=== PATIENT | female | born 1950 | race Caucasian/White ===

== ENCOUNTER → 2018-03-16 11:17 | Outpatient (CLI) | payer MEDICARE, OTHER, SELFPAY ==
[2018-03-16 13:11] LABS: PTHIN 31.8 pg/mL (18.4-80.1); Vitamin D,25 Hydroxy 33.4 ng/mL (29.95-100.01)
[2018-03-16 13:31] LABS: AST(SGOT) 21 U/L (15-37); Alanine Aminotransfer ALT/SGPT 24 U/L (13-56); Albumin, Serum 3.8 g/dL (3.2-5.0); Alkaline Phosphatase 71 U/L (45-117); Anion Gap 6 (5-15); BUN 22 mg/dL (7-18); BUN/Creat Ratio 37.1 RATIO (10-20); Calcium,Total 8.9 mg/dL (8.5-10.1); Chloride 106 mmol/L (98-107); Creatinine, Serum 0.59 mg/dL (0.55-1.02); EST Glomerular Filtration Rate 108 mL/min (>60); Est Glom Filt Rate - Afr Amer 130 mL/min (>60); Globulin 3.7 g/dL (2.2-4.2); Glucose 80 mg/dL (74-106); Magnesium 2.2 mg/dL (1.6-2.6); Potassium 3.8 mmol/L (3.5-5.1); Protein, Total 7.5 g/dL (6.4-8.2); Sodium Level 140 mmol/L (136-145)
[2018-03-19 16:10] LABS: Alkaline Phosphatase, Serum 68 IU/L (39-117); Bone Fraction 36 % (14-68); Liver Fraction 63 % (18-85)
[2018-03-20 12:25] LABS: Intestinal Fraction 1 % (0-18)
== END ==
PROVIDERS: Family Provider Family Medicine; PCP Family Medicine; Visit Provider Family Medicine
DX: E16.2 Hypoglycemia, unspecified (principal); R25.2 Cramp and spasm; E55.9 Vitamin D deficiency, unspecified; E04.2 Nontoxic multinodular goiter; M89.50 Osteolysis, unspecified site; R93.0 Abnormal findings on diagnostic imaging of skull and head, not elsewhere classified
CPT/HCPCS: 36415; 80053; 82306; 83735; 83970; 84075; 84080

== ENCOUNTER → 2018-12-17 14:05 | Outpatient (CLI) | payer MEDICARE, OTHER, SELFPAY ==
[2018-11-19 08:14] VITALS: BMI 27.9
[2018-12-17 15:32] LABS: Absolute Lymphocyte Count 1.57 X10^3/ul (0.83-4.51); Absolute Neutrophil Count 2.8 X10^3/uL (2.0-7.7); Basophil# 0.01 X10^3/uL; Basophil% 0.2 % (0-1); Eosinophil# 0.08 X10^3/uL; Eosinophils% 1.6 % (0-5); Hemoglobin 12.6 g/dl (12.0-15.0); Lymphocyte # 1.57 X10^3/ul (4.0); Lymphocyte % 31.8 % (19-41); Mean Corp Hgb Conc 32.3 g/gl (32-36); Mean Corpuscular Hgb 30.2 pg (27.0-32.0); Mean Corpuscular Volume 93.5 fL (81-99); Mean Platelet Vol. 11.9 fl (6.2-12.0); Monocyte# 0.45 X10^3/uL; Monocyte% 9.1 % (0-10); Neutrophil # 2.83 X10^3/uL (2.7-7.7); Neutrophil % 57.3 % (47-70); Platelet Count 192 K/mm3 (150-450); RBC Distribution Width CV 13.2 % (11.6-14.6); RBC Distribution Width SD 43.7 fl (35.1-43.9); Red Blood Count 4.17 M/mm3 (4.2-5.4); White Blood Count 4.9 K/mm3 (4.4-11.0)
[2018-12-17 15:33] LABS: POSITIVE COUNT NO; POSITIVE DIFFERENTIAL NO; POSITIVE MORPHOLOGY NO
[2018-12-17 16:06] LABS: Hemoglobin A1c 5.3 % (4.2-6.3)
[2018-12-17 16:09] LABS: PTHIN 30.8 pg/mL (18.4-80.1); Vitamin D,25 Hydroxy 19.5 ng/mL (29.95-100.01)
[2018-12-17 16:12] LABS: Cholesterol 236 mg/dL (200); High Density Lipoprotein 69 mg/dL; Thyroid Stim Hormone (TSH) 2.28 uIU/mL (0.358-3.74); Triglycerides 162 mg/dL; Very Low Density Lipoprotein 32 mg/dL (5-40)
[2018-12-18 10:43] LABS: ALB/GLOB Ratio 1.1 RATIO (0.9-2.4); AST(SGOT) 24 U/L (15-37); Alanine Aminotransfer ALT/SGPT 36 U/L (13-56); Alkaline Phosphatase 71 U/L (45-117); Anion Gap 11 (5-15); BUN 23 mg/dL (7-18); BUN/Creat Ratio 40.3 RATIO (10-20); Calcium,Total 9.2 mg/dL (8.5-10.1); Chloride 105 mmol/L (98-107); Creatinine, Serum 0.57 mg/dL (0.55-1.02); EST Glomerular Filtration Rate 112 mL/min (>60); Est Glom Filt Rate - Afr Amer 136 mL/min (>60); Globulin 3.8 g/dL (2.2-4.2); Glucose 83 mg/dL (74-106); Protein, Total 7.8 g/dL (6.4-8.2); Sodium Level 141 mmol/L (136-145)
[2018-12-20 16:07] LABS: Alkaline Phosphatase, Serum 69 IU/L (39-117); Bone Fraction 43 % (14-68); Liver Fraction 57 % (18-85)
[2018-12-21 12:22] LABS: Intestinal Fraction 0 % (0-18)
== END ==
PROVIDERS: Family Provider Family Medicine; PCP Family Medicine; Visit Provider Family Medicine
DX: M89.50 Osteolysis, unspecified site (principal); E04.2 Nontoxic multinodular goiter; E16.2 Hypoglycemia, unspecified; E55.9 Vitamin D deficiency, unspecified; E88.9 Metabolic disorder, unspecified; M90.80 Osteopathy in diseases classified elsewhere, unspecified site
CPT/HCPCS: 36415; 80053; 80061; 82306; 83036; 83970; 84075; 84080; 84439; 84443; 85025

== ENCOUNTER → 2019-01-17 07:54 | Outpatient (CLI) | payer MEDICARE, OTHER, SELFPAY ==
[2018-11-19 08:14] VITALS: BMI 27.9
[2019-01-17 09:57] LABS: Absolute Lymphocyte Count 1.23 X10^3/ul (0.83-4.51); Absolute Neutrophil Count 2.1 X10^3/uL (2.0-7.7); Basophil# 0.01 X10^3/uL; Basophil% 0.3 % (0-1); Eosinophil# 0.07 X10^3/uL; Eosinophils% 1.9 % (0-5); Hematocrit 39.9 % (37-47); Hemoglobin 12.5 g/dl (12.0-15.0); Lymphocyte # 1.23 X10^3/ul (4.0); Lymphocyte % 32.7 % (19-41); Mean Corp Hgb Conc 31.3 g/gl (32-36); Mean Corpuscular Hgb 29.6 pg (27.0-32.0); Mean Corpuscular Volume 94.5 fL (81-99); Mean Platelet Vol. 11.3 fl (6.2-12.0); Monocyte# 0.38 X10^3/uL; Monocyte% 10.1 % (0-10); Neutrophil # 2.07 X10^3/uL (2.7-7.7); Platelet Count 190 K/mm3 (150-450); RBC Distribution Width CV 13.4 % (11.6-14.6); RBC Distribution Width SD 44.4 fl (35.1-43.9); Red Blood Count 4.22 M/mm3 (4.2-5.4); White Blood Count 3.8 K/mm3 (4.4-11.0)
[2019-01-17 09:59] LABS: POSITIVE COUNT NO; POSITIVE DIFFERENTIAL NO; POSITIVE MORPHOLOGY NO
[2019-01-17 10:15] LABS: Progesterone Level 0.12 ng/mL (See Comment); Vitamin B12 796 pg/mL (211-911); Vitamin D,25 Hydroxy 27.9 ng/mL (29.95-100.01)
[2019-01-17 10:47] LABS: ALB/GLOB Ratio 1.1 RATIO (0.9-2.4); AST(SGOT) 24 U/L (15-37); Alanine Aminotransfer ALT/SGPT 35 U/L (13-56); Albumin, Serum 3.7 g/dL (3.2-5.0); Alkaline Phosphatase 65 U/L (45-117); Anion Gap 4 (5-15); BUN 15 mg/dL (7-18); CRP < 2.90 mg/L (0.0-3.0); Calcium,Total 8.5 mg/dL (8.5-10.1); Chloride 109 mmol/L (98-107); EST Glomerular Filtration Rate 106 mL/min (>60); Est Glom Filt Rate - Afr Amer 128 mL/min (>60); Estradiol 14.6 pg/mL; Free T3 2.8 pg/mL (2.18-3.98); Globulin 3.5 g/dL (2.2-4.2); Glucose 79 mg/dL (74-106); Potassium 3.7 mmol/L (3.5-5.1); Protein, Total 7.2 g/dL (6.4-8.2); Sodium Level 140 mmol/L (136-145); T4 Free Direct 0.92 ng/dL (0.76-1.46); Thyroid Stim Hormone (TSH) 1.83 uIU/mL (0.358-3.74)
[2019-01-18 11:23] LABS: Thyroid Peroxidase AB 14 IU/mL (0-34)
[2019-01-19 16:54] LABS: ANTINUCLEAR ANTIBODIES DIRECT Negative (Negative)
== END ==
PROVIDERS: Family Provider Family Medicine; PCP Family Medicine; Referring Provider Preventive Medicine Public Health & General Preventive Medicine; Visit Provider Preventive Medicine Public Health & General Preventive Medicine
DX: M79.7 Fibromyalgia (principal); D64.9 Anemia, unspecified; E03.9 Hypothyroidism, unspecified; E34.9 Endocrine disorder, unspecified; N95.1 Menopausal and female climacteric states; E55.9 Vitamin D deficiency, unspecified; E53.8 Deficiency of other specified B group vitamins
CPT/HCPCS: 36415; 80053; 82306; 82607; 82670; 82746; 84144; 84403; 84439; 84443; 84481; 85025; 86038; 86140; 86376

== ENCOUNTER 2019-04-18 21:21 | Observation (INO) | payer MEDICARE, OTHER, SELFPAY ==
[2018-11-19 08:14] VITALS: BMI 27.9
[2019-04-18 21:22] VITALS: BP 116/48; PULSE 78; RESP 16; TEMP 36.5; O2SAT 100; BMI 27.0
--- NOTE | 2019-04-18 21:34 | CT_ITS ---
STUDY: CT ABDOMEN AND PELVIS WITHOUT CONTRAST REASON FOR EXAM: Female, 68 years old. Upper lower abdominal pain with nausea. History of hysterectomy. RADIATION DOSAGE (If Supplied By Facility): CTDIvol = ( 15.75 ) mGy, DLP = ( 790.79 ) mGycm TECHNIQUE: Transaxial images were obtained from the dome of the diaphragm to the symphysis pubis without oral contrast, and without intravenous contrast. Sagittal and coronal images were reconstructed. Individualized dose optimization techniques were used for this CT. COMPARISON: None. FINDINGS: The visualized lung bases are unremarkable. The visualized portions of the heart are within normal limits. Normal liver. Normal gallbladder and extrahepatic biliary system. Normal spleen. Normal pancreas. Normal bilateral adrenal glands. There is a exophytic lesion of the right kidney concerning for cortical lesion versus hyperdense cyst measuring approximately 1.6 cm as seen on series 2 image 35. Additional hypodense cyst of the inferior left medial kidney is noted measuring 1 cm. There is dilatation of the stomach, duodenum and jejunum extending to the mid abdomen. Within the mid jejunal section is a long region of small bowel dilatation dilatation with small bowel feces sign which terminates within the right quadrant which is most suggestive of underlying progressively developing obstruction and slowed intestinal transit. Normal colon. There is non-visualization of the appendix. Normal abdominal aorta. Normal inferior vena cava. Normal retroperitoneum. Normal urinary bladder. There is absence of the uterus consistent with a prior hysterectomy. Normal abdominal wall. Normal osseous structures. CT/Abdomen/Pelvis without Cont IMPRESSION: 1. Dilated stomach, duodenum and proximal small bowel with associated small bowel feces sign terminating within the right mid quadrant and likely transition point which is suggestive of low-grade small bowel obstruction and progressively slow transit. Recommend general surgery consultation for further assessment and management. 2. Exophytic lesion of the right medial kidney suggestive of hyperdense cyst however incompletely characterized. Further evaluation may be obtained with dedicated pelvic ultrasound as clinically warranted. Electronically Signed: Bharath Elise DO at 22:35 EDT , Service support ,
[2019-04-18] MEDS: 0.9% Normal Saline 1,000 ML 1000 ML IV (21:44)
[2019-04-18] MEDS: Ondansetron 4 MG/2 ML Vial IV (21:44)
[2019-04-18] MEDS: Morphine 2 MG/ML Syringe IV (21:44)
[2019-04-18 21:47] LABS: Absolute Lymphocyte Count 1.31 X10^3/ul (0.83-4.51); Absolute Neutrophil Count 3.4 X10^3/uL (2.0-7.7); Basophil# 0.01 X10^3/uL; Basophil% 0.2 % (0-1); Eosinophil# 0.05 X10^3/uL; Hematocrit 40.7 % (37-47); Hemoglobin 13.7 g/dl (12.0-15.0); Lymphocyte # 1.31 X10^3/ul (4.0); Lymphocyte % 25.2 % (19-41); Mean Corp Hgb Conc 33.7 g/gl (32-36); Mean Corpuscular Hgb 30.2 pg (27.0-32.0); Mean Corpuscular Volume 89.6 fL (81-99); Mean Platelet Vol. 10.4 fl (6.2-12.0); Monocyte# 0.42 X10^3/uL; Monocyte% 8.1 % (0-10); Neutrophil % 65.5 % (47-70); POSITIVE COUNT NO; POSITIVE DIFFERENTIAL NO; POSITIVE MORPHOLOGY NO; Platelet Count 204 K/mm3 (150-450); RBC Distribution Width SD 42.5 fl (35.1-43.9); Red Blood Count 4.54 M/mm3 (4.2-5.4); White Blood Count 5.2 K/mm3 (4.4-11.0)
[2019-04-18 22:00] LABS: AST(SGOT) 23 U/L (15-37); Alanine Aminotransfer ALT/SGPT 24 U/L (13-56); Albumin, Serum 4.3 g/dL (3.2-5.0); Alkaline Phosphatase 151 U/L (45-117); Anion Gap 7 (5-15); BUN 16 mg/dL (7-18); BUN/Creat Ratio 20.3 RATIO (10-20); Calcium,Total 9.6 mg/dL (8.5-10.1); Chloride 102 mmol/L (98-107); Creatinine, Serum 0.79 mg/dL (0.55-1.02); EST Glomerular Filtration Rate 77 mL/min (>60); Est Glom Filt Rate - Afr Amer 94 mL/min (>60); Estimated Creatinine Clearance 53.09 ml/min; Globulin 4.1 g/dL (2.2-4.2); Glucose 107 mg/dL (74-106); Lipase 161 U/L (73-393); Potassium 3.3 mmol/L (3.5-5.1); Protein, Total 8.4 g/dL (6.4-8.2); Sodium Level 137 mmol/L (136-145)
--- NOTE | 2019-04-18 22:05 | ED.RN ---
PT C/O INCREASED PAIN. WILL NOTIFIED DR DIANE
[2019-04-18] MEDS: Morphine 4 MG/ML Syringe IV (22:10)
[2019-04-18 22:11] VITALS: BP 108/66; PULSE 79; RESP 22; O2SAT 98
--- NOTE | 2019-04-18 22:48 | ED.DCSUM_ITS ---
- ER Visit Summary Date of Service: 04/18/19 Chief Complaint: Abdominal pain History of Present Illness: The patient is a [address] Alonso. She reports she has abdominal pain that began yesterday. Is gradually gotten worse. Says sharp, cramping pain that is 9 out of 10 at worst and 7-10 currently. Is worsened by eating. Is relieved by vomiting. Reports she has been nausea and vomited 4 times. No blood or emesis. She reports her last bowel movement was today, but was very small. She has normal bowel movement yesterday. However, she is not passing flatus. She denies any dysuria frequency. No fever or chills. She has never had anything like this before. Patient does have a history of a hysterectomy, rectocele repair, and uterine suspension. Physical Examination: Vitals: Stable. Afebrile. General: Well-nourished and well-developed. Head: Normocephalic atraumatic. Neck: Supple, no lymphadenopathy. No JVD. Nontender. Cardiovascular: Regular rate and rhythm. No murmurs. Respiratory: No respiratory distress. Clear to auscultation bilaterally. Abdominal: Soft, mild diffuse tenderness palpation, nondistended, hypoactive bowel sounds. No guarding, rebound, or peritoneal signs. Back: Nontender. Extremities: Nontender, no edema. Skin: Normal color, no rash. Neurologic: Alert and oriented ?3. Cranial nerves II through XII are intact. Normal strength and sensation. Psych: Normal affect. Test Results: CBC is normal. Chem-7 shows a potassium 3.3 and glucose 107. LFTs showed a total protein of 8.4 and alk phos 151. Lipase is negative. Clinical Impression(s) from Imaging Studies Abdomen/Pelvis CT 04/18/19 21:34 IMPRESSION: 1. Dilated stomach, duodenum and proximal small bowel with associated small bowel feces sign terminating within the right mid quadrant and likely transition point which is suggestive of low-grade small bowel obstruction and progressively slow transit. Recommend general surgery consultation for further assessment and management. 2. Exophytic lesion of the right medial kidney suggestive of hyperdense cyst however incompletely characterized. Further evaluation may be obtained with dedicated pelvic ultrasound as clinically warranted. Electronically Signed: Bharath Elise DO at 22:35 EDT , Service support , Emergency Department Course and Treatment: Patient was treated with morphine and Zofran IV. She was given a 4% lidocaine aerosol and had an NG placed without difficulty. Treatment Plan: Patient was discussed with Dr. Patino. She will be admitted to the hospital for further relation and treatment. Disposition: Admitted in improved condition. Impression: 1. Small bowel obstruction. This note was generated with [employer] dictation software. It may contain incorrect words, spelling, and punctuation that were not noted in review of the chart judd or to signing ED Disposition - Plan for ED Patient: Referrals: Tom Alonso DO [Primary Care Provider] -
--- NOTE | 2019-04-18 22:57 | RAD_ITS ---
STUDY: X-RAY - ABDOMEN/PELVIS REASON FOR EXAM: Female, 69 years old. Documentation of nasogastric tube placement. TECHNIQUE: Single AP view of the abdomen / pelvis. COMPARISON: CT of the abdomen and pelvis dated April 18, 2019. FINDINGS: Normal visualized lung bases. There is an unremarkable bowel gas pattern. Enteric tube is present with the tip in the left upper quadrant. There is no obvious organomegaly, mass or dilated bowel. Normal soft tissue structures. The bones appear osteopenic. RAD/Abdomen Single View (Portable) IMPRESSION: Appropriate positioning of the nasogastric tube. Electronically Signed: Amber Bethea MD at 1:10 EDT , Service support ,
[2019-04-18] MEDS: Lidocaine 4% 50 ML Bottle TOPICAL (23:18)
[2019-04-18 23:24] LABS: Bacteria 0 SEEN /hpf (None Seen); Mucous, Urine 0 SEEN /hpf (<or=2+); Red Blood Cells-Urine 0 SEEN /hpf (0-5); White Blood Cells 0 SEEN /hpf (0-5)
--- NOTE | 2019-04-18 23:25 | CPS ---
Aerosolized Lidocaine for NG placement
[2019-04-18 23:26] LABS: Color, Urine Yellow (Yellow); Glucose, Dipstick Normal (Normal); Ketone-Dipstick 50 mg/dl (Negative); Leukocyte Esterase-Dipstick Negative /ul (Negative); Nitrite-Dipstick Negative (Negative); Occult Blood-Urine Negative /ul (Negative); Protein-Dipstick Negative (Negative); Urine Bilirubin Dipstick Negative (Negative); Urine Clarity Sl. Cloudy (Clear); Urine Urobilinogen Normal (Normal)
[2019-04-18 23:27] VITALS: BP 122/59; PULSE 59; RESP 18; TEMP 36.9; O2SAT 98
[2019-04-18 23:32] LABS: Squamous Epithelial Cells - UA 5-10 SEEN /hpf (5-10)
[2019-04-19 00:52] VITALS: BMI 26.7
[2019-04-19 00:54] VITALS: BP 121/65; PULSE 88; RESP 17; TEMP 37; O2SAT 95
[2019-04-19 00:59] VITALS: BMI 26.8
[2019-04-19] MEDS: Lactated Ringers 1,000 ML 150 ML IV ×2 (01:06→07:25)
[2019-04-19] MEDS: Potassium Chloride 10mEq/100mL 10 MEQ/100 ML IV.SOLN. 100 MEQ IV BOLUS ×2 (01:20→02:24)
[2019-04-19 04:15] VITALS: BP 114/55; PULSE 89; RESP 17; TEMP 37.9; O2SAT 95
--- NOTE | 2019-04-19 05:55 | RAD_ITS ---
STUDY: X-RAY - ABDOMEN/PELVIS REASON FOR EXAM: Female, 69 years old. Pain. Small bowel obstruction. TECHNIQUE: AP supine and upright views of the abdomen and pelvis. COMPARISON: April 18, 2019 FINDINGS: Normal visualized lung bases. Feeding tube extends to the stomach in the left upper quadrant. There is an unremarkable bowel gas pattern. No dilated loops of bowel. Moderate stool. There is no demonstrated free abdominal air. The visualized liver, spleen and kidneys are grossly normal in size and morphology. Postoperative changes in the lower abdomen. Normal visualized osseous structures. RAD/Abd Inc Decub and/or Erect IMPRESSION: No dilated bowel. Electronically Signed: David Fisher MD at 12:51 EDT , Service support ,
[2019-04-19 05:58] VITALS: TEMP 38.2
--- NOTE | 2019-04-19 06:21 | PCM.HP.STD ---
History of Present Illness Date of Admission: 04/19/19 The patient is a 69 year old F presents to the ER due to abdominal pain. Patient states she initially had the pain on Monday afternoon got worse by the evening had some nausea and vomiting which made it better patient yesterday was able to have late lunch and breakfast however by the evening the pain got to a 9?10/10 and she came to the ER. Patient states yesterday she had a small bowel movement she denies having any flatus recently. Patient denies ever having a history of a bowel obstruction. Currently patient states her pain 0 out of 10. Patient did have NG placed in the ER which got about 800cc out and she had additional 150cc on the floor. Patient did have a fever of 100.2 and 100.8 this morning however patient's room was also 80 and she had a blanket on. Past Medical History Medical History: Medical History (Last Reviewed 11/19/18 @ 08:13 by Yoly Quintanilla) Abnormal Pap smear of cervix R87.619 Abnormal thermography R93.89 Thyroid nodule E04.1 Benign Allergies azithromycin [From Zithromax Z-Rasheed] Allergy (Mild, Verified 04/18/19 21:24) heart racing levofloxacin [From Levaquin] Allergy (Mild, Verified 04/18/19 21:24) muscle pain, heart racing amantadine Allergy (Verified 04/18/19 21:24) Other cortisone Allergy (Verified 04/18/19 21:24) Other fluoxetine HCl [From Prozac] Allergy (Verified 04/18/19 21:24) Other Home Medications: Ambulatory Orders Medication Instructions Recorded Calcium Carbonate/Vitamin D3 1 ea PO DAILY 04/27/15 [Calcium 600 + Vit D3 Caplet] Multivitamins,Ther W-Minerals 1 tab PO DAILY 04/27/15 [Multivitamin With Minerals] Magnesium Oxide [Magnesium] 800 mg PO DAILY 04/19/19 Surgical History: Surgical History (Last Updated 11/19/18 @ 08:13 by Yoly Quintanilla) Rectocele Onset Date: ~2017 N81.6 FH: BETHEL-BSO (total abdominal hysterectomy and bilateral salpingo-oophorectomy) Onset Date: ~1989 Z84.2 Vaginal prolapse N81.10 repaired 2016 Surgical History: hysterectomy, - - rectocele repair, and uterine suspension Psychiatric History: No pertinent psych hx Smoking Status: Never smoker - *Family History Maternal Family History: Family History (Last Reviewed 11/19/18 @ 08:13 by Yoly Quintanilla) Father Cancer Grandmother Heart disease Grandfather Colon cancer History Items: No pertinent history Review of Systems Constitutional: Reports: Anorexia, Fever - Just this morning question if it is due to room temperature and blanket or something else Eyes: Denies: Blurred vision HEENT: Denies: Difficulty Swallowing Cardiovascular: Denies: Chest Pain Respiratory: Denies: Cough Gastrointestinal: Denies: Abdominal Pain - Denies currently, Nausea, Vomiting Neurological: Denies: Balance problems Psychiatric: Denies: Depression Hematologic/ Lymphatic: Denies: Easy Bleeding VTE Information - Inpt Only VTE Present on Admission: Yes VTE Mechan Device Prophylaxis: SCD's - Physical Exam General: Alert, Oriented x3, Cooperative, No apparent distress HEENT: - - NG in place Lungs: Normal air movement Cardiovascular: Regular rate Abdomen: Soft, Non-Distended, Tender - Mild in the right lower quadrant, no peritoneal signs Extremities: No clubbing, No cyanosis, No edema Psych/Mental Status: Normal Affect Vital Signs Temp Pulse Resp BP Pulse Ox 100.8 F H 89 17 114/55 L 95 04/19/19 05:58 04/19/19 04:15 04/19/19 04:15 04/19/19 04:15 04/19/19 04:15 Oxygen Delivery Method Room Air Weight: 170 lb 13.732 oz Body Mass Index (BMI) 26.7 Intake and Output for Last 24 Hours 04/17/19 04/18/19 04/19/19 23:59 23:59 23:59 Intake Total 697 / 697 Output Total 1100 / 1100 Balance -403 / -403 Laboratory Tests Past 24 Hrs 04/18/19 04/18/19 04/18/19 21:40 21:40 23:17 WBC 5.2 RBC 4.54 Hgb 13.7 Hct 40.7 MCV 89.6 MCH 30.2 MCHC 33.7 RDW 13.0 RDW Differential 42.5 Plt Count 204 MPV 10.4 Immature Gran % (Auto) 0.000 Neut % (Auto) 65.5 Lymph % (Auto) 25.2 [place] % (Auto) 8.1 Eos % (Auto) 1.0 Baso % (Auto) 0.2 Absolute Neuts (auto) 3.4 Absolute Lymphs (auto) 1.31 Total Counted Not Reportable Sodium 137 Potassium 3.3 L Chloride 102 Carbon Dioxide 28.0 Anion Gap 7 BUN 16 Creatinine 0.79 Estim Creat Clear Calc 53.09 Est GFR (MDRD) Af Amer 94 Est GFR (MDRD) Non-Af 77 BUN/Creatinine Ratio 20.3 H Glucose 107 H Calcium 9.6 Total Bilirubin 0.60 AST 23 ALT 24 Alkaline Phosphatase 151 H Total Protein 8.4 H Albumin 4.3 Globulin 4.1 Albumin/Globulin Ratio 1.0 Lipase 161 Urine Color Yellow Urine Clarity Sl. Cloudy Urine pH 8.0 Ur Specific [place] 1.010 Urine Protein Negative Urine Glucose (UA) Normal Urine Ketones 50 H Urine Occult Blood Negative Urine Nitrite Negative Urine Bilirubin Negative Urine Urobilinogen Normal Ur Leukocyte Esterase Negative Urine RBC 0 SEEN Urine WBC 0 SEEN Ur Squamous Epith Cells 5-10 SEEN Urine Bacteria 0 SEEN Urine Mucus 0 SEEN Assessment/Plan 69-year-old female with small bowel obstruction 1. Keep patient n.p.o./IV fluids and NG. We will check KUB this morning. Patient states her pain is a 0 out of 10 currently. Likely also check a small bowel follow-through today. Did discuss with patient that if this does not resolve she may need surgery which could include diagnostic laparoscopy, possible laparotomy, possible bowel resection including risk but not limited to bleeding, infection, injury to another organ i.e. colon/small bowel, future adhesions, and hernia at incision site. Patient no further questions this time. 2. Unsure patient's temperature is due to the warm room of 80 degrees with the blanket will try to cool the room down to see if patient's temperature improves. Shante Patino M.D. Pager: [phone] [facility] [address] [place] [address], Outpatient [place], [address] [place] [address] Office: [phone] Code Visit Inpatient E&M: 72980 Init Hosp L2
--- NOTE | 2019-04-19 06:24 | NURSING ---
PT TAKEN TO XRAY VIA BED BY TYRA DELCID
[2019-04-19 06:39] LABS: Absolute Lymphocyte Count 0.63 X10^3/ul (0.83-4.51); Absolute Neutrophil Count 3.7 X10^3/uL (2.0-7.7); Eosinophil# 0.05 X10^3/uL; Hematocrit 38.3 % (37-47); Hemoglobin 12.5 g/dl (12.0-15.0); Lymphocyte # 0.63 X10^3/ul (4.0); Lymphocyte % 13.2 % (19-41); Mean Corp Hgb Conc 32.6 g/gl (32-36); Mean Corpuscular Hgb 29.3 pg (27.0-32.0); Mean Corpuscular Volume 89.9 fL (81-99); Mean Platelet Vol. 10.6 fl (6.2-12.0); Monocyte# 0.45 X10^3/uL; Monocyte% 9.4 % (0-10); Neutrophil # 3.65 X10^3/uL (2.7-7.7); Neutrophil % 76.2 % (47-70); Platelet Count 172 K/mm3 (150-450); RBC Distribution Width CV 13.1 % (11.6-14.6); RBC Distribution Width SD 42.5 fl (35.1-43.9); Red Blood Count 4.26 M/mm3 (4.2-5.4); White Blood Count 4.8 K/mm3 (4.4-11.0)
[2019-04-19 06:46] LABS: POSITIVE COUNT NO; POSITIVE DIFFERENTIAL NO; POSITIVE MORPHOLOGY NO
[2019-04-19 07:09] LABS: Anion Gap 7 (5-15); BUN 16 mg/dL (7-18); BUN/Creat Ratio 24.9 RATIO (10-20); Calcium,Total 8.3 mg/dL (8.5-10.1); Chloride 108 mmol/L (98-107); Creatinine, Serum 0.64 mg/dL (0.55-1.02); EST Glomerular Filtration Rate 98 mL/min (>60); Est Glom Filt Rate - Afr Amer 118 mL/min (>60); Estimated Creatinine Clearance 52.36 ml/min; Glucose 106 mg/dL (74-106); Magnesium 2.1 mg/dL (1.6-2.6); Sodium Level 141 mmol/L (136-145)
[2019-04-19 07:33] VITALS: BP 103/55; PULSE 83; RESP 18; TEMP 37.1; O2SAT 95
--- NOTE | 2019-04-19 08:58 | CASEMGMT ---
As per admitting lidar scientist, pt has LW/POA forms and will bring in, not on file at present. BRIGHT Watts
--- NOTE | 2019-04-19 09:00 | RAD_ITS ---
CLINICAL HISTORY: Female, 69 years old. PROCEDURE: CONSENT: done SEDATION: None FLUOROSCOPY TIME (if supplied): (0:25) minutes/seconds [employer] film reveals no evidence of gaseous distention of. There is elongation of the right lobe of the liver that is reaching the iliac crest. Gastrografin was introduced in through the NG tube multiple abdominal films immediately were obtained then at 15 minutes, 30 minutes, 70 and 85 minutes. There is no evidence of bowel obstruction. Spot films in the right lower quadrant revealed no abnormality detected the contrast noted within the cecum and colon. IMPRESSION: Negative study Electronically Signed: Coy Landry, at 14:30 EDT Tel , Service support , RAD/Small Bowel Series Only
[2019-04-19] MEDS: Bisacodyl 10 MG Suppository RECTAL (10:47)
--- NOTE | 2019-04-19 10:53 | NURSING ---
PT HAS RETURNED FROM X-RAY AND IV RECONNECTED SUPPOSITORY PLACED IN RECTUM INSTRUCTED-PT WILL GET UP TO BR W/ SBA WHEN HAS URGE TO HAVE A B.M. AT BEDSIDE PT REQUESTING N/G TO BE REMOVED AND EXPLAINED TO PT THAT WE DON NOT WNAT TO REMOVE PREMATURELY, WE WILL WANT TO MAKE SURE THAT SHE DOES NOT GET N/V AND THAT THINGS MOVE THRU BETTER THAN THEY HAVE IN PAST 24 HOURS OR SO SHE VOICES UNDERSTANDING
[2019-04-19] MEDS: Magnesium Citrate 300 ML 150 ML PO (11:36)
[2019-04-19] MEDS: BENZOCAINE/MENTHOL 1 LOZENGE MUCOUS MEM (11:36)
--- NOTE | 2019-04-19 12:26 | PCM.PN.BLA ---
Progress Note Patient small bowel follow-through contrast made to the colon. Patient is having no abdominal pain and flatus and bowel movements. Patient able to tolerate regular diet okay to DC.
--- NOTE | 2019-04-19 12:27 | DCINST_ITS ---
Discharge Diet: Light diet - advance as tolerated Lifting Restrictions: none Additional Instructions: Okay to take additional half of magnesium citrate tomorrow if you do not feel like you had a lot of bowel function/bowel movements, since your colon had quite a bit of stool in it. Allergies/Adverse Reactions: Allergies azithromycin [From Zithromax Z-Rasheed] Allergy (Mild, Verified 04/18/19 21:24) heart racing levofloxacin [From Levaquin] Allergy (Mild, Verified 04/18/19 21:24) muscle pain, heart racing amantadine Allergy (Verified 04/18/19 21:24) Other cortisone Allergy (Verified 04/18/19 21:24) Other fluoxetine HCl [From Prozac] Allergy (Verified 04/18/19 21:24) Other Medications to take at Discharge Calcium Carbonate/Vitamin D3 [Calcium 600 + Vit D3 Caplet] 1 ea PO DAILY 04/27/15 Multivitamins,Ther W-Minerals [Multivitamin With Minerals] 1 tab PO DAILY 04/27/15 Magnesium Oxide [Magnesium] 800 mg PO DAILY 04/19/19 Primary Care Physician: Tom Alonso DO [Primary Care Provider] - Test Results: Test results from this visit will be discussed in further detail at your follow- up appointment, if applicable. Please Follow Up With: Shante Patino MD When: only if still having abd pain/issues, otherwise ok to f/u w PCP Proposed Discharge Date: 04/19/19
[2019-04-19 16:01] VITALS: BP 90/55; PULSE 68; RESP 16; TEMP 37; O2SAT 94
== END 2019-04-19 16:31 | disposition home or self-care (01) ==
LOC: ED 22:19 → MS3 04-19 00:14
PROVIDERS: Admitting Provider Surgery; Emergency Provider Emergency Medicine; Family Provider Family Medicine; PCP Family Medicine; Visit Provider Surgery
DX: K56.609 Unspecified intestinal obstruction, unspecified as to partial versus complete obstruction (principal); N28.9 Disorder of kidney and ureter, unspecified
CPT/HCPCS: 36415; 74018; 74019; 74176; 74250; 80048; 80053; 81001; 83690; 83735; 85025; 94640; 96361; 96374; 96375; 96376; 99218; 99285; J7030; J7120; A4216; G0378; J2405; J3490

== ENCOUNTER 2019-04-25 15:14 | Emergency (ER) | payer MEDICARE, OTHER, SELFPAY ==
[2019-04-25 14:15] VITALS: BMI 26.7
[2019-04-25 15:14] VITALS: BP 113/70; PULSE 80; RESP 16; TEMP 36.3; O2SAT 98; BMI 26.4
--- NOTE | 2019-04-25 15:21 | CT_ITS ---
STUDY: CT ABDOMEN AND PELVIS WITH CONTRAST REASON FOR EXAM: Female, 69 years old. Upper abdominal pain. RADIATION DOSAGE (If Supplied By Facility): CTDIvol = ( 17.41 ) mGy, DLP = ( 906.41 ) mGycm TECHNIQUE: Transaxial images were obtained from the dome of the diaphragm to the symphysis pubis without oral contrast. 100mL IV/Oral Isovue 300 was administered. Sagittal and coronal images were reconstructed. Individualized dose optimization techniques were used for this CT. COMPARISON: April 18, 2019 and ultrasound dated April 25, 2019. FINDINGS: There is a stable bleb within the right lower lobe. The visualized portions of the heart are within normal limits. There are scattered too small to characterize low-attenuation foci within the liver which may reflect underlying cysts and/or hemangiomas. There is mild hepatomegaly. Normal gallbladder and extrahepatic biliary system. Normal spleen. Normal pancreas. Normal bilateral adrenal glands. There is a 1.3 cm right renal cyst is visualized on the patient recent ultrasound. Normal left kidney. Normal visualized stomach. Normal small intestine. There are scattered diverticula throughout the sigmoid colon. The appendix is visualized and appears normal. Normal abdominal aorta. Normal inferior vena cava. Normal retroperitoneum. Normal urinary bladder. There is absence of the uterus consistent with a prior hysterectomy. Normal abdominal wall. There is a lucency within the left sacrum (image 70 series 2 associated with adjacent sclerosis. There are degenerative changes of the lumbar spine. CT/Abdomen/Pelvis WITH Contrast IMPRESSION: Left-sided sacral insufficiency fracture. Mild hepatomegaly. Colonic diverticulosis. Electronically Signed: Dixie Tapia MD at 18:22 EDT Tel , Service support ,
[2019-04-25] MEDS: Ondansetron ODT 4 MG Tablet 8 MG PO (15:51)
[2019-04-25 16:09] LABS: Absolute Lymphocyte Count 1.63 X10^3/ul (0.83-4.51); Absolute Neutrophil Count 2.3 X10^3/uL (2.0-7.7); Basophil# 0.01 X10^3/uL; Basophil% 0.2 % (0-1); Eosinophil# 0.07 X10^3/uL; Eosinophils% 1.6 % (0-5); Hematocrit 38.2 % (37-47); Hemoglobin 12.4 g/dl (12.0-15.0); Lymphocyte # 1.63 X10^3/ul (4.0); Lymphocyte % 36.8 % (19-41); Mean Corp Hgb Conc 32.5 g/gl (32-36); Mean Corpuscular Hgb 29.3 pg (27.0-32.0); Mean Corpuscular Volume 90.3 fL (81-99); Mean Platelet Vol. 10.7 fl (6.2-12.0); Monocyte# 0.42 X10^3/uL; Monocyte% 9.5 % (0-10); Neutrophil % 51.9 % (47-70); Platelet Count 198 K/mm3 (150-450); RBC Distribution Width CV 13.2 % (11.6-14.6); RBC Distribution Width SD 43.1 fl (35.1-43.9); Red Blood Count 4.23 M/mm3 (4.2-5.4); White Blood Count 4.4 K/mm3 (4.4-11.0)
[2019-04-25 16:10] LABS: POSITIVE COUNT NO; POSITIVE DIFFERENTIAL NO; POSITIVE MORPHOLOGY NO
[2019-04-25 16:19] LABS: Anion Gap 4 (5-15); BUN 12 mg/dL (7-18); BUN/Creat Ratio 18.2 RATIO (10-20); Calcium,Total 9.1 mg/dL (8.5-10.1); Chloride 109 mmol/L (98-107); Creatinine, Serum 0.66 mg/dL (0.55-1.02); EST Glomerular Filtration Rate 95 mL/min (>60); Est Glom Filt Rate - Afr Amer 115 mL/min (>60); Estimated Creatinine Clearance 52.36 ml/min; Glucose 83 mg/dL (74-106); Sodium Level 140 mmol/L (136-145)
--- NOTE | 2019-04-25 16:51 | US_ITS ---
STUDY: ABDOMINAL ULTRASOUND - RIGHT UPPER QUADRANT REASON FOR VISIT: Female, 69 years old. Bloating. Nausea. TECHNIQUE: Ultrasound evaluation of the right upper quadrant was performed with real-time and static garcia-scale imaging. TECHNICAL QUALITY: Adequate. COMPARISON: None. FINDINGS: Liver: The liver measures 18.2 cm. There is normal echogenicity of the liver. The bile ducts are within normal limits. There is hepatic color flow. The direction of portal flow is hepatopetal. There is no demonstrated mass lesion. Gallbladder: Normal distended gallbladder. The gallbladder wall measures 2.0 mm. There is a negative sonographic Tinsley's sign. There is no pericholecystic fluid. There are no gallstones. Common Bile Duct (C.B.D.): The common bile duct measures 4.9 mm. Pancreas: Normal size of the head, body and tail of the pancreas. There is normal echogenicity of the pancreas. There is no demonstrated pancreatic mass or cyst. Right Kidney: Normal size of the right kidney. The right kidney measures 10.8 cm in length. Normal renal cortex. There is a simple 1.8 x 1.6 cm renal cyst. There is no right hydronephrosis. US/Gallbladder IMPRESSION: 1.8 x 1.6 cm right renal cyst otherwise within normal limits examination. Electronically Signed: Dixie Tapia MD at 18:12 EDT Tel , Service support ,
--- NOTE | 2019-04-25 16:52 | ED.VIS.GI ---
History of Present Illness Chief Complaint: Abd Pain Informant: Patient - Abdominal Pain/Flank Pain Onset: Days - 3 Context: Gradual Onset Timing: Waxes and wanes Quality: Aching Location: RUQ, - - Also lower abdomen where she feels bloated Current Severity: Moderate Maximum Severity: Moderate Worsened by: Food Relieved by: Nothing - Nausea/Vomiting/Emesis GI Symptom: Nausea, Vomiting - Couple dry heaves but no other vomiting - Diarrhea/Melena/Hematochezia GI Symptom: Diarrhea - Small amount after normal bowel movement this morning. Negative for: Melena, Hematochezia Associated Symptoms: Negative for: Dysuria, Frequency, Hematuria, Urgency Narrative: Patient recently in for a bowel obstruction and was treated with an NG tube, she was discharged 6 days ago and was feeling better but gradually has been feeling worse in the past 3 days and was recommended to come to the ED for a CAT scan to rule out recurrent bowel obstruction. She has had several prior bowel surgeries, none recent. She is otherwise healthy. She states several days ago she had aching right upper quadrant pain with nausea about an hour after eating a pastry, since then she has been just eating broth and drinking fluids and has had no severe symptoms since then. Recent Illness/Hospitalization: Yes - for SBO, treated nonsurgically Past Medical History - Allergies and Home Meds Allergies/Adverse Reactions: Allergies azithromycin [From Zithromax Z-Rasheed] Allergy (Mild, Verified 04/25/19 15:17) heart racing levofloxacin [From Levaquin] Allergy (Mild, Verified 04/25/19 15:17) muscle pain, heart racing amantadine Allergy (Verified 04/25/19 15:17) Other cortisone Allergy (Verified 04/25/19 15:17) Other fluoxetine HCl [From Prozac] Allergy (Verified 04/25/19 15:17) Other Penicillins Allergy (Verified 04/25/19 15:17) Unknown Primary Care Physician: Tom Alonso DO [Primary Care Provider] - Surgical History: hysterectomy, - - rectocele repair, and bladder suspension Smoking Status: Smoker, status unknown Drugs: None - Family History Maternal Family History: Family History (Last Reviewed 04/25/19 @ 14:14 by Vanessa Teran) Father Cancer Grandmother Heart disease Grandfather Colon cancer Family History: Reports: No pertinent history Review of Systems General: Reports: Malaise. Denies: Chills, Fever, Sweats Eyes: Denies: Visual changes - bilaterally, Diplopia ENT: Denies: Rhinorrhea, Sore throat Cardiovascular: Denies: Chest pain, Palpitations Respiratory: Denies: Dyspnea, Cough, Dyspnea on exertion Gastrointestinal: Reports: Abdominal pain, Nausea, Vomiting, Diarrhea. Denies: Melena, Hematochezia Genitourinary: Denies: Dysuria, Hematuria, Frequency Musculoskeletal: Denies: Back pain, Swelling, Extremity Pain Skin: Denies: Rash, Wounds Neurological: Denies: Headache, Weakness, Numbness Physical Exam Vital Signs/Narrative: Vital Signs Temp Pulse Resp BP Pulse Ox 04/25/19 15:14 97.4 F L 80 16 113/70 98 Inital Vital Signs reviewed: Yes General: Well nourished, Well developed, No Acute Distress Head: Normocephalic, Atraumatic Eyes: Perrl, EOMI ENT: Moist mucous membranes, No rhinorrhea Neck: Supple, Nontender Cardiovascular: Regular rate, Regular rhythm, No murmurs Respiratory: No distress, CTA bilaterally, Chest nontender Abdomen: Soft, Nondistended, Normal bowel sounds, Tender - RUQ w/ neg Tinsley's. mildly tender across lower abd, nonfocal.. Negative for: Guarding Back: Nontender, Normal Inspection. Negative for: CVA tenderness Extremities: Nontender, No edema. Negative for: Calf Tenderness Skin: Normal color, No rash, No Trauma Neurological: Alert, Oriented x3, Cranial nerves II-XII grossly intact, Normal Strength, Normal Sensation Psychological: Normal affect, Normal Mood Diagnostic/Tx/Re-eval CT: Abdomen and Pelvis - nothing acute, see below US: RUQ - nothing acute, see below Impressions Abdomen/Pelvis CT 04/25/19 15:21 IMPRESSION: Left-sided sacral insufficiency fracture. Mild hepatomegaly. Colonic diverticulosis. Electronically Signed: Dixie Tapia MD at 18:22 EDT Tel , Service support , Gallbladder Ultrasound 04/25/19 16:51 IMPRESSION: 1.8 x 1.6 cm right renal cyst otherwise within normal limits examination. Electronically Signed: Dixie Tapia MD at 18:12 EDT Tel , Service support , 04/25/19 15:21 Abdomen/Pelvis WITH Contrast [CT] Stat 04/25/19 16:51 Gallbladder [US] Stat Laboratory Results 04/25/19 04/25/19 04/25/19 15:55 15:55 15:55 WBC 4.4 RBC 4.23 Hgb 12.4 Hct 38.2 MCV 90.3 MCH 29.3 MCHC 32.5 RDW 13.2 RDW Differential 43.1 Plt Count 198 MPV 10.7 Immature Gran % (Auto) 0.000 Neut % (Auto) 51.9 Lymph % (Auto) 36.8 Mason % (Auto) 9.5 Eos % (Auto) 1.6 Baso % (Auto) 0.2 Absolute Neuts (auto) 2.3 Absolute Lymphs (auto) 1.63 Total Counted Not Reportable Sodium 140 Potassium 4.0 Chloride 109 H Carbon Dioxide 27.0 Anion Gap 4 L BUN 12 Creatinine 0.66 Estim Creat Clear Calc 52.36 Est GFR (MDRD) Af Amer 115 Est GFR (MDRD) Non-Af 95 BUN/Creatinine Ratio 18.2 Glucose 83 Calcium 9.1 Total Bilirubin 0.20 Direct Bilirubin 0.09 AST 25 ALT 25 Alkaline Phosphatase 105 Total Protein 7.4 Albumin 3.7 Globulin 3.7 Urine Color Urine Clarity Urine pH Ur Specific [place] Urine Protein Urine Glucose (UA) Urine Ketones Urine Occult Blood Urine Nitrite Urine Bilirubin Urine Urobilinogen Ur Leukocyte Esterase Urine RBC Urine WBC Ur Squamous Epith Cells Urine Bacteria Urine Mucus 04/25/19 16:50 WBC RBC Hgb Hct MCV MCH MCHC RDW RDW Differential Plt Count MPV Immature Gran % (Auto) Neut % (Auto) Lymph % (Auto) Mason % (Auto) Eos % (Auto) Baso % (Auto) Absolute Neuts (auto) Absolute Lymphs (auto) Total Counted Sodium Potassium Chloride Carbon Dioxide Anion Gap BUN Creatinine Estim Creat Clear Calc Est GFR (MDRD) Af Amer Est GFR (MDRD) Non-Af BUN/Creatinine Ratio Glucose Calcium Total Bilirubin Direct Bilirubin AST ALT Alkaline Phosphatase Total Protein Albumin Globulin Urine Color Yellow Urine Clarity Sl. Cloudy Urine pH 6.5 Ur Specific [place] 1.005 Urine Protein Negative Urine Glucose (UA) Normal Urine Ketones Negative Urine Occult Blood Negative Urine Nitrite Negative Urine Bilirubin Negative Urine Urobilinogen Normal Ur Leukocyte Esterase Negative Urine RBC 0 SEEN Urine WBC 0 SEEN Ur Squamous Epith Cells 0-5 SEEN Urine Bacteria 0 SEEN Urine Mucus 0 SEEN - Medical Decision Making Testing is all normal, along with oral contrast given for the CT which shows no evidence of a partial or complete small bowel obstruction or other intestinal issue. Incidentally, a left sacral insufficiency fracture was noted. When I discussed this with the patient she said that she had been having a lot of significant pain in her left low back for the past 3 weeks or so, and it has gradually improved but is still bothersome at times. She was given appropriate information for follow-up there. Doubtful she is a surgical candidate for anything there since she has been improving. She feels much better after Zofran and is tolerating oral fluids now as well. She does not have an ileus since her bowel sounds are normal. She is feeling much better and comfortable with discharge home with a prescription for Zofran, also advised to use Mylanta or Maalox as needed for recurrent symptoms. ED Disposition - Plan for ED Patient: Disposition: Home or Assisted Living Diagnosis: Sacral insufficiency fracture, Nausea, Generalized abdominal pain Instructions: ABDOMINAL PAIN, Unknown Cause, (Female) Prescriptions: Ondansetron [Zofran] 8 mg PO Q8H PRN #12 tab PRN Reason: Nausea/Vomiting Transmission Status: Pending to [id number] Referrals: Tom Alonso DO [Primary Care Provider] - 3-5 Days if not improving
[2019-04-25] MEDS: 0.9% Normal Saline 1,000 ML 999 ML IV (17:03)
[2019-04-25 17:06] LABS: Bacteria 0 SEEN /hpf (None Seen); Mucous, Urine 0 SEEN /hpf (<or=2+); Red Blood Cells-Urine 0 SEEN /hpf (0-5); White Blood Cells 0 SEEN /hpf (0-5)
[2019-04-25 17:09] LABS: Color, Urine Yellow (Yellow); Glucose, Dipstick Normal (Normal); Ketone-Dipstick Negative (Negative); Leukocyte Esterase-Dipstick Negative /ul (Negative); Nitrite-Dipstick Negative (Negative); Occult Blood-Urine Negative /ul (Negative); Protein-Dipstick Negative (Negative); Specific Gravity, Urine 1.005 (1.002-1.030); Urine Bilirubin Dipstick Negative (Negative); Urine Clarity Sl. Cloudy (Clear); Urine Urobilinogen Normal (Normal); Urine pH 6.5 (5.0 - 8.0)
[2019-04-25 17:13] LABS: AST(SGOT) 25 U/L (15-37); Alanine Aminotransfer ALT/SGPT 25 U/L (13-56); Albumin, Serum 3.7 g/dL (3.2-5.0); Alkaline Phosphatase 105 U/L (45-117); Bilirubin, Direct 0.09 mg/dL (0.00-0.30); Globulin 3.7 g/dL (2.2-4.2); Protein, Total 7.4 g/dL (6.4-8.2)
[2019-04-25 17:44] LABS: Squamous Epithelial Cells - UA 0-5 SEEN /hpf (5-10)
[2019-04-25 18:49] VITALS: BP 107/68; PULSE 57; RESP 16; TEMP 36.8; O2SAT 100
[2019-04-25 20:20] VITALS: BP 112/59; PULSE 56; RESP 16; O2SAT 97
== END 2019-04-25 20:22 | disposition home or self-care (01) ==
PROVIDERS: Emergency Provider Emergency Medicine; Family Provider Family Medicine; PCP Family Medicine
DX: R10.84 Generalized abdominal pain (principal); R11.0 Nausea; M84.48XA Pathological fracture, other site, initial encounter for fracture
CPT/HCPCS: 74177; 76705; 80048; 80076; 81001; 85025; 96360; 96361; 99284; J7030; Q9967; A4216

== ENCOUNTER → 2020-04-22 | Outpatient (CLI) | payer MEDICARE, OTHER, SELFPAY ==
[2020-04-22 18:07] LABS: Creatinine, Serum 0.79 mg/dL (0.55-1.02); EST Glomerular Filtration Rate 77 mL/min (>60); Est Glom Filt Rate - Afr Amer 93 mL/min (>60); Uric Acid 5.2 mg/dL (2.6-6.0)
== END | disposition home or self-care (01) ==
LOC: MTLAB 14:46
PROVIDERS: PCP Family Medicine; Referring Provider Podiatrist; Visit Provider Podiatrist
DX: M10.9 Gout, unspecified (principal)
CPT/HCPCS: 36415; 82565; 84550

== ENCOUNTER → 2020-05-08 13:48 | Outpatient (CLI) | payer MEDICARE, OTHER, SELFPAY ==
[2020-05-08 13:52] LABS: Bacteria 0 SEEN /hpf (None Seen); Mucous, Urine 0 SEEN /hpf (<or=2+); Red Blood Cells-Urine 0 SEEN /hpf (0-5); White Blood Cells 0 SEEN /hpf (0-5)
[2020-05-08 15:20] LABS: Absolute Lymphocyte Count 1.68 X10^3/uL (0.83-4.51); Absolute Neutrophil Count 2.4 X10^3/uL (2.0-7.7); Basophil# 0.02 X10^3/uL; Basophil% 0.4 % (0-1); Eosinophil# 0.07 X10^3/uL; Eosinophils% 1.5 % (0-5); Hemoglobin 12.3 g/dL (12.0-15.0); Lymphocyte # 1.68 X10^3/ul (4.0); Lymphocyte % 35.6 % (19-41); Mean Corp Hgb Conc 32.4 g/dL (32-36); Mean Corpuscular Volume 92.7 fL (81-99); Mean Platelet Vol. 10.3 fl (6.2-12.0); Monocyte% 10.6 % (0-10); NRBC Flagged by Analyzer 0 % (0-5); Neutrophil # 2.44 X10^3/uL (2.7-7.7); Neutrophil % 51.7 % (47-70); Platelet Count 207 K/mm3 (150-450); RBC Distribution Width CV 12.6 % (11.6-14.6); RBC Distribution Width SD 42.7 fl (35.1-43.9); White Blood Count 4.7 K/mm3 (4.4-11.0)
[2020-05-08 15:52] LABS: AST(SGOT) 18 U/L (15-37); Alanine Aminotransfer ALT/SGPT 40 U/L (13-56); Albumin, Serum 3.9 g/dL (3.2-5.0); Alkaline Phosphatase 77 U/L (45-117); Bilirubin, Direct 0.13 mg/dL (0.00-0.30); Protein, Total 7.9 g/dL (6.4-8.2)
--- NOTE | 2020-05-08 15:54 | US_ITS ---
STUDY: ABDOMINAL ULTRASOUND - RIGHT UPPER QUADRANT REASON FOR VISIT: Female, 70 years old right upper quadrant pain. TECHNIQUE: Ultrasound evaluation of the right upper quadrant was performed with real-time and static garcia-scale imaging. TECHNICAL QUALITY: Adequate. COMPARISON: CT abdomen and pelvis, April 25, 2019. FINDINGS: Liver: The liver measures 16.1 cm. There is normal echogenicity of the liver. The bile ducts are within normal limits. There is hepatic color flow. The direction of portal flow is hepatopetal. There is a 6 x 5 mm cyst in the quadrate lobe of liver which correlates with the ultrasound findings. No other masses are seen Gallbladder: Gallbladder is well distended. The gallbladder wall measures 2 mm. There is a negative sonographic Tinsley''s sign. There is no pericholecystic fluid. There are no gallstones. Common Bile Duct (C.B.D.): The common bile duct measures 6 mm. Pancreas: Normal size of the head, body and tail of the pancreas. There is normal echogenicity of the pancreas. There is no demonstrated pancreatic mass or cyst. Right Kidney: Normal size of the right kidney. The right kidney measures 1.5 cm. Normal renal cortex. The right cortex measures 1.5 cm. There is an exophytic cyst mid kidney measuring 1.9 cm in diameter. There is no right hydronephrosis. US/Abdomen Limited IMPRESSION: 1. Stable hepatic and right renal cysts. 2. Normal gallbladder and biliary ductal system. 3. No major change from the prior CT. Electronically Signed: Triston Rodriguez DO at 16:33 EDT Tel [phone], Service support ,
[2020-05-08 17:17] LABS: Color, Urine Yellow (Yellow); Glucose, Dipstick Normal (Normal); Ketone-Dipstick 50 mg/dl (Negative); Leukocyte Esterase-Dipstick Negative /ul (Negative); Nitrite-Dipstick Negative (Negative); Occult Blood-Urine Negative /ul (Negative); Protein-Dipstick Negative (Negative); Urine Bilirubin Dipstick Negative (Negative); Urine Clarity Sl. Cloudy (Clear); Urine Urobilinogen Normal (Normal)
[2020-05-08 18:15] LABS: Squamous Epithelial Cells - UA 5-10 SEEN /hpf (5-10)
== END ==
PROVIDERS: PCP Family Medicine; Referring Provider Family Medicine; Visit Provider Family Medicine
DX: R10.11 Right upper quadrant pain (principal); E55.9 Vitamin D deficiency, unspecified; R30.0 Dysuria
CPT/HCPCS: 36415; 76705; 80076; 81001; 82306; 85025; 87086; 87088

== ENCOUNTER → 2020-05-14 10:33 | Outpatient (CLI) | payer MEDICARE, OTHER, SELFPAY ==
--- NOTE | 2020-05-14 10:39 | NM_ITS ---
CLINICAL: 70-year-old female with reported history of abdominal bloating and chronic nausea. RADIONUCLIDE HEPATOBILIARY SCINTIGRAPHY COMPARISON: Abdominal ultrasound report 05/08/2020 FINDINGS: Following the intravenous administration of 5.6 mCi of 99m Tc Mebrofenin, hepatobiliary images reveal: 1. Relatively prompt and homogeneous radiopharmaceutical concentration is noted by a normal sized liver. No parenchymal defects are identified. 2. Gallbladder activity is identified at 30 minutes post radiopharmaceutical administration. 3. Small intestinal tract is not visualized during 60 minutes of pre-CCK sequential imaging. Small bowel activity is identified following the administration of cholecystokinin. 4. Washout of the radiopharmaceutical by the hepatic parenchyma appears qualitatively normal. Cholecystokinin (0.02 ug/kg) was administered intravenously over a 30-minute period. The post CCK gallbladder ejection fraction calculated at 21 minutes following Cholecystokinin administration was noted to be 80.0 % (normal greater than 35%). During 30 minutes of post CCK imaging, there is no scintigraphic evidence of reflux of the radiotracer into the common hepatic duct or refilling of the gallbladder. MI/Hepatobilliary Img w/Pharm Int IMPRESSION: 1. NORMAL 99m Tc Mebrofenin hepatobiliary imaging examination with Cholecystokinin. A. A gallbladder ejection fraction calculated to be greater than 35% following the administration of Cholecystokinin makes the probability of functional hepatobiliary disease (gallbladder and/or sphincter of Oddi dyskinesia) and/or organic hepatobiliary disease (chronic acalculous cholecystitis and/or cystic duct syndrome) to be low. (Hung Hathaway et al, Journal of Nuclear Medicine 32:1695, 1990). Electronically Signed: Carlos Schaefer DO at 22:50 EDT Tel , Service support ,
== END ==
PROVIDERS: PCP Family Medicine; Referring Provider Family Medicine; Visit Provider Family Medicine
DX: R10.11 Right upper quadrant pain (principal)
CPT/HCPCS: 78227; A9537; J2805

== ENCOUNTER → 2020-12-30 11:20 | Outpatient (CLI) | payer MEDICARE, OTHER, SELFPAY ==
[2020-12-30 15:25] LABS: Erythrocyte Sedimentation Rate 12 mm/hr (0-30)
[2020-12-30 15:43] LABS: PTHIN 39.3 pg/mL (18.4-80.1)
[2020-12-30 15:49] LABS: Vitamin D,25 Hydroxy 39.2 ng/mL
[2020-12-30 16:07] LABS: AST(SGOT) 21 U/L (15-37); Alanine Aminotransfer ALT/SGPT 29 U/L (13-56); Alkaline Phosphatase 74 U/L (45-117); Anion Gap 6 (5-15); BUN 18 mg/dL (7-18); BUN/Creat Ratio 28.8 RATIO (10-20); CRP < 2.90 mg/L (0.0-3.0); Calcium,Total 9.3 mg/dL (8.5-10.1); Chloride 108 mmol/L (98-107); Creatinine, Serum 0.63 mg/dL (0.55-1.02); EST Glomerular Filtration Rate 100 mL/min (>60); Est Glom Filt Rate - Afr Amer 121 mL/min (>60); Globulin 4.1 g/dL (2.2-4.2); Glucose 71 mg/dL (74-106); Potassium 3.5 mmol/L (3.5-5.1); Protein, Total 8.1 g/dL (6.4-8.2); Rheumatoid Factor < 10.0 IU/mL (<15); Sodium Level 142 mmol/L (136-145)
[2021-01-01 16:36] LABS: ANTINUCLEAR ANTIBODIES DIRECT Negative (Negative)
[2021-01-02 13:03] LABS: CCP IgG Antibodies 8 units (0-19)
== END ==
PROVIDERS: PCP Family Medicine; Visit Provider Family Medicine
DX: M13.0 Polyarthritis, unspecified (principal); E55.9 Vitamin D deficiency, unspecified; R76.8 Other specified abnormal immunological findings in serum
CPT/HCPCS: 36415; 80053; 82306; 83970; 85652; 86038; 86140; 86200; 86225; 86235; 86431

== ENCOUNTER → 2021-01-12 15:20 | Outpatient (CLI) | payer MEDICARE, OTHER, SELFPAY | PROVIDERS: PCP Family Medicine; Visit Provider Family Medicine | DX: Z20.828 Contact with and (suspected) exposure to other viral communicable diseases (principal) | CPT/HCPCS: 87635; U0002 ==

== ENCOUNTER → 2021-02-11 09:49 | Outpatient (CLI) | payer MEDICARE, OTHER, SELFPAY ==
--- NOTE | 2021-02-11 10:05 | BD_ITS ---
STUDY: DUAL ENERGY X-RAY ABSORPTIOMETRY / DXA REASON FOR EXAM: Female, 70 years old. M810 -- OSTEO TECHNIQUE: Bone Mineral Density (BMD) measurements of lumbar spine and bilateral hips were obtained. COMPARISON: None. FINDINGS: Lumbar Spine (L1-L4): g/cm2 (0.708) / T-score (-3.9) / Z-score (-2.2) Findings are suggestive of osteoporosis with a high fracture risk. Left Femur Total: g/cm2 (0.589) / T-score (-3.3) / Z-score (-1.9) Left Femoral Neck: g/cm2 (0.592) / T-score (-3.2) / Z-score (-1.5) Right Femur Total: g/cm2 (0.648) / T-score (-2.9) / Z-score (-1.4) Right Femoral Neck: g/cm2 (0.661) / T-score (-2.7) / Z-score (-1.0) BD/Dexa Bone Density Study IMPRESSION: The patient is considered osteoporotic as outlined below according to World Sanjeev Organization (WHO) criteria with a high fracture risk. Reference Information: The T-score is the number of standard deviations above or below the standard which is normal for young adults at their peak bone mineral density. The World Health Organization (WHO) interprets the T-scores as follows: Above -1 Normal bone density Between -1 and -2.5 Osteopenia Equal to / or below -2.5 Osteoporosis As a practical clinical guideline, osteopenia may be graded as follows: Mild -1 through -1.5 Moderate -1.6 through -2.0 Severe -2.1 through -2.4 The Z-score is the number of standard deviations above or below age-matched controls. A Z-score of less than -1.5 would be considered abnormal. References: 1. NIH Osteoporosis and Related Bone Diseases www osteo.org 2. International Society for Clinical Densitometry www iscd.org 3. National Osteoporosis Foundation www nof.org Electronically Signed: Bharathi Spears MD at 15:47 EDT , Service support ,
== END ==
PROVIDERS: PCP Family Medicine; Referring Provider Family Medicine; Visit Provider Family Medicine
DX: M81.0 Age-related osteoporosis without current pathological fracture (principal)
CPT/HCPCS: 77080

== ENCOUNTER → 2021-03-31 14:36 | Outpatient (CLI) | payer MEDICARE, OTHER, SELFPAY ==
[2021-02-25 14:35] VITALS: BMI 27.7
[2021-03-31 14:56] LABS: Absolute Lymphocyte Count 1.78 X10^3/uL (0.83-4.51); Absolute Neutrophil Count 3.1 X10^3/uL (2.0-7.7); Basophil# 0.02 X10^3/uL; Basophil% 0.4 % (0-1); Eosinophil# 0.06 X10^3/uL; Eosinophils% 1.1 % (0-5); Hematocrit 39.1 % (37-47); Hemoglobin 12.5 g/dL (12.0-15.0); Lymphocyte # 1.78 X10^3/ul (0.83-4.51); Lymphocyte % 32.6 % (19-41); Mean Corpuscular Hgb 29.8 pg (27.0-32.0); Mean Corpuscular Volume 93.3 fL (81-99); Mean Platelet Vol. 11.5 fl (6.2-12.0); Monocyte# 0.54 X10^3/uL; Monocyte% 9.9 % (0-10); NRBC Flagged by Analyzer 0 % (0-5); Neutrophil # 3.05 X10^3/uL (2.7-7.7); Neutrophil % 55.8 % (47-70); Platelet Count 190 K/mm3 (150-450); RBC Distribution Width CV 13.3 % (11.6-14.6); RBC Distribution Width SD 45.5 fl (35.1-43.9); Red Blood Count 4.19 M/mm3 (4.2-5.4); White Blood Count 5.5 K/mm3 (4.4-11.0)
[2021-03-31 15:35] LABS: Magnesium 2.3 mg/dL (1.6-2.6); Phosphorus 3.7 mg/dL (2.5-4.9)
[2021-03-31 17:29] LABS: Progesterone Level < 0.21 ng/mL (See Comment)
== END ==
PROVIDERS: PCP Family Medicine; Referring Provider Preventive Medicine Public Health & General Preventive Medicine; Visit Provider Preventive Medicine Public Health & General Preventive Medicine
DX: E55.9 Vitamin D deficiency, unspecified (principal); E63.9 Nutritional deficiency, unspecified; N95.1 Menopausal and female climacteric states; D84.9 Immunodeficiency, unspecified
CPT/HCPCS: 36415; 82670; 83735; 84100; 84144; 84403; 85025

== ENCOUNTER → 2021-04-06 15:20 | Outpatient (CLI) | payer MEDICARE, OTHER, SELFPAY ==
[2021-02-25 14:35] VITALS: BMI 27.7
--- NOTE | 2021-04-06 15:24 | VDLE_ITS ---
Reason For Study: swelling RIGHT GSV is normal. CFV is compressible, spontaneous, phasic, competent and demonstrates normal augmentation. FV is compressible, spontaneous, phasic, competent and demonstrates normal augmentation. POP V is compressible, spontaneous, phasic, competent and demonstrates normal augmentation. T/P Trunk is compressible. PTV is compressible. RT PerV is compressible. Procedure This is a venous duplex using B-mode, color flow and spectral Doppler. Exam performed in department. The exam was abbreviated due to the COVID 19 protocol. The exam was diagnostic. A preliminary report was called and/or faxed to Dr. Brush. VL/Venous Duplex US, Unilateral Interpretation Summary Deep veins of the right lower extremity are patent and compressible segmentally . There is no evidence of right lower extremity deep vein thrombosis. Valvular competence janna ears intact within the proximal deep venous system on the right . The right great saphenous vein a ppears patent and compressible segmentally. Ordering Physician: Yan Brush Performed By: Duc Lopez RVT
== END ==
PROVIDERS: PCP Family Medicine; Referring Provider Family Medicine; Visit Provider Family Medicine
DX: M79.89 Other specified soft tissue disorders (principal)
CPT/HCPCS: 93971

== ENCOUNTER → 2021-04-09 11:57 | Outpatient (CLI) | payer MEDICARE, OTHER, SELFPAY ==
[2021-02-25 14:35] VITALS: BMI 27.7
[2021-04-09 15:46] LABS: Uric Acid 4.5 mg/dL (2.6-6.0)
== END ==
PROVIDERS: PCP Family Medicine; Referring Provider Podiatrist Foot & Ankle Surgery; Visit Provider Podiatrist Foot & Ankle Surgery
DX: M25.571 Pain in right ankle and joints of right foot (principal)
CPT/HCPCS: 36415; 84550

== ENCOUNTER → 2021-05-27 10:51 | Outpatient (CLI) | payer MEDICARE, OTHER, SELFPAY ==
[2021-02-25 14:35] VITALS: BMI 27.7
== END ==
PROVIDERS: PCP Family Medicine; Referring Provider Family Medicine; Visit Provider Family Medicine
DX: M81.0 Age-related osteoporosis without current pathological fracture (principal); Z86.16 Personal history of COVID-19
CPT/HCPCS: 36415; 86769

== ENCOUNTER 2021-12-13 11:23 | Outpatient (CLI) | payer MEDICARE, OTHER, SELFPAY ==
--- NOTE | 2021-12-13 11:30 | RAD_ITS ---
STUDY: X-RAY - RIGHT SHOULDER REASON FOR EXAM: Female, 71 years old. Pain. TECHNIQUE: 3 view(s) of the shoulder. COMPARISON: None. FINDINGS: Osteopenia. Mild arthrosis of the glenohumeral joint. Mild arthrosis of the AC joint. Normal acromion. Cystic change of the greater tuberosity of the humeral head. The soft tissue structures are unremarkable. Normal visualized pulmonary apex. RAD/Shoulder min 2 Views IMPRESSION: Osteopenia. Cystic change of the greater tuberosity of the humeral head. Mild arthrosis of the glenohumeral and acromioclavicular joints. Electronically Signed: Modesto Cedeño MD at 13:59 EST ,
== END 2021-12-13 23:59 | disposition home or self-care (01) ==
LOC: RAD 11:25
PROVIDERS: PCP Family Medicine; Referring Provider Family Medicine; Visit Provider Family Medicine
DX: K21.9 Gastro-esophageal reflux disease without esophagitis (principal)
CPT/HCPCS: 73030

== ENCOUNTER 2022-01-13 12:30 | Outpatient (RCR) | payer MEDICARE, OTHER, SELFPAY ==
--- NOTE | 2021-12-16 13:24 | HP.PTEVAL_ITS ---
Patient's Visit Information KAREN YANEZ is a 71 year old F referred to Physical Therapy by Dr. Tom Alonso DO with a diagnosis of Right Shoulder Pain. Date of Evaluation: 12/16/21 Physical Therapist: Althea Price DPT - Visit Plan Frequency: 2x /Week Duration: 4 Weeks Plan: Focus on ROM, scapular s/s and functional mobility- likes heat. HEP Given IE: supine cane flexion, wall wash flexion, pendulums, table walk away - Subjective Patient reports right shoulder pain that has been bothering her for a couple of months but just keeps getting worse. 10 years ago she fell on the deck and landed on her right shoulder. She has a lot of pain when she fell on it- no x- rays or MRI- she pushed through and it got better. Pain starts on the top of the shoulder and radiates into the bicipital groove. No pain that radiates down the arm or into the neck. No WANG, blurred vision, dizziness. Right hand dominate. 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 Worst: 10 Agg: sleeping on it, getting it into a certain position Eases: resting it by her body. Best: 11/08 Reports dull and achy at rest- sharp/throbbing. 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 Sleep: disturbed- wakes her up when she rolls onto that side. She had an x-ray which showed osteopenia and mild OA. No MRI at this time. No injections or medications for her shoulder. Feels the most limitation reaching overhead and putting her hand over her head to do her hair, backwards. Hard to get dressed and put on coats. Still fully I just takes more time and is painful. PMHx/Meds: see scanned in chart- plans to see a publication editor - Objective Posture: FH, RS- increased guarding of the right UE- no sling. Gait: decreased arm swing and trunk rotation. Palpation: tender along bicipital groove. ROM: Cervical: WFL, Shoulder: AROM: Flexion: 80 degrees Abd: 70 degrees, IR: to belt line, ER: 30 degrees pain with all motions. PROM: Flexion: 90 degrees Abd: 90 degrees, IR: to belly, ER: 30 degrees pain with all motions and guarding. Strength: Scap: fair minus, Shoulder: tested at neutral: 3+/5 with pain, Elbow: 4-/5, Wrist: 4+/5, Automobile Brakes Bonder: 20 lbs of force bilateral. Sensation: WFL - Balance/Special Test Scores Quick DASH Score: 56.8175 - Goals Goal 1:: Patient will be I with HEP and progression Goal Time Frame: 4-6 Weeks Goal 2:: Patient will demo full AROM of the right shoulder in all deficit areas Goal Time Frame: 4-6 Weeks Goal 3:: Patient will maintain proper posture t/o tx session to demo increased scap s/s Goal Time Frame: 4-6 Weeks Goal 4:: Patient will report sleeping through the night Goal Time Frame: 4-6 Weeks Goal 5:: Patient will subjectively report 75% better Goal Time Frame: 4-6 Weeks - Rehabilitation Potential Physical Therapy Diagnosis: Patient presents with hypomobility- she has decreased pain free shoulder ROM, UE and scapular s/s and muscular endurance leading to poor posture and increased pain with ADLs. Rehabilitation Potential: Fair - Anticipated Interventions Patient/Client Instruction: Educate patient on: Benefits of Fitness Program Therapeutic Exercise to Include: Strength training, Endurance training, Coordination, Body mechanics, Postural training, Flexibilty training, Neuromotor development, Passive ROM, Active ROM, Dynamic Lumbar Stabilization, Scapular Strength/Stabilization For the Purpose of:: To improve muscle performance and motor function TENS: Yes Cryotherapy (ice pack, ice massage): Yes Thermo therapy (hot pack): Yes Ultrasound (thermal/non thermal): Yes For the Purpose of:: To decrease pain Thank you for the opportunity to evaluate your patient. For Medicare and Medicare HMO plans, please review the plan of care and approve it. It will need to be FAXED BACK to us at [phone] for Medicare purposes. For Medicare only, by signing this I certify the plan of care. Please let me know if there are questions or concerns regarding this plan of care. Physician Signature: Date:
--- NOTE | 2022-01-13 13:35 | HP.PTDCSUM_ITS ---
It has been my pleasure to treat KAREN YANEZ referred by Dr. Tom Alonso DO, with the diagnosis of Right Shoulder Pain for a total of 8 visit(s). Discharge Date: Please see the following information for a summary of their discharge status. Subjective: Patient reports that after her last PT appt she was very painful- had her back off of her exercises- the pain let up. She resumed her exercises except for the bands. Overall she feels that she has more range of motion- but not where she would like to be. Issues washing her back and certain motions catch her. R SH Pain Intensity (Out of 10): 4 % Improvement: 65 Objective/Function: Posture: FH, RS- increased guarding of the right UE- no sling. Gait: decreased arm swing and trunk rotation. Palpation: tender along bicipital groove. ROM: Cervical: WFL, Shoulder: AROM: Flexion: 120 degrees Abd: 100 degrees, IR: , ER: 30 degrees pain with all motions. Strength: Scap: fair minus, Shoulder: tested at neutral: 3+/5 with pain, Elbow: 4-/5, Wrist: 4+/5, Merchandiser Retail Representative: 20 lbs of force bilateral. Sensation: WFL Goal 1:: Patient will be I with HEP and progression Goal Progress: Goal Met Goal 2:: Patient will demo full AROM of the right shoulder in all deficit areas Goal Progress: Progressing Goal 3:: Patient will maintain proper posture t/o tx session to demo increased scap s/s Goal Progress: Progressing Goal 4:: Patient will report sleeping through the night Goal Progress: Progressing Goal 5:: Patient will subjectively report 75% better Goal Progress: Progressing Plan: 01/13/22: Return to MD for further evaluation. monitor tolerance to sessi on and change as needed. Focus on ROM, scapular s/s and functional mobility- likes heat. HEP Given IE: supine cane flexion, wall wash flexion, pendulums, table walk away If there are questions or concerns regarding this patient's physical therapy, please feel free to call me at [phone]. Thank you for the referral of this patient. Sincerely, Althea Price, DPT Balance/Gait/Functional tests - Balance/Special Test Scores Quick DASH Score: 38.6350
== END 2022-01-13 19:00 | disposition home or self-care (01) ==
LOC: PT 12:30
PROVIDERS: PCP Family Medicine; Referring Provider Family Medicine; Visit Provider Family Medicine
DX: M25.511 Pain in right shoulder (principal)
CPT/HCPCS: 97110; 97140; 97162; 97164

== ENCOUNTER → 2022-02-15 | Outpatient (CLI) | payer MEDICARE, OTHER, SELFPAY ==
--- NOTE | 2022-02-15 09:43 | BD_ITS ---
STUDY: DUAL ENERGY X-RAY ABSORPTIOMETRY / DXA REASON FOR EXAM: Female, 71 years old. M810. Patient is postmenopausal. TECHNIQUE: Bone Mineral Density (BMD) measurements of lumbar spine and bilateral hips were obtained. COMPARISON: Comparison is made with prior study 02/11/2021. FINDINGS: Lumbar Spine (L1-L4): g/cm2 (0.636) / T-score (-3.7) / Z-score (-1.6) Findings are suggestive of osteoporosis with a high fracture risk. Left Femur Total: g/cm2 (0.594) / T-score (-2.8) / Z-score (-1.3) Left Femoral Neck: g/cm2 (0.499) / T-score (-3.2) / Z-score (-1.3) Right Femur Total: g/cm2 (0.606) / T-score (-2.8) / Z-score (-1.2) Right Femoral Neck: g/cm2 (0.535) / T-score (-2.8) / Z-score (-1.0) The T-Scores on the most recent prior examination were: Lumbar Spine (L1-L4): There has been improvement of bone density since the previous examination. Left Femur Total: which represents an improvement of 11.2%. Right Femur Total: which represents an improvement of 2.4%. BD/Dexa Bone Density Study IMPRESSION: The patient is considered osteoporotic as outlined below according to World Sanjeev Organization (WHO) criteria with a high fracture risk. There has been improvement of bone density since the previous examination. Reference Information: The T-score is the number of standard deviations above or below the standard which is normal for young adults at their peak bone mineral density. The World Health Organization (WHO) interprets the T-scores as follows: Above -1 Normal bone density Between -1 and -2.5 Osteopenia Equal to / or below -2.5 Osteoporosis As a practical clinical guideline, osteopenia may be graded as follows: Mild -1 through -1.5 Moderate -1.6 through -2.0 Severe -2.1 through -2.4 The Z-score is the number of standard deviations above or below age-matched controls. A Z-score of less than -1.5 would be considered abnormal. References: 1. NIH Osteoporosis and Related Bone Diseases www osteo.org 2. International Society for Clinical Densitometry www iscd.org 3. National Osteoporosis Foundation www nof.org Electronically Signed: Bharathi Spears MD at 15:39 EDT ,
== END | disposition home or self-care (01) ==
PROVIDERS: PCP Family Medicine; Referring Provider Family Medicine; Visit Provider Family Medicine
DX: M81.0 Age-related osteoporosis without current pathological fracture (principal)
CPT/HCPCS: 77080

== ENCOUNTER → 2022-05-03 | Outpatient (CLI) | payer MEDICARE, OTHER, SELFPAY ==
[2022-05-03 10:43] LABS: Absolute Lymphocyte Count 1.74 X10^3/uL (0.83-4.51); Absolute Neutrophil Count 2.5 X10^3/uL (2.0-7.7); Basophil# 0.02 X10^3/uL; Basophil% 0.4 % (0-1); Eosinophil# 0.06 X10^3/uL; Eosinophils% 1.2 % (0-5); Hematocrit 37.7 % (37-47); Hemoglobin 12.2 g/dL (12.0-15.0); Lymphocyte # 1.74 X10^3/ul (0.83-4.51); Lymphocyte % 36.1 % (19-41); Mean Corp Hgb Conc 32.4 g/dL (32-36); Mean Corpuscular Volume 92.9 fL (81-99); Mean Platelet Vol. 10.3 fl (6.2-12.0); Monocyte# 0.48 X10^3/uL; NRBC Flagged by Analyzer 0 % (0-5); Neutrophil # 2.51 X10^3/uL (2.7-7.7); Neutrophil % 52.1 % (47-70); Platelet Count 189 K/mm3 (150-450); RBC Distribution Width CV 12.8 % (11.6-14.6); RBC Distribution Width SD 43.6 fl (35.1-43.9); Red Blood Count 4.06 M/mm3 (4.2-5.4); White Blood Count 4.8 K/mm3 (4.4-11.0)
[2022-05-03 11:20] LABS: Progesterone Level 11.53 ng/mL (See Comment)
[2022-05-03 11:27] LABS: AST(SGOT) 14 U/L (15-37); Alanine Aminotransfer ALT/SGPT 22 U/L (13-56); Albumin, Serum 3.7 g/dL (3.2-5.0); Alkaline Phosphatase 55 U/L (45-117); Anion Gap 4 (5-15); BUN 19 mg/dL (7-18); BUN/Creat Ratio 27.2 RATIO (10-20); Calcium,Total 9.1 mg/dL (8.5-10.1); Chloride 108 mmol/L (98-107); EST Glomerular Filtration Rate 88 mL/min (>60); Est Glom Filt Rate - Afr Amer 106 mL/min (>60); Estradiol 14.7 pg/mL; Free T3 2.5 pg/mL (2.18-3.98); Globulin 3.7 g/dL (2.2-4.2); Glucose 87 mg/dL (74-106); Protein, Total 7.4 g/dL (6.4-8.2); Sodium Level 139 mmol/L (136-145); T4 Free Direct 0.91 ng/dL (0.76-1.46); Thyroid Stim Hormone (TSH) 0.88 uIU/mL (0.358-3.74)
[2022-05-04 12:28] LABS: Thyroid Peroxidase AB 9 IU/mL (0-34)
== END | disposition home or self-care (01) ==
LOC: LAB 10:19
PROVIDERS: PCP Family Medicine; Visit Provider Preventive Medicine Public Health & General Preventive Medicine
DX: E03.9 Hypothyroidism, unspecified (principal); N95.1 Menopausal and female climacteric states; E55.9 Vitamin D deficiency, unspecified
CPT/HCPCS: 36415; 80053; 82306; 82670; 84144; 84403; 84439; 84443; 84481; 85025; 86376

== ENCOUNTER → 2022-07-22 | Outpatient (CLI) | payer MEDICARE, OTHER, SELFPAY ==
--- NOTE | 2022-07-22 15:25 | RAD_ITS ---
STUDY: X-RAY - LEFT KNEE REASON FOR EXAM: Female, 72 years old. PAIN/ SWELLING TECHNIQUE: 4 view(s) of the knee. COMPARISON: None. FINDINGS: Normal visualized distal femur. Normal visualized proximal tibia and fibula. Normal proximal tibiofibular articulation. There is mild degenerative arthrosis of the medial femorotibial compartment. There is mild degenerative arthrosis of the lateral femorotibial compartment. There is severe degenerative arthrosis of the patellofemoral articulation. The soft tissue structures are unremarkable. RAD/Knee 4 or More Views IMPRESSION: Degenerative arthrosis. Electronically Signed: Carlos Mckeon MD at 16:01 EDT ,
[2022-07-22 18:09] LABS: CRP < 2.90 mg/L (0.0-3.0); Uric Acid 5.4 mg/dL (2.6-6.0)
[2022-07-22 18:41] LABS: Erythrocyte Sedimentation Rate 10 mm/hr (0-30)
== END | disposition home or self-care (01) ==
LOC: MTLAB 15:24
PROVIDERS: PCP Family Medicine; Referring Provider Family Medicine; Visit Provider Family Medicine
DX: M25.562 Pain in left knee (principal)
CPT/HCPCS: 36415; 73564; 84550; 85652; 86140

== ENCOUNTER → 2023-03-15 | Outpatient (CLI) | payer MEDICARE, SELFPAY ==
--- NOTE | 2023-03-15 10:36 | BD_ITS ---
STUDY: DUAL ENERGY X-RAY ABSORPTIOMETRY / DXA REASON FOR EXAM: Female, 72 years old. M810 TECHNIQUE: Bone Mineral Density (BMD) measurements of lumbar spine and bilateral hips were obtained. COMPARISON: Comparison is made with prior study dated February 15, 2022. FINDINGS: Lumbar Spine (L1-L4): g/cm2 (0.553) / T-score (-5.0) / Z-score (-2.6) Findings are suggestive of osteoporosis with a high fracture risk. Left Femur Total: g/cm2 (0.636) / T-score (-2.5) / Z-score (-0.9) Left Femoral Neck: g/cm2 (0.584) / T-score (-2.4) / Z-score (-0.5) Right Femur Total: g/cm2 (0.607) / T-score (-2.7) / Z-score (-1.1) Right Femoral Neck: g/cm2 (0.563) / T-score (-2.6) / Z-score (-0.7) The T-Scores on the most recent prior examination were: Lumbar Spine (L1-L4): There has been worsening of bone density since the previous examination. Left Femur Total: which represents an improvement of 7%. Right Femur Total: which represents an improvement of 0.1%. BD/Dexa Bone Density Study IMPRESSION: The patient is considered osteoporotic as outlined below according to World Sanjeev Organization (WHO) criteria with a high fracture risk. There has been improvement of bone density since the previous examination. Reference Information: The T-score is the number of standard deviations above or below the standard which is normal for young adults at their peak bone mineral density. The World Health Organization (WHO) interprets the T-scores as follows: Above -1 Normal bone density Between -1 and -2.5 Osteopenia Equal to / or below -2.5 Osteoporosis As a practical clinical guideline, osteopenia may be graded as follows: Mild -1 through -1.5 Moderate -1.6 through -2.0 Severe -2.1 through -2.4 The Z-score is the number of standard deviations above or below age-matched controls. A Z-score of less than -1.5 would be considered abnormal. References: 1. NIH Osteoporosis and Related Bone Diseases www osteo.org 2. International Society for Clinical Densitometry www iscd.org 3. National Osteoporosis Foundation www nof.org Electronically Signed: Bharathi Spears MD at 12:07 EDT ,
== END | disposition home or self-care (01) ==
PROVIDERS: PCP Family Medicine; Referring Provider Family Medicine; Visit Provider Family Medicine
DX: M81.0 Age-related osteoporosis without current pathological fracture (principal)
CPT/HCPCS: 77080

== ENCOUNTER → 2023-06-02 | Outpatient (CLI) | payer MEDICARE, SELFPAY ==
[2023-06-02 07:50] LABS: Absolute Lymphocyte Count 1.39 X10^3/uL (0.83-4.51); Basophil# 0.04 X10^3/uL; Eosinophil# 0.13 X10^3/uL; Eosinophils% 3.3 % (0-5); Hematocrit 38.5 % (37-47); Hemoglobin 12.8 g/dL (12.0-15.0); Lymphocyte # 1.39 X10^3/ul (0.83-4.51); Lymphocyte % 35.5 % (19-41); Mean Corp Hgb Conc 33.2 g/dL (32-36); Mean Corpuscular Hgb 30.5 pg (27.0-32.0); Mean Corpuscular Volume 91.9 fL (81-99); Mean Platelet Vol. 10.2 fl (6.2-12.0); Monocyte# 0.37 X10^3/uL; Monocyte% 9.4 % (0-10); NRBC Flagged by Analyzer 0 % (0-5); Neutrophil # 1.99 X10^3/uL (2.7-7.7); Neutrophil % 50.8 % (47-70); Platelet Count 209 K/mm3 (150-450); RBC Distribution Width CV 13.3 % (11.6-14.6); Red Blood Count 4.19 M/mm3 (4.2-5.4); White Blood Count 3.9 K/mm3 (4.4-11.0)
[2023-06-02 08:26] LABS: ALB/GLOB Ratio 0.9 RATIO (0.9-2.4); AST(SGOT) 13 U/L (15-37); Alanine Aminotransfer ALT/SGPT 22 U/L (13-56); Albumin, Serum 3.6 g/dL (3.2-5.0); Alkaline Phosphatase 56 U/L (45-117); Anion Gap 3 (5-15); BUN 17 mg/dL (7-18); BUN/Creat Ratio 28.2 RATIO (10-20); Chloride 107 mmol/L (98-107); EST Glomerular Filtration Rate 104 mL/min (>60); Est Glom Filt Rate - Afr Amer 126 mL/min (>60); Estradiol 20.3 pg/mL; Globulin 3.9 g/dL (2.2-4.2); Glucose 95 mg/dL (74-106); Potassium 3.9 mmol/L (3.5-5.1); Protein, Total 7.5 g/dL (6.4-8.2); Sodium Level 140 mmol/L (136-145)
[2023-06-02 08:37] LABS: Progesterone Level 15.73 ng/mL (See Comment)
== END | disposition home or self-care (01) ==
LOC: LAB 07:25
PROVIDERS: PCP Family Medicine; Referring Provider Preventive Medicine Public Health & General Preventive Medicine; Visit Provider Preventive Medicine Public Health & General Preventive Medicine
DX: N95.1 Menopausal and female climacteric states (principal); E34.9 Endocrine disorder, unspecified
CPT/HCPCS: 36415; 80053; 82670; 84144; 84403; 85025

== ENCOUNTER → 2024-01-11 | Outpatient (CLI) | payer MEDICARE, SELFPAY ==
[2024-01-11 15:35] LABS: Absolute Lymphocyte Count 2.33 X10^3/uL (0.83-4.51); Absolute Neutrophil Count 2.6 X10^3/uL (2.0-7.7); Basophil# 0.03 X10^3/uL; Basophil% 0.5 % (0-1); Eosinophil# 0.12 X10^3/uL; Eosinophils% 2.1 % (0-5); Hematocrit 35.7 % (37-47); Hemoglobin 11.5 g/dL (12.0-15.0); Lymphocyte # 2.33 X10^3/ul (0.83-4.51); Lymphocyte % 41.7 % (19-41); Mean Corp Hgb Conc 32.2 g/dL (32-36); Mean Corpuscular Hgb 29.9 pg (27.0-32.0); Mean Platelet Vol. 10.9 fl (6.2-12.0); Monocyte# 0.48 X10^3/uL; Monocyte% 8.6 % (0-10); NRBC Flagged by Analyzer 0 % (0-5); Neutrophil # 2.62 X10^3/uL (2.7-7.7); Neutrophil % 46.9 % (47-70); Platelet Count 190 K/mm3 (150-450); RBC Distribution Width CV 13.8 % (11.6-14.6); RBC Distribution Width SD 46.9 fl (35.1-43.9); Red Blood Count 3.84 M/mm3 (4.2-5.4); White Blood Count 5.6 K/mm3 (4.4-11.0)
[2024-01-11 15:46] LABS: Color, Urine Yellow (Yellow); Glucose, Dipstick Normal (Normal); Ketone-Dipstick Negative (Negative); Leukocyte Esterase-Dipstick 500 /ul (Negative); Nitrite-Dipstick Negative (Negative); Occult Blood-Urine 10 /ul (Negative); Protein-Dipstick Negative (Negative); Specific Gravity, Urine 1.005 (1.002-1.030); Urine Bilirubin Dipstick Negative (Negative); Urine Clarity Clear (Clear); Urine Urobilinogen Normal (Normal)
[2024-01-11 15:56] LABS: Vitamin B12 570 pg/mL (211-911); Vitamin D,25 Hydroxy 85.7 ng/mL
[2024-01-11 16:00] LABS: Hemoglobin A1c 5.4 % (3.8-5.6)
[2024-01-11 16:13] LABS: ALB/GLOB Ratio 1.1 RATIO (0.9-2.4); AST(SGOT) 18 U/L (15-37); Alanine Aminotransfer ALT/SGPT 23 U/L (13-56); Albumin, Serum 3.7 g/dL (3.2-5.0); Alkaline Phosphatase 40 U/L (45-117); Anion Gap 7 (5-15); BUN 28 mg/dL (7-18); BUN/Creat Ratio 44.8 RATIO (10-20); Chloride 108 mmol/L (98-107); Creatinine, Serum 0.62 mg/dL (0.55-1.02); EST Glomerular Filtration Rate 99 mL/min (>60); Est Glom Filt Rate - Afr Amer 120 mL/min (>60); Ferritin 58 ng/mL (8-252); Globulin 3.4 g/dL (2.2-4.2); Glucose 84 mg/dL (74-106); Iron 99 ug/dL (50-170); Potassium 3.9 mmol/L (3.5-5.1); Protein, Total 7.1 g/dL (6.4-8.2); Sodium Level 140 mmol/L (136-145); T4 Free Direct 0.86 ng/dL (0.76-1.46); Thyroid Stim Hormone (TSH) 2.34 uIU/mL (0.358-3.74)
== END | disposition home or self-care (01) ==
LOC: BFHLAB 11:43
PROVIDERS: PCP Family Medicine; Visit Provider Family Medicine
DX: D64.9 Anemia, unspecified (principal); E04.2 Nontoxic multinodular goiter; E55.9 Vitamin D deficiency, unspecified; R35.0 Frequency of micturition; R73.01 Impaired fasting glucose
CPT/HCPCS: 36415; 80053; 81002; 82306; 82607; 82728; 83036; 83540; 84439; 84443; 85025

== ENCOUNTER → 2024-01-17 | Outpatient (CLI) | payer MEDICARE, SELFPAY | END | disposition home or self-care (01) | PROVIDERS: PCP Family Medicine; Visit Provider Family Medicine | DX: R35.0 Frequency of micturition (principal) | CPT/HCPCS: 87086 ==

== ENCOUNTER → 2024-01-24 | Outpatient (CLI) | payer MEDICARE, SELFPAY ==
--- NOTE | 2024-01-24 11:16 | US_ITS ---
INDICATION: Nontoxic multinodular goiter EXAMINATION: Ultrasound US Thyroid (eg thyroid, parathyroid, parotid) TECHNIQUE: Ayala scale and color doppler imaging was performed of the thyroid gland. COMPARISON: No relevant prior comparison studies available. FINDINGS: RIGHT THYROID LOBE: 4.3 x 1.7 x 1.1 cm. Heterogeneous echotexture throughout. Normal vascularity. [ 4 x 5 x 3 solid, hypoechoic, wider than tall nodule with smooth margins and no internal calcifications; category 4 nodule for which follow-up is recommended if greater than 1 cm; no follow-up indicated for this small nodule. 6 x 7 x 3 mm not suspicious nodule; no follow-up indicated. 11 x 7 x 5 mm, solid, hypoechoic, wider than tall, smoothly margin nodule with no internal calcifications; category 4, moderately suspicious nodule for which follow-up is indicated given size greater than 1 cm. 3 x 3 x 2 mm thyroid cyst. LEFT THYROID LOBE: 4.6 x 1.6 x 1.7 cm. Heterogeneous echotexture throughout. Normal vascularity. [ 8 x 10 x 9 mm nodule 14 x 14 x 14 mm nodule 16 x 13 x 11 mm nodule All these nodules represent mixed cystic and solid isoechoic, wider than tall, ill-defined nodules without calcifications; mildly suspicious nodules for which follow-up is only indicated if 1.5 cm or greater in size. ISTHMUS: No thickening. 9 by 9 x 5 mm solid, isoechoic, wider than tall, smoothly margin nodule without echogenic foci; category 3 mildly suspicious nodule; no follow-up indicated. US/Thyroid IMPRESSION: Numerous bilateral thyroid nodules. 2 of these barely reach the size threshold for follow-up imaging. One year follow-up ultrasound is recommended. Electronically Signed: Renny Das DO at 22:33 EDT ,
== END | disposition home or self-care (01) ==
LOC: US 11:14
PROVIDERS: PCP Family Medicine; Referring Provider Family Medicine; Visit Provider Family Medicine
DX: E04.2 Nontoxic multinodular goiter (principal)
CPT/HCPCS: 76536

== ENCOUNTER → 2024-05-06 | Outpatient (CLI) | payer MEDICARE, SELFPAY ==
[2024-05-06 17:50] LABS: Absolute Lymphocyte Count 1.58 X10^3/uL (0.83-4.51); Absolute Neutrophil Count 2.5 X10^3/uL (2.0-7.7); Basophil# 0.02 X10^3/uL; Basophil% 0.4 % (0-1); Eosinophil# 0.07 X10^3/uL; Eosinophils% 1.5 % (0-5); Hematocrit 38.6 % (37-47); Hemoglobin 12.1 g/dL (12.0-15.0); Lymphocyte # 1.58 X10^3/ul (0.83-4.51); Lymphocyte % 33.5 % (19-41); Mean Corp Hgb Conc 31.3 g/dL (32-36); Mean Corpuscular Volume 95.8 fL (81-99); Mean Platelet Vol. 10.3 fl (6.2-12.0); Monocyte% 10.6 % (0-10); NRBC Flagged by Analyzer 0 % (0-5); Neutrophil # 2.53 X10^3/uL (2.7-7.7); Neutrophil % 53.6 % (47-70); Platelet Count 198 K/mm3 (150-450); RBC Distribution Width CV 13.7 % (11.6-14.6); RBC Distribution Width SD 48.9 fl (35.1-43.9); Red Blood Count 4.03 M/mm3 (4.2-5.4); White Blood Count 4.7 K/mm3 (4.4-11.0)
[2024-05-06 18:11] LABS: ALB/GLOB Ratio 0.9 RATIO (0.9-2.4); AST(SGOT) 31 U/L (15-37); Alanine Aminotransfer ALT/SGPT 45 U/L (13-56); Albumin, Serum 3.4 g/dL (3.2-5.0); Alkaline Phosphatase 47 U/L (45-117); Anion Gap 6 (5-15); BUN 25 mg/dL (7-18); BUN/Creat Ratio 37.9 RATIO (10-20); Calcium,Total 9.3 mg/dL (8.5-10.1); Chloride 108 mmol/L (98-107); Creatinine, Serum 0.66 mg/dL (0.55-1.02); EST Glomerular Filtration Rate 94 mL/min (>60); Est Glom Filt Rate - Afr Amer 113 mL/min (>60); Globulin 3.9 g/dL (2.2-4.2); Glucose 86 mg/dL (74-106); Potassium 4.3 mmol/L (3.5-5.1); Protein, Total 7.3 g/dL (6.4-8.2); Sodium Level 140 mmol/L (136-145)
== END | disposition home or self-care (01) ==
LOC: BFHLAB 14:11
PROVIDERS: PCP Family Medicine; Referring Provider Family Medicine; Visit Provider Family Medicine
DX: R10.9 Unspecified abdominal pain (principal)
CPT/HCPCS: 36415; 80053; 85025; 86140

== ENCOUNTER → 2024-05-17 | Outpatient (CLI) | payer MEDICARE, SELFPAY ==
--- NOTE | 2024-05-17 06:57 | CT_ITS ---
STUDY: CT ABDOMEN AND PELVIS WITH CONTRAST REASON FOR EXAM: Female, 74 years old. ABD right lower quadrant. RADIATION DOSAGE (If Supplied By Facility): CTDIvol = ( 16.58 ) mGy, DLP = ( 1009.22 ) mGycm TECHNIQUE: Transaxial images were obtained from the dome of the diaphragm to the symphysis pubis with oral contrast. Oral and amp; IV Readi-CAT and amp; 100mL Isovue-370 was administered. Sagittal and coronal images were reconstructed. Individualized dose optimization techniques were used for this CT. COMPARISON: Comparison is made with prior study April 25, 2019. FINDINGS: Stable bleb in the right lower lobe. Minimal scarring. The visualized portions of the heart are within normal limits. Scattered tiny cysts are seen in the right lobe of the liver. There is a 1.2 cm cyst in the left lobe of the liver adjacent to the falciform ligament. Mildly distended gallbladder. No evidence of cholelithiasis. Normal spleen. Normal pancreas. Normal bilateral adrenal glands. There is a 2.1 cm cyst in the upper lateral aspect of the right kidney. Normal left kidney. Normal visualized stomach. Normal small intestine. Normal colon. The appendix is visualized and appears normal. Normal abdominal aorta. Normal inferior vena cava. Normal retroperitoneum. Normal urinary bladder. There is absence of the uterus consistent with a prior hysterectomy. Normal abdominal wall. There are mild degenerative changes of the visualized lumbar spine. CT/Abdomen/Pelvis WITH Contrast IMPRESSION: Stable small hepatic cysts. Right renal cyst. Status post hysterectomy. No acute abnormality is seen. Electronically Signed: Bharathi Spears MD at 9:52 EDT ,
== END | disposition home or self-care (01) ==
LOC: CT 06:53
PROVIDERS: PCP Family Medicine; Referring Provider Family Medicine; Visit Provider Family Medicine
DX: R10.9 Unspecified abdominal pain (principal)
CPT/HCPCS: 74177; Q9967

== ENCOUNTER → 2024-08-13 | Outpatient (CLI) | payer MEDICARE, SELFPAY | END | disposition home or self-care (01) | LOC: BFHLAB 09:12 → LABSPEC 09:14 | PROVIDERS: PCP Nurse Practitioner Family; Referring Provider Nurse Practitioner Family; Visit Provider Nurse Practitioner Family | DX: N39.0 Urinary tract infection, site not specified (principal) | CPT/HCPCS: 87077; 87086; 87088; 87186 ==

== ENCOUNTER 2024-08-27 12:21 | Emergency (ER) | payer MEDICARE, SELFPAY ==
[2024-08-27 12:22] VITALS: BP 98/60; PULSE 89; RESP 18; TEMP 36.9; O2SAT 99; BMI 28.4
--- NOTE | 2024-08-27 13:14 | RAD_ITS ---
STUDY: X-RAY - LUMBAR SPINE REASON FOR EXAM: Female, 74 years old. Atraumatic pain TECHNIQUE: 2 view(s) of the lumbar spine were obtained. COMPARISON: None FINDINGS: There is straightening of the normal lumbar lordosis. There is a minimal dextroscoliosis of the lumbar spine. There is a normal alignment of the vertebrae. There is diffuse demineralization of the lumbar vertebrae mild degree of disc space narrowing at the L4-L5 level and moderate degree of disc space and at the L5-S1 level. The soft tissue structures are unremarkable. RAD/Lumbar Spine 2 or 3 Views IMPRESSION: Degenerative changes of the spine, as detailed above. Electronically Signed: Bharathi Spears MD at 14:38 EDT ,
--- NOTE | 2024-08-27 13:16 | ED.VIS.LOWEX ---
HPI History of Present Illness HPI Narrative: 74-year-old female history of osteoporosis has had atraumatic left hip pain since yesterday. Worse with movement or bearing weight. No fall injury or trauma. No prior hip fracture or surgery. Denies any fever, redness or swelling. Went to her primary care physician's office today. Due to her pain they sent her to the emergency department by ambulance who gave her fentanyl prior to arrival. Chief Complaint: Lower Extremity Injury Informant: patient Occured/Mechanism Mechanism/Context: No injury and No blunt trauma Onset/Context/Timing Onset: Today and Yesterday Context: Gradual Onset Timing: Continuous Quality of Pain: Sharp Current Severity: Moderate Maximum Severity: Moderate Associated Symptoms Associated Symptoms: Negative for Parasthesia, Weakness or Loss of Funtion Narrative Narrative: 74-year-old female atraumatic left hip pain with a history of osteoporosis. Prior similar symptoms: No Recent Illness/Hospitalization: No PFSH PFSH Medical History Osteoporosis Deficient knowledge of hysterectomy Skin cancer GERD (gastroesophageal reflux disease) Pneumonia Osteoporosis Osteopenia Osteoarthritis Hypoglycemia Hearing problem Gastrointestinal problem H/O emotional problems Cataract Back problem Arthritis Rectocele Wrist fracture Bowel obstruction Fatigue sudden weight loss Abnormal thermography Thyroid nodule Abnormal Pap smear of cervix Home Medications ?Medication ?Instructions ?Recorded ?Last Taken ?Type calcium 600 mg (as 1 ea PO DAILY 04/27/15 Unknown History carbonate)-vitamin D3 20 mcg (800 unit) tablet multivitamin,[id number]-[id number] 27 1 tab PO DAILY 04/27/15 Unknown History mg-0.4 mg tablet digestive enzymes 1 tab PO DAILY 04/25/19 Unknown History ondansetron HCl 8 mg tablet 8 mg PO Q8H PRN Nausea/Vomiting 04/25/19 Unknown Rx #12 tabs acetaminophen 325 mg tablet 325 mg PO ONCE PRN 02/25/21 Unknown History (Tylenol) boron 6 mg tablet 3 mg PO DAILY 02/25/21 Unknown History boswellia PO 02/25/21 Unknown History glucosamine 500 mg-msm 500 tab PO 02/25/21 Unknown History mg-Boswellia 33.3 mg-herb 182 70 mg tablet (Cosamin [place] (with Boswellia)) glucosamine sulfate 500 mg tablet 500 mg PO TID 02/25/21 Unknown History (Glucosamine) ibuprofen 200 mg tablet (Advil) 200 mg PO Q6H PRN 02/25/21 Unknown History magnesium oxide 500 mg PO DAILY 02/25/21 Unknown History tumeric PO 02/25/21 Unknown History oxycodone 5 mg capsule 5 mg PO Q6H PRN pain 4 days #16 08/27/24 Unknown Rx caps Allergy/AdvReac Type Severity Reaction Status Date / Time dexamethasone Allergy Severe hallcenating, Verified 12/03/21 11:48 anxiety methylprednisolone Allergy Severe hallucenant Verified 12/03/21 11:48 ing,anxiety prednisone Allergy Severe hallucenating Verified 12/03/21 11:48 ,anxiety azithromycin (From Zithromax Allergy Mild heart Verified 12/03/21 11:48 Z-Rasheed) racing levofloxacin (From Levaquin) Allergy Mild muscle Verified 12/03/21 11:48 pain, heart racing amantadine Allergy Other Verified 12/03/21 11:48 cortisone Allergy Other Verified 12/03/21 11:48 fluoxetine HCl (From Prozac) Allergy Other Verified 12/03/21 11:48 Penicillins Allergy Unknown Verified 12/03/21 11:48 erythromycin base AdvReac Severe digestive Verified 12/03/21 11:48 upset prednisolone AdvReac Severe hallucenati Verified 12/03/21 11:48 ons,anxiety escitalopram AdvReac Intermediate nausea Verified 12/03/21 11:48 sertraline AdvReac Intermediate heart Verified 12/03/21 11:48 racing Sulfa (Sulfonamide AdvReac Intermediate nausea,diar Verified 12/03/21 11:48 Antibiotics) emma Family History Father Cancer Leukemia Grandmother Heart disease Grandfather Colon cancer Other Angina at rest Arthritis Asthma Blood clot in vein High cholesterol Myocardial infarction Osteoporosis Respiratory disease Severe allergic reaction Thyroid disorder Surgical History [place] teeth extracted Rectocele (~2017) Vaginal prolapse FH: BETHEL-BSO (total abdominal hysterectomy and bilateral salpingo-oophorectomy) (~1989) Social History Smoking Status: Smoker, status unknown alcohol intake: never substance use type: does not use caffeine: No what type of physical activity do you participate in: none frequency: 5-6 times per week seatbelt use: always additional social history: Spouse- Doyle ROS ROS ED ROS Narrative Denies recent illness. Previously treated for UTI. Constitutional Constitutional ED: Denies chills or fever(s) Eyes Eyes: Denies blurry vision Cardiovascular Cardiovascular: Denies chest pain Respiratory/Chest Respiratory/Chest: Denies cough Gastrointestinal Gastrointestinal: Denies abdominal pain Genitourinary Genitourinary ED: Denies dysuria Musculoskeletal Musculoskeletal: Reports back pain; Denies arthralgias Integumentary Denies abscess or Abrasions Neurologic Neurologic: Denies headache(s) Psychiatric Psychiatric: Denies anxiety Endocrine Endocrinology: Denies polydipsia Hematologic/Lymphatic Hematologic/Lymphatic: Denies easy bleeding Allergic/Immunologic Allergic/Immunologic ED: Denies mouth swelling EXAM Physical Exam Narrative Exam Narrative: 74-year-old female sitting upright in bed. Vital signs are stable. Blood pressure is 98/60. She does not look septic toxic or any distress. H EENT exam unremarkable. Moist membranes. Pupils round react light. Normal speech. No droop. Neck nontender no JVD. No lymphadenopathy. Lungs clear to auscultation bilaterally. Heart regular rhythm rate about 90 no murmur. Chest wall and ribs nontender. Abdomen soft nontender. No signs of trauma. Nontender. Patient has pain in her left hip with passive or active range of motion. Limited range of motion due to pain. There is no redness, swelling or lymphadenopathy. There is no shortening or rotation. There is no gross deformity. Both upper extremities right lower extremity unremarkable. Normal range of motion. Normal strength. Neurologically she is awake and alert with no focal motor deficits. Const Vital Signs: 08/27/24 12:22 08/27/24 14:22 Temperature 98.4 F Temperature Source Oral Pulse Rate 89 78 Respiratory Rate 18 16 Blood Pressure 98/60 108/78 Blood Pressure Mean 72 88 Pulse Ox 99 98 Oxygen Delivery Method Room Air Room Air Positive well nourished and well developed; Negative for cachectic, contractures or unkempt General Appearance ED: well developed and NAD; Negative for unkempt, cachectic or contractures Nutritional Appearance: Negative for cachectic HEENT Reports moist mucous membranes normocephalic and atraumatic Eyes PERRL Neck full ROM and supple Lymph Lymphatic: Negative for other Chest Wall inspection of chest normal and palpation of chest normal Resp normal respiratory effort, no retractions and clear to auscultation bilaterally Cardio regular rate, regular rhythm, S1 normal heart sound, S2 normal heart sound and no murmurs GI non-tender, non-distended and no masses Palpation: soft; Negative for tender, guarding or rebound tenderness present Back/Spine no CVA tenderness General Back: Negative for CVA tenderness Cervical Spine: Negative for cervical spine tenderness Thoracic Spine / Upper Back: Negative for thoracic spinal tenderness Lumbar Spine / Lower Back: Negative for lumbar spinal tenderness Extremity normal to inspection and full ROM Extremity Narrative: Except atraumatic pain over the left hip. Decreased range of motion passively and actively. With passive range of motion she has pain. There is no redness, swelling or warmth. No inguinal lymphadenopathy. No shortening or rotation. Left foot and ankle are neurovascularly intact with normal dorsi plantarflexion. General Extremety ED: Negative for cyanosis or edema General Extremity: Negative for cyanosis or edema Neuro oriented x3, CN's II-XII intact bilaterally and moves all extremities Sensorium / Orientation: alert, oriented to person, oriented to place and oriented to time; Negative for orientation impaired or confused Motor Exam: strength 5/5 throughout Psych mental status grossly normal Appearance: Negative for unkempt Speech: No other Mood & Affect: Negative for anxious Skin no wounds Lesions: no lesions Rashes: no rashes Trauma: Negative for abrasion or laceration MDM MDM MDM Narrative Medical decision making narrative: 74-year-old female with atraumatic left hip pain. X-ray of her hip and back are being obtained she has a history of osteoporosis she is also complaining of atraumatic low back pain. She been given morphine and Zofran for pain through the IV. Repeat exam patient's pain is better. With the IV pain medication. A plain x-ray showed chronic arthritic changes and osteoporosis but no fracture or dislocation. CT was obtained again showed chronic changes but no acute fracture. Patient was ambulated with a walker and actually did well per the nursing. Patient is comfortable being discharged home. I did speak to MRI I could not get her on the schedule today they were booked solid. She was to follow-up with her primary care physician or she has seen Dr. Corey Parr before for orthopedics for further evaluation of this hip pain. She knows to return if worse. On repeat exam there is no signs of redness or warmth or infection. History & Record Review Discussion w/independent historian: Patient Additional record(s) reviewed:: Prior outpatient record Radiography Diagnostic Testing: Clinical Impression(s) from Imaging Studies Lumbar Spine X-Ray 08/27/24 13:14 IMPRESSION: Degenerative changes of the spine, as detailed above. Electronically Signed: Bharathi Spears MD at 14:38 EDT , Hip/Pelvis X-Ray 08/27/24 14:00 IMPRESSION: Mild degree of joint space narrowing. Electronically Signed: Bharathi Spears MD at 14:39 EDT , Pelvis CT 08/27/24 14:12 IMPRESSION: No pelvic fracture is seen. Urinary bladder distention. Distended gallbladder lumen. Electronically Signed: Bharathi Spears MD at 15:00 EDT , X-ray left hip 3 views interpreted by myself and radiologist shows chronic changes. Osteoarthritis. No acute fracture or dislocation. X-ray lumbar spine 2 views interpreted by myself and radiologist again shows degenerative changes but no acute process. Discharge Plan Triage Chief Complaint: Lower Extremity Injury ED Provider: Santi Yadav Dx/Rx/DC Orders Clinical Impression: Acute pain of left hip, Hx of osteoarthritis, History of osteoporosis Instructions: ED Arthralgia Prescriptions: New oxycodone 5 mg capsule 5 mg PO Q6H PRN (Reason: pain) 4 Days Qty: 16 0RF No Action digestive enzymes tablet 1 tab PO DAILY boron 6 mg tablet 3 mg PO DAILY glucosamine sulfate [Glucosamine] 500 mg tablet 500 mg PO TID Rx Instructions: administer with meals Cosamin [place] (with Boswellia) 500-500-33.3-70 mg tablet PO acetaminophen [Tylenol] 325 mg tablet 325 mg PO ONCE PRN ibuprofen [Advil] 200 mg tablet 200 mg PO Q6H PRN tumeric tablet PO boswellia PO multivitamin,bt-[id number]-wleeoofi 1 TABLET tablet 1 tab PO DAILY calcium carbonate-vitamin D3 1 EACH tablet 1 ea PO DAILY magnesium oxide 400 mg magnesium capsule 500 mg PO DAILY ondansetron HCl 8 MG tablet 8 mg PO Q8H PRN (Reason: Nausea/Vomiting) Qty: 12 0RF Primary Care Provider: Tom Alonso Referrals: Tom Alonso, [Primary Care Provider] - As soon as possible Corey Parr MD [Med Staff - Active Staff] - As soon as possible Erika Laguerre NP-C [Non-Staff] - Activity Restrictions/Additional Instructions: Oxycodone as needed for your hip pain. You may also ibuprofen and Tylenol. Your x-ray and CAT scan only showed arthritis no fractures. Follow-up with either Dr. Corey Parr of orthopedics or your primary care physician for further evaluation. You may need an MRI if this is not getting better. Return if fever or redness at your hip site. Print Language: Kazakh Disposition Disposition: Home, Self Care
--- NOTE | 2024-08-27 14:00 | RAD_ITS ---
STUDY: X-RAY - PELVIS AND LEFT HIP REASON FOR EXAM: Female, 74 years old. Atraumatic left hip pain TECHNIQUE: 3 views of the pelvis and hip. COMPARISON: None. FINDINGS: There is a non-specific bowel gas pattern. Normal visualized soft tissue structures. There is narrowing with cortical sclerosis and osteophyte formation of the sacroiliac joint consistent with degenerative osteoarthritic changes. Normal bilateral superior and inferior pubic rami. There is narrowing with sclerosis of the pubic symphysis. Normal bilateral ischial tuberosities. Normal visualized femoral head. Normal acetabulum. There is mild articular joint space narrowing of the hip. RAD/HIP, UNI W/ Pelvis 2-3 Views IMPRESSION: Mild degree of joint space narrowing. Electronically Signed: Bharathi Spears MD at 14:39 EDT ,
--- NOTE | 2024-08-27 14:12 | CT_ITS ---
STUDY: CT PELVIS WITHOUT CONTRAST REASON FOR EXAM: Female, 74 years old. Atraumatic left hip pain RADIATION DOSAGE (If Supplied By Facility): CTDIvol = ( 32.28 ) mGy, DLP = ( 1080.24 ) mGycm TECHNIQUE: Transaxial imaging of the pelvis was performed with oral contrast, and without intravenous administration of contrast material. Individualized dose optimization techniques were used for this CT. COMPARISON: None. FINDINGS: There is a distended gallbladder. Possible sludge in the gallbladder lumen. Distended urinary bladder. Status post hysterectomy. Normal visualized small intestine. Normal visualized colon. There is no pelvic fluid. There is no pelvic mass lesion or lymphadenopathy. Normal visualized pelvic arteries. Small umbilical hernia containing fat. This space narrowing and degeneration at the L5-S1 level. Degenerative changes of the symphysis pubis. CT/Pelvis without IV Contrast IMPRESSION: No pelvic fracture is seen. Urinary bladder distention. Distended gallbladder lumen. Electronically Signed: Bharathi Spears MD at 15:00 EDT ,
[2024-08-27] MEDS: Ondansetron 4 MG/2 ML Vial IV (14:16)
[2024-08-27] MEDS: Morphine 4 MG/ML Syringe IV (14:16)
[2024-08-27 14:22] VITALS: BP 108/78; PULSE 78; RESP 16; O2SAT 98
[2024-08-27 16:00] VITALS: BP 145/67; PULSE 64; RESP 16; O2SAT 98
== END 2024-08-27 16:04 | disposition home or self-care (01) ==
PROVIDERS: Emergency Provider Emergency Medicine; PCP Family Medicine; Visit Provider Emergency Medicine
DX: M25.552 Pain in left hip (principal); M54.50 Low back pain, unspecified; M16.12 Unilateral primary osteoarthritis, left hip; M81.0 Age-related osteoporosis without current pathological fracture; Z88.1 Allergy status to other antibiotic agents; Z88.2 Allergy status to sulfonamides; Z88.0 Allergy status to penicillin; Z87.19 Personal history of other diseases of the digestive system; Z85.828 Personal history of other malignant neoplasm of skin
CPT/HCPCS: 72100; 72192; 73502; 96374; 96375; 99284; J2405

== ENCOUNTER → 2024-09-05 | Outpatient (CLI) | payer MEDICARE, SELFPAY ==
[2024-09-05 10:18] LABS: Absolute Lymphocyte Count 1.63 X10^3/uL (0.83-4.51); Basophil# 0.03 X10^3/uL; Basophil% 0.6 % (0-1); Eosinophil# 0.22 X10^3/uL; Eosinophils% 4.1 % (0-5); Hematocrit 38.4 % (37-47); Hemoglobin 13.1 g/dL (12.0-15.0); Lymphocyte # 1.63 X10^3/ul (0.83-4.51); Lymphocyte % 30.1 % (19-41); Mean Corp Hgb Conc 34.1 g/dL (32-36); Mean Corpuscular Hgb 31.6 pg (27.0-32.0); Mean Corpuscular Volume 92.5 fL (81-99); Mean Platelet Vol. 10.7 fl (6.2-12.0); Monocyte# 0.55 X10^3/uL; Monocyte% 10.2 % (0-10); NRBC Flagged by Analyzer 0 % (0-5); Neutrophil # 2.95 X10^3/uL (2.7-7.7); Neutrophil % 54.4 % (47-70); Platelet Count 222 K/mm3 (150-450); RBC Distribution Width CV 12.8 % (11.6-14.6); RBC Distribution Width SD 43.5 fl (35.1-43.9); Red Blood Count 4.15 M/mm3 (4.2-5.4); White Blood Count 5.4 K/mm3 (4.4-11.0)
[2024-09-05 10:51] LABS: Albumin, Serum 3.5 g/dL (3.2-5.0); Anion Gap 5 (5-15); BUN 27 mg/dL (7-18); BUN/Creat Ratio 45.2 RATIO (10-20); Calcium,Total 9.5 mg/dL (8.5-10.1); Chloride 108 mmol/L (98-107); EST Glomerular Filtration Rate 105 mL/min (>60); Est Glom Filt Rate - Afr Amer 127 mL/min (>60); Glucose 104 mg/dL (74-106); Potassium 3.5 mmol/L (3.5-5.1); Sodium Level 139 mmol/L (136-145)
[2024-09-05 10:56] LABS: Magnesium 2.4 mg/dL (1.6-2.6)
== END | disposition home or self-care (01) ==
PROVIDERS: Anesthesiology; PCP Family Medicine; Referring Provider Specialist; Visit Provider Specialist
DX: Z01.818 Encounter for other preprocedural examination (principal); Z01.810 Encounter for preprocedural cardiovascular examination
CPT/HCPCS: 36415; 80048; 82040; 83735; 85025; 87081; 93005

== ENCOUNTER 2024-09-09 11:41 | Observation (INO) | payer MEDICARE, SELFPAY ==
--- NOTE | 2024-09-05 14:39 | PCM.HP.BLA ---
History and Physical History and Physical Patient Name: Bianca Dale : 1950From:? KEMAR MERCADO PA-C DATE OF PRE-OPERATIVE EXAM: 09/04/2024 DATE OF SURGERY:? 09/09/2024 SCHEDULED PROCEDURE:? Direct anterior left total hip arthroplasty HISTORY OF PRESENT ILLNESS: Preoperative history and physical exam was performed on September 04, 2024.? This is a 74-year-old female who began having increased pain on August 27, 2024.? She woke up with severe left hip pain and low back pain.? There was no trauma or injury.? She states the day prior she was washing windows but does not recall any injury.? She woke up the next morning with increased pain.? She contacted her primary care provider but due to the severity of the pain she was recommended to go to the emergency room.? She went to [facility] emergency room on August 27, 2024.? She had CT scan of the pelvis, lumbar spine x-ray, and left hip x-ray.? Imaging studies showed degenerative changes.? There was no identifiable fracture and patient was discharged.? They discussed the possibility of MRI but were not able to schedule that.? She was instructed to follow-up with the primary care provider or orthopedics.? Patient continued to have increased pain primarily with weightbearing.? Patient has been using a walker and has been trying to offset any weight on the left lower extremity.? Her pain can reach 10/10 when weightbearing or moving but at rest her pain is 5/10.? She states she has difficulty getting up from a seated position due to the pain.? Pain is increased with any ambulation, sitting, driving or going up and down stairs.? She was discharged from the emergency room and instructed to take Tylenol, ibuprofen and oxycodone.? An MRI was eventually ordered which was obtained on September 03, 2024.? Patient's MRI revealed a minimally displaced varus impacted femoral neck fracture with bony edema.? There is moderate left hip arthrosis with spurring off of the acetabulum with joint effusion.? Patient has significant joint space loss.? Patient states she lives home alone and is struggling to manage her normal activities.? The pain has been significantly limiting her abilities to do daily chores and hygiene at home.? She states prior to August 27, 2024 she had no previous hip problems.? She was never using any ambulatory assistance.? She has only treated by her primary care provider Dr. Alonso for osteoporosis and gastroesophageal reflux disease.? She denies past history of surgery on the left hip.? She denies past history of DVT or pulmonary embolism.? No recent chest pain or shortness of breath.? After discussion with Dr. Corey Parr, the patient does wish to proceed with a direct anterior left total hip arthroplasty.? We are obtaining surgical clearance by the primary care physician with preoperative labs and EKG. REVIEW OF SYSTEMS: ?Review Of Systems: Constitutional: Denies anorexia, anxiety, change in appetite, fever and weight change,hard of hearing, and vision problems. Cardiovasular: Denies chest pain, heart murmur, irregular heartbeat and peripheral vascular disease. Respiratory: Denies asthma, cough, pneumonia, sleep apnea, shortness of breath, tuberculosis and wheezing. Gastrointestinal: Reports heartburn, but denies constipation, diarrhea, nausea, bloody stools and vomiting, and difficulty swallowing. Genitourinary: Denies incontinence. Musculoskeletal: Reports lt hand & arm weakness. Admits to right ankle pain during ambulation Skin: Denies Raynaud's, history of shingles and tattoo. Neurological: Denies ambulatory dysfunction, dizziness and tremor Psychiatric: Denies anxiety, insomnia and stress. Hematologic/Lymphatic: Denies anemia, bleeding/bruising tendency and past transfusion. Reviewed and updated. PAST MEDICAL HISTORY: ?Advance Care Plan: Other Directive, POA Effective Date: 04/09/2021 Other Directive, LIVING WILL Effective Date: 04/09/2021 Past Medical History: Medical Problems: Fibromyalgia Osteoporosis - severe Osteodystropy Of The Skull, Arthritis, Acid Reflux, Hormone Therapy Accidents: LT Wrist FX - (04/27/2015) FALL Fracture - (08/26/2024) left hip no injury Surgical Hx: Hysterectomy - (1996) [facility] ORIF LT Wrist - (05/08/2015) [email or web address] Vaginal Prolapse Correction - 2018 Rectocele Surgery - 2019 Anesthesia Complications: None Assistive Devices: Glasses, Dentures, Hearing Aid, Walker Reviewed and updated. SOCIAL HISTORY: ?Social History: Marital: . Occupation: Retired. Work Status: Retired. Hand Dominance: Right-handed. Personal Habits:? Tobacco Use: Patient has never smoked. Cigarette Use: Never. Smokeless Tobacco: Never Used Smokeless Tobacco. E-Cigarette Use: Never used. Alcohol: Denies use. Drug Use: Denies Use. Enjoy Exercising: Exercises 1-3 X/Week. Reviewed and updated. VITALS: Ht: 67 Wt: 180lb Wt k.648 BMI: 28.2 BP: 126/64 Pulse: 87 Resp: 18 T: 97.0 T: 36.1C Pain Level: 9 O2SatR: 97 ALLERGIES: Prednisone - Mood Changes, Can't Sleep Amantadine - Racing Heart, Chest Pain Ultram Methylprednisolone - hallucenation Dexamethasone - hallucenation Erythromycin Azithromycin - heart racing Fluoxetine - depression, nausea Levofloxacin - heart racing, muscle pain Sulfamethoxazole - breathing Cipro - heart racing Sulfa Zithromax Bactrim Ciprofloxacin Levaquin Penicillin Cortisone Fluoxetine HCL Penicillins Erythromycin Base Prednisolone Escitalopram Sertraline Sulfa (Sulfonamide Antibiotics) MEDICATIONS: Oxycodone HCL 5 mg every 6 hours as needed for pain, Calcium 600+D3 600-20 MG-mcg daily, Vitamin D3 50 mcg (2000 Ut) 2 daily, Fish Oil , Ostinol , Magnesium Citrate 125 mg 1po qday, SM B Super Vitamin Complex? 1 by mouth every day, Ginkgo 60 mg daily, Digestive Enzyme? 1po qday, Arthro Complex? 1po qday, Hyaluronic Acid 100 mg 1po qday PRE-OP EXAM: General appearance:NORMAL? Other: Eyes: Conjunctivae and lids: NORMAL? Pupils: ERR Ears, Nose, Mouth, and Throat: NORMAL? Other: Inspection of lips, teeth and gums: NORMAL?? Other: Neck: Examination of neck: no masses noted. Respiratory: Assessment of respiratory effort: NORMAL?? Other: ? Auscultation of lungs: clear to auscultation no wheezes, rhonchi or rales. Cardiovascular:? Auscultation of heart: regular rate and rhythm, no murmurs, gallops or rubs. PHYSICAL EXAMINATION: On exam today patient presents with walker and partial weightbearing on the left lower extremity.? She states she has been trying to offset the weight onto the right lower extremity.? She walks with a significant limping gait.? Upon exam of the left hip there is no surrounding erythema, wounds or abrasions, or ecchymosis.? Her pain is deep in the left groin.? No significant tenderness on the lateral aspect of the greater trochanteric region.? Minimal tenderness in the buttock region.? Nontender to palpation lumbar spine. Range of motion: Patient had limited motion of the left hip with increased pain with internal rotation with groin pain.? Limited hip flexion secondary to pain. Special tests: Positive log roll exam on the left with pain left groin/hip.? Negative seated bilateral straight leg raise. Strength: Deferred secondary to hip fracture. Sensation intact to light touch to bilateral lower extremities. IMAGING STUDIES: ?X-rays from [facility] the left hip were reviewed from August 27, 2024 revealed mild joint space narrowing with osteophyte formation of the left hip.? Difficulty identifying the fracture on x-rays only.? No lytic or blastic lesions appreciated Lumbar spine x-rays were also reviewed from [facility] on August 27, 2024 revealed no appreciable acute finding for fracture.? Patient has disc height narrowing L5-S1 and L4-L5 with osteophyte formation.? No appreciable compression fracture.? No lytic or blastic lesions.? There does appear to be loss of lumbar lordosis. CT scan from [facility] on August 27, 2024 was also reviewed which revealed no appreciable acute finding for fracture throughout the pelvic region.? Patient has degenerative changes of the pubic symphysis and L5-S1 region.? No masses appreciated. MRI from [facility] on September 03, 2024 of the left hip reveals minimally displaced varus impacted femoral neck fracture with bony edema throughout the femoral neck region.? There is moderate left hip arthrosis with joint space narrowing, osteophyte formation.? There is insertional tendinitis of the gluteus muscles with chronic tendinopathy of the hamstring.? MRI and above imaging studies were discussed and reviewed with Dr. Corey Parr. IMPRESSION: 1.? Left hip minimally displaced femoral neck fracture 2.? Left hip moderate osteoarthrosis 3.? Lumbar degenerative disc disease and low back pain 4.? Osteoporosis 5.? Fibromyalgia 6.? Gastroesophageal reflux disease 7.? Overweight with BMI 28.2 PLAN: Dr. Corey Parr did discuss and review with the patient all treatment options including surgical versus nonsurgical options.? Patient does wish to proceed with the above-stated procedure.? Potential risks, benefits, and complications of the procedure were discussed in detail including but not limited to , infection, nerve and blood vessel damage, persistent pain, numbness, tingling, paresthesias, blood clot, pulmonary embolism, and requirement for possible further surgery.? The patient expressed full understanding and has no further questions for the doctor.? Patient does agree to proceed with the above-stated procedure and has signed the surgery consent form. POST-OP MEDICATION PLAN: Pain Medications: Postoperative pain regimen will be initiated by Dr. Corey Parr in the hospital.? Patient will continue with the extra strength Tylenol and oxycodone leading up to surgery.? She is to avoid any nonsteroidal anti-inflammatories 5 days preoperatively.? She will continue with vitamin D and protein drinks.? She has a walker that she will continue to be nonweightbearing preoperatively.? We are obtaining surgical clearance from her primary care provider. DVT Prophylaxis:? Aspirin 81 mg twice daily for 4 weeks postoperatively.? Denies past history of DVT or pulmonary embolism This dictation was created using voice recognition software. Phonetic and/or grammatical errors may exist. ___? I have re-examined the patient.? There are no clinical changes since date of exam. ___? See progress notes for changes. ___? Dictated on admission Date: ? Time: Signature:
[2024-09-09] VITALS (19 sets, daily range): BP systolic 85–125; BP diastolic 42–89; PULSE 67–86; RESP 16–18; TEMP 35.8–36.9; O2SAT 96–100; BMI 26.7
[2024-09-09] MEDS: Gabapentin 600 MG Tablet PO (08:51)
[2024-09-09] MEDS: Meloxicam 15 MG Tablet PO (08:53)
[2024-09-09] MEDS: Magnesium 1 GM over 15 mins IV (08:55)
[2024-09-09] MEDS: Lactated Ringers 1,000 ML 999 ML IV ×2 (08:55→12:30)
--- NOTE | 2024-09-09 09:10 | PRE.ANES_ITS ---
ASA Classification* ASA Classification ASA Classification: 2 Assessment & Plan Anesthesia* Anesthesia Assessment Anesthesia Assessment: Discussed sedation and/or anesthesia options, risks, benefits, and alternatives with patient/parents/legal guardian/POA. Questions invited. The patient/parents/legal guardian/POA seems to understand and agrees to proceed with anesthesia plan. Reviewed the physical assessment, medical history, allergy history and patient home medications list prior to surgery/procedure/anesthetic and documented any changes. Performed airway and anesthesia risk assessments. Anesthesia Type Anesthesia Type: Spinal Anesthesia Focused Assessment* Temperature: 98.1 F Pulse Rate: 86 Blood Pressure: 116/61 Respiratory Rate: 17 Pulse Ox: 100 Airway Assessment Mouth opens: >3 cm Mallampati Score: II Focused Labs Anesthesia Preop lab: CBC WBC 5.4 K/mm3 (4.4-11.0) 09/05/24 09:04 RBC 4.15 M/mm3 (4.2-5.4) L 09/05/24 09:04 Hgb 13.1 g/dL (12.0-15.0) 09/05/24 09:04 Hct 38.4 % (37-47) 09/05/24 09:04 Plt Count 222 K/mm3 (150-450) 09/05/24 09:04 CHEMISTRY Potassium 3.5 mmol/L (3.5-5.1) 09/05/24 09:04 Sodium 139 mmol/L (136-145) 09/05/24 09:04 Magnesium 2.4 mg/dL (1.6-2.6) 09/05/24 09:04 Phosphorus 3.7 mg/dL (2.5-4.9) 03/31/21 14:42 BUN 27 mg/dL (7-18) H 09/05/24 09:04 Creatinine 0.60 mg/dL (0.55-1.02) 09/05/24 09:04 Glucose 104 mg/dL (74-106) 09/05/24 09:04 TSH 2.34 uIU/mL (0.358-3.74) 01/11/24 11:43 COAG Pre-Assessment Diagnosis/Proposed Procedure Planned Operative Procedure(s): DIRECT ANTERIOR LEFT TOTAL HIP ARTHROPLASTY Anesthesia History Anesthesia History - spray machine tender: Anesthesia History - spray machine tender Hx Hospitalization No 09/06/24 10:32 Any Problems With Anesthesia No 09/06/24 10:32 Cholinesterase deficiency No 09/06/24 10:32 You/Your Family Experience No 09/06/24 10:32 fever (hyperthermia) with Relationship Recent Exposure to Contagious No 09/09/24 08:56 Disease Does patient have nerve No 09/06/24 10:32 stimulator Patient instructed to have device shut off --Does patient have Pacemaker No 09/09/24 08:56 or ICD? When Was Last Pacemaker Check QUESTION #4 FULL TEXT: You/Your Family Experience fever (hyperthermia) with Anesthesia Last Oral Intake Last Oral intake: Last Oral Intake NPO since 00:00 09/09/24 08:56 Meds taken in AM with sips of No 09/09/24 08:56 water? Meds patient instructed to take am of surgery PONV PONV - spray machine tender: PONV - spray machine tender Female Yes 09/06/24 10:32 HX of Motion Sickness No 09/06/24 10:32 HX of N/V After Surgery No 09/06/24 10:32 Non-Smoker Yes 09/06/24 10:32 Duration of Surgery greater Yes 09/06/24 10:32 than 60 minutes Number of Risk Factors 3 09/06/24 10:32 PONV Score Moderate Risk 09/06/24 10:32 Height & Weight Height & Weight: Anesthesia: Height & Weight Height 5 ft 7 in 09/09/24 08:56 Weight: 77.564 kg 09/09/24 08:56 Body Mass Index (BMI) 26.7 09/09/24 08:56 Respiratory Assessment Respiratory Assessment - spray machine tender: Respiratory Tract Infection Hx - spray machine tender Hx Respiratory Tract Infection No 09/06/24 10:32 STOP Sleep Apnea STOP Sleep Apnea - spray machine tender: STOP Sleep Apnea - spray machine tender Hx Hypertension No 09/06/24 10:32 Hx Sleep Apnea No 09/06/24 10:32 CPAP BIPAP Do you snore loudly (louder Yes 09/06/24 10:32 than talking or can be heard Do you often feel tired/ No 09/06/24 10:32 fatigued/ sleepy during daytime? Has anyone observed you stop No 09/06/24 10:32 breathing during sleep? STOP Results Negative 09/06/24 10:32 QUESTION #5 FULL TEXT : Do you snore loudly (louder than talking or can be heard through closed doors)? Tobacco Use History Tobacco Use History - spray machine tender: Tobacco Use History - spray machine tender Tobacco Use Smoking Status Never smoker 09/06/24 10:32 Hx Tobacco Use No 09/06/24 10:32 Years Smoking Packs Smoked per Day Smoking Cessation Date was within the last 15 years Hx Smoking Cessation Date Hx Smoking Cessation Counseling Hematologic Medial History Hematologic Hx - spray machine tender: Hematologic Medical Hx - residential substance abuse counselor Hx of Blood Transfusion No 09/06/24 10:32 Hx of Transfusion in last 3 No 09/06/24 10:32 Months Date of Last Transfusion (if within last 3 months) Ever experience any problems No 09/06/24 10:32 with transfusion(s)? Specify any problems Hx of Preganancy in last 3 No 09/06/24 10:32 Months Nurse Filling Out Transfusion DSCHRIBER 09/06/24 10:32 & Questions: Date: 09/06/24 09/06/24 10:32 Time: 10:35 09/06/24 10:32 Patient unable to answer at this time (ie. confused, unrespo /Reproduction History /Reproductive History - spray machine tender: /Reproductive Hx- spray machine tender Hx Now No 09/06/24 10:32 Gestational Age (in weeks): EDC: Hx Hx Para Hx Section SAB No 09/06/24 10:32 Active Medications Active Medications: Current Medications Generic Name Dose Route Start Last Admin Trade Name Freq PRN Reason Stop Dose Admin Acetaminophen 1,000 mg 09/09/24 10:45 09/09/24 08:55 Acetaminophen 500 Mg Tablet PO 09/09/24 10:46 Not Given X1 ONE Sodium Chloride 77.4 ml/ 0 ml 09/09/24 10:45 Ropivacaine 200 mg/ OPERA.SITE 09/09/24 10:46 Epinephrine HCl 0.6 mg/ X1 ONE Ketorolac Tromethamine 30 mg/ Morphine Sulfate 5 mg Gabapentin 600 mg 09/09/24 10:45 09/09/24 08:51 Gabapentin 600 Mg Tablet PO 09/09/24 10:46 600 mg X1 ONE Administration Lactated Ringer's 1,000 mls @ 999 mls/hr 09/09/24 10:45 09/09/24 08:55 IV 09/09/24 11:45 999 mls/hr .Q1H1M TISH Administration Tranexamic Acid 1,000 mg/ 110 mls @ 660 mls/hr 09/09/24 10:45 Sodium Chloride IV 09/09/24 10:54 X1 ONE Tranexamic Acid 1,000 mg/ 110 mls @ 660 mls/hr 09/09/24 11:45 Sodium Chloride IV 09/09/24 11:54 X1 ONE Lactated Ringer's 1,000 mls @ 999 mls/hr 09/09/24 11:45 IV 09/09/24 12:45 .Q1H1M TISH Lactated Ringer's 1,000 mls @ 125 mls/hr 09/09/24 12:45 IV 09/09/24 20:44 .Q8H TISH Cefazolin Sodium 2 gm/ N/A 20 mls @ 400 mls/hr 09/09/24 10:45 IV 09/09/24 10:47 PREOP ONE Magnesium Sulfate 1 gm/ 102 mls @ 408 mls/hr 09/09/24 10:45 09/09/24 08:55 Dextrose IV 09/09/24 10:59 408 mls/hr X1 ONE Administration Insulin Human Lispro 1 - 6 unit 09/09/24 10:45 Insulin Lispro 100 Unit/Ml Insuln.Pen SC 09/09/24 16:45 Q4H PRN PRN BG>/= 180, SEE PROTOCOL Protocol Meloxicam 15 mg 09/09/24 10:45 09/09/24 08:53 Meloxicam 15 Mg Tablet PO 09/09/24 10:46 15 mg PREOP ONE Administration PFSH Medical History Wears hearing aid Wears glasses Wears dentures Post-menopausal Depression Anxiety Walker as ambulation aid Back pain Constipation Gastric reflux Non-smoker History of pain when walking History of stress test Hx of fracture of wrist Skin cancer Osteoporosis Osteopenia Osteoarthritis Arthritis Fatigue sudden weight loss Abnormal thermography Thyroid nodule Home Medications ?Medication ?Instructions ?Recorded ?Last Taken ?Type digestive enzymes 1 tab PO DAILY 04/25/19 09/08/24 History acetaminophen 325 mg tablet 650 mg PO DAILY PRN PRN pain 02/25/21 Unknown History (Tylenol) boron 6 mg tablet 3 mg PO DAILY 04/29/21 11/10/24 History glucosamine sulfate 500 mg tablet 500 mg PO TID 02/25/21 09/04/24 History (Glucosamine) ibuprofen 200 mg tablet (Advil) 200 mg PO Q6H PRN pain 02/25/21 09/04/24 History magnesium oxide 500 mg PO BID 02/25/21 09/08/24 History tumeric 400 mg PO DAILY 02/25/21 09/04/24 History oxycodone 5 mg capsule 5 mg PO Q6H PRN pain 4 days #16 08/27/24 Unknown Rx caps calcium citrate 1,000 mg tablet 1,000 mg PO DAILY 09/06/24 09/08/24 History cholecalciferol (vitamin D3) 125 125 mcg PO DAILY 09/06/24 09/08/24 History mcg (5,000 unit) tablet (Vitamin D3) ginkgo biloba 60 mg tablet 60 mg PO DAILY 09/06/24 09/04/24 History omega 5-rhc-qeg-fish oil 300 1 cap PO BID 09/06/24 09/04/24 History mg-1,000 mg capsule,delayed release (Fish Oil) Allergy/AdvReac Type Severity Reaction Status Date / Time dexamethasone Allergy Severe hallcenating, Verified 09/09/24 07:54 anxiety methylprednisolone Allergy Severe hallucenant Verified 09/09/24 07:54 ing,anxiety prednisone Allergy Severe hallucenating Verified 09/09/24 07:54 ,anxiety azithromycin (From Zithromax Allergy Mild heart Verified 09/09/24 07:54 Z-Rasheed) racing levofloxacin (From Levaquin) Allergy Mild muscle Verified 09/09/24 07:54 pain, heart racing amantadine Allergy Other Verified 09/09/24 07:54 cortisone Allergy Other Verified 09/09/24 07:54 fluoxetine HCl (From Prozac) Allergy Other Verified 09/09/24 07:54 Penicillins Allergy Unknown Verified 09/09/24 07:54 erythromycin base AdvReac Severe digestive Verified 09/09/24 07:54 upset prednisolone AdvReac Severe hallucenati Verified 09/09/24 07:54 ons,anxiety escitalopram AdvReac Intermediate nausea Verified 09/09/24 07:54 sertraline AdvReac Intermediate heart Verified 09/09/24 07:54 racing Sulfa (Sulfonamide AdvReac Intermediate nausea,diar Verified 09/09/24 07:54 Antibiotics) emma Family History Father Cancer Leukemia Grandmother Heart disease Grandfather Colon cancer Other Angina at rest Arthritis Asthma Blood clot in vein High cholesterol Myocardial infarction Osteoporosis Respiratory disease Severe allergic reaction Thyroid disorder Surgical History Hx of abdominal hysterectomy Hx of wisdom tooth extraction Hx of colonoscopy History of repair of rectocele Hx of vaginal surgery Social History Smoking Status: Never smoker alcohol intake: never substance use type: does not use caffeine: No what type of physical activity do you participate in: none frequency: 5-6 times per week seatbelt use: always additional social history: Spouse- Doyle Review of Systems (Anesthesia) ROS Narrative System reviewed and no additional complaints, except as documented.
[2024-09-09 09:12] LABS: Bedside Glucose 71 mg/dL (74-106)
--- NOTE | 2024-09-09 10:00 | FEM_PTH ---
PATIENT: KAREN YANEZ LOC: MS3 U#:[id number] AGE/SX: 74/F ROOM: [facility] RE09/09/[address]: Dr. William Barclay MD : 1950 BED: 1 DIS: 09/11/2024 SPEC #: [id number] RECD: 09/09/24 14:24 STATUS: ZURI REQ #: [id number] CAMILA: 09/09/24 10:[address]: Corey Parr DEPT: SURGICAL PATHOLOGY RECD BY: Ysabel Morrison ENTERED: 09/10/24 10:07 SP TYPE: FEM HEAD OTHR DR: Dr. Jesse Pollard, DO MD Dr. Tom Fay, DO Dr. Corey Parr MD Tissues: Femoral region, NOS Procedures: Decalcification bone/plaque Surgery Specimen Level V Comments: @ Ordering doctor for DEC edited from to @ by RICH at 09/10/24 1057 @ Ordering doctor for SUV edited from to @ by RICH at 09/10/24 1057 @ Submitting doctor edited from to @ by RICH at 09/10/24 1057 HEADER OPERATION: Total hip anterior approach PRE-OP DIAGNOSIS: Left hip minimally displaced femoral neck fracture, left hip moderate osteoarthritis, lumbar degenerative disc disease and low back pain, osteoporosis TISSUE SUBMITTED: Left hip femoral head MICROSCOPIC DIAGNOSIS Bone and tissue of left hip, total hip resection: Consistent with organizing fracture callus. AM: 09/13/2024 MICROSCOPIC DESCRIPTION Slides are reviewed. GROSS DESCRIPTION Received is one container labeled with the patient's name and designated femoral head and tissue. The specimen consists of a gilliland femoral head measuring 4.0 x 4.5 x 3.5 cm. The articular surface is smooth. Resection margin is irregular. Also present in the specimen container are multiple detached of bone reaming and fragments of bone measuring in aggregate 7.5 x 7.0 x 3.0 cm. No soft tissue is identified. Medical Voucher Clerk sections are submitted in four cassettes as follows: 1& 2 - detached pieces of bone after decalcification, 3&4 - femoral head after decalcification. / WESLY. 09/10/2024 TC:5 CPT: 21845, 18957
[2024-09-09] MEDS: Cefazolin 2 GM in Syringe IV (10:06)
[2024-09-09] MEDS: TXA 1000mg in NS100 100ml (IVPB at Incision) 660 MG IV (10:08)
--- NOTE | 2024-09-09 10:10 | PCM.OPRPT ---
Operative Report (Standard) Operative Information Surgery/Procedure Performed: Left direct anterior total replacement Surgeon: Corey Parr Date of Procedure: 09/09/24 Procedure Start Time: 10:32 Procedure Stop Time: 12:01 Pre-Operative Diagnosis: Left hip subcapital femoral neck fracture Left hip primary osteoarthritis Post-Operative Diagnosis: Left hip subcapital femoral neck fracture Left hip primary osteoarthritis Select all DRAINS/GRAFTS/IMPLANTS that apply: Prosthetic device Prosthetic device details: Components used: 1. Insignia [place] femoral stem size 6 high offset 2. Joana trident 2 acetabular shell size 48 mm 3. Joana X3 polyethylene alpha code D, lateralized 4. [place] Biolox delta 32mm, -4mm femoral head and Graft Graft details: Femoral head bone graft was used behind the acetabulum Type of Anesthesia: Spinal Special Medications: 2 g Ancef, 1 g TXA at incision, 1 g TXA closure, joint cocktail (5 mg Duramorph, 30 mL of 0.5% Ropivicaine, 1000 units of epinephrine, 30 mg of Toradol) Estimated Blood Loss: 200 mL Fluids Replaced: 1000 mL crystalloid Specimen collected: Yes Description of specimen(s) removed: Bony cuts Description of surgery: Brief history operative indications: 74 yo F who failed conservative measures for their hip osteoarthritis. X-rays were consistent with osteoarthritis including joint space narrowing, osteophyte formation and subchondral cysts. Total hip replacement was discussed with the patient with risks and benefits including but not limited to blood loss, DVTs, PEs, neurovascular damage, dislocation, general risks of anesthesia including loss of life. Patient demonstrated an understanding medical clearance is obtained the patient was consented for surgery. Procedure: On the date of procedure the patient's L hip was marked in the preoperative area. Patient was then taken back to the operating room where anesthesia assumed control of the C-spine and airway and administered anesthetic. Patient was transferred to the operating table and placed in the supine position. The hips were placed at the break of the bed and a sacral bump was placed. The L lower extremity was then prepped out in a sterile fashion using chlorhexidine while the surgeon scrubbed. The PA was vital in the positioning of the patient. Upon reentering the room the L lower extremity was draped in the standard orthopedic fashion and the incision was marked. A timeout was called and everyone agreed upon the side, the site, the procedure be performed, antibody given, and patient's identity. At this time incision was made through skin, subcutaneous tissue, and fat down to fascia. The fascia was then incised and the TFL was retracted laterally. A retractor was placed on the lateral border of the femoral neck. Attention was directed to the inferior portion of the approach and all crossing vessels were identified and appropriately coagulated. A retractor was then placed on the medial portion of the femoral neck. The anterior capsule was then cleared of all soft tissue and then H shaped capsulotomy was made. The retractors were then placed inside the capsule. The femoral neck was identified and a cleanup cut was made. At this time a power corkscrew was used to remove the femoral head. Attention was then turned toward the acetabulum where the soft tissues were appropriately retracted and the acetabulum was sequentially reamed to 48 mm. We did note that the reaming depth based on the patient's bone quality was central. Based on this we did use a small reamer and obtained graft from the femoral head. This was packed in the acetabulum. A 48 mm cup was then selected and impacted into place. 2 screws were placed in the safe zone acetabular liner was impacted into place and locking mechanism was verified. The position of the acetabular cup was then verified under live fluoroscopy. Extra osteophytes were removed from anterior and superior. Attention was then turned to the femur. Soft tissue releases on the medial and lateral femoral neck were appropriately done, the leg was externally rotated and lateralized. A Caraballo retractor was placed medially and proximally to the greater trochanter this allowed appropriate visualization and exposure of the femoral canal. Rongeour was then used to remove excess lateral bone. A canal finder and entry broach were used to open the proximal canal. Once we verified we were down the femoral canal we subsequently broached up to a size 6 femur. The appropriate neck was placed in the previously selected head was trialed with a -4 mm neck. Traction was pulled and the hip was reduced with internal rotation. Once it was appropriately reduced and stability was checked. There was minimal shuck, equal leg lengths and appropriate stability with hyperextension and external rotation as well as with 90? flexion and internal rotation. Fluoroscopy was then also used to verify the position of the components and leg lengths using the contralateral side for comparison. The trial components were then dislocated the proximal femur was again exposed and the components were removed from the wound. The final components were verified and opened. The wound was copiously irrigated out with normal saline. The acetabulum was checked for any residual debris. The final components were placed and impacted. Traction and internal rotation were again used to reduce the hip. After adequate reduction the hip remained stable with appropriate leg lengths. The final components were once again checked with live fluoroscopy and were found to be satisfactory. The wound was then copiously irrigated with normal saline once more, and hemostasis was obtained. Closure was then done using #1 Vicryl runner to close the fascia. A 2-0 vicryl interuppted sutures were used to close the subcutaneous skin. A 3-0 Monocryl and Steri-Strips were used for final skin closure. A Silverlon dressing was placed. Patient was awakened by anesthesia and transferred to the [facility]. Patient was then transferred to the PACU for recovery. Postoperative plan: Patient will get 24 hours postop antibiotics. Patient will get in-house physical therapy and will be weight-bear as tolerated. Patient will follow up in office in 2 weeks for a wound check and x-rays. Aspirin 81 mg twice daily. During the course of the procedure the physician emergency medicine (PE) played a vital role. Their intimate knowledge of my steps in the procedure aided in safe and expedient completion of the procedure. The PE played a vital rolls in positioning particularly in obtaining the appropriate positioning of the sacral bump. The PE was also vital in the retraction of soft tissues during the exposure and especially the femoral work as this is a vital part of the procedure to prevent complications and fractures. The PE was also vital and protecting soft tissues during times of bony cuts and reaming. He also played a vital role in closure with my direct supervision. The PE was also important during reduction and dislocation of the joint and trials intraoperatively. Surgical Findings: Stable hip. Subcapital impacted fracture. Stage IV osteoarthritis. Significant osteoporosis noted on reaming. Due to depth of reaming lateralized liner was used and bone graft was packed behind the acetabulum. 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
--- NOTE | 2024-09-09 11:00 | RAD_ITS ---
INDICATION: PAIN EXAMINATION/TECHNIQUE: X-RAY - XR Hip Unilateral with Pelvis when performed; 1 View COMPARISON: CT dated August 27, 2024 FINDINGS: Three intraoperative images of the left hip were submitted. There is placement of a left total hip arthroplasty. The alignment is anatomic. No acute fracture nor dislocation. No suspicious bony lesions are seen. Please refer to the intraoperative report for further discussion. RAD/Hip 1 view with Pelvis IMPRESSION: Left total hip arthroplasty, grossly anatomic in alignment. Electronically Signed: Dixie Tapia MD at 8:43 EST ,
[2024-09-09] MEDS: JPS (Morphine 10mg/ml) OPERA.SITE (11:33)
[2024-09-09] MEDS: TXA 1000mg in NS100 100ml (IVPB at Closure) 660 MG IV (11:35)
--- NOTE | 2024-09-09 11:42 | RAD_ITS ---
STUDY: X-RAY - PELVIS AND LEFT HIP REASON FOR EXAM: Female, 74 years old. Post Op -- AP both hips on single jerson/lateral of op hip PACU TECHNIQUE: 2 views of the pelvis and hip. COMPARISON: Comparison is made with prior study dated August 27, 2024. FINDINGS: The patient status post left total hip replacement. There is good alignment. Postoperative soft tissue changes. RAD/Hip Min 2 Views (Portable) IMPRESSION: Status post left total hip replacement. There is good alignment. Postoperative soft tissue changes. Electronically Signed: Bharathi Spears MD at 12:31 EST ,
[2024-09-09] MEDS: Lactated Ringers 1,000 ML 125 ML IV (12:45)
[2024-09-09] MEDS: Acetaminophen 500 MG Tablet 1000 MG PO ×2 (14:13→20:02)
[2024-09-09] MEDS: oxyCODONE 5 MG Tablet PO (14:13)
--- NOTE | 2024-09-09 14:18 | PCM.CONS.GEN ---
Assessment & Plan Assessment/Plan (1) Status post left hip replacement: (2) Hypotension after procedure: PLAN: Plan Patient is a 74-year-old female who presented to [facility] on 09/09/2024 for planned left hip replacement procedure. Medicine consulted postoperatively for medical management. 1. Left hip subcapital femoral neck fracture and left hip primary osteoarthritis ? Orthopedic surgery primary. S/p left total hip replacement with Dr. Parr on 09/09. Tolerated procedure well, no intraoperative complications. Pain management and DVT prophylaxis per orthopedics. Follow-up a.m. CBC and BMP. PT/OT/case management consulted. 2. Mild postoperative hypotension, improved ? Patient had multiple borderline low BP readings in the afternoon on 09/09. Lowest reading was 89/45. Patient was asymptomatic. Blood pressure did improve back to 124/58 after IV fluid resuscitation. Not on home blood pressure medications. Did not appear volume overloaded after IV fluids. Continue to monitor. 3. Osteoporosis ? No inpatient needs, continue outpatient management. Total clinical time spent by myself addressing the patient's medical issues, reviewing all the data, and collaborating with patient's care team: 35 minutes. HPI Consult Data Date of Consult: 09/09/24 HPI Narrative Reason for Consultation: Postoperative medical management HPI Narrative: KAREN YANEZ, is a 74 F who presented to [facility] on 09/09/2024 for planned left hip replacement procedure. Medicine consulted postoperatively for medical management. Patient had left total hip replacement done with Dr. Parr this morning. Tolerated procedure well, no intraoperative complications. Saw patient at bedside this afternoon. Patient was mild to moderately fatigued appearing but otherwise laying comfortably in bed, conversing normally, in no acute distress. Patient currently denies any hip pain or discomfort. Patient's blood pressure has been borderline low since arriving back to the floor from PACU. She did get up to use the restroom with assistance and got back into bed without any significant lightheadedness or dizziness. However, her blood pressure was noted to be in the 80s over 40s with 1 read after that show she was kept in bed. She was on LR 125 cc/h at that time which was scheduled to finish around 8 PM and that fluid is that was given as a bolus. Her blood pressure remained borderline after the bolus so another 500 cc bolus of LR was given. After that her blood pressure was improved to 120s over 60s. No other concerns at this time. [facility] Medical History Wears hearing aid Wears glasses Wears dentures Post-menopausal Depression Anxiety Walker as ambulation aid Back pain Constipation Gastric reflux Non-smoker History of pain when walking History of stress test Hx of fracture of wrist Skin cancer Osteoporosis Osteopenia Osteoarthritis Arthritis Fatigue sudden weight loss Abnormal thermography Thyroid nodule Home Medications ?Medication ?Instructions ?Recorded ?Last Taken ?Type digestive enzymes 1 tab PO DAILY 04/25/19 09/08/24 History acetaminophen 325 mg tablet 650 mg PO DAILY PRN PRN pain 02/25/21 Unknown History (Tylenol) boron 6 mg tablet 3 mg PO DAILY 02/25/21 09/08/24 History glucosamine sulfate 500 mg tablet 500 mg PO TID 02/25/21 09/04/24 History (Glucosamine) ibuprofen 200 mg tablet (Advil) 200 mg PO Q6H PRN pain 02/25/21 09/04/24 History magnesium oxide 500 mg PO BID 02/25/21 09/08/24 History tumeric 400 mg PO DAILY 02/25/21 09/04/24 History oxycodone 5 mg capsule 5 mg PO Q6H PRN pain 4 days #16 08/27/24 Unknown Rx caps calcium citrate 1,000 mg tablet 1,000 mg PO DAILY 09/06/24 09/08/24 History cholecalciferol (vitamin D3) 125 125 mcg PO DAILY 09/06/24 09/08/24 History mcg (5,000 unit) tablet (Vitamin D3) ginkgo biloba 60 mg tablet 60 mg PO DAILY 09/06/24 09/04/24 History omega 5-qhg-dvk-fish oil 300 1 cap PO BID 09/06/24 09/04/24 History mg-1,000 mg capsule,delayed release (Fish Oil) Allergy/AdvReac Type Severity Reaction Status Date / Time dexamethasone Allergy Severe hallcenating, Verified 09/09/24 07:54 anxiety methylprednisolone Allergy Severe hallucenant Verified 09/09/24 07:54 ing,anxiety prednisone Allergy Severe hallucenating Verified 09/09/24 07:54 ,anxiety azithromycin (From Zithromax Allergy Mild heart Verified 09/09/24 07:54 Z-Rasheed) racing levofloxacin (From Levaquin) Allergy Mild muscle Verified 09/09/24 07:54 pain, heart racing amantadine Allergy Other Verified 09/09/24 07:54 cortisone Allergy Other Verified 09/09/24 07:54 fluoxetine HCl (From Prozac) Allergy Other Verified 09/09/24 07:54 Penicillins Allergy Unknown Verified 09/09/24 07:54 erythromycin base AdvReac Severe digestive Verified 09/09/24 07:54 upset prednisolone AdvReac Severe hallucenati Verified 09/09/24 07:54 ons,anxiety escitalopram AdvReac Intermediate nausea Verified 09/09/24 07:54 sertraline AdvReac Intermediate heart Verified 09/09/24 07:54 racing Sulfa (Sulfonamide AdvReac Intermediate nausea,diar Verified 09/09/24 07:54 Antibiotics) emma Family History Father Cancer Leukemia Grandmother Heart disease Grandfather Colon cancer Other Angina at rest Arthritis Asthma Blood clot in vein High cholesterol Myocardial infarction Osteoporosis Respiratory disease Severe allergic reaction Thyroid disorder Surgical History Hx of abdominal hysterectomy Hx of wisdom tooth extraction Hx of colonoscopy History of repair of rectocele Hx of vaginal surgery Social History Smoking Status: Never smoker alcohol intake: never substance use type: does not use caffeine: No what type of physical activity do you participate in: none frequency: 5-6 times per week seatbelt use: always additional social history: Spouse- Doyle EDWARDS Constitutional Constitutional: Reports fatigue; Denies chills, fever(s) or weakness Cardiovascular Cardiovascular: Denies chest pain Respiratory/Chest Respiratory/Chest: Denies shortness of breath at rest Gastrointestinal Gastrointestinal: Denies abdominal pain Musculoskeletal Musculoskeletal: Reports joint pain; Denies arthralgias or myalgias Physical Exam Const alert, oriented x3, no apparent distress and average body habitus Constitutional Narrative: Pleasant elderly female, mild to moderately fatigued appearing, otherwise laying back comfortably in bed, conversing normally, in no acute distress. General Appearance: cooperative and comfortable HEENT normocephalic, head/scalp atraumatic, hearing grossly normal bilaterally, nasal mucous membranes and turbinates normal and moist oral mucous membranes Eyes PERRL, EOMs intact bilaterally and conjunctivae normal Neck full ROM Chest inspection of chest normal Resp normal respiratory effort, normal air movement, no use of accessory muscles and clear to auscultation bilaterally Cardio regular rate, regular rhythm, no murmurs and peripheral pulses 2+ throughout GI normal to inspection, nondistended, normoactive bowel sounds, soft to palpation, non-tender and non-distended Back/Spine normal ROM Extremity no pedal edema Extremity Narrative: Left hip with ice pack in place, no gross abnormalities on visual exam. Skin no rashes or lesions noted Psych mental status grossly normal Lab / Micro Data Labs: Laboratory Results - last 24 hr 09/09/24 08:35: POC Glucose 71 L Imaging Radiology Impression Hip X-Ray 09/09/24 11:42 IMPRESSION: Status post left total hip replacement. There is good alignment. Postoperative soft tissue changes. Electronically Signed: Bharathi Spears MD at 12:31 EST , Charges/Coding Visit Charges Inpatient E&M: 57848 Subs Hosp L2
--- NOTE | 2024-09-09 14:40 | PCM.POST.ANE ---
Anesthesia: Postop Eval I Current Vital Signs Temperature: 98.9 F Pulse Rate: 80 Blood Pressure: 106/57 Respiratory Rate: 18 Pulse Ox: 98 Assessment Airway patent: Yes Spontaneous unlabored respirations: Yes nausea: No Vomiting: No Anesthesia Complication: No Fluid Hydration Crystalloid volume administer (ml): 800 Total IV fluid infused: 800 Progress Note Anesthesia document: Postop Eval 1 completed: Yes
--- NOTE | 2024-09-09 14:57 | PCM.POSTANE2 ---
Anesthesia Postop Eval I Sum Anesthesia Postop Eval I Summary Anesthesia Postop Eval I Summary: Anesthesia Postop Eval I: Assessment Summary Airway patent Spontaneous unlabored respirations Mental status nausea Vomiting Anesthesia Postop Eval I: Fluid Summary Crystalloid volume administer (ml) Colloids volume administered ( ml) Blood Product volume administered (ml) Total IV fluid infused Anesthesia Postop Eval I: Summary Notes Anesthesia Complication Anesthesia Complication Comment: Post-operative progress note Anesthesia: Postop Eval II Evaluation Mental status: Awake and Calm Pain Level: 1 nausea: No Vomiting: No Complications Anesthesia Complication: No
--- NOTE | 2024-09-09 16:05 | NURSING ---
supine in bed.
--- NOTE | 2024-09-09 16:07 | NURSING ---
SFL Left arm bp when in bed
--- NOTE | 2024-09-09 17:02 | NURSING ---
SFL while in bed. asymptomatic
[2024-09-09] MEDS: 0.9% Normal Saline (500mL Bag) 500 ML 15 ML IV (18:03)
[2024-09-09] MEDS: Cefazolin 1 GM/50 ML BAG IV (18:04)
--- NOTE | 2024-09-09 18:25 | NURSING ---
phoned and spoke with Taylor in pharmacy regarding needing IVF LR
[2024-09-09] MEDS: LACTATED RINGERS 500 ML 999 ML IV (18:40)
[2024-09-09] MEDS: Lactated Ringers 500 ML 999 ML IV (19:15)
[2024-09-09] MEDS: Aspirin 81 MG TAB.CHEW PO (20:02)
[2024-09-09] MEDS: Magnesium Chloride 64 MG Delay Rel.Tablet 128 MG PO (20:02)
[2024-09-09] MEDS: Senna/Docusate Sodium 1 Tablet 2 TABLET PO (20:02)
[2024-09-10] VITALS (7 sets, daily range): BP systolic 98–108; BP diastolic 45–66; PULSE 80–101; RESP 16–18; TEMP 37.2–37.6; O2SAT 94–100
[2024-09-10] MEDS: Cefazolin 1 GM/50 ML BAG IV (02:41)
[2024-09-10] MEDS: Ketorolac 15 MG/ML Vial IV ×2 (02:51→20:29)
[2024-09-10] MEDS: Acetaminophen 500 MG Tablet 1000 MG PO ×2 (06:18→21:59)
--- NOTE | 2024-09-10 07:18 | PN.ORTHO_ITS ---
Subjective Subjective The patient was sitting in bed upon examination. Patient denies any chest pain, shortness of breath, dizziness, lightheadedness, nausea or vomiting, or calf pain. Patient states she did have nausea yesterday but this has resolved. Patient is reporting increased amount of pain with her left hip. Patient has history of left hip pain in which she was in the emergency room on August 27, 2024. No fracture was identified at that time. She was walking around with continued pain. An MRI was obtained on September 02, 2024. This did identify a minimally displaced femoral neck fracture. She was placed nonweightbearing. Patient proceeded forward with a total hip arthroplasty secondary to a subcapital femoral neck fracture. Patient lives home alone. She is concerned about discharge. She is having significant amount of pain this morning and does want to avoid taking narcotics. She struggles getting in and out of bed. Patient had physical therapy yesterday after surgery in which she was drowsy and had very slow pace. She has yet to have any therapy this morning. Objective Data Objective Data Vital Signs: Vital Signs Temp Pulse Resp BP Pulse Ox O2 Del Method O2 Flow Rate 98.9 F 80 18 106/57 L 98 Room Air 4.5 09/10/24 06:38 09/10/24 06:39 09/10/24 06:39 09/10/24 06:39 09/10/24 06:39 09/10/24 02:44 09/09/24 16:23 Oxygen Flow Rate (L/min) 4.5 Oxygen Delivery Method Room Air Weight: 77.564 kg Body Mass Index (BMI) 26.7 Intake & Output: Intake and Output for Last 24 Hours 09/08/24 09/09/24 09/10/24 23:59 23:59 23:59 Intake Total 5396.75 / 5396.75 50 / 50 Balance 5396.75 / 5396.75 50 / 50 Lab / Micro Data 09/10/24 06:46 09/10/24 06:46 Labs: Laboratory Results - last 24 hr 09/09/24 08:35: POC Glucose 71 L Radiography Diagnostic Testing: Radiology Impression Hip X-Ray 09/09/24 11:42 IMPRESSION: Status post left total hip replacement. There is good alignment. Postoperative soft tissue changes. Electronically Signed: Bharathi Spears MD at 12:31 EST , Physical Exam Narrative Vital signs stable and afebrile. Left hip is soft and supple. Patient does have tenderness to palpation throughout the left thigh SCDs and OPAL hose are in place bilaterally Patient is able to plantarflex and dorsiflex actively. Sensation is intact to light touch to saphenous, sural, superficial and deep peroneal, and tibial distribution. Dressing is clean dry and intact. Negative Homans bilaterally, negative signs and symptoms of DVT. Const alert, oriented x3 and no apparent distress Assessment & Plan Assessment/Plan (1) Fracture of left hip: (2) Status post left hip replacement: PLAN: 1. S/P direct anterior left total hip arthroplasty secondary to left hip subcapital femoral neck fracture POD #1 2. Continue Pain Medications: Tylenol, meloxicam, oxycodone. Do not take any other nonsteroidal anti-inflammatories while using meloxicam/Mobic. Patient is having a significant amount of pain this morning however she states that she wants to try to avoid narcotics. I did advise her if her pain is not adequately controlled she will have a very difficult time with activities of daily living, physical therapy. I recommend she try to stay ahead of the game on pain. She did voiced understanding. 3. DVT Prophylaxis: Take 81 mg aspirin twice daily for 4 weeks postoperatively for DVT prophylaxis. Patient denies past history of DVT or pulmonary embolism. 4. PT/OT: Weightbearing as tolerated with walker. Continue anterior hip precautions. Appreciate recommendations from therapy as there is concern for patient going home as she lives home alone. 5. H & H: 11.7/35.8, asymptomatic. Labs have been reviewed and no further need for treatment. Repeat lab for tomorrow CBC. 6. Encouraged Incentive Spirometry 7. Patient is aware of postoperative constipation that can occur from 1-3 days postoperatively. Will continue with senna 2 tablets twice daily until first bowel movement. Patient was advised if not having a bowel movement after day 3 she is to contact orthopedics so appropriate change can be made. Patient voiced understanding. 8. Continue postoperative medical treatment per medicine 9. Disposition: At this time I do not feel patient is appropriate for discharge as her pain is not adequately controlled. I would also like recommendations from physical therapy for appropriate and safe discharge planning. Case management is currently on board for discharge planning. Patient does live home alone. She sustained a left hip fracture which required total hip arthroplasty. I discussed the importance of getting up and moving to prevent blood clots and lung complications. She will continue to work on the incentive spirometer. I want her up to the bedside chair. She needs to continue with pain medications as long as she tolerates them. I explained to her the significance of proper pain control so that she can rehab appropriately. She did voiced understanding. Hopeful for better control for pain tomorrow and plan for discharge planning. I have reviewed the [place] Automated Rx Reporting System (OARRS) report for this patient for refill pattern and other prescriber involvement as part of the appropriate surveillance for the provision of acute and chronic controlled medications. The report was requested and reviewed on the date of this entry and was considered in the prescribing process. This dictation was created using voice recognition software. Phonetic and/or grammatical errors may exist.
--- NOTE | 2024-09-10 07:26 | PCM.PN.HOSP ---
Reason for Visit Reason for Visit: Diagnoses Postprocedural hypotension (09/09/24) Encounter for other preprocedural examination (09/09/24) Presence of left artificial hip joint (09/09/24) Subjective Subjective Patient is a 74-year-old gentleman who underwent Left direct anterior total replacement on account of left hip subcapital femoral neck fracture and Left hip primary osteoarthritis Objective Data Objective Data Vital Signs: Vital Signs Temp Pulse Resp BP Pulse Ox O2 Del Method O2 Flow Rate 98.9 F 80 18 106/57 L 98 Room Air 4.5 09/10/24 06:38 09/10/24 06:39 09/10/24 06:39 09/10/24 06:39 09/10/24 06:39 09/10/24 02:44 09/09/24 16:23 Oxygen Flow Rate (L/min) 4.5 Oxygen Delivery Method Room Air Weight: 77.564 kg Body Mass Index (BMI) 26.7 Intake & Output: Intake and Output for Last 24 Hours 09/08/24 09/09/24 09/10/24 23:59 23:59 23:59 Intake Total 5396.75 / 5396.75 50 / 50 Balance 5396.75 / 5396.75 50 / 50 Lab / Micro Data 09/10/24 06:46 09/10/24 06:46 Labs: Laboratory Results - last 24 hr 09/09/24 08:35: POC Glucose 71 L Radiography Diagnostic Testing: Radiology Impression Hip X-Ray 09/09/24 11:42 IMPRESSION: Status post left total hip replacement. There is good alignment. Postoperative soft tissue changes. Electronically Signed: Bharathi Spears MD at 12:31 EST , Physical Exam Narrative GENERAL: cooperative HEENT: Atraumatic; normocephalic EYES; Anicteric, Normal Conjunctiva NECK; supple, normal thyroid, RESPIRATORY: Diminished to auscultation CARDIOVASCULAR: Regular S1 S2, GI: soft, normoactive bowel sounds, : No Renal angle tenderness; EXTREMITIES: No edema, no clubbing, MUSCULOSKELETAL: no muscle wasting NEURO: Awake; no lateralizing signs. SKIN: No Rash PSYCH; Flat affect Assessment & Plan Assessment/Plan (1) Status post left hip replacement: (2) Hypotension after procedure: PLAN: Plan Patient is a 74-year-old gentleman who underwent Left direct anterior total replacement on account of left hip subcapital femoral neck fracture and Left hip primary osteoarthritis 1. Status post Left direct anterior total replacement -By Dr. Parr on 09/09/2024 on account of left hip subcapital femoral neck fracture and Left hip primary osteoarthritis. Patient postoperative orders regarding PT OT, pain management as well as DVT prophylaxis deferred to primary 2. Mild postoperative hypotension, improved ? Resolved following IV fluid resuscitation after surgery 3. Osteoporosis ? No inpatient needs, continue outpatient management. 4. DVT prophylaxis -Defer to primary service Time spent in the patient's overall evaluation,decision-making process, review of diagnostic data, adjustment of management, discussion with other providers, nursing nursing and ancillary staff involved in patient's care documentation, 35 Minutes Charges/Coding Visit Charges Inpatient E&M: 56748 Subs Hosp L2
[2024-09-10 07:39] LABS: Hematocrit 35.8 % (37-47); Hemoglobin 11.7 g/dL (12.0-15.0); Mean Corp Hgb Conc 32.7 g/dL (32-36); Mean Corpuscular Hgb 30.6 pg (27.0-32.0); Mean Corpuscular Volume 93.7 fL (81-99); Mean Platelet Vol. 11.1 fl (6.2-12.0); Platelet Count 187 K/mm3 (150-450); RBC Distribution Width CV 12.9 % (11.6-14.6); RBC Distribution Width SD 44.1 fl (35.1-43.9); Red Blood Count 3.82 M/mm3 (4.2-5.4); White Blood Count 7.6 K/mm3 (4.4-11.0)
[2024-09-10 07:55] LABS: Anion Gap 6 (5-15); BUN 15 mg/dL (7-18); BUN/Creat Ratio 26.6 RATIO (10-20); Calcium,Total 8.7 mg/dL (8.5-10.1); Chloride 111 mmol/L (98-107); Creatinine, Serum 0.56 mg/dL (0.55-1.02); EST Glomerular Filtration Rate 112 mL/min (>60); Est Glom Filt Rate - Afr Amer 136 mL/min (>60); Estimated Creatinine Clearance 67.22 ml/min; Glucose 100 mg/dL (74-106); Potassium 3.7 mmol/L (3.5-5.1); Sodium Level 141 mmol/L (136-145)
[2024-09-10] MEDS: oxyCODONE 5 MG Tablet PO ×3 (08:27→21:59)
--- NOTE | 2024-09-10 09:50 | CASEMGMT ---
Discharge Planning A list of?SNF providers including quality and resource use data and consistent with the patient's preferred geographic region, medical needs, and insurance network was created in [employer] Guide.? This list was provided to the SW. Krystal Casey Discharge Planning Asst.
[2024-09-10] MEDS: Calcium Carbonate 500 MG Tablet PO (10:53)
[2024-09-10] MEDS: Aspirin 81 MG TAB.CHEW PO ×2 (10:53→22:00)
[2024-09-10] MEDS: Magnesium Chloride 64 MG Delay Rel.Tablet 128 MG PO (10:53)
[2024-09-10] MEDS: Famotidine 20 MG Tablet PO (10:53)
[2024-09-10] MEDS: Senna/Docusate Sodium 1 Tablet 2 TABLET PO ×2 (10:53→22:00)
[2024-09-10] MEDS: Cholecalciferol (Vit D3) 125 MCG CAPSULE (5,000 UNITS) PO (10:54)
--- NOTE | 2024-09-10 10:55 | CASEMGMT ---
ANGELICA KIRK Assessment: Face to Face with pt for initial transition planning/care coordination assessment. ANGELICA KIRK introduced self and role at [facility], pt voices understanding and consents to assessment. Pt is A&O x4 and answers all questions appropriately at this time. Pt lying in bed in no distress. Care providers, pharmacy, and demographics verified/updated. Strata: 1 Admitting Dx: L Total Hip Replacement. PCP: Gavin Specialists: Beka Parr. Preferred Pharmacy: [facility] Insurance: [facility] Prescription Benefit: yes LNOK: Son, Ed. Living Arrangements: Pt lives alone in a 1 story home with 2 steps to enter. ADLs: Pt reports I with ADLs and IADLs. Transportation: Pt drives self and denies concerns with transportation. DME: Walker, Shower bench. HHC/SNF: Denies Hx of. Pt states she is concerned with going home at time of dc. Pt reports she is not able to take care of herself at this time and would like to go do a SNF for therapy. Pt denies wanting a list of local SNF, states she wants to go to TCU or Rehab at the hospital. ANGELICA KIRK Notified SW. Pt states no further concerns/needs. CM to follow. Advised pt to ask CM if any further question/concerns/needs arise, voices understanding. Pt Goal: SNF Plan: SNF Marsha DOMINGUEZ CM
--- NOTE | 2024-09-10 11:56 | CASEMGMT ---
Addendum entered by Idalia Friend 09/10/24 12:50: TCU accepted referral and started precert. Pt updated. SW remains available to follow. TRESA Vasquez Original Note: Social Work- SW advised that pt is interested in SNF. Pt declines list. TCU is [facility]. SW completed referral. SW remains available to follow. TRESA Vasquez
--- NOTE | 2024-09-10 12:44 | CASEMGMT ---
Met with patient to complete MASON form. MASON form explained to patient who voiced understanding and signed form. Original form placed in pt?s chart and copy provided to patient. Krystal Casey, Discharge Planning Asst
[2024-09-10] MEDS: Ondansetron 4 MG/2 ML Vial IV (20:29)
[2024-09-10] MEDS: proMETHazine 25 MG/ML Syringe 12.5 MG IM (21:58)
[2024-09-11 03:45] VITALS: BP 92/51; PULSE 75; RESP 18; TEMP 36.6; O2SAT 99
[2024-09-11] MEDS: Acetaminophen 500 MG Tablet 1000 MG PO ×2 (05:20→13:31)
[2024-09-11 06:05] LABS: Hematocrit 34.5 % (37-47); Hemoglobin 11.5 g/dL (12.0-15.0); Mean Corp Hgb Conc 33.3 g/dL (32-36); Mean Corpuscular Hgb 31.1 pg (27.0-32.0); Mean Corpuscular Volume 93.2 fL (81-99); Mean Platelet Vol. 11.1 fl (6.2-12.0); Platelet Count 170 K/mm3 (150-450); RBC Distribution Width CV 13.2 % (11.6-14.6); RBC Distribution Width SD 45.1 fl (35.1-43.9); White Blood Count 6.8 K/mm3 (4.4-11.0)
[2024-09-11 07:52] VITALS: O2SAT 95
--- NOTE | 2024-09-11 08:12 | PCM.PN.HOSP ---
Reason for Visit Reason for Visit: Diagnoses Postprocedural hypotension (09/09/24) Fracture of unspecified part of neck of left femur, initial encounter for closed fracture (09/09/24) Encounter for other preprocedural examination (09/09/24) Presence of left artificial hip joint (09/09/24) Subjective Subjective Patient seen still complains of pain in the hip. Awaiting transfer to the transitional care unit Objective Data Objective Data Vital Signs: Vital Signs Temp Pulse Resp BP Pulse Ox O2 Del Method O2 Flow Rate 98 F 75 18 92/51 L 95 Room Air 4.5 09/11/24 03:45 09/11/24 03:45 09/11/24 03:45 09/11/24 03:45 09/11/24 07:52 09/11/24 07:52 09/09/24 16:23 Oxygen Flow Rate (L/min) 4.5 Oxygen Delivery Method Room Air Weight: 77.564 kg Body Mass Index (BMI) 26.7 Intake & Output: Intake and Output for Last 24 Hours 09/09/24 09/10/24 09/11/24 23:59 23:59 23:59 Intake Total 5396.75 / 5396.75 50 / 50 Balance 5396.75 / 5396.75 50 / 50 Lab / Micro Data 09/11/24 05:14 09/10/24 06:46 Labs: Laboratory Results - last 24 hr 09/11/24 05:14: WBC 6.8, RBC 3.70 L, Hgb 11.5 L, Hct 34.5 L, MCV 93.2, MCH 31.1, MCHC 33.3, RDW Std Deviation 45.1 H, RDW Coeff of Prosper 13.2, Plt Count 170, MPV 11.1 Radiography Diagnostic Testing: Radiology Impression Hip/Pelvis X-Ray 09/09/24 11:00 IMPRESSION: Left total hip arthroplasty, grossly anatomic in alignment. Electronically Signed: Dixie Tapia MD at 8:43 EST , Physical Exam Narrative GENERAL: cooperative HEENT: Atraumatic; normocephalic EYES; Anicteric, Normal Conjunctiva NECK; supple, normal thyroid, RESPIRATORY: Diminished to auscultation CARDIOVASCULAR: Regular S1 S2, GI: soft, normoactive bowel sounds, : No Renal angle tenderness; EXTREMITIES: No edema, no clubbing, MUSCULOSKELETAL: no muscle wasting NEURO: Awake; no lateralizing signs. SKIN: No Rash PSYCH; Flat affect Assessment & Plan Assessment/Plan (1) Status post left hip replacement: (2) Hypotension after procedure: PLAN: Plan Patient is a 74-year-old gentleman who underwent Left direct anterior total replacement on account of left hip subcapital femoral neck fracture and Left hip primary osteoarthritis 1. Status post Left direct anterior total replacement -By Dr. Parr on 09/09/2024 on account of left hip subcapital femoral neck fracture and Left hip primary osteoarthritis. Patient postoperative orders regarding PT OT, pain management as well as DVT prophylaxis deferred to primary ? 09/11/2024; patient complains of significant pain in the left hip. 2. Mild postoperative hypotension, improved ? Resolved following IV fluid resuscitation after surgery 3. Osteoporosis ? No inpatient needs, continue outpatient management. 4. DVT prophylaxis -Defer to primary service 5. Physical deconditioning?following patient surgery ? Requested for PT OT eval and social sciences professor to assist with discharge planning. Plan is for patient to be transferred to the transitional care unit pending insurance pre-CERT Time spent in the patient's overall evaluation,decision-making process, review of diagnostic data, adjustment of management, discussion with other providers, nursing nursing and ancillary staff involved in patient's care documentation, 35 Minutes Charges/Coding Visit Charges Inpatient E&M: 73252 Subs Hosp L2
[2024-09-11 08:43] VITALS: BP 99/47; PULSE 88; RESP 16; TEMP 36.6; O2SAT 100
[2024-09-11] MEDS: Aspirin 81 MG TAB.CHEW PO (08:53)
[2024-09-11] MEDS: Magnesium Chloride 64 MG Delay Rel.Tablet 128 MG PO (08:53)
[2024-09-11] MEDS: Famotidine 20 MG Tablet PO (08:54)
[2024-09-11] MEDS: Senna/Docusate Sodium 1 Tablet 2 TABLET PO (08:54)
[2024-09-11] MEDS: Calcium Carbonate 500 MG Tablet PO (08:54)
[2024-09-11] MEDS: Meloxicam 7.5 MG Tablet PO (08:54)
[2024-09-11] MEDS: Cholecalciferol (Vit D3) 125 MCG CAPSULE (5,000 UNITS) PO (08:55)
[2024-09-11] MEDS: oxyCODONE 5 MG Tablet PO ×2 (08:56→13:31)
--- NOTE | 2024-09-11 10:52 | CASEMGMT ---
Social Work- SW updated pt on precert approval and potential d/c. SW remains available to follow. TRESA Vasquez
--- NOTE | 2024-09-11 11:40 | PCM.PN.ORT ---
Subjective Subjective The patient was sitting in bed upon examination. Patient denies any chest pain, shortness of breath, dizziness, lightheadedness, nausea or vomiting, or calf pain. Patient states she does feel a little better today. She still has pain with getting in and out of bed and with ambulation. She has approval and pre-CERT to go to the transitional care unit today. Objective Data Objective Data Vital Signs: Vital Signs Temp Pulse Resp BP Pulse Ox O2 Del Method O2 Flow Rate 97.8 F 88 16 99/47 L 100 Room Air 4.5 09/11/24 08:43 09/11/24 08:43 09/11/24 08:43 09/11/24 08:43 09/11/24 08:43 09/11/24 08:43 09/09/24 16:23 Oxygen Flow Rate (L/min) 4.5 Oxygen Delivery Method Room Air Weight: 77.564 kg Body Mass Index (BMI) 26.7 Intake & Output: Intake and Output for Last 24 Hours 09/09/24 09/10/24 09/11/24 23:59 23:59 23:59 Intake Total 5396.75 / 5396.75 50 / 50 Balance 5396.75 / 5396.75 50 / 50 Lab / Micro Data 09/11/24 05:14 09/10/24 06:46 Labs: Laboratory Results - last 24 hr 09/11/24 05:14: WBC 6.8, RBC 3.70 L, Hgb 11.5 L, Hct 34.5 L, MCV 93.2, MCH 31.1, MCHC 33.3, RDW Std Deviation 45.1 H, RDW Coeff of Prosper 13.2, Plt Count 170, MPV 11.1 Physical Exam Narrative Afebrile, patient does have some soft blood pressure readings but asymptomatic. Left thigh is soft and supple SCDs and OPAL hose are in place bilaterally Patient is able to plantarflex and dorsiflex actively. Sensation is intact to light touch to saphenous, sural, superficial and deep peroneal, and tibial distribution. Dressing is clean dry and intact. Negative Homans bilaterally, negative signs and symptoms of DVT. Const alert, oriented x3 and no apparent distress Assessment & Plan Assessment/Plan (1) Fracture of left hip: (2) Status post left hip replacement: PLAN: 1. S/P direct anterior left total hip arthroplasty secondary to left hip subcapital femoral neck fracture POD #2 2. Continue Pain Medications: Tylenol, meloxicam, oxycodone. Do not take any other nonsteroidal anti-inflammatories while using meloxicam/Mobic. Patient's pain is slightly improved today. 3. DVT Prophylaxis: Take 81 mg aspirin twice daily for 4 weeks postoperatively for DVT prophylaxis. Patient denies past history of DVT or pulmonary embolism. 4. PT/OT: Weightbearing as tolerated with walker. Continue anterior hip precautions. Appreciate recommendations from therapy as there is concern for patient going home as she lives home alone. 5. H & H: 11.5/34.5, asymptomatic. Labs have been reviewed and no further need for treatment. 6. Encouraged Incentive Spirometry 7. Patient is aware of postoperative constipation that can occur from 1-3 days postoperatively. Will continue with senna 2 tablets twice daily until first bowel movement. Patient was advised if not having a bowel movement after day 3 she is to contact orthopedics so appropriate change can be made. Patient voiced understanding. 8. Continue postoperative medical treatment per medicine 9. Disposition: Patient has obtained approval to go to the transitional care unit at [facility]. I discussed with the patient in detail medications and postoperative treatment plan and expectations. She will continue with above pain medications as well as DVT prophylaxis. I do recommend upon discharge from the transitional care unit she establish formal physical therapy to progress her strengthening exercises appropriately. She has appointment to follow-up 2 weeks postoperatively with [facility]. Patient will continue with the dressing for 5 days postoperatively. She can shower and get this wet. I also recommend that she continue to follow-up with her primary care provider upon discharge with regards to continued management of her osteoporosis. She voiced understanding and agreement. She will contact our office with any worsening symptoms. I have reviewed the [place] Automated Rx Reporting System (OARRS) report for this patient for refill pattern and other prescriber involvement as part of the appropriate surveillance for the provision of acute and chronic controlled medications. The report was requested and reviewed on the date of this entry and was considered in the prescribing process. This dictation was created using voice recognition software. Phonetic and/or grammatical errors may exist.
--- NOTE | 2024-09-11 11:43 | PCM.TXEXTCAR ---
Diet Diet Order/Speech Therapy: 09/09/24 14:20 Diet: Regular - General Type of Dietary Supplement:: Ensure Surgery Routine Orders/Code Status Code Status: Full Code Wound(s) LEFT ANTERIOR HIP: Wound Type: Surgical Incision Dressing Change: AntiMicrobial (Aquacel AG, etc) (Remove Mepilex dressing until September 14, 2024. Okay to shower and get this dressing wet. Once removed still okay to shower but only use gentle soap and water on the incision for 6 weeks postoperatively.) Therapies Weight Bearing: Full weight bearing (With walker) Physical Therapy: Eval and Treat (Follow anterior hip precautions) Occupational Therapy: Eval and Treat Problem/Diagnosis (1) Fracture of left hip: Status: Acute Code(s): S72.002A - Fracture of unspecified part of neck of left femur, initial encounter for closed fracture (2) Status post left hip replacement: Status: Acute Code(s): Z96.642 - Presence of left artificial hip joint Plan: 1. S/P direct anterior left total hip arthroplasty secondary to left hip subcapital femoral neck fracture POD #2 2. Continue Pain Medications: Tylenol, meloxicam, oxycodone. Do not take any other nonsteroidal anti-inflammatories while using meloxicam/Mobic. Patient's pain is slightly improved today. 3. DVT Prophylaxis: Take 81 mg aspirin twice daily for 4 weeks postoperatively for DVT prophylaxis. Patient denies past history of DVT or pulmonary embolism. 4. PT/OT: Weightbearing as tolerated with walker. Continue anterior hip precautions. Appreciate recommendations from therapy as there is concern for patient going home as she lives home alone. 5. H & H: 11.5/34.5, asymptomatic. Labs have been reviewed and no further need for treatment. 6. Encouraged Incentive Spirometry 7. Patient is aware of postoperative constipation that can occur from 1-3 days postoperatively. Will continue with senna 2 tablets twice daily until first bowel movement. Patient was advised if not having a bowel movement after day 3 she is to contact orthopedics so appropriate change can be made. Patient voiced understanding. 8. Continue postoperative medical treatment per medicine 9. Disposition: Patient has obtained approval to go to the transitional care unit at [facility]. I discussed with the patient in detail medications and postoperative treatment plan and expectations. She will continue with above pain medications as well as DVT prophylaxis. I do recommend upon discharge from the transitional care unit she establish formal physical therapy to progress her strengthening exercises appropriately. She has appointment to follow-up 2 weeks postoperatively with [facility]. Patient will continue with the dressing for 5 days postoperatively. She can shower and get this wet. I also recommend that she continue to follow-up with her primary care provider upon discharge with regards to continued management of her osteoporosis. She voiced understanding and agreement. She will contact our office with any worsening symptoms. I have reviewed the [place] Automated Rx Reporting System (OARRS) report for this patient for refill pattern and other prescriber involvement as part of the appropriate surveillance for the provision of acute and chronic controlled medications. The report was requested and reviewed on the date of this entry and was considered in the prescribing process. This dictation was created using voice recognition software. Phonetic and/or grammatical errors may exist. Allergies/Procedures Done in Hospital Allergies dexamethasone Allergy (Severe, Verified 09/09/24 07:54) hallcenating, anxiety methylprednisolone Allergy (Severe, Verified 09/09/24 07:54) hallucenanting,anxiety prednisone Allergy (Severe, Verified 09/09/24 07:54) hallucenating ,anxiety azithromycin (From Zithromax Z-Rasheed) Allergy (Mild, Verified 09/09/24 07:54) heart racing levofloxacin (From Levaquin) Allergy (Mild, Verified 09/09/24 07:54) muscle pain, heart racing amantadine Allergy (Verified 09/09/24 07:54) Other cortisone Allergy (Verified 09/09/24 07:54) Other fluoxetine HCl (From Prozac) Allergy (Verified 09/09/24 07:54) Other Penicillins Allergy (Verified 09/09/24 07:54) Unknown erythromycin base Adverse Reaction (Severe, Verified 09/09/24 07:54) digestive upset prednisolone Adverse Reaction (Severe, Verified 09/09/24 07:54) hallucenations,anxiety escitalopram Adverse Reaction (Intermediate, Verified 09/09/24 07:54) nausea sertraline Adverse Reaction (Intermediate, Verified 09/09/24 07:54) heart racing Sulfa (Sulfonamide Antibiotics) Adverse Reaction (Intermediate, Verified 09/09/24 07:54) nausea,diarrhea Procedures: - (Status post direct anterior left total hip arthroplasty secondary to left hip subcapital femoral neck fracture) Type of Care/Length of Stay Estimated LOS: Convalescent Care Less Than 30 days Type of Care Needed: Skilled Rehab Potential: Good Prognosis: Good Additional Orders/Day of Discharge Day of Discharge: 09/11/24 Discharge Plan Admission Admit Date/Time: 09/09/24 11:41 Attending Provider: William Barclay Primary Care Provider: Tom Alonso Consulting Providers: Jesse Pollard; Corey Parr Instructions Additional Instructions / Restrictions: Orthopedic instructions: 1. Postoperative pain control: Continue with extra strength Tylenol, meloxicam, and oxycodone for breakthrough pain 2. DVT prophylaxis: Take 81 mg aspirin twice daily for 4 weeks postoperatively for DVT prophylaxis. Patient denies past history of DVT or pulmonary embolism. 3. Postoperative dressing: Okay to remove the Mepilex dressing on September 14, 2024. Patient is able to shower and get dressing wet. Once the dressing has been removed she is still okay to shower but only use gentle soap and water over the incision for 6 weeks postoperatively. [address] not place any ointments, topicals on the incision for 6 weeks postoperatively. 4. OPAL hose: Continue for 2 weeks postoperatively. Okay to remove at nighttime and showering. OPAL hose should be placed back on bilateral lower extremities during the day. 5. Physical therapy: Continue while in the transitional care unit. Upon discharge I do recommend outpatient physical therapy to appropriately progress her exercises. She may benefit from transportation from the hospital to [facility] if she is unable to drive at that point. Discharge Orders/Prescriptions Prescriptions: New acetaminophen 500 mg Tablet 1,000 mg PO TID 14 Days Qty: 84 0RF Rx Instructions: Do not take more than 3000 mg Tylenol in a 24-hour period. aspirin 81 mg capsule 81 mg PO BID 30 Days Qty: 0 0RF Rx Instructions: Take 81 mg aspirin twice daily for 4 weeks postoperatively for DVT prophylaxis. meloxicam 7.5 mg Tablet 7.5 mg PO BID Qty: 0 0RF Rx Instructions: Do not take any other nonsteroidal anti-inflammatories while using meloxicam/Mobic. famotidine 20 mg Tablet 20 mg PO DAILY Qty: 0 0RF Rx Instructions: Continue for 4 weeks postoperatively oxycodone 5 mg Tablet 5 - 10 mg PO Q4H PRN PRN (Reason: as needed for pain) 7 Days Qty: 42 0RF sennosides-docusate sodium [Stimulant Laxative Plus] 8.6-50 mg Tablet 2 tab PO BID 3 Days Qty: 12 0RF Rx Instructions: Take until first bowel movement, then as needed Continued digestive enzymes tablet 1 tab PO DAILY boron 6 mg tablet 3 mg PO DAILY magnesium oxide 400 mg magnesium capsule 500 mg PO BID calcium citrate 1,000 mg tablet 1,000 mg PO DAILY cholecalciferol (vitamin D3) [Vitamin D3] 125 mcg (5,000 unit) tablet 125 mcg PO DAILY ginkgo biloba 60 mg tablet 60 mg PO DAILY Rx Instructions: give with meal/snack Held glucosamine sulfate [Glucosamine] 500 mg tablet 500 mg PO TID Hold Instructions: Resume on 09/24/24. Rx Instructions: administer with meals tumeric tablet 400 mg PO DAILY Hold Instructions: Resume on 09/24/24. omega 8-fdt-mic-fish oil [Fish Oil] 300-1,000 mg capsule,delayed release(DR/EC) 1 cap PO BID Hold Instructions: Resume on 09/24/24. Discontinued acetaminophen [Tylenol] 325 mg tablet 650 mg PO DAILY PRN PRN (Reason: pain) ibuprofen [Advil] 200 mg tablet 200 mg PO Q6H PRN (Reason: pain) oxycodone 5 mg capsule 5 mg PO Q6H PRN (Reason: pain) 4 Days Qty: 16 0RF Referrals / Follow Up: Tom Alonso DO [Primary Care Provider] - Modesto De Leon PA-C [Med Staff - Adv Practice Prof] - 09/23/24 9:30 am Disposition Disposition (needs filled in before D/C Order can be placed): Alf Facility
--- NOTE | 2024-09-11 12:06 | PHA.DC.MR.R ---
Pharmacy [facility] Med Reconciliation Pharmacy Service has performed discharge medication reconciliation for this patient. The patient's discharge medication list was reviewed for discrepancies and discrepancies were resolved. Medications at Discharge Home Medications digestive enzymes 1 tab PO DAILY 04/25/19 boron 6 mg tablet 3 mg PO DAILY 02/25/21 glucosamine sulfate 500 mg tablet (Glucosamine) 500 mg PO TID 02/25/21 magnesium oxide 500 mg PO BID 02/25/21 tumeric 400 mg PO DAILY 02/25/21 calcium citrate 1,000 mg tablet 1,000 mg PO DAILY 09/06/24 cholecalciferol (vitamin D3) 125 mcg (5,000 unit) tablet (Vitamin D3) 125 mcg PO DAILY 09/06/24 ginkgo biloba 60 mg tablet 60 mg PO DAILY 09/06/24 omega 9-ztz-kkf-fish oil 300 mg-1,000 mg capsule,delayed release (Fish Oil) 1 cap PO BID 09/06/24 acetaminophen 500 mg tablet 1,000 mg (2 x 500 mg) PO TID 14 days #84 tabs 09/11/24 aspirin 81 mg capsule 81 mg PO BID 30 days #0 caps 09/11/24 famotidine 20 mg tablet 20 mg PO DAILY #0 tabs 09/11/24 meloxicam 7.5 mg tablet 7.5 mg PO BID #0 tabs 09/11/24 oxycodone 5 mg tablet 5 - 10 mg (1 - 2 x 5 mg) PO Q4H PRN PRN as needed for pain 7 days #42 tabs 09/11/24 sennosides 8.6 mg-docusate sodium 50 mg tablet (Stimulant Laxative Plus) 2 tab PO BID 3 days #12 tabs 09/11/24
--- NOTE | 2024-09-11 12:21 | CASEMGMT ---
Social Work- Precert has been obtained.? Physician updated and pt is ready for discharge today.? SW met with pt and they are agreeable to discharge plan as stated above.? Bedside nurse notified of discharge. SW faxed documentation to TCU. Disposition: TCU, skilled level of care under convalescent stay. TRESA Vasquez
[2024-09-11 13:26] VITALS: BP 130/58; PULSE 86; RESP 18; TEMP 36.6; O2SAT 100
== END 2024-09-11 14:15 | disposition skilled nursing facility (03) ==
LOC: SDC 13:08 → MS3 13:08
PROVIDERS: Physician Assistant Surgical; Admitting Provider Specialist; PCP Family Medicine; Referring Provider Specialist; Visit Provider Internal Medicine
PROC: (CPT 27284; principal; 2024-09-09 09:35)
DX: M16.12 Unilateral primary osteoarthritis, left hip (principal); M80.052A Age-related osteoporosis with current pathological fracture, left femur, initial encounter for fracture; M79.7 Fibromyalgia; M81.0 Age-related osteoporosis without current pathological fracture; I95.81 Postprocedural hypotension; K21.9 Gastro-esophageal reflux disease without esophagitis; Y83.1 Surgical operation with implant of artificial internal device as the cause of abnormal reaction of the patient, or of later complication, without mention of misadventure at the time of the procedure; Y92.239 Unspecified place in hospital as the place of occurrence of the external cause
CPT/HCPCS: 27130; 01214; 36415; 73501; 73502; 76000; 80048; 82962; 85027; 88307; 88311; 94668; 96361; 96365; 96366; 96372; 96375; 96376; 97116; 97162; 97166; 97530; 97535; 99221; 99252; C1713; C1776; G0378; G0463; J2405; J3475

== ENCOUNTER 2024-09-11 14:25 | Inpatient (IN) | payer MEDICARE, SELFPAY ==
[2024-09-11 14:35] VITALS: BP 110/62; PULSE 92; RESP 16; TEMP 36.1; O2SAT 97; BMI 28.9
[2024-09-11] MEDS: Meloxicam 7.5 MG Tablet PO (18:01)
[2024-09-11] MEDS: Aspirin 81 MG TAB.CHEW PO (18:02)
--- NOTE | 2024-09-11 18:25 | RAD_ITS ---
INDICATION: Severe left hip pain post-op SEVERE LEFT HIP PAIN 2 DAYS POST OP EXAMINATION/TECHNIQUE: X-RAY - XR Hip Unilateral with Pelvis when performed; 2-3 Views COMPARISON: Prior study dated: 09/09/2024 FINDINGS: Surgical hardware at the acetabular femoral components of the hip prosthesis in anatomic alignment. Mild protrusio acetabuli. Questionable subtle defect at the left acetabular margin adjacent to the hardware. No dislocation. Paraspinal soft tissues about the left hip postsurgical. RAD/HIP, UNI W/ Pelvis 2-3 Views IMPRESSION: Left hip arthroplasty unchanged in alignment. Mild protrusio with questionable subtle cortical defect at the acetabular margin adjacent to the hardware, question nondisplaced fracture. CT may be helpful. Electronically Signed: Louise Greco MD at 6:01 EST ,
--- NOTE | 2024-09-11 20:35 | HP.PCM_ITS ---
HPI - General General Date of Admission: 09/11/24 Date of Service: 09/11/24 Chief Complaint: Here for rehabilitation. HPI Narrative KAREN YANEZ, is a 74 Female who presents with followin09/04/2024 Severe left hip pain, low back pain, using walker to walk. MRI left hip showed left hip fracture, moderate left hip arthritis. 09/09/2024 Dr. Parr performed left direct anterior total hip replacement. 09/09/2024 PT/OT for discharge planning. IV fluids for hypotension, responded. 09/10/2024 Tylenol, Meloxicam, Oxycodone for pain control. Aspirin 81mg bid x 4 weeks for DVT prophylaxis. Hemoglobin 11.1. 09/10/2024 PT/OT for SNF. 09/11/2024 Admit to TCU with debility, here for rehabilitation, strengthening, prior to discharge home alone. [facility] Medical History Wears hearing aid Wears glasses Wears dentures Post-menopausal Depression Anxiety Walker as ambulation aid Back pain Constipation Gastric reflux Non-smoker History of pain when walking History of stress test Hx of fracture of wrist Skin cancer Osteoporosis Osteopenia Osteoarthritis Arthritis Fatigue sudden weight loss Abnormal thermography Thyroid nodule Home Medications ?Medication ?Instructions ?Recorded ?Last Taken ?Type digestive enzymes 1 tab PO DAILY digestion 04/25/19 09/08/24 History boron 6 mg tablet 3 mg PO DAILY supplement 02/25/21 09/08/24 History glucosamine sulfate 500 mg tablet 500 mg PO TID supplement 02/25/21 09/04/24 History (Glucosamine) magnesium oxide 500 mg PO BID supplement 02/25/21 09/08/24 History tumeric 400 mg PO DAILY supplement 02/25/21 09/04/24 History calcium citrate 1,000 mg tablet 1,000 mg PO DAILY supplement 09/06/24 09/08/24 History cholecalciferol (vitamin D3) 125 125 mcg PO DAILY supplement 09/06/24 09/08/24 History mcg (5,000 unit) tablet (Vitamin D3) ginkgo biloba 60 mg tablet 60 mg PO DAILY supplement 09/06/24 09/04/24 History omega 2-las-bcn-fish oil 300 1 cap PO BID supplement 09/06/24 09/04/24 History mg-1,000 mg capsule,delayed release (Fish Oil) acetaminophen 500 mg tablet 1,000 mg (2 x 500 mg) PO TID pain 09/11/24 Unknown Rx 14 days #84 tabs aspirin 81 mg capsule 81 mg PO BID blood thinner 30 days 09/11/24 Unknown Rx #0 caps famotidine 20 mg tablet 20 mg PO DAILY reflux #0 tabs 09/11/24 Unknown Rx meloxicam 7.5 mg tablet 7.5 mg PO BID pain #0 tabs 09/11/24 Unknown Rx oxycodone 5 mg tablet 5 - 10 mg (1 - 2 x 5 mg) PO Q4H 09/11/24 Unknown Rx PRN PRN as needed for pain 7 days #42 tabs sennosides 8.6 mg-docusate sodium 2 tab PO BID bowels 3 days #12 tabs 09/11/24 Unknown Rx 50 mg tablet (Stimulant Laxative Plus) Allergy/AdvReac Type Severity Reaction Status Date / Time dexamethasone Allergy Severe hallcenating, Verified 09/09/24 07:54 anxiety methylprednisolone Allergy Severe hallucenant Verified 09/09/24 07:54 ing,anxiety prednisone Allergy Severe hallucenating Verified 09/09/24 07:54 ,anxiety azithromycin (From Zithromax Allergy Mild heart Verified 09/09/24 07:54 Z-Rasheed) racing levofloxacin (From Levaquin) Allergy Mild muscle Verified 09/09/24 07:54 pain, heart racing amantadine Allergy Other Verified 09/09/24 07:54 cortisone Allergy Other Verified 09/09/24 07:54 fluoxetine HCl (From Prozac) Allergy Other Verified 09/09/24 07:54 Penicillins Allergy Unknown Verified 09/09/24 07:54 erythromycin base AdvReac Severe digestive Verified 09/09/24 07:54 upset prednisolone AdvReac Severe hallucenati Verified 09/09/24 07:54 ons,anxiety escitalopram AdvReac Intermediate nausea Verified 09/09/24 07:54 sertraline AdvReac Intermediate heart Verified 09/09/24 07:54 racing Sulfa (Sulfonamide AdvReac Intermediate nausea,diar Verified 09/09/24 07:54 Antibiotics) emma Family History Father Cancer Leukemia Grandmother Heart disease Grandfather Colon cancer Other Angina at rest Arthritis Asthma Blood clot in vein High cholesterol Myocardial infarction Osteoporosis Respiratory disease Severe allergic reaction Thyroid disorder Surgical History Hx of abdominal hysterectomy Hx of wisdom tooth extraction Hx of colonoscopy History of repair of rectocele Hx of vaginal surgery Social History (Updated 09/11/24 @ 20:[address] eDnton Rock MD) household members: none Smoking Status: Never smoker alcohol intake: never substance use type: does not use caffeine: No what type of physical activity do you participate in: none frequency: 5-6 times per week seatbelt use: always additional social history: Spouse- Doyle ROS Constitutional Constitutional: Denies chills, fever(s) or weight gain ENT HEENT: Denies headache(s), nasal congestion or nasal discharge Cardiovascular Cardiovascular: Denies chest pain or palpitations Respiratory/Chest Respiratory/Chest: Denies cough, excessive phlegm production or shortness of breath with exertion Gastrointestinal Gastrointestinal: Denies abdominal pain, nausea or vomiting Genitourinary Genitourinary: Denies dysuria Musculoskeletal Musculoskeletal: Denies joint pain or joint swelling Integumentary Integumentary: Denies rash or wounds Neurologic Neurologic: Denies focal weakness, numbness or tingling Psychiatric Psychiatric: Denies anxiety, auditory hallucinations, depression, homicidal ideation or suicidal ideation Vital Signs Vital Signs Vital Signs: 09/11/24 14:35 09/11/24 14:35 Temperature 97.0 F L Temperature Source Temporal Pulse Rate 92 Pulse Rhythm Regular Pulse Strength Normal (2+) Respiratory Rate 16 Respiratory Effort Normal Non-Labored Respiratory Depth Normal Respiratory Pattern Normal Blood Pressure 110/62 Blood Pressure Mean 78 Blood Pressure Source Monitor Blood Pressure Position Semi-Fowlers Blood Pressure Location Right Forearm Pulse Ox 97 Oxygen Delivery Method Room Air Room Air Weight Weight: 83.824 kg Body Mass Index (BMI) 28.9 Physical Exam Const alert General Appearance: cooperative HEENT normocephalic Eyes PERRL and EOMs intact bilaterally Neck supple, no JVD and no carotid bruits Resp normal respiratory effort, normal air movement and clear to auscultation bilaterally Cardio regular rate and regular rhythm GI normal to inspection, nondistended, normoactive bowel sounds, non-tender and non-distended Extremity normal capillary refill General Extremity: Negative for edema Skin no rashes or lesions noted General Skin Exam: no breakdown Psych affect normal Appearance: appropriate Assessment & Plan Assessment/Plan (1) Debility: (2) Fracture of left hip: (3) Osteoarthritis of left hip: (4) Status post left hip replacement: (5) Hypotension after procedure: (6) Osteoporosis: QUALIFIERS: Osteoporosis type: age-related Presence of current pathological fracture: without current pathological fracture Qualified Code(s): M81.0 - Age-related osteoporosis without current pathological fracture (7) GERD (gastroesophageal reflux disease): (8) Fibromyalgia: PLAN: Plan 74 year old female with below past medical history significant for left hip fracture, osteoarthritis of left hip, underwent left total hip replacement 09/09/[address] Parr, admitted to TCU with debility, here for rehabilitation, strengthening, prior to discharge home alone. * Debility - PT/OT. * Pain - Tylenol 1000mg po tid, Oxycodone 5-10mg q4 prn. * Bowel - Miralax 17gm daily, senna/colace 2 tablets bid, Magnesium citrate 300mL po daily prn, Dulcolax 10mg pr daily prn. * Adult immunization - Administer pneumonia vaccine, covid vaccine, flu vaccine as appropriate. * DVT prophylaxis - Aspirin 81mg bid thru 10/09/2024. * Calcium deficiency - Calcium D 1 tablet bid. * GERD - Famotidine 20mg daily thru 10/09/2024 while resident on aspirin. * Hypomagnesemia - Magnesium 128mg po bid. * Osteoarthritis - Meloxicam 7.5mg daily. * Hyperlipidemia - [place] 3 1 gm bid. * Dry eyes - Artificial tears 2 gtt ou q1h prn.
[2024-09-11] MEDS: oxyCODONE 5 MG Tablet PO (21:03)
[2024-09-11] MEDS: Senna/Docusate Sodium 1 Tablet 2 TABLET PO (21:04)
[2024-09-11] MEDS: Magnesium Chloride 64 MG Delay Rel.Tablet 128 MG PO (21:04)
[2024-09-11] MEDS: Acetaminophen 500 MG Tablet 1000 MG PO (21:04)
--- NOTE | 2024-09-11 23:35 | NURSING ---
Resident's son and contact listed, Ed Lyman, calls in requesting x-ray results. Informed Ed the results are not back at this time.
[2024-09-12] MEDS: Acetaminophen 500 MG Tablet 1000 MG PO ×3 (05:27→22:29)
[2024-09-12] MEDS: 0.9% Saline Lock 10 ML Syringe IV (05:28)
[2024-09-12 07:56] LABS: Absolute Lymphocyte Count 1.28 X10^3/uL (0.83-4.51); Absolute Neutrophil Count 5.3 X10^3/uL (2.0-7.7); Basophil# 0.02 X10^3/uL; Basophil% 0.3 % (0-1); Eosinophil# 0.39 X10^3/uL; Eosinophils% 5.1 % (0-5); Hematocrit 35.9 % (37-47); Hemoglobin 11.4 g/dL (12.0-15.0); Lymphocyte # 1.28 X10^3/ul (0.83-4.51); Lymphocyte % 16.9 % (19-41); Mean Corp Hgb Conc 31.8 g/dL (32-36); Mean Corpuscular Hgb 30.2 pg (27.0-32.0); Mean Platelet Vol. 10.7 fl (6.2-12.0); Monocyte# 0.56 X10^3/uL; Monocyte% 7.4 % (0-10); NRBC Flagged by Analyzer 0 % (0-5); Neutrophil # 5.29 X10^3/uL (2.7-7.7); Neutrophil % 69.8 % (47-70); Platelet Count 236 K/mm3 (150-450); RBC Distribution Width CV 13.2 % (11.6-14.6); RBC Distribution Width SD 45.9 fl (35.1-43.9); Red Blood Count 3.78 M/mm3 (4.2-5.4); White Blood Count 7.6 K/mm3 (4.4-11.0)
[2024-09-12 08:17] LABS: Anion Gap 4 (5-15); BUN 19 mg/dL (7-18); BUN/Creat Ratio 37.2 RATIO (10-20); Calcium,Total 9.4 mg/dL (8.5-10.1); Chloride 106 mmol/L (98-107); Creatinine, Serum 0.51 mg/dL (0.55-1.02); EST Glomerular Filtration Rate 125 mL/min (>60); Est Glom Filt Rate - Afr Amer 152 mL/min (>60); Estimated Creatinine Clearance 69.69 ml/min; Glucose 102 mg/dL (74-106); Potassium 3.9 mmol/L (3.5-5.1); Sodium Level 138 mmol/L (136-145)
--- NOTE | 2024-09-12 09:06 | NURSING ---
Precert obtained from [facility] for CT of left hip without contrast. Reference number: [id number]. Authorization number: [id number]
[2024-09-12] MEDS: Meloxicam 7.5 MG Tablet PO ×2 (09:37→17:20)
[2024-09-12] MEDS: Aspirin 81 MG TAB.CHEW PO ×2 (09:37→17:20)
[2024-09-12] MEDS: Magnesium Chloride 64 MG Delay Rel.Tablet 128 MG PO ×2 (09:38→22:29)
[2024-09-12] MEDS: Famotidine 20 MG Tablet PO (09:39)
[2024-09-12] MEDS: Senna/Docusate Sodium 1 Tablet 2 TABLET PO ×2 (09:39→22:29)
[2024-09-12] MEDS: Calcium Carb/Vitamin D 1 TABLET Tablet PO ×2 (09:41→17:20)
[2024-09-12 09:45] VITALS: BP 108/56; PULSE 83; O2SAT 95
--- NOTE | 2024-09-12 10:50 | CASEMGMT ---
Social Work SW met with patient to complete initial assessment. Introduced self and role. Verified/updated contact. SW discussed code status and pt wishes to be DNR-CCA, no intubation. Nursing notified. SW requested pt have son/friend provide copies of advanced directives. SW educated to [facility] insurance with NRD 09/18 and continued stay is not guaranteed with each review. Pt's goal is to return home at [facility]. See SW assessment for barriers. SW will continue to follow for DC planning. NEERU Tellez [employer] OPERATOR
[2024-09-12] MEDS: oxyCODONE 5 MG Tablet PO ×2 (11:25→22:28)
[2024-09-12] MEDS: Tuberculin,Purif.prot.deriv. 50 TU/ML Vial 0.1 ML ID (11:26)
--- NOTE | 2024-09-12 11:51 | NURSING ---
updated DR Parr office regarding xray anc CT scan results this AM. housekeeper head will notify Karolyn today to review results, he is in surgery.
--- NOTE | 2024-09-12 14:04 | NURSING ---
dr wayne nurse returned call, he reviewed images, no concerns, normal post op changes. continue plan of care.
--- NOTE | 2024-09-12 15:58 | PHA.CONS_ITS ---
Documented by User: Marsha Montero 09/12/24 16:08 TCU RX Drug Regimen Review Subjective/Objective Subjective/Objective Subjective: TCU Admission. 74 YOF underwent left total hip replacement 09/09/[address] Parr. Admitted to TCU with debility for strengthening and rehabilitation. Objective: Allergies dexamethasone Allergy (Severe, Verified 09/09/24 07:54) hallcenating, anxiety methylprednisolone Allergy (Severe, Verified 09/09/24 07:54) hallucenanting,anxiety prednisone Allergy (Severe, Verified 09/09/24 07:54) hallucenating ,anxiety azithromycin (From Zithromax Z-Rasheed) Allergy (Mild, Verified 09/09/24 07:54) heart racing levofloxacin (From Levaquin) Allergy (Mild, Verified 09/09/24 07:54) muscle pain, heart racing amantadine Allergy (Verified 09/09/24 07:54) Other cortisone Allergy (Verified 09/09/24 07:54) Other fluoxetine HCl (From Prozac) Allergy (Verified 09/09/24 07:54) Other Penicillins Allergy (Verified 09/09/24 07:54) Unknown erythromycin base Adverse Reaction (Severe, Verified 09/09/24 07:54) digestive upset prednisolone Adverse Reaction (Severe, Verified 09/09/24 07:54) hallucenations,anxiety escitalopram Adverse Reaction (Intermediate, Verified 09/09/24 07:54) nausea sertraline Adverse Reaction (Intermediate, Verified 09/09/24 07:54) heart racing Sulfa (Sulfonamide Antibiotics) Adverse Reaction (Intermediate, Verified 09/09/24 07:54) nausea,diarrhea Current Medications Generic Name Dose Route Start Last Admin Trade Name Freq PRN Reason Stop Dose Admin Acetaminophen 1,000 mg 09/11/24 22:00 09/12/24 13:36 Acetaminophen 500 Mg Tablet PO 1,000 mg TID TISH Administration Aspirin 81 mg 09/11/24 17:00 09/12/24 09:37 Aspirin 81 Mg Tab.Chew PO 10/09/24 17:01 81 mg BIDCM TISH Administration Bisacodyl 10 mg 09/11/24 15:00 Bisacodyl 10 Mg Suppository RC DAILY PRN PRN Constipation Calcium/Vitamin D 1 tablet 09/12/24 08:00 09/12/24 09:41 Calcium Carb/Vitamin D 1 Tablet Tablet PO 1 tablet BIDCM TISH Administration Famotidine 20 mg 09/12/24 10:00 09/12/24 09:39 Famotidine 20 Mg Tablet PO 10/09/24 10:01 20 mg DAILY TISH Administration Glycerin/Hypromellose/Polyethylene 2 drp 09/11/24 15:00 Glycerin/Hypromellose/Cng500 15 Ml Bottle EACH EYE Q1H PRN DRY EYES Magnesium Chloride 128 mg 09/11/24 22:00 09/12/24 09:38 Magnesium Chloride 64 Mg Delay Rel.Tablet PO 128 mg BID TISH Administration Magnesium Citrate 300 ml 09/11/24 18:06 Magnesium Citrate 300 Ml PO DAILY PRN PRN Constipation Magnesium Hydroxide 30 ml 09/11/24 15:00 Magnesium Hydroxide 30 Ml Udc PO DAILY PRN PRN Constipation Meloxicam 7.5 mg 09/11/24 17:00 09/12/24 09:37 Meloxicam 7.5 Mg Tablet PO 7.5 mg BIDCM TISH Administration Acprt-3-Pbgc Ethyl Esters 1 gm 09/24/24 06:00 [place]-3 Acid Ethyl Esters 1 Gm Capsule PO BID TISH Oxycodone HCl 5 - 10 mg 09/11/24 14:48 09/12/24 11:25 Oxycodone 5 Mg Tablet PO 5 mg Q4H PRN PRN Administration Pain Score 1-10 Polyethylene Glycol 17 gm 09/12/24 10:00 09/12/24 09:39 Polyethylene Glycol 3350 17 Gm Packet PO Not Given DAILY TISH Senna/Docusate Sodium 2 tablet 09/11/24 22:00 09/12/24 09:39 Senna/Docusate Sodium 1 Tablet PO 2 tablet BID TISH Administration Sodium Chloride 10 - 40 ml 09/11/24 15:58 09/12/24 05:28 0.9% Saline Lock 10 Ml Syringe IV 10 ml UD PRN Administration SALINE FLUSH Tuberculin PPD 0.1 ml 09/19/24 10:00 Tuberculin,Purif.Prot.Deriv. 50 Tu/Ml Vial ID 09/19/24 10:01 X1 ONE Problem List Fibromyalgia (Acute) GERD (gastroesophageal reflux disease) (Acute) Osteoarthritis of left hip (Acute) Debility (Acute) Fracture of left hip (Acute) Hypotension after procedure (Acute) Status post left hip replacement (Acute) Osteoporosis (Acute) Vital Signs Temp Pulse Resp BP Pulse Ox O2 Del Method 97.0 F L 83 16 108/56 L 95 Room Air 09/11/24 14:35 09/12/24 09:45 09/11/24 14:35 09/12/24 09:45 09/12/24 09:45 09/12/24 09:45 Oxygen Delivery Method Room Air Weight: 83.824 kg Body Mass Index (BMI) 28.9 Sodium 138 mmol/L (136-145) 09/12/24 07:40 Potassium 3.9 mmol/L (3.5-5.1) 09/12/24 07:40 Chloride 106 mmol/L (98-107) 09/12/24 07:40 Carbon Dioxide 28.0 mmol/L (21.0-32.0) 09/12/24 07:40 Anion Gap 4 (5-15) L 09/12/24 07:40 BUN 19 mg/dL (7-18) H 09/12/24 07:40 Creatinine 0.51 mg/dL (0.55-1.02) L 09/12/24 07:40 Est GFR (MDRD) Af Amer 152 mL/min (>60) 09/12/24 07:40 Est GFR (MDRD) Non-Af 125 mL/min (>60) 09/12/24 07:40 BUN/Creatinine Ratio 37.2 RATIO (10-20) H 09/12/24 07:40 Glucose 102 mg/dL (74-106) 09/12/24 07:40 Assessment/Plan: 1. Pain/osteoarthritis: acetaminophen 1000mg PO TID, meloxicam 7.5mg PO BID and oxycodone 5-10mg PO Q4H PRN pain 1-10. Resident has had 2 doses of oxycodone for pain scores of 7 and 9 in the hip. Please continue to monitor for increased pain, PRN usage, constipation, respiratory depression, S/S of bleeding and renal function. 2. Bowel: senna/docusate 2T PO BID, Miralax 17gm PO daily, MOM 30mL PO daily PRN constipation, bisacodyl 10mg RC daily PRN constipation and magnesium citrate 300mL PO daily PRN constipation. Please continue to monitor for constipation and PRN usage. No PRN doses given. Last documented bowel movement was 09/08/24. 3. DVT prophylaxis: aspirin 81mg PO BID thru 10/09/24. Please continue to monitor for S/S of bleeding/DVT and hemoglobin (last 11.4g/dL). 4. GERD: famotidine 20mg PO daily thru 10/09/24 (while on aspirin). Please continue to monitor for upset stomach/pain and renal function. 5. Hyperlipidemia: omega 3 1gm PO BID. Please consider ordering a lipid panel as the last panel was from 2019. Thanks. 6. Dry eyes: artificial tears 2gtt OU Q1H PRN dry eyes. Resident has not used any doses. Please continue to monitor for PRN usage and dry eyes. 7. Hypomagnesemia/calcium deficiency: calcium/vitamin D 1T PO BIDCM and magnesium chloride 128mg PO BID. Please continue to monitor calcium (last 9.4mg/dL), vitamin D (last 01/11/24) and magnesium (last 2.4mg/dL). Assessment/Plan for indications treated with psychotropic medications: None Medical chart and medication regimen reviewed. The following medication irregu larities or issues were identified: 1. [place] 3 1gm PO BID. Please consider ordering a lipid panel as the last panel was from 2019. Thanks. Date Date of Note: 09/12/24 Documented by User: Dr. Denton Rock MD 09/12/24 16:20 TCU RX Drug Regimen Review Provider Comments Provider responsibility Provider Comments to Recommendations by Pharmacy Agree
--- NOTE | 2024-09-12 17:17 | NURSING ---
UPDATED PT ON A STAFF MEMBER TESTING POSITIVE FOR COVID. PT STATED SHE WOULD LET HER SON KNOW DUE TO HIM AT WORK.
[2024-09-12 17:20] VITALS: PULSE 88; RESP 18; O2SAT 96
[2024-09-13 00:19] LABS: Cholesterol 219 mg/dL (200); High Density Lipoprotein 50 mg/dL; Triglycerides 156 mg/dL; Very Low Density Lipoprotein 31 mg/dL (5-40)
[2024-09-13] MEDS: Acetaminophen 500 MG Tablet 1000 MG PO (06:21)
[2024-09-13] MEDS: oxyCODONE 5 MG Tablet PO ×3 (08:00→17:23)
[2024-09-13] MEDS: Aspirin 81 MG TAB.CHEW PO ×2 (08:01→17:23)
[2024-09-13] MEDS: Calcium Carb/Vitamin D 1 TABLET Tablet PO ×2 (08:01→17:22)
[2024-09-13] MEDS: Famotidine 20 MG Tablet PO (08:01)
[2024-09-13] MEDS: Meloxicam 7.5 MG Tablet PO ×2 (08:01→17:23)
[2024-09-13] MEDS: Magnesium Chloride 64 MG Delay Rel.Tablet 128 MG PO ×2 (08:01→21:30)
[2024-09-13] MEDS: Senna/Docusate Sodium 1 Tablet 2 TABLET PO (08:01)
[2024-09-13 08:22] VITALS: BP 104/64; PULSE 94; O2SAT 96
[2024-09-13] MEDS: Lactobacillis Acidophilus 1 CAP PO ×2 (09:13→21:29)
[2024-09-13 10:00] VITALS: PULSE 94; RESP 18; O2SAT 96
--- NOTE | 2024-09-13 11:29 | NURSING ---
[employer] Custodian Note; Activity Asset: Jigna Valenzuela is independent in her choice of daily activities. She has her ethical hacker from gnosticism visits, family and friends. She will watch tv, read, use her smartphone and asked for word puzzles. Staff will encourage social activities, remind her of weekly activities and respect her right to say no.
--- NOTE | 2024-09-13 17:07 | NURSING ---
Patient C/O of increased nausea and diarrhea. States Tylenol has never helped me, its only made my stomach upset and is requesting to have Tylenol D/C'd and to switch to Tramadol. Patient also requesting PRN Zofran for nausea. Refused Miralax this morning. Advised to hold routine HS dose of Senna for loose stools. Patient noted to be tearful. RN aware of above and will update Dr. Rock.
[2024-09-14] MEDS: Calcium Carb/Vitamin D 1 TABLET Tablet PO ×2 (09:04→17:38)
[2024-09-14] MEDS: Meloxicam 7.5 MG Tablet PO ×2 (09:05→17:39)
[2024-09-14] MEDS: Famotidine 20 MG Tablet PO (09:05)
[2024-09-14] MEDS: Aspirin 81 MG TAB.CHEW PO ×2 (09:05→17:38)
[2024-09-14] MEDS: Lactobacillis Acidophilus 1 CAP PO ×2 (09:06→21:20)
[2024-09-14] MEDS: Magnesium Chloride 64 MG Delay Rel.Tablet 128 MG PO ×2 (09:06→21:21)
[2024-09-14 10:00] VITALS: PULSE 85; RESP 17; O2SAT 96
[2024-09-14] MEDS: oxyCODONE 5 MG Tablet PO ×3 (10:53→21:18)
[2024-09-14 15:13] VITALS: BP 131/65; PULSE 78; RESP 14; TEMP 36.2; O2SAT 97
--- NOTE | 2024-09-14 16:40 | NURSING ---
Surgical dressing removed. No redness or drainage noted at this time. Steri strips intact. Patient tolerated well.
--- NOTE | 2024-09-14 19:41 | NURSING ---
Patient talked to dietary about bringing in own protein supplement, Garden of Life, Patient states ensure has too much sugar and not enough protein, Dietary note indicates patient is on regular diet and that would be OK, Patient had son bring in supplement, Dr. Rock updated.
[2024-09-14] MEDS: Senna/Docusate Sodium 1 Tablet 2 TABLET PO (21:20)
--- NOTE | 2024-09-15 05:00 | NURSING ---
Patient with red, itchy rash to left lower back, Dr. Rock updated for topical cream.
--- NOTE | 2024-09-15 07:00 | NURSING ---
This nurse called to room to assess a rash. Noted a small, linear vesicular rash to the left side of the abdomen and a large area of a clustered, erythematous, raised rash to the left low back. Positive itch to low back but not abdomen. Denies any pain to either affected area. Will continue to monitor.
--- NOTE | 2024-09-15 07:34 | NURSING ---
Patient placed in contact isolation precautions for itchy, red raised rash to left lower back and left lower abd,
[2024-09-15] MEDS: Magnesium Chloride 64 MG Delay Rel.Tablet 128 MG PO ×2 (09:00→21:36)
[2024-09-15] MEDS: Calcium Carb/Vitamin D 1 TABLET Tablet PO ×2 (09:00→16:16)
[2024-09-15] MEDS: Lactobacillis Acidophilus 1 CAP PO ×2 (09:00→21:36)
[2024-09-15] MEDS: Aspirin 81 MG TAB.CHEW PO ×2 (09:00→16:16)
[2024-09-15] MEDS: Meloxicam 7.5 MG Tablet PO ×2 (09:01→16:16)
[2024-09-15] MEDS: Famotidine 20 MG Tablet PO (09:01)
--- NOTE | 2024-09-15 10:53 | NURSING ---
Dr. Rock updated on rash on left side of abdomen and r lower back. N.O. for Acyclovir 800mg 5x day for 7days. Order read back.
--- NOTE | 2024-09-15 11:28 | NURSING ---
Addendum entered by Hailey Madison 09/15/24 14:27: Resident states she does not believe she has shingles and states that after careful consideration she does not wish to take the acyclovir. When questioned if she would like Dr. Rock to come speak with her and assess her skin rash, she declined at this time. Message left for Dr. Rock with an update on residents request to have acyclovir d/c'd. Resident refused 2pm dose of acyclovir and tylenol. Original Note: Resident has red raised rash on left back, under left breast, and left groin area. Dr. Rock updated and resident placed on contact precautions and acyclovir, for suspected shingles. Resident denies pain but does complain of itching/burning pain. Resident was updated on new orders and requested an information sheet on acyclovir. Medication information sheet given to resident. She states that she does not think she has shingles and expressed concerns for starting acyclovir. She states she will think about whether or not she would like to take the prescribed acyclovir and let staff know prior to first dose.
[2024-09-15 13:35] VITALS: BP 109/59; PULSE 93; RESP 18; TEMP 36.8; O2SAT 97
[2024-09-15 20:00] VITALS: PULSE 90; O2SAT 98
[2024-09-15] MEDS: oxyCODONE 5 MG Tablet PO (21:34)
--- NOTE | 2024-09-16 04:25 | NURSING ---
Resident has verbalized concerns about rashes intermittently throughout the shift. Initially verbalized itch to the lt lower back then denied itch as the shift progressed. She questions if some of the affected areas are from detergent used for the linens. Resident is becoming increasingly anxious and concerned. Emotional support and reassurance provided. Ordered was received earlier today for Acyclovir and refuses to take the medication d/t side effects. Informs this nurse that a nurse on the acute unit informed her of a rash on her back last week on Monday. Reviewed documentation and no rash noted. Left hip is the only location where she is experiencing pain. Skin irritation/rashes without any active drainage noted to the following areas: -Left low back near lumbar region- large area of inflamed erythema and some clustered vesicular lesions, clustered lesions area medial to spine; noted 09/15 in am -Left side of abdomen- a small linear area of small, red raised lesions; noted 09/15 in am -B/L inner thighs- redness, irritation, rough texture to right thigh, possibly dermatitis; noted 09/15 at hs -Right anterior hip- few scattered small, pink raised areas; noted 09/15 at hs -Right lower back- beneath underwear a small area of pink/red raised lesions; noted early this am Note left from previous shift for Dr. Rock to assess skin lesions/irritation this am. Will continue to monitor.
[2024-09-16] MEDS: Magnesium Chloride 64 MG Delay Rel.Tablet 128 MG PO ×2 (09:02→21:12)
[2024-09-16] MEDS: Aspirin 81 MG TAB.CHEW PO ×2 (09:02→17:11)
[2024-09-16] MEDS: Lactobacillis Acidophilus 1 CAP PO ×2 (09:02→21:12)
[2024-09-16] MEDS: Meloxicam 7.5 MG Tablet PO ×2 (09:02→17:10)
[2024-09-16] MEDS: Calcium Carb/Vitamin D 1 TABLET Tablet PO ×2 (09:02→17:10)
[2024-09-16] MEDS: Famotidine 20 MG Tablet PO (09:03)
[2024-09-16] MEDS: Clobetasol Propionate 0.05% Ointment 1 APPLIC TOPICAL ×2 (09:50→21:13)
[2024-09-16] MEDS: Psyllium 1 PACKET PO (09:50)
[2024-09-16 10:00] VITALS: PULSE 70; RESP 18; O2SAT 94
--- NOTE | 2024-09-16 11:48 | NURSING ---
Offered covid vaccine, VIS provided. Resident refuses at this time.
[2024-09-16 15:55] VITALS: RESP 16; TEMP 36.5
[2024-09-16] MEDS: oxyCODONE 5 MG Tablet PO ×2 (17:09→21:12)
[2024-09-17] MEDS: Aspirin 81 MG TAB.CHEW PO ×2 (08:44→16:24)
[2024-09-17] MEDS: Meloxicam 7.5 MG Tablet PO ×2 (08:44→16:24)
[2024-09-17] MEDS: Calcium Carb/Vitamin D 1 TABLET Tablet PO ×2 (08:44→16:24)
[2024-09-17] MEDS: Lactobacillis Acidophilus 1 CAP PO (08:45)
[2024-09-17] MEDS: Magnesium Chloride 64 MG Delay Rel.Tablet 128 MG PO (08:45)
[2024-09-17] MEDS: Famotidine 20 MG Tablet PO (08:45)
[2024-09-17] MEDS: Psyllium 1 PACKET PO (09:38)
--- NOTE | 2024-09-17 09:39 | CASEMGMT ---
Addendum entered by Verenice Linton 09/17/24 10:09: [facility] can accept, but requesting to eval for OT after PT does SOC to ensure. IDT agreeable. Original Note: Social Work SW met with patient to discuss DC plans. Pt is adlib using a walker and comfortable with discharging home, and requesting DC 09/19. IDT agreeable. Offered HHC vs OP. Pt prefers HHC first, then transition to [facility]. Pt stated she does not want to rely on her son to transport her to [facility]. SW educated to [facility]. Pt still prefers HHC as she lives alone. SW offered list of skilled HHC providers including quality and resource data via [employer]. Pt denied and prefers to use [facility] Pt also needs a FWW. Pt stated son will transport her home. SW phoned referral to [facility] for PT/OT. Sent referral to [facility] for FWW via [facility]. Plan: DC home alone 09/19, [facility] PT/OT, FWW Verenice Lintno, CRYPTOLOGIC TECHNICIAN SALON SALES CONSULTANT
--- NOTE | 2024-09-17 09:46 | CASEMGMT ---
Social Work SW completed BIMS () and PHQ-2 () for MDS assessment. Verenice Linton, MANUAL PLATE FILLER EDUCATION FACULTY MEMBER
[2024-09-17 10:23] VITALS: BMI 27.8
[2024-09-17] MEDS: oxyCODONE 5 MG Tablet PO (11:28)
[2024-09-17 15:33] VITALS: BP 105/59; PULSE 90; RESP 16; TEMP 36.3; O2SAT 95
--- NOTE | 2024-09-17 19:07 | PCM.DC.SUM ---
Providers Date of Admission: 09/11/24 Primary Care Physician: Dr. Tom Alonso, DO Reason For Visit: LEFT TOTAL HIP Diagnosis Discharge Diagnosis (1) Debility: Status: Acute Code(s): R53.81 - Other malaise (2) Fracture of left hip: Status: Acute Code(s): S72.002A - Fracture of unspecified part of neck of left femur, initial encounter for closed fracture (3) Osteoarthritis of left hip: Status: Acute Code(s): M16.12 - Unilateral primary osteoarthritis, left hip (4) Status post left hip replacement: Status: Acute Code(s): Z96.642 - Presence of left artificial hip joint (5) Hypotension after procedure: Status: Acute Code(s): I95.81 - Postprocedural hypotension (6) Osteoporosis: Status: Acute Code(s): M81.0 - Age-related osteoporosis without current pathological fracture Qualifiers: Osteoporosis type: age-related Presence of current pathological fracture: without current pathological fracture Qualified Code(s): M81.0 - Age-related osteoporosis without current pathological fracture (7) GERD (gastroesophageal reflux disease): Status: Acute Code(s): K21.9 - Gastro-esophageal reflux disease without esophagitis (8) Fibromyalgia: Status: Acute Code(s): M79.7 - Fibromyalgia Plan 74 year old female with below past medical history significant for left hip fracture, osteoarthritis of left hip, underwent left total hip replacement 09/09/[address] Parr, admitted to TCU with debility, here for rehabilitation, strengthening, prior to discharge home alone. Debility - PT/OT. Pain - Tylenol 1000mg po tid, Oxycodone 5-10mg q4 prn. Bowel - Miralax 17gm daily, senna/colace 2 tablets bid, Magnesium citrate 300mL po daily prn, Dulcolax 10mg pr daily prn. Adult immunization - Administer pneumonia vaccine, covid vaccine, flu vaccine as appropriate. DVT prophylaxis - Aspirin 81mg bid thru 10/09/2024. Calcium deficiency - Calcium D 1 tablet bid. GERD - Famotidine 20mg daily thru 10/09/2024 while resident on aspirin. Hypomagnesemia - Magnesium 128mg po bid. Osteoarthritis - Meloxicam 7.5mg daily. Hyperlipidemia - [place] 3 1 gm bid. Dry eyes - Artificial tears 2 gtt ou q1h prn. Medications at Discharge Home Medications magnesium oxide 500 mg PO BID supplement 02/25/21 tumeric 400 mg PO DAILY supplement 02/25/21 omega 1-kox-aqe-fish oil 300 mg-1,000 mg capsule,delayed release (Fish Oil) 1 cap PO BID supplement 09/06/24 famotidine 20 mg tablet 20 mg PO DAILY reflux #0 tabs 09/11/24 meloxicam 7.5 mg tablet 7.5 mg PO BID pain #0 tabs 09/11/24 aspirin 81 mg chewable tablet 81 mg PO BIDCM 20 days #0 tabs 09/17/24 calcium 500 mg (as carbonate)-vitamin D3 5 mcg (200 unit) tablet (Oyster Shell Calcium-Vitamin D3) 1 tab PO BIDCM #0 tabs 09/17/24 oxycodone 5 mg tablet 5 - 10 mg (1 - 2 x 5 mg) PO Q4H PRN PRN Pain Score 1-10 7 days #84 tabs 09/17/24 psyllium husk (aspartame) 3 gram oral powder packet (Daily Fiber (psyllium-aspartame)) 1 packet PO DAILY #0 ea 09/17/24 Hospital Course Operations - (See below.) Procedures None Summary of Care Provided Minutes Spent on Discharge: 35 Hospital Course: 74 year old female with below past medical history significant for left hip fracture, osteoarthritis of left hip, underwent left total hip replacement 09/09/[address] Parr, admitted to TCU with debility, here for rehabilitation, strengthening, prior to discharge home alone. Discharge home alone 09/19/2024, [facility] PT/OT, FWW. FWW: Patient is unsafe to use a cane and requires a walker for ambulation in the home and the community. Physical Exam Const alert General Appearance: cooperative HEENT normocephalic Eyes PERRL and EOMs intact bilaterally Neck supple, no JVD and no carotid bruits Resp normal respiratory effort, normal air movement and clear to auscultation bilaterally Cardio regular rate and regular rhythm GI normal to inspection, nondistended, normoactive bowel sounds, non-tender and non-distended Extremity normal capillary refill General Extremity: Negative for edema Skin no rashes or lesions noted General Skin Exam: no breakdown Psych affect normal Appearance: appropriate Weight / BMI Weight Weight: 80.649 kg Body Mass Index (BMI) 27.8 ABG / Lab / Microbiology Data 09/12/24 07:40 09/12/24 07:40 Microbiology: Microbiology 09/13/24 06:28 Nasal Secretion SARS-CoV-2 Antigen (Rapid) - Final D/C Instructions Discharge Diet: No restrictions Discharge Activity: Return to Normal Activity, May Shower and Use Walker Weight Bearing Status: Weight bearing as tolerated Call your doctor if you observe: Fever of 101 or Higher, Inability to urinate, Inability to have a bowel movement, Shortness of breath, Dizziness, Fainting spells, Swelling in the ankles, Chest pain and Uncontrolled pain DC O2, CPAP, BIPAP Needs Additional Home O2 Discharge instructions: No DC home with Oxygen: No Additional Instructions: Discharge home alone 09/19/2024, [facility] PT/OT, FWW. FWW: Patient is unsafe to use a cane and requires a walker for ambulation in the home and the community. Please Follow Up With: Modesto De Leon PA-C When: As scheduled. Meaningful Use Info Meaningful Use Meaningful Use Diagnoses (Choose all that apply): None applicable Ischemic Stroke Statin Dosing Therapy Reference: STATIN DOSE THERAPY REFERENCE: * Patients > 75 years receive moderate or high dose statin therapy. * Patients 75 years or YOUNGER should receive HIGH intensity statin dose unless contraindicated. You will be required to document reason for non-treatment if statin daily dose does not meet guidelines. HIGH DOSE STATIN THERAPY DAILY Atorvastatin > than or = to 40 mg Rosuvastatin > than or = to 20 mg Amlodipine + Atorvastatin > than or = to 2.5/40 mg Ezetimibe + Simvastatin 10/80 mg Simvastatin 80mg Discharge Plan Admission Admit Date/Time: 09/11/24 14:25 Primary Reason for Your Visit: Debility. Attending Provider: D[place] Rock Chi Primary Care Provider: Tom Alonso Instructions Additional Instructions / Restrictions: Discharge home alone 09/19/2024, [facility] PT/OT, FWW. FWW: Patient is unsafe to use a cane and requires a walker for ambulation in the home and the community. Discharge Orders/Prescriptions Prescriptions: New aspirin 81 mg Tablet,Chewable 81 mg PO BIDCM 20 Days Qty: 0 0RF oxycodone 5 mg Tablet 5 - 10 mg PO Q4H PRN PRN (Reason: Pain Score 1-10) 7 Days Qty: 84 0RF calcium carbonate-vitamin D3 [Oyster Shell Calcium-Vit D3] 500 mg-5 mcg (200 unit) Tablet 1 tab PO BIDCM Qty: 0 0RF Daily Fiber (psyllium-aspart) 3 gram Powder In Packet 1 packet PO DAILY Qty: 0 0RF Continued magnesium oxide 400 mg magnesium capsule 500 mg PO BID omega 5-kuq-vzz-fish oil [Fish Oil] 300-1,000 mg capsule,delayed release(DR/EC) 1 cap PO BID meloxicam 7.5 mg Tablet 7.5 mg PO BID Qty: 0 0RF Rx Instructions: Do not take any other nonsteroidal anti-inflammatories while using meloxicam/Mobic. famotidine 20 mg Tablet 20 mg PO DAILY Qty: 0 0RF Rx Instructions: Continue for 4 weeks postoperatively Discontinued digestive enzymes tablet 1 tab PO DAILY boron 6 mg tablet 3 mg PO DAILY glucosamine sulfate [Glucosamine] 500 mg tablet 500 mg PO TID Rx Instructions: administer with meals calcium citrate 1,000 mg tablet 1,000 mg PO DAILY cholecalciferol (vitamin D3) [Vitamin D3] 125 mcg (5,000 unit) tablet 125 mcg PO DAILY ginkgo biloba 60 mg tablet 60 mg PO DAILY Rx Instructions: give with meal/snack acetaminophen 500 mg Tablet 1,000 mg PO TID 14 Days Qty: 84 0RF Rx Instructions: Do not take more than 3000 mg Tylenol in a 24-hour period. aspirin 81 mg capsule 81 mg PO BID 30 Days Qty: 0 0RF Rx Instructions: Take 81 mg aspirin twice daily for 4 weeks postoperatively for DVT prophylaxis. oxycodone 5 mg Tablet 5 - 10 mg PO Q4H PRN PRN (Reason: as needed for pain) 7 Days Qty: 42 0RF sennosides-docusate sodium [Stimulant Laxative Plus] 8.6-50 mg Tablet 2 tab PO BID 3 Days Qty: 12 0RF Rx Instructions: Take until first bowel movement, then as needed No Action tumeric tablet 400 mg PO DAILY Referrals / Follow Up: Tom Alonso DO [Primary Care Provider] - (Bianca, said she will make this appointment so she can check on transportation.) Disposition Disposition (needs filled in before D/C Order can be placed): Home Health Service
[2024-09-17 20:25] VITALS: RESP 16
[2024-09-18] MEDS: Calcium Carb/Vitamin D 1 TABLET Tablet PO ×2 (08:36→17:00)
[2024-09-18] MEDS: Famotidine 20 MG Tablet PO (08:36)
[2024-09-18] MEDS: Magnesium Chloride 64 MG Delay Rel.Tablet 128 MG PO (08:36)
[2024-09-18] MEDS: Lactobacillis Acidophilus 1 CAP PO (08:36)
[2024-09-18] MEDS: Meloxicam 7.5 MG Tablet PO ×2 (08:36→17:00)
[2024-09-18] MEDS: Aspirin 81 MG TAB.CHEW PO ×2 (08:37→17:00)
[2024-09-18 08:42] VITALS: BP 100/62; PULSE 89; O2SAT 96
[2024-09-18] MEDS: oxyCODONE 5 MG Tablet PO (10:51)
[2024-09-18 11:00] VITALS: PULSE 94; RESP 18; O2SAT 96
[2024-09-18 15:08] VITALS: RESP 18; TEMP 36.2
[2024-09-19 05:54] VITALS: RESP 18
[2024-09-19 06:01] LABS: Absolute Lymphocyte Count 1.46 X10^3/uL (0.83-4.51); Absolute Neutrophil Count 2.8 X10^3/uL (2.0-7.7); Basophil# 0.04 X10^3/uL; Basophil% 0.8 % (0-1); Eosinophil# 0.45 X10^3/uL; Eosinophils% 8.5 % (0-5); Hematocrit 31.4 % (37-47); Hemoglobin 10.5 g/dL (12.0-15.0); Lymphocyte # 1.46 X10^3/ul (0.83-4.51); Lymphocyte % 27.5 % (19-41); Mean Corp Hgb Conc 33.4 g/dL (32-36); Mean Corpuscular Hgb 30.7 pg (27.0-32.0); Mean Corpuscular Volume 91.8 fL (81-99); Mean Platelet Vol. 9.9 fl (6.2-12.0); Monocyte# 0.56 X10^3/uL; Monocyte% 10.6 % (0-10); NRBC Flagged by Analyzer 0 % (0-5); Neutrophil # 2.75 X10^3/uL (2.7-7.7); Neutrophil % 51.8 % (47-70); Platelet Count 348 K/mm3 (150-450); RBC Distribution Width CV 12.9 % (11.6-14.6); RBC Distribution Width SD 42.6 fl (35.1-43.9); Red Blood Count 3.42 M/mm3 (4.2-5.4); White Blood Count 5.3 K/mm3 (4.4-11.0)
[2024-09-19 07:19] LABS: Anion Gap 4 (5-15); BUN 22 mg/dL (7-18); BUN/Creat Ratio 38.9 RATIO (10-20); Calcium,Total 9.3 mg/dL (8.5-10.1); Chloride 110 mmol/L (98-107); Creatinine, Serum 0.57 mg/dL (0.55-1.02); EST Glomerular Filtration Rate 111 mL/min (>60); Est Glom Filt Rate - Afr Amer 135 mL/min (>60); Estimated Creatinine Clearance 68.44 ml/min; Glucose 95 mg/dL (74-106); Potassium 3.7 mmol/L (3.5-5.1); Sodium Level 141 mmol/L (136-145)
[2024-09-19] MEDS: Aspirin 81 MG TAB.CHEW PO (09:55)
[2024-09-19] MEDS: Lactobacillis Acidophilus 1 CAP PO (09:55)
[2024-09-19 09:59] VITALS: BP 109/63; PULSE 80; RESP 16; TEMP 36.4; O2SAT 99
[2024-09-19] MEDS: oxyCODONE 5 MG Tablet PO (10:07)
--- NOTE | 2024-09-19 11:00 | NURSING ---
THIS NURSE GAVE PT BACK 2 BAGS OF LOCKED UP HOME MEDS AT D/C.
--- NOTE | 2024-09-23 14:12 | MDS.RN ---
Information for the MDS was obtained from review of the clinical record, interview of resident, staff, and direct observation of resident?s care.
== END 2024-09-19 11:30 | disposition home health service (06) | DRG 561 ==
PROVIDERS: Admitting Provider Family Medicine Geriatric Medicine; PCP Family Medicine; Referring Provider Family Medicine Geriatric Medicine; Visit Provider Family Medicine Geriatric Medicine
DX: Z47.1 Aftercare following joint replacement surgery (principal); E78.5 Hyperlipidemia, unspecified; K56.41 Fecal impaction; M16.12 Unilateral primary osteoarthritis, left hip; M79.7 Fibromyalgia; K21.9 Gastro-esophageal reflux disease without esophagitis; I95.81 Postprocedural hypotension; L74.3 Miliaria, unspecified; M16.32 Unilateral osteoarthritis resulting from hip dysplasia, left hip; M81.0 Age-related osteoporosis without current pathological fracture; Z96.642 Presence of left artificial hip joint; Z79.82 Long term (current) use of aspirin; Z79.899 Other long term (current) drug therapy; M80.052D Age-related osteoporosis with current pathological fracture, left femur, subsequent encounter for fracture with routine healing
CPT/HCPCS: 36415; 73502; 80048; 80061; 85025; 87811; 97110; 97162; 97166; 97530; 97535; 97802; A4216

== ENCOUNTER → 2024-09-12 | Outpatient (CLI) | payer MEDICARE, SELFPAY ==
--- NOTE | 2024-09-12 10:51 | CT_ITS ---
CT LEFT LOWER EXTREMITY WITH 3-D IMAGING CLINICAL INDICATION: Left hip surgery 09/09/2024. Rule out fracture. TECHNIQUE: Axial CT images of the left lower extremity was performed without IV contrast material. Coronal and sagittal reformats were provided. The protocol utilizes one or more of the following dose reduction techniques: automated exposure control, adjustment of mA and/or kV according to patient size, and/or use of iterative reconstruction technique. RADIATION DOSAGE (If Supplied By Facility): CTDIvol = ( 18.11 ) mGy, DLP = ( 744.94 ) mGycm COMPARISON: Pelvis CT dated 08/27/2024. FINDINGS: Bones: There is a recent left hip arthroplasty in place, with no periprosthetic fracture. Osseous structures are intact without evidence of fracture or dislocation. However, there is intramedullary gas in the left mid femur just distal to the tip of the left femoral stem. No lytic or blastic osseous masses. Soft Tissues: There is soft tissue gas in the subcutaneous fat lateral to the left hip. There are multiple foci of intramuscular gas in the vastus lateralis, vastus intermedius, vastus medialis, left obturator internus muscles. There is also small foci of intra-articular gas in the left hip joint space. There is chronic sigmoid diverticulosis without acute diverticulitis. CT/Extremity Lower without Contra IMPRESSION: Postoperative changes adjacent to recent left hip arthroplasty. No periprosthetic fracture. Periprosthetic gas in the adjacent soft tissues including left hip joint, left mid femur, and surrounding muscles and subcutaneous soft tissues. Electronically Signed: Jayy Dennis MD at 11:24 EST ,
== END | disposition home or self-care (01) ==
PROVIDERS: PCP Family Medicine; Referring Provider Family Medicine Geriatric Medicine; Visit Provider Family Medicine Geriatric Medicine
DX: M97.02XA Periprosthetic fracture around internal prosthetic left hip joint, initial encounter (principal)
CPT/HCPCS: 73700

== ENCOUNTER → 2024-12-31 | Outpatient (CLI) | payer MEDICARE, SELFPAY ==
[2024-12-31 12:22] LABS: International Normalized Ratio 0.9; Prothrombin Time (Protime)PT. 12.4 SECONDS (11.7-14.9)
[2024-12-31 12:25] LABS: Absolute Lymphocyte Count 1.75 X10^3/uL (0.83-4.51); Absolute Neutrophil Count 3.5 X10^3/uL (2.0-7.7); Basophil# 0.03 X10^3/uL; Basophil% 0.5 % (0-1); Eosinophils% 1.7 % (0-5); Hematocrit 37.7 % (37-47); Hemoglobin 12.2 g/dL (12.0-15.0); Lymphocyte # 1.75 X10^3/ul (0.83-4.51); Lymphocyte % 30.3 % (19-41); Mean Corp Hgb Conc 32.4 g/dL (32-36); Mean Corpuscular Hgb 29.4 pg (27.0-32.0); Mean Corpuscular Volume 90.8 fL (81-99); Mean Platelet Vol. 10.5 fl (6.2-12.0); Monocyte# 0.42 X10^3/uL; Monocyte% 7.3 % (0-10); NRBC Flagged by Analyzer 0 % (0-5); Neutrophil # 3.47 X10^3/uL (2.7-7.7); Platelet Count 239 K/mm3 (150-450); RBC Distribution Width CV 14.2 % (11.6-14.6); RBC Distribution Width SD 47.7 fl (35.1-43.9); Red Blood Count 4.15 M/mm3 (4.2-5.4); White Blood Count 5.8 K/mm3 (4.4-11.0)
[2024-12-31 13:16] LABS: EST Glomerular Filtration Rate 94 (>60)
[2024-12-31 13:31] LABS: ALB/GLOB Ratio 1.8 RATIO (0.9-2.4); AST(SGOT) 18 U/L (<=31); Alanine Aminotransfer ALT/SGPT 13 U/L (<=34); Albumin, Serum 4.3 g/dL (3.4-4.8); Alkaline Phosphatase 61 U/L (35-104); Anion Gap 12 (5-15); BUN 27 mg/dL (4-19); BUN/Creat Ratio 47.4 RATIO (10-20); Calcium,Total 9.7 mg/dL (7.6-11.0); Carbon Dioxide 27.4 mmol/L (21.0-32.0); Chloride 104 mmol/L (98-108); Cholesterol 277 mg/dL (<=200); Creatinine, Serum 0.57 mg/dL (0.70-1.20); Globulin 2.4 g/dL (2.2-4.2); Glucose 78 mg/dL (70-99); High Density Lipoprotein 73 mg/dL; Low Density Lipoprotein Calc. 163 mg/dL; Protein, Total 6.7 g/dL (5.9-8.4); Sodium Level 143 mmol/L (133-145); Total Bilirubin 0.23 mg/dL (0.00-1.30); Triglycerides 206 mg/dL; Very Low Density Lipoprotein 41 mg/dL (5-40); Vitamin B12 870 pg/mL (180-914); Vitamin D,25 Hydroxy 56.3 ng/mL (30-100); cholesterol:hdl ratio screen 3.82
== END | disposition home or self-care (01) ==
LOC: MTLAB 09:55
PROVIDERS: PCP Family Medicine; Referring Provider Nurse Practitioner Family; Visit Provider Nurse Practitioner Family
DX: E55.9 Vitamin D deficiency, unspecified (principal); E53.8 Deficiency of other specified B group vitamins; I10 Essential (primary) hypertension; E78.5 Hyperlipidemia, unspecified; D64.9 Anemia, unspecified; K62.5 Hemorrhage of anus and rectum
CPT/HCPCS: 36415; 80053; 80061; 82306; 82607; 85025; 85610

== ENCOUNTER → 2025-01-13 | Outpatient (CLI) | payer MEDICARE, SELFPAY ==
[2025-01-15 16:09] LABS: Calprotectin, Stool 44 ug/g (0-120)
[2025-01-16 01:07] LABS: Pancreatic Elastase, Fecal > 800 (>200)
== END | disposition home or self-care (01) ==
LOC: LABSPEC 06:17
PROVIDERS: PCP Family Medicine
DX: R19.7 Diarrhea, unspecified (principal); K58.9 Irritable bowel syndrome, unspecified
CPT/HCPCS: 82274; 82653; 83993

== ENCOUNTER 2025-01-20 13:42 | Inpatient (IN) | payer MEDICARE, SELFPAY ==
[2025-01-20] VITALS (8 sets, daily range): BP systolic 113–131; BP diastolic 60–91; PULSE 72–98; RESP 14–18; TEMP 36.5–36.8; O2SAT 95–100; BMI 31.4
--- NOTE | 2025-01-20 14:32 | RAD_ITS ---
EXAM: XR Chest, 1 View CLINICAL INDICATION: FALL TECHNIQUE: Frontal view of the chest. COMPARISON: No relevant prior studies available. FINDINGS: LUNGS AND PLEURAL SPACES: Unremarkable. No consolidation. No pneumothorax. HEART: Unremarkable. No cardiomegaly. MEDIASTINUM: Unremarkable. Normal mediastinal contour. BONES/JOINTS: Unremarkable. No acute fracture. RAD/Chest 1 View (Portable) IMPRESSION: No acute cardiopulmonary process. Reading Location: [facility]
--- NOTE | 2025-01-20 14:32 | EKG12_ITS ---
Test Reason : Blood Pressure : */* mmHG Vent. Rate : 85 BPM Atrial Rate : 85 BPM P-R Int : 154 ms QRS Dur : 82 ms QT Int : 372 ms P-R-T Axes : 71 52 68 degrees QTcB Int : 442 ms Normal sinus rhythm Normal ECG Confirmed by EUGENE GARCIA, SATURNINO ([id number]), graphic editor HARRY GALVEZ ([id number]) on 01/22/2025 8:16:03 AM Referred By: Ubaldo Larose Confirmed By: SATURNINO KNIGHT MD
--- NOTE | 2025-01-20 14:33 | RAD_ITS ---
EXAM: XR Left Knee, 1 or 2 Views CLINICAL INDICATION: PAIN, FALL TECHNIQUE: Frontal and/or lateral views of the left knee. COMPARISON: No relevant prior studies available. FINDINGS: BONES/JOINTS: Comminuted impacted fracture of the distal femur. Soft tissue swelling. No dislocation. SOFT TISSUES: See above. RAD/Knee 1 or 2 Views IMPRESSION: Comminuted impacted fracture of the distal femur. Soft tissue swelling. Reading Location: [facility]
--- NOTE | 2025-01-20 14:33 | RAD_ITS ---
EXAM: XR Right Hip With Pelvis When Performed, 1 View CLINICAL INDICATION: PAIN, FALL TECHNIQUE: Frontal view of the right hip with pelvis when performed. COMPARISON: No relevant prior studies available. FINDINGS: BONES/JOINTS: Total left hip replacement. Intact hardware. Anatomic position. No acute fracture. No dislocation. SOFT TISSUES: Unremarkable. RAD/HIP, UNI W/ Pelvis 2-3 Views IMPRESSION: Postoperative changes as above. Reading Location: [facility]
[2025-01-20] MEDS: 0.9% Normal Saline (1000mL) 1,000 ML 1000 ML IV (14:41)
[2025-01-20] MEDS: Ondansetron 4 MG/2 ML Vial IV ×2 (14:41→17:19)
[2025-01-20] MEDS: Morphine 4 MG/ML Syringe IV (14:41)
[2025-01-20 14:50] LABS: Absolute Lymphocyte Count 1.24 X10^3/uL (0.83-4.51); Absolute Neutrophil Count 6.2 X10^3/uL (2.0-7.7); Basophil# 0.03 X10^3/uL; Basophil% 0.4 % (0-1); Eosinophil# 0.03 X10^3/uL; Eosinophils% 0.4 % (0-5); Hematocrit 38.1 % (37-47); Hemoglobin 12.6 g/dL (12.0-15.0); Lymphocyte # 1.24 X10^3/ul (0.83-4.51); Lymphocyte % 15.5 % (19-41); Mean Corp Hgb Conc 33.1 g/dL (32-36); Mean Corpuscular Hgb 29.6 pg (27.0-32.0); Mean Corpuscular Volume 89.4 fL (81-99); Mean Platelet Vol. 12.3 fl (6.2-12.0); Monocyte# 0.49 X10^3/uL; Monocyte% 6.1 % (0-10); NRBC Flagged by Analyzer 0 % (0-5); Neutrophil # 6.15 X10^3/uL (2.7-7.7); Neutrophil % 77.1 % (47-70); Platelet Count 134 K/mm3 (150-450); RBC Distribution Width CV 14.3 % (11.6-14.6); RBC Distribution Width SD 46.1 fl (35.1-43.9); Red Blood Count 4.26 M/mm3 (4.2-5.4)
[2025-01-20] MEDS: HYDROmorphone 1 MG/ML Syringe IV (15:28)
[2025-01-20 15:52] LABS: Anion Gap 15 (5-15); BUN 29 mg/dL (4-19); BUN/Creat Ratio 44.6 RATIO (10-20); Calcium,Total 9.8 mg/dL (7.6-11.0); Carbon Dioxide 19.4 mmol/L (21.0-32.0); Chloride 106 mmol/L (98-108); Creatinine, Serum 0.64 mg/dL (0.70-1.20); EST Glomerular Filtration Rate 93 (>60); Estimated Creatinine Clearance 72.49 ml/min (50-250); Glucose 94 mg/dL (70-99); Potassium 3.8 mmol/L (3.3-5.1); Sodium Level 141 mmol/L (133-145)
--- NOTE | 2025-01-20 16:31 | ED.VIS.FALL ---
HPI HPI - Fall History of Present Illness Chief Complaint: Fall Narrative Narrative: Chief complaint and HPI: Mechanical fall. 74-year-old female with past medical history fibromyalgia, osteoarthritis, GERD presents for evaluation after mechanical fall. Patient states about an hour prior to arrival she tripped on a rug in her garage. She states that she landed on her left hip. She denies hitting her head. No LOC. Not on blood thinners. Patient states that she was unable to ambulate due to the pain in her left hip/knee. She states she laid on the ground for approximately 1 hour before her neighbor found her. She denies any headache, lightheadedness, neck pain, abdominal pain, nausea, vomiting, chest pain, shortness of breath. Denies any numbness or tingling. Patient states she has a left hip replacement that was done by Dr. Parr. Review of systems: See HPI Medications: As listed on the chart Allergies: As listed on the chart PFSH: Per chart Vital signs: As listed on the chart. Reviewed. Physical exam: Gen: A&O x3, NAD Head: Normocephalic, atraumatic Eyes: No sclera icterus, conjunctiva clear, PERRL, EOMI ENT: TMs clear BL, moist mucous membranes, no swelling/lacerations/blood in the mouth or the nares, No nasal septal hematoma, no facial tenderness Neck: Trachea midline, No JVD, Nontender CV: RRR, no murmurs, no chest wall TTP Resp: Lungs CTA BL, no w/r/c GI: Abd soft, non-distended, non-tender, no r/r/g Musc: Limited range of motion of the left lower extremity secondary to pain in the knee and hip- tender to palpation in this area, + swelling in this area but compartments soft, DP/PT pulses plus 2 out of 4 bilaterally, no spinal TTP, no jayla step-offs Skin: Warm, dry, intact Neuro: Alert, oriented, grossly intact, sensation intact, GCS 15 Psych: Cooperative, appropriate mood and affect [facility] Medical History Rectal bleeding Hemorrhoids Vitamin D deficiency Wears hearing aid Wears glasses Wears dentures Post-menopausal Depression Anxiety Walker as ambulation aid Back pain Constipation Gastric reflux Non-smoker History of pain when walking History of stress test Hx of fracture of wrist Skin cancer Osteoporosis Osteopenia Osteoarthritis Arthritis Fatigue sudden weight loss Abnormal thermography Thyroid nodule Home Medications ?Medication ?Instructions ?Recorded ?Last Taken ?Type magnesium oxide 500 mg PO BID supplement 02/25/21 09/08/24 History tumeric 400 mg PO DAILY supplement 02/25/21 09/04/24 History Held on 09/11/24. Instructions: Resume on 09/24/24. omega 1-kee-zte-fish oil 300 1 cap PO BID supplement 09/06/24 09/04/24 History mg-1,000 mg capsule,delayed release (Fish Oil) aspirin 81 mg chewable tablet 81 mg PO BIDCM 20 days #0 tabs 09/17/24 Unknown Rx calcium 500 mg (as 1 tab PO BIDCM #0 tabs 09/17/24 Unknown Rx carbonate)-vitamin D3 5 mcg (200 unit) tablet (Oyster Shell Calcium-Vitamin D3) psyllium husk (aspartame) 3 gram 1 packet PO DAILY #0 ea 09/17/24 Unknown Rx oral powder packet (Daily Fiber (psyllium-aspartame)) Allergy/AdvReac Type Severity Reaction Status Date / Time dexamethasone Allergy Severe hallcenating, Verified 01/07/25 09:35 anxiety methylprednisolone Allergy Severe hallucenant Verified 01/07/25 09:35 ing,anxiety prednisone Allergy Severe hallucenating Verified 01/07/25 09:35 ,anxiety azithromycin (From Zithromax Allergy Mild heart Verified 01/07/25 09:35 Z-Rasheed) racing levofloxacin (From Levaquin) Allergy Mild muscle Verified 01/07/25 09:35 pain, heart racing amantadine Allergy Other Verified 01/07/25 09:35 cortisone Allergy Other Verified 01/07/25 09:35 fluoxetine HCl (From Prozac) Allergy Other Verified 01/07/25 09:35 Penicillins Allergy Unknown Verified 01/07/25 09:35 erythromycin base AdvReac Severe digestive Verified 01/07/25 09:35 upset prednisolone AdvReac Severe hallucenati Verified 01/07/25 09:35 ons,anxiety escitalopram AdvReac Intermediate nausea Verified 01/07/25 09:35 sertraline AdvReac Intermediate heart Verified 01/07/25 09:35 racing Sulfa (Sulfonamide AdvReac Intermediate nausea,diar Verified 01/07/25 09:35 Antibiotics) emma Family History Father Cancer Leukemia Grandmother Heart disease Grandfather Colon cancer Other Angina at rest Arthritis Asthma Blood clot in vein High cholesterol Myocardial infarction Osteoporosis Respiratory disease Severe allergic reaction Thyroid disorder Surgical History Hx of abdominal hysterectomy Hx of wisdom tooth extraction Hx of colonoscopy History of repair of rectocele Hx of vaginal surgery Social History household members: none Smoking Status: Never smoker alcohol intake: never substance use type: does not use caffeine: No what type of physical activity do you participate in: none frequency: 5-6 times per week seatbelt use: always additional social history: Spouse- Doyle EXAM Physical Exam Const Vital Signs: 01/20/25 13:43 01/20/25 13:52 01/20/25 14:43 Temperature 97.7 F L 97.7 F L Temperature Source Oral Pulse Rate 84 78 Respiratory Rate 18 16 Respiratory Effort Normal Respiratory Depth Normal Respiratory Pattern Normal Blood Pressure 130/91 H 128/90 H Blood Pressure Mean 104 102 Pulse Ox 100 96 Oxygen Delivery Method Room Air Room Air 01/20/25 16:00 Temperature Temperature Source Pulse Rate 72 Respiratory Rate 16 Respiratory Effort Respiratory Depth Respiratory Pattern Blood Pressure Blood Pressure Mean Pulse Ox 98 Oxygen Delivery Method MDM MDM MDM Narrative Medical decision making narrative: 74-year-old female with past medical history fibromyalgia, osteoarthritis, GERD presents for evaluation after mechanical fall. Patient endorses pain in the left hip and knee. See physical exam findings. Suspect femur fracture however sprain and contusion are in the differential. Patient did not hit her head. No LOC. She has no neck pain. No CT head or neck needed. X-rays of the hip and knee obtained. Given my concern for fracture, EKG, chest x-ray, basic labs will be obtained for operative planning. NS bolus, Zofran, pain medicine ordered. CBC without leukocytosis or anemia. Patient has thrombocytopenia with a platelet count of 134. BMP relatively unremarkable. X-rays of the pelvis, hip, knee were personally reviewed and interpreted by me, ED physician. Patient has a left distal femur fracture. Chest x-ray not pneumonia, effusion, cardiomegaly, pneumothorax. EKG was personally reviewed and interpreted by me, ED physician. EKG shows normal sinus rhythm. Heart rate 85. No acute ischemic changes. On chart review, patient had her hip replaced with Dr. Parr 09/09/2024. Dr. Aponte with orthopedics was consulted as he is on-call, he is currently operating and will call back when available. Patient was updated of all the results and confirmed understanding of the plan. I spoke with Dr. Aponte. Plan is likely OR tomorrow. Recommends knee immobilizer and CT of the knee. Admission to hospitalist. Patient admitted. Impression: 1. Comminuted impacted fracture of the left distal femur 2. Mechanical fall 3. Thrombocytopenia Lab Data Labs: Laboratory Results - last 24 hr 01/20/25 14:05 WBC 8.0 RBC 4.26 Hgb 12.6 Hct 38.1 MCV 89.4 MCH 29.6 MCHC 33.1 RDW Std Deviation 46.1 H RDW Coeff of [place] 14.3 Plt Count 134 L MPV 12.3 H Immature Gran % (Auto) 0.500 Neut % (Auto) 77.1 H Lymph % (Auto) 15.5 L [place] % (Auto) 6.1 Eos % (Auto) 0.4 Baso % (Auto) 0.4 Absolute Neuts (auto) 6.2 Absolute Lymphs (auto) 1.24 Nucleated RBC % 0 Sodium 141 Potassium 3.8 Chloride 106 Carbon Dioxide 19.4 L Anion Gap 15 BUN 29 H Creatinine 0.64 L Estim Creat Clear Calc 72.49 Est GFR (MDRD) Non-Af 93 BUN/Creatinine Ratio 44.6 H Glucose 94 Calcium 9.8 Radiography Diagnostic Testing: Clinical Impression(s) from Imaging Studies Chest X-Ray 01/20/25 14:32 IMPRESSION: No acute cardiopulmonary process. Reading Location: [facility] Hip/Pelvis X-Ray 01/20/25 14:33 IMPRESSION: Postoperative changes as above. Reading Location: [facility] Knee X-Ray 01/20/25 14:33 IMPRESSION: Comminuted impacted fracture of the distal femur. Soft tissue swelling. Reading Location: [facility] Discharge Plan Triage Chief Complaint: Fall ED Provider: Ubaldo Larose Dx/Rx/DC Orders Prescriptions: No Action tumeric tablet 400 mg PO DAILY magnesium oxide 400 mg magnesium capsule 500 mg PO BID omega 7-hxe-rgv-fish oil [Fish Oil] 300-1,000 mg capsule,delayed release(DR/EC) 1 cap PO BID aspirin 81 mg Tablet,Chewable 81 mg PO BIDCM 20 Days Qty: 0 0RF calcium carbonate-vitamin D3 [Oyster Shell Calcium-Vit D3] 500 mg-5 mcg (200 unit) Tablet 1 tab PO BIDCM Qty: 0 0RF Daily Fiber (psyllium-aspart) 3 gram Powder In Packet 1 packet PO DAILY Qty: 0 0RF Primary Care Provider: Tom Alonso Referrals: Tom Alonso, [Primary Care Provider] - Print Language: Venezuelan
--- NOTE | 2025-01-20 17:25 | CT_ITS ---
EXAM: CT of the left knee without contrast CLINICAL HISTORY: Fracture, fall TECHNIQUE: CT of the left knee without contrast with coronal and sagittal reformatted images FINDINGS: Comminuted significantly appearing displaced and impacted fracture of the distal femoral metadiaphysis with obliquely area of intercondylar fracture extending to the intercondylar notch. No significant appearing articular surface in congruence. There is significant appearing impaction for example coronal 22 and associated anterior translation and angulation of the distal femur related to the condyles for example sagittal 32. Several linear cortical fragments project towards the suprapatellar joint sagittal 43. No dislocation. Tricompartmental osteoarthrosis appears [id number]. Approximate 1.5 x 1.1 cm osteochondral defect at the medial tibial plateau for example axial 60 and coronal 31. No significant appearing joint effusion identified. Soft tissue swelling noted. CT/Extremity Lower without Contra IMPRESSION: Comminuted significantly appearing displaced and impacted fracture of the dista l femoral metadiaphysis with obliquely area of intercondylar fracture extending to the intercondylar notch. No significant janna earing articular surface in congruence. There is significant appearing impaction for example coronal 22 and associated anterior translation and angulation of the distal femur related to the condyles for example sagittal 32. Several linear cortical fragments project towards the suprapatellar joint sagit yony 43. No dislocation. Tricompartmental osteoarthrosis appears [id number]. Approximate 1.5 x 1.1 cm osteochondral defect at the medial tibial plateau for example axial 60 and coronal 31. Age of which is indeterminate. Reading Location: [id number]
--- NOTE | 2025-01-20 18:28 | HP.PCM.HOS_ITS ---
HPI - General General Date of Admission: 01/20/25 Date of Service: 01/20/25 Chief Complaint: left leg pain HPI Narrative KAREN YANEZ, is a 74-year-old female history of GERD, OA, fibromyalgia who presented [facility] ED 01/20/2025 after mechanical fall. An hour prior to arrival she tripped over a rug in her garage and landed on left hip, she laid on the ground for about an hour before her neighbor found her, denies any history of hitting her head, does have a known left hip replacement by Dr. Parr. In the ED patient vitally stable, slightly thrombocytopenic with platelet count of 134, imaging revealed a distal left femur fracture and Dr. Aponte contacted and recommended admitted and likely OR tomorrow, also recommended knee immobilizer and CT of knee. Hospitalist contacted for admission and patient evaluated at bedside and she reports still having pain from lower back down left leg to left knee, pain medicine is also making her feel nauseous and she reports she is just generally uncomfortable. Prior to fall she denies any complaints and notes this was strictly mechanical fall, denies anywhere else that she injured [facility] Medical History Rectal bleeding Hemorrhoids Vitamin D deficiency Wears hearing aid Wears glasses Wears dentures Post-menopausal Depression Anxiety Walker as ambulation aid Back pain Constipation Gastric reflux Non-smoker History of pain when walking History of stress test Hx of fracture of wrist Skin cancer Osteoporosis Osteopenia Osteoarthritis Arthritis Fatigue sudden weight loss Abnormal thermography Thyroid nodule Home Medications ?Medication ?Instructions ?Recorded ?Last Taken ?Type magnesium oxide 500 mg PO BID supplement 01/20/25 History tumeric 400 mg PO DAILY supplement 0 02/25/21 01/19/25 History Held on 09/11/24. Instructions: Resume on 09/24/24. omega 8-lup-fpl-fish oil 300 1 cap PO BID supplement 1 11/06/23 01/20/25 History mg-1,000 mg capsule,delayed release (Fish Oil) psyllium husk (aspartame) 3 gram 1 packet PO DAILY FIB ER #0 ea 09/17/24 01/19/25 Rx oral powder packet (Daily Fiber (psyllium-aspartame)) calcium 500 mg (as 1 tab PO TID SUPPLEMENT 12/2901/20/25 History carbonate)-vitamin D3 5 mcg (200 unit) tablet (Oyster Shell Calcium-Vitamin D3) Allergy/AdvReac Type Severity Reaction Status Date / Time dexamethasone Allergy Severe hallcenating, Verified 01/07/25 09:35 anxiety methylprednisolone Allergy Severe hallucenant Verified 01/07/25 09:35 ing,anxiety prednisone Allergy Severe hallucenating Verified 01/07/25 09:35 ,anxiety azithromycin (From Zithromax Allergy Mild heart Verified 01/07/25 09:35 Z-Rasheed) racing levofloxacin (From Levaquin) Allergy Mild muscle Verified 01/07/25 09:35 pain, heart racing amantadine Allergy Other Verified 01/07/25 09:35 cortisone Allergy Other Verified 01/07/25 09:35 fluoxetine HCl (From Prozac) Allergy Other Verified 01/07/25 09:35 Penicillins Allergy Unknown Verified 01/07/25 09:35 erythromycin base AdvReac Severe digestive Verified 01/07/25 09:35 upset prednisolone AdvReac Severe hallucenati Verified 01/07/25 09:35 ons,anxiety escitalopram AdvReac Intermediate nausea Verified 01/07/25 09:35 sertraline AdvReac Intermediate heart Verified 01/07/25 09:35 racing Sulfa (Sulfonamide AdvReac Intermediate nausea,diar Verified 01/07/25 09:35 Antibiotics) emma Family History Father Cancer Leukemia Grandmother Heart disease Grandfather Colon cancer Other Angina at rest Arthritis Asthma Blood clot in vein High cholesterol Myocardial infarction Osteoporosis Respiratory disease Severe allergic reaction Thyroid disorder Surgical History Hx of abdominal hysterectomy Hx of wisdom tooth extraction Hx of colonoscopy History of repair of rectocele Hx of vaginal surgery Social History household members: none Smoking Status: Never smoker alcohol intake: never substance use type: does not use caffeine: No what type of physical activity do you participate in: none frequency: 5-6 times per week seatbelt use: always additional social history: Spouse- Doyle EDWARDS Narrative Patient in pain and also has received pain medication so difficulty answering direct ROS, reports she is nauseated, thirsty, and hurting mostly low back into left leg/knee but had difficulty with any other direct ROS, did say she had no problems prior to her mechanical fall though Vital Signs Vital Signs Vital Signs: 01/20/25 13:43 01/20/25 13:52 01/20/25 14:43 Temperature 97.7 F L 97.7 F L Temperature Source Oral Pulse Rate 84 78 Respiratory Rate 18 16 Respiratory Effort Normal Respiratory Depth Normal Respiratory Pattern Normal Blood Pressure 130/91 H 128/90 H Blood Pressure Mean 104 102 Pulse Ox 100 96 Oxygen Delivery Method Room Air Room Air 01/20/25 16:00 01/20/25 18:03 01/20/25 18:05 Temperature 97.9 F Temperature Source Pulse Rate 72 78 98 Respiratory Rate 16 14 14 Respiratory Effort Respiratory Depth Respiratory Pattern Blood Pressure 113/75 113/75 Blood Pressure Mean 87 87 Pulse Ox 98 98 98 Oxygen Delivery Method Room Air Weight Weight: 90.9 kg Body Mass Index (BMI) 31.4 Physical Exam Narrative General: Patient awake and answering questions but is very uncomfortable HEENT: Atraumatic, normocephalic Eyes: extraocular movements grossly intact Neck: Supple Respiratory: normal respiratory effort Cardiovascular: no edema appreciated GI: nondistended Extremities: Left knee in immobilizer Neuro: No overt focal neurological deficits Psych: Attempts to be cooperative Results Lab / Micro Data 01/20/25 14:05 01/20/25 14:05 Labs: Laboratory Results - last 24 hr 01/20/25 14:05: WBC 8.0, RBC 4.26, Hgb 12.6, Hct 38.1, MCV 89.4, MCH 29.6, MCHC 33.1, RDW Std Deviation 46.1 H, RDW Coeff of Prosper 14.3, Plt Count 134 L, MPV 12.3 H, Immature Gran % (Auto) 0.500, Neut % (Auto) 77.1 H, Lymph % (Auto) 15.5 L, [place] % (Auto) 6.1, Eos % (Auto) 0.4, Baso % (Auto) 0.4, Absolute Neuts (auto) 6.2, Absolute Lymphs (auto) 1.24, Nucleated RBC % 0, Sodium 141, Potassium 3.8, Chloride 106, Carbon Dioxide 19.4 L, Anion Gap 15, BUN 29 H, Creatinine 0.64 L, Estim Creat Clear Calc 72.49, Est GFR (MDRD) Non-Af 93, BUN/Creatinine Ratio 44.6 H, Glucose 94, Calcium 9.8 Imaging Radiology Impression Chest X-Ray 01/20/25 14:32 IMPRESSION: No acute cardiopulmonary process. Reading Location: [facility] Hip/Pelvis X-Ray 01/20/25 14:33 IMPRESSION: Postoperative changes as above. Reading Location: [facility] Knee X-Ray 01/20/25 14:33 IMPRESSION: Comminuted impacted fracture of the distal femur. Soft tissue swelling. Reading Location: [facility] Assessment & Plan Assessment/Plan (1) Femoral distal fracture: PLAN: Plan # Distal left femur fracture -Ortho contacted and recommended admission, CT, and they will see in consult with likely OR tomorrow -CT of knee ordered, results pending -Pain control -Ultimately need PT/OT and case management/social work consults for dispo -Supportive care, knee immobilizer -Will obtain x-ray of lumbar spine as well due to some pain though may be musculoskeletal in nature with primary complaints in the left knee/leg #DVT ppx: SCDs Jes Hanson MD Charges/Coding Visit Charges Inpatient E&M: 87255 Init Hosp L1
[2025-01-20] MEDS: proCHLORPERazine 10 MG/2 ML Vial 5 MG IV (19:57)
[2025-01-20] MEDS: Morphine 2 MG/ML Syringe IV (19:57)
--- NOTE | 2025-01-20 20:03 | NURSING ---
+pedal pulses bilaterally-pt can wiggle toes on left and can rotate ankle on right-ice pack to left femur area warm blankets and drink of water given
--- NOTE | 2025-01-20 20:25 | RAD_ITS ---
PROCEDURE: LUMBAR SPINE 2 OR 3 VIEWS 01/20/2025 REASON FOR EXAM: S/P FALL TECHNIQUE: 2 view(s) of the lumbar spine COMPARISON: 08/27/2024 FINDINGS: Diffuse osteopenia. Lumbar lordosis is maintained. Vertebral body heights are within normal limits. Mild multilevel loss of disc spaces throughout the lumbar spine. Pedicles are intact. No acute fracture or traumatic subluxation. No suspicious lytic or blastic lesions. Gotc-pl-[id number] multilevel degenerative changes, most prominent in the lower lumbar spine. SI joints are unremarkable. Partially imaged left hip arthroplasty. RAD/Lumbar Spine 2 or 3 Views IMPRESSION: No acute fracture or dislocation. Degenerative changes most prominent in the lower lumbar spine. Reading Location: [facility]
--- NOTE | 2025-01-20 20:38 | NURSING ---
lab called to notify of stat lactic acid ordered
--- NOTE | 2025-01-20 21:42 | CON.PCM.OR_ITS ---
HPI Consult Data Date of Consult: 01/20/25 HPI Narrative Reason for Consultation: Left distal femur fracture HPI Narrative: KAREN YANEZ, is a 74 F who sustained a ground-level mechanical trip and fall in her garage earlier today. She states she was unable to get to her feet and was able eventually to reyes the attention of her neighbor who was able to call the squad. She believes she was down for a little over an hour. She reports history of treatment in her left knee for osteoarthritis. She states she was doing okay with that and last had a viscosupplementation injection several years ago. She has history of left hip replacement with Dr. Parr. She denies any numbness or tingling. Reports some mild low back pain but states feels her pain is around her left knee. Denies any fevers, chills, nausea or vomiting, chest pain or shortness of breath. Pain controlled with current pain regimen. Denies head injury or loss consciousness. Community ambulator without assistive device. Denies history of DVT or PE. [facility] Medical History Rectal bleeding Hemorrhoids Vitamin D deficiency Wears hearing aid Wears glasses Wears dentures Post-menopausal Depression Anxiety Walker as ambulation aid Back pain Constipation Gastric reflux Non-smoker History of pain when walking History of stress test Hx of fracture of wrist Skin cancer Osteoporosis Osteopenia Osteoarthritis Arthritis Fatigue sudden weight loss Abnormal thermography Thyroid nodule Home Medications ?Medication ?Instructions ?Recorded ?Last Taken ?Type magnesium oxide 500 mg PO BID supplement 01/20/25 History tumeric 400 mg PO DAILY supplement 0 02/25/21 01/19/25 History Held on 09/11/24. Instructions: Resume on 09/24/24. omega 0-qjs-rqw-fish oil 300 1 cap PO BID supplement 1 11/06/23 01/20/25 History mg-1,000 mg capsule,delayed release (Fish Oil) psyllium husk (aspartame) 3 gram 1 packet PO DAILY FIB ER #0 ea 09/17/24 01/19/25 Rx oral powder packet (Daily Fiber (psyllium-aspartame)) calcium 500 mg (as 1 tab PO TID SUPPLEMENT 12/2901/20/25 History carbonate)-vitamin D3 5 mcg (200 unit) tablet (Oyster Shell Calcium-Vitamin D3) Allergy/AdvReac Type Severity Reaction Status Date / Time dexamethasone Allergy Severe hallcenating, Verified 01/07/25 09:35 anxiety methylprednisolone Allergy Severe hallucenant Verified 01/07/25 09:35 ing,anxiety prednisone Allergy Severe hallucenating Verified 01/07/25 09:35 ,anxiety azithromycin (From Zithromax Allergy Mild heart Verified 01/07/25 09:35 Z-Rasheed) racing levofloxacin (From Levaquin) Allergy Mild muscle Verified 01/07/25 09:35 pain, heart racing amantadine Allergy Other Verified 01/07/25 09:35 cortisone Allergy Other Verified 01/07/25 09:35 fluoxetine HCl (From Prozac) Allergy Other Verified 01/07/25 09:35 Penicillins Allergy Unknown Verified 01/07/25 09:35 erythromycin base AdvReac Severe digestive Verified 01/07/25 09:35 upset prednisolone AdvReac Severe hallucenati Verified 01/07/25 09:35 ons,anxiety escitalopram AdvReac Intermediate nausea Verified 01/07/25 09:35 sertraline AdvReac Intermediate heart Verified 01/07/25 09:35 racing Sulfa (Sulfonamide AdvReac Intermediate nausea,diar Verified 01/07/25 09:35 Antibiotics) emma Family History Father Cancer Leukemia Grandmother Heart disease Grandfather Colon cancer Other Angina at rest Arthritis Asthma Blood clot in vein High cholesterol Myocardial infarction Osteoporosis Respiratory disease Severe allergic reaction Thyroid disorder Surgical History Hx of abdominal hysterectomy Hx of wisdom tooth extraction Hx of colonoscopy History of repair of rectocele Hx of vaginal surgery Social History household members: none Smoking Status: Never smoker alcohol intake: never substance use type: does not use caffeine: No what type of physical activity do you participate in: none frequency: 5-6 times per week seatbelt use: always additional social history: Spouse- Doyle EDWARDS ROS Narrative 12 point review of systems obtained, negative unless otherwise noted in HPI. Vital Signs Vital Signs Vital Signs: 01/20/25 13:43 01/20/25 13:52 01/20/25 14:43 Temperature 97.7 F L 97.7 F L Temperature Source Oral Pulse Rate 84 78 Respiratory Rate 18 16 Respiratory Effort Normal Respiratory Depth Normal Respiratory Pattern Normal Blood Pressure 130/91 H 128/90 H Blood Pressure Mean 104 102 Blood Pressure Source Blood Pressure Position Blood Pressure Location Pulse Ox 100 96 Oxygen Delivery Method Room Air Room Air 01/20/25 16:00 01/20/25 18:03 01/20/25 18:05 Temperature 97.9 F Temperature Source Pulse Rate 72 78 98 Respiratory Rate 16 14 14 Respiratory Effort Respiratory Depth Respiratory Pattern Blood Pressure 113/75 113/75 Blood Pressure Mean 87 87 Blood Pressure Source Blood Pressure Position Blood Pressure Location Pulse Ox 98 98 98 Oxygen Delivery Method Room Air 01/20/25 19:00 Temperature 97.9 F Temperature Source Temporal Pulse Rate 80 Respiratory Rate 18 Respiratory Effort Respiratory Depth Respiratory Pattern Blood Pressure 131/60 H Blood Pressure Mean 83 Blood Pressure Source Monitor Blood Pressure Position Semi-Fowlers Blood Pressure Location Left Arm Pulse Ox 97 Oxygen Delivery Method Room Air Weight Weight: 200 lb 6.403 oz Body Mass Index (BMI) 31.4 Physical Exam Narrative General -A&Ox3, NAD, appears stated age. Vital signs stable, afebrile. Respiratory -normal work of breathing, no intercostal retractions. CV -pulses regular, brisk capillary refill ?4 limbs. Abdomen-soft, nontender, nondistended. No guarding, rigidity, rebound tenderness. Musculoskeletal/neurologic -full range of motion nontender throughout bilateral upper extremities, right lower extremity with full sensation and strength in all dermatomes and myotomes. No midline cervical tenderness. Left lower extremity- knee immobilizer in place. Skin intact without lacerations or abrasions. Left knee effusion noted. Brisk capillary refill. Sensation intact light touch L3- S1 dermatomes. DF, PF, EHL intact. DP, PT 2+. Pelvis is stable, nontender. No ecchymosis noted. Lab / Micro Data 01/20/25 14:05 01/20/25 14:05 Labs: Laboratory Results - last 24 hr 01/20/25 14:05: WBC 8.0, RBC 4.26, Hgb 12.6, Hct 38.1, MCV 89.4, MCH 29.6, MCHC 33.1, RDW Std Deviation 46.1 H, RDW Coeff of Prosper 14.3, Plt Count 134 L, MPV 12.3 H, Immature Gran % (Auto) 0.500, Neut % (Auto) 77.1 H, Lymph % (Auto) 15.5 L, [place] % (Auto) 6.1, Eos % (Auto) 0.4, Baso % (Auto) 0.4, Absolute Neuts (auto) 6.2, Absolute Lymphs (auto) 1.24, Nucleated RBC % 0, Sodium 141, Potassium 3.8, Chloride 106, Carbon Dioxide 19.4 L, Anion Gap 15, BUN 29 H, Creatinine 0.64 L, Estim Creat Clear Calc 72.49, Est GFR (MDRD) Non-Af 93, BUN/Creatinine Ratio 44.6 H, Glucose 94, Calcium 9.8 Imaging Radiology Impression Chest X-Ray 01/20/25 14:32 IMPRESSION: No acute cardiopulmonary process. Reading Location: [facility] Hip/Pelvis X-Ray 01/20/25 14:33 IMPRESSION: Postoperative changes as above. Reading Location: [facility] Knee X-Ray 01/20/25 14:33 IMPRESSION: Comminuted impacted fracture of the distal femur. Soft tissue swelling. Reading Location: [facility] Lumbar Spine X-Ray 01/20/25 20:25 IMPRESSION: No acute fracture or dislocation. Degenerative changes most prominent in the lower lumbar spine. Reading Location: [facility] Assessment & Plan Assessment/Plan (1) Femoral distal fracture: QUALIFIERS: Encounter type: initial encounter Fracture type: c losed Fracture morphology: other fracture Laterality: left Qualified Code(s): S72.492A - Other fracture of lower end of left femur, initial encounter for closed fracture PLAN: Patient seen and examined. X-rays and CT scans reviewed. Displaced comminuted extra-articular left metadiaphyseal femur fracture. Knee immobilizer in place. Patient neurovascularly intact. Recommended surgery in the form of left femur retrograde nailing with possible open reduction internal fixation. I reviewed the risks, benefits, alternatives to the procedure. Informed consent was obtained. Risks included but were not limited to bleeding, infection, loss of life or limb, need for additional surgery, persistent pain, nonhealing bone or wounds, neurovascular injury, symptomatic hardware, persistent limp, stiffness, DVT or PE, risk of anesthesia. Patient expressed understanding of these risks and wished to proceed with surgery. Plan for surgery tomorrow when operating room time becomes available. N.p.o. after midnight. Maintenance IV fluids. Judicious narcotic use. Tylenol scheduled. Hold anticoagulant until postop. Ice to the left knee ordered. Thank you for this consultation.
--- NOTE | 2025-01-20 21:48 | CASEMGMT ---
Care Management Face to Face with patient for initial transition planning/care coordination assessment in the ED.? This inspector automatic typewriter introduced self and role at [facility]. Patient alert and oriented. Patient willing to participate in assessment and is able to answer all questions appropriately.? Care providers, pharmacy, and demographics verified. Admitting Diagnosis:? femoral distal fracture Other diagnosis history: skin cancer, osteoporosis, osteopenia, arthritis PCP: Gavin Specialists: Karolyn Preferred Pharmacy: [facility] Insurance: ?[employer] Prescription Benefit: yes Living Will/HPOA: ?HPOA and LW on file LNOK: son Living Arrangements: patient lives alone in a ranch home, 2 stairs to enter.? Has laundry in basement, has stair lift. ?Has been independent with ADL and IADLs Transportation: Patient drives DME: chair lift to basement, walker, walk in shower, cane, walker HHC: used [facility] in the past SNF/Rehab: TCU Community Resources: ?None Behavioral Health History: Denies, states anxiety and depression were situational after passed. Patient goals: Patients discharge plans uncertain, prefers TCU if SNF needed. ? Disposition Plan: admission to acute; RN CM/SW to follow for discharge planning needs that may arise. Emilia Viera, WEB WEAVER, ORACLE ARCHITECT
[2025-01-20 22:01] LABS: Lactic Acid 1.1 mmol/L (0.0-2.0)
[2025-01-20 22:17] LABS: ALB/GLOB Ratio 1.6 RATIO (0.9-2.4); AST(SGOT) 25 U/L (<=31); Alanine Aminotransfer ALT/SGPT 21 U/L (<=34); Alkaline Phosphatase 57 U/L (35-104); Anion Gap 13 (5-15); BUN 24 mg/dL (4-19); BUN/Creat Ratio 46.6 RATIO (10-20); Carbon Dioxide 18.8 mmol/L (21.0-32.0); Chloride 108 mmol/L (98-108); Creatinine, Serum 0.52 mg/dL (0.70-1.20); EST Glomerular Filtration Rate 98 (>60); Estimated Creatinine Clearance 71.13 ml/min (50-250); Globulin 2.5 g/dL (2.2-4.2); Glucose 118 mg/dL (70-99); Potassium 3.9 mmol/L (3.3-5.1); Protein, Total 6.5 g/dL (5.9-8.4); Sodium Level 140 mmol/L (133-145); Total Bilirubin 0.46 mg/dL (0.00-1.30)
[2025-01-21] VITALS (14 sets, daily range): BP systolic 109–142; BP diastolic 50–74; PULSE 81–106; RESP 14–18; TEMP 36.6–37.1; O2SAT 94–100
[2025-01-21 06:21] LABS: Absolute Lymphocyte Count 0.97 X10^3/uL (0.83-4.51); Absolute Neutrophil Count 5.4 X10^3/uL (2.0-7.7); Basophil# 0.02 X10^3/uL; Basophil% 0.3 % (0-1); Hematocrit 30.8 % (37-47); Lymphocyte # 0.97 X10^3/ul (0.83-4.51); Lymphocyte % 13.6 % (19-41); Mean Corp Hgb Conc 32.5 g/dL (32-36); Mean Corpuscular Hgb 29.2 pg (27.0-32.0); Mean Corpuscular Volume 90.1 fL (81-99); Mean Platelet Vol. 10.7 fl (6.2-12.0); Monocyte# 0.68 X10^3/uL; Monocyte% 9.6 % (0-10); NRBC Flagged by Analyzer 0 % (0-5); Neutrophil # 5.42 X10^3/uL (2.7-7.7); Neutrophil % 76.2 % (47-70); Platelet Count 204 K/mm3 (150-450); RBC Distribution Width CV 14.5 % (11.6-14.6); RBC Distribution Width SD 47.2 fl (35.1-43.9); Red Blood Count 3.42 M/mm3 (4.2-5.4); White Blood Count 7.1 K/mm3 (4.4-11.0)
[2025-01-21 06:32] LABS: International Normalized Ratio 1.1; Prothrombin Time (Protime)PT. 14.3 SECONDS (11.7-14.9)
--- NOTE | 2025-01-21 07:12 | PN.HOSP_ITS ---
Reason for Visit Reason for Visit: Left leg pain status post mechanical fall Subjective Subjective Patient is a 74-year-old white female who presents emergency department was found on 01/21/2025 with chief complaint of left leg pain after mechanical fall. She presented to the emergency department about an hour after she tripped over a rug in her garage and landed on her left hip. It was reported that she laid on the ground for about an hour before her neighbor found her and his squad called. She has a history of a left hip replacement which was performed by Dr. Parr. Vital signs on presentation showed a temperature of 97.7, heart rate 84, respiratory is 18, blood pressure was 130/91 and pulse ox 100% on room air. Her CBC showed a hemoglobin of 12.6 and was otherwise unremarkable. Coags are normal. Chemistry panel showed a serum bicarb of 19.4 with a normal anion gap and BUN of 29 with a creatinine 0.64. Lactic acid was normal. Liver functions were unremarkable. TSH was normal. Chest x-ray showed no acute cardiopulmonary process. Hip and pelvic x-ray showed L hip arthroplasty but was otherwise unremarkable. Left knee x-ray showed comminuted impacted fracture of the distal femur with soft tissue swelling. Lumbar spine x-ray showed no acute fracture or dislocation and degenerative changes most prominent in the lower lumbar spine. CT of the left lower extremity showed a comminuted significantly appearing displaced impacted fracture distal left femur metadiaphysis with obliquely area of intracondylar fracture extending to the intracondylar notch as well as several linear cortical fragments projecting towards the suprapatellar joint, no dislocation, tricompartmental osteoarthrosis, and a 1.5 x 1.1 cm osteochondral defect of the medial tibial plateau that was age-indeterminate. She was treated with medication for pain relief and admitted to medical floor and evaluated by orthopedic surgery. Current plan is for surgery today to include left femur retrograde nailing and possible ORIF. Patient is currently resting comfortably in bed. Complains of a slight headache but denies the need for any medication for this. States she is getting cleaned up as well and will get pain medicine at that time. Plan is for OR later this afternoon. States that she does not really have any leg pain at this time while she is in the straight leg brace and not moving. Did require TCU after her hip replacement would prefer to go back there again if rehab is needed after discharge. Objective Data Objective Data Vital Signs: Vital Signs Temp Pulse Resp BP Pulse Ox O2 Del Method 98.0 F 86 16 124/63 H 98 Room Air 01/21/25 03:56 01/21/25 03:56 01/21/25 03:56 01/21/25 03:56 01/21/25 03:56 01/21/25 03:56 Oxygen Delivery Method Room Air Weight: 90.9 kg Body Mass Index (BMI) 31.4 Intake & Output: Intake and Output for Last 24 Hours 01/19/25 01/20/25 01/21/25 23:59 23:59 23:59 Intake Total 1000 / 1000 Output Total 550 / 550 Balance 1000 / 1000 -550 / -550 Lab / Micro Data 01/21/25 05:22 01/21/25 05:22 Labs: Laboratory Results - last 24 hr 01/20/25 14:05: WBC 8.0, RBC 4.26, Hgb 12.6, Hct 38.1, MCV 89.4, MCH 29.6, MCHC 33.1, RDW Std Deviation 46.1 H, RDW Coeff of Prosper 14.3, Plt Count 134 L, MPV 12.3 H, Immature Gran % (Auto) 0.500, Neut % (Auto) 77.1 H, Lymph % (Auto) 15.5 L, [place] % (Auto) 6.1, Eos % (Auto) 0.4, Baso % (Auto) 0.4, Absolute Neuts (auto) 6.2, Absolute Lymphs (auto) 1.24, Nucleated RBC % 0, Sodium 141, Potassium 3.8, Chloride 106, Carbon Dioxide 19.4 L, Anion Gap 15, BUN 29 H, Creatinine 0.64 L, Estim Creat Clear Calc 72.49, Est GFR (MDRD) Non-Af 93, BUN/Creatinine Ratio 44.6 H, Glucose 94, Calcium 9.8 01/20/25 20:27: Sodium 140, Potassium 3.9, Chloride 108, Carbon Dioxide 18.8 L, Anion Gap 13, BUN 24 H, Creatinine 0.52 L, Estim Creat Clear Calc 71.13, Est GFR (MDRD) Non-Af 98, BUN/Creatinine Ratio 46.6 H, Glucose 118 H, Lactic Acid 1.1, Calcium 9.0, Total Bilirubin 0.46, AST 25, ALT 21, Alkaline Phosphatase 57, Total Protein 6.5, Albumin 4.0, Globulin 2.5, Albumin/Globulin Ratio 1.6 01/21/25 05:22: WBC 7.1, RBC 3.42 L, Hgb 10.0 L, Hct 30.8 L, MCV 90.1, MCH 29.2, MCHC 32.5, RDW Std Deviation 47.2 H, RDW Coeff of Prsoper 14.5, Plt Count 204, MPV 10.7, Immature Gran % (Auto) 0.300, Neut % (Auto) 76.2 H, Lymph % (Auto) 13.6 L, [place] % (Auto) 9.6, Eos % (Auto) 0.0, Baso % (Auto) 0.3, Absolute Neuts (auto) 5.4, Absolute Lymphs (auto) 0.97, Nucleated RBC % 0, PT 14.3, INR 1.1, TSH 2.210 Radiography Diagnostic Testing: Radiology Impression Chest X-Ray 01/20/25 14:32 IMPRESSION: No acute cardiopulmonary process. Reading Location: [facility] Hip/Pelvis X-Ray 01/20/25 14:33 IMPRESSION: Postoperative changes as above. Reading Location: [facility] Knee X-Ray 01/20/25 14:33 IMPRESSION: Comminuted impacted fracture of the distal femur. Soft tissue swelling. Reading Location: [facility] Lower Extremity CT 01/20/25 17:25 IMPRESSION: Comminuted significantly appearing displaced and impacted fracture of the distal femoral metadiaphysis with obliquely area of intercondylar fracture extending to the intercondylar notch. No significant appearing articular surface in congruence. There is significant appearing impaction for example coronal 22 and associated anterior translation and angulation of the distal femur related to the condyles for example sagittal 32. Several linear cortical fragments project towards the suprapatellar joint sagittal 43. No dislocation. Tricompartmental osteoarthrosis appears [id number]. Approximate 1.5 x 1.1 cm osteochondral defect at the medial tibial plateau for example axial 61 and coronal 31. Age of which is indeterminate. Reading Location: [facility] Lumbar Spine X-Ray 01/20/25 20:25 IMPRESSION: No acute fracture or dislocation. Degenerative changes most prominent in the lower lumbar spine. Reading Location: [facility] Physical Exam Const alert, oriented x3, no apparent distress and well nourished Constitutional Narrative: Obese, older, white female, lying in bed, currently appears comfortable, nontoxic HEENT head/scalp atraumatic and moist oral mucous membranes HEENT Narrative: Mallampati 2, no thrush Head and Scalp: normocephalic Resp normal respiratory effort, no retractions, no use of accessory muscles and clear to auscultation bilaterally Auscultation: Negative for rales, rhonchi or wheezes Cardio regular rate, regular rhythm, S1 normal heart sound, S2 normal heart sound, no murmurs, no rub, no gallops and no clicks GI normal to inspection, nondistended, normoactive bowel sounds, soft to palpation and non-tender Extremity no clubbing, cyanosis or edema Extremity Narrative: Left lower extremity in knee immobilizer, pedal pulses and radial pulses are 2+ bilaterally Neuro oriented x3 and no focal motor deficits Neuro Narrative: Difficulty moving left lower extremity secondary to pain and immobility at knee Speech: speech normal Psych Psych Narrative: Affect is slightly flat but appropriate for the current situation, eye contact is good patient interacts appropriately Assessment & Plan Assessment/Plan (1) Femoral distal fracture: QUALIFIERS: Encounter type: initial encounter Fracture type: c losed Fracture morphology: other fracture Laterality: left Qualified Code(s): S72.492A - Other fracture of lower end of left femur, initial encounter for closed fracture (2) Fall: PLAN: Plan Distal left femoral fracture as a result of the mechanical fall -Mechanical fall where she tripped over a rug in the carotid -Orthopedic surgery is following and plan is for the OR later today -Continue Tylenol 1000 mg every 8 hours as needed -Toradol as needed -morphine and oxycodone as needed as ordered -Will start DVT prophylaxis this evening with Lovenox with long-term DVT prophylaxis per orthopedic recommendations -Postoperative PT/OT -Weightbearing status per orthopedic surgery -Case management/social work consultation for assistance with discharge planning -Depending on functional status patient may need placement versus home health care at the time of discharge Fibromyalgia -Chronic -Patient takes no medications chronically at home for this -Pain regimen for fracture as above History of constipation -Continue home fiber -Scheduled stool softeners with decreased mobility and narcotic use -Add as needed MiraLAX daily Osteoarthritis -History of previous left hip arthroplasty -Pain management as above Obesity -BMI 31.5 -Recommend weight loss -Complicates treatment, prognosis, outcomes DVT prophylaxis -Will start Lovenox 40 mg subcu daily postoperatively this evening CODE STATUS -DNR CCA with no intubation Charges/Coding Visit Charges Inpatient E&M: 72227 Subs Hosp L2
[2025-01-21 07:28] LABS: Anion Gap 10 (5-15); BUN 22 mg/dL (4-19); BUN/Creat Ratio 44.8 RATIO (10-20); Calcium,Total 8.8 mg/dL (7.6-11.0); Chloride 107 mmol/L (98-108); Creatinine, Serum 0.48 mg/dL (0.70-1.20); EST Glomerular Filtration Rate 100 (>60); Estimated Creatinine Clearance 71.13 ml/min (50-250); Glucose 120 mg/dL (70-99); Potassium 4.1 mmol/L (3.3-5.1); Sodium Level 138 mmol/L (133-145)
[2025-01-21] MEDS: 0.9% Saline Lock 10 ML Syringe IV (11:44)
[2025-01-21] MEDS: Morphine 2 MG/ML Syringe IV ×2 (11:44→22:20)
--- NOTE | 2025-01-21 14:02 | NURSING ---
Pt sent to surgery.
--- NOTE | 2025-01-21 14:47 | PRE.ANES_ITS ---
ASA Classification* ASA Classification ASA Classification: 3 Assessment & Plan Anesthesia* Anesthesia Assessment Anesthesia Assessment: Discussed sedation and/or anesthesia options, risks, benefits, and alternatives with patient/parents/legal guardian/POA. Questions invited. The patient/parents/legal guardian/POA seems to understand and agrees to proceed with anesthesia plan. Reviewed the physical assessment, medical history, allergy history and patient home medications list prior to surgery/procedure/anesthetic and documented any changes. Performed airway and anesthesia risk assessments. Anesthesia Type Anesthesia Type: General (Rapid sequence induction.) History Source History Obtained from:: Patient and Chart Anesthesia Focused Assessment* Temperature: 98.5 F Pulse Rate: 85 Blood Pressure: 120/66 Respiratory Rate: 18 Pulse Ox: 95 Oxygen Delivery Method: Room Air Airway Assessment Mouth opens: >3 cm Mallampati Score: III Teeth Condition: Dentures (Patient has full upper dentures.) and Missing (Patient is missing several teeth on the bottom. Rest of the teeth are tight.) Neck Range of motion (ROM): Limited ROM Focused Labs Anesthesia Preop lab: CBC WBC 7.1 K/mm3 (4.4-11.0) 01/21/25 05:22 01/21/25 RBC 3.42 M/mm3 (4.2-5.4) L 01/21/25 05:22 01/21/25 Hgb 10.0 g/dL (12.0-15.0) L 01/21/25 05:22 5 Hct 30.8 % (37-47) L 01/21/25 05:22 01/21/25 Plt Count 204 K/mm3 (150-450) 01/21/25 05:22 01/21/25 CHEMISTRY Potassium 4.1 mmol/L (3.3-5.1) 01/21/25 05:22 01/21/25 Sodium 138 mmol/L (133-145) 01/21/25 05:22 01/21/25 Magnesium 2.4 mg/dL (1.6-2.6) 09/05/24 09:04 09/05/24 Phosphorus 3.7 mg/dL (2.5-4.9) 03/31/21 14:42 03/31/21 BUN 22 mg/dL (4-19) H 01/21/25 05:22 01/21/25 Creatinine 0.48 mg/dL (0.70-1.20) L 01/21/25 05:22 Glucose 120 mg/dL (70-99) H 01/21/25 05:22 01/21/25 POC Glucose 71 mg/dL (74-106) L 09/09/24 08:35 09/09/24 TSH 2.210 uIU/mL (0.300-4.200) 01/21/25 05:22 12/29 03/23 COAG PT 14.3 SECONDS (11.7-14.9) 01/21/25 05:22 Pre-Assessment Diagnosis/Proposed Procedure Planned Operative Procedure(s): Left femur retrograde nailing, possible open reduction internal fixation. 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 When Was Last Pacemaker Check QUESTION #4 FULL TEXT: You/Your Family Experience fever (hyperthermia) with Anesthesia Last Oral Intake Last Oral intake: Last Oral Intake NPO since Meds taken in AM with sips of water? 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 Has anyone observed you stop breathing during sleep? STOP Results QUESTION #5 FULL TEXT : Do you snore loudly (louder than talking or can be heard through closed doors)? 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 Specify any problems Hx of Preganancy in last 3 Months Nurse Filling Out Transfusion & Questions: Date: Time: Patient unable to answer at this time (ie. confused, unrespo /Reproduction History /Reproductive History - local company truck driver: /Reproductive Hx- local company truck driver Hx Now No 01/21/25 04:35 Gestational Age (in weeks): EDC: Hx Hx Para Hx Section SAB No 09/06/24 10:32 Active Medications Active Medications: Current Medications Generic Name Dose Route Start Last Admin Trade Name Freq PRN Reason Stop Dose Admin Acetaminophen 1,000 mg 01/20/25 22:00 01/21/25 13:55 Acetaminophen 500 Mg Tablet PO Not Given Q8 TISH Albuterol Sulfate 2.5 mg 01/20/25 19:37 Albuterol 2.5 Mg/3 Ml Vial.Neb. INHALATION Q2H PRN PRN SOB &/OR WHEEZING Calcium/Vitamin D 1 tablet 01/21/25 14:00 01/21/25 13:55 Calcium Carb/Vitamin D 1 Tablet Tablet PO Not Given TID [facility] Enoxaparin Sodium 40 mg 01/21/25 20:00 Enoxaparin 40 Mg/0.4 Ml Syringe SC DAILY [facility] Ketorolac Tromethamine 15 mg 01/20/25 19:37 Ketorolac 15 Mg/Ml Vial IV 01/25/25 19:37 Q6H PRN PRN Pain Score 1-10 Magnesium Chloride 128 mg 01/21/25 10:00 01/21/25 08:15 Magnesium Chloride 64 Mg Delay Rel.Tablet PO Not Given BID TISH Melatonin 3 mg 01/20/25 19:37 Melatonin 3 Mg Tablet PO QHS PRN PRN INSOMNIA Morphine Sulfate 2 - 4 mg 01/20/25 19:37 01/21/25 11:44 Morphine 2 Mg/Ml Syringe IV 2 mg Q3H PRN PRN Administration Pain Score 6-10 Ondansetron HCl 4 mg 01/20/25 19:37 Ondansetron 4 Mg/2 Ml Vial IV Q8H PRN PRN NAUSEA/VOMITING Oxycodone HCl 5 - 10 mg 01/20/25 21:39 Oxycodone 5 Mg Tablet PO Q4H PRN PRN MODSEVPAIN Polyethylene Glycol 17 gm 01/21/25 07:20 Polyethylene Glycol 3350 17 Gm Packet PO DAILY PRN CONSTIPATION Prochlorperazine Edisylate 5 mg 01/20/25 19:37 01/20/25 19:57 Prochlorperazine 10 Mg/2 Ml Vial IV 5 mg Q4H PRN PRN Administration Breakthrough nausea/vomiting Psyllium Hydrophilic Mucilloid 1 packet 01/21/25 10:00 01/21/25 08:15 Psyllium 1 Packet PO Not Given DAILY TISH Senna/Docusate Sodium 2 tablet 01/20/25 22:00 01/21/25 08:15 Senna/Docusate Sodium 1 Tablet PO Not Given BID TISH Sodium Chloride 10 - 40 ml 01/20/25 19:56 01/21/25 11:44 0.9% Saline Lock 10 Ml Syringe IV 10 ml UD PRN Administration SALINE FLUSH PFSH Medical History Rectal bleeding Hemorrhoids Vitamin D deficiency Wears hearing aid Wears glasses Wears dentures Post-menopausal Depression Anxiety Walker as ambulation aid Back pain Constipation Gastric reflux Non-smoker History of pain when walking History of stress test Hx of fracture of wrist Skin cancer Osteoporosis Osteopenia Osteoarthritis Arthritis Fatigue sudden weight loss Abnormal thermography Thyroid nodule Home Medications ?Medication ?Instructions ?Recorded ?Last Taken ?Type magnesium oxide 500 mg PO BID supplement 01/20/25 History tumeric 400 mg PO DAILY supplement 0 02/25/21 01/19/25 History Held on 09/11/24. Instructions: Resume on 09/24/24. omega 3-xir-eoz-fish oil 300 1 cap PO BID supplement 1 11/06/23 01/20/25 History mg-1,000 mg capsule,delayed release (Fish Oil) psyllium husk (aspartame) 3 gram 1 packet PO DAILY FIB ER #0 ea 09/17/24 01/19/25 Rx oral powder packet (Daily Fiber (psyllium-aspartame)) calcium 500 mg (as 1 tab PO TID SUPPLEMENT 12/2901/20/25 History carbonate)-vitamin D3 5 mcg (200 unit) tablet (Oyster Shell Calcium-Vitamin D3) Allergy/AdvReac Type Severity Reaction Status Date / Time dexamethasone Allergy Severe hallcenating, Verified 01/07/25 09:35 anxiety methylprednisolone Allergy Severe hallucenant Verified 01/07/25 09:35 ing,anxiety prednisone Allergy Severe hallucenating Verified 01/07/25 09:35 ,anxiety azithromycin (From Zithromax Allergy Mild heart Verified 01/07/25 09:35 Z-Rasheed) racing levofloxacin (From Levaquin) Allergy Mild muscle Verified 01/07/25 09:35 pain, heart racing amantadine Allergy Other Verified 01/07/25 09:35 cortisone Allergy Other Verified 01/07/25 09:35 fluoxetine HCl (From Prozac) Allergy Other Verified 01/07/25 09:35 Penicillins Allergy Unknown Verified 01/07/25 09:35 erythromycin base AdvReac Severe digestive Verified 01/07/25 09:35 upset prednisolone AdvReac Severe hallucenati Verified 01/07/25 09:35 ons,anxiety escitalopram AdvReac Intermediate nausea Verified 01/07/25 09:35 sertraline AdvReac Intermediate heart Verified 01/07/25 09:35 racing Sulfa (Sulfonamide AdvReac Intermediate nausea,diar Verified 01/07/25 09:35 Antibiotics) emma Family History Father Cancer Leukemia Grandmother Heart disease Grandfather Colon cancer Other Angina at rest Arthritis Asthma Blood clot in vein High cholesterol Myocardial infarction Osteoporosis Respiratory disease Severe allergic reaction Thyroid disorder Surgical History Hx of abdominal hysterectomy Hx of wisdom tooth extraction Hx of colonoscopy History of repair of rectocele Hx of vaginal surgery Social History household members: none Smoking Status: Never smoker alcohol intake: never substance use type: does not use caffeine: No what type of physical activity do you participate in: none frequency: 5-6 times per week seatbelt use: always additional social history: Spouse- Doyle Review of Systems (Anesthesia) ROS Narrative System reviewed and no additional complaints, except as documented.
--- NOTE | 2025-01-21 15:45 | PN.ORTHO_ITS ---
Subjective Subjective Patient seen and examined. Denies any new complaints. Denies numbness or tingling. Denies chest pain, shortness of breath, nausea vomiting, fevers or chills. Objective Data Objective Data Vital Signs: Vital Signs Temp Pulse Resp BP Pulse Ox O2 Del Method 98.5 F 85 18 120/66 95 Room Air 01/21/25 14:54 01/21/25 14:54 01/21/25 14:54 01/21/25 14:54 01/21/25 14:54 01/21/25 15:00 Oxygen Delivery Method Room Air Weight: 200 lb 6.403 oz Body Mass Index (BMI) 31.4 Intake & Output: Intake and Output for Last 24 Hours 01/19/25 01/20/25 01/21/25 23:59 23:59 23:59 Intake Total 1000 / 1000 Output Total 850 / 850 Balance 1000 / 1000 -850 / -850 Lab / Micro Data 01/21/25 05:22 01/21/25 05:22 Labs: Laboratory Results - last 24 hr 01/20/25 14:05: Sodium 141, Potassium 3.8, Chloride 106, Carbon Dioxide 19.4 L, Anion Gap 15, BUN 29 H, Creatinine 0.64 L, Estim Creat Clear Calc 72.49, Est GFR (MDRD) Non-Af 93, BUN/Creatinine Ratio 44.6 H, Glucose 94, Calcium 9.8 01/20/25 20:27: Sodium 140, Potassium 3.9, Chloride 108, Carbon Dioxide 18.8 L, Anion Gap 13, BUN 24 H, Creatinine 0.52 L, Estim Creat Clear Calc 71.13, Est GFR (MDRD) Non-Af 98, BUN/Creatinine Ratio 46.6 H, Glucose 118 H, Lactic Acid 1.1, Calcium 9.0, Total Bilirubin 0.46, AST 25, ALT 21, Alkaline Phosphatase 57, Total Protein 6.5, Albumin 4.0, Globulin 2.5, Albumin/Globulin Ratio 1.6 01/21/25 05:22: WBC 7.1, RBC 3.42 L, Hgb 10.0 L, Hct 30.8 L, MCV 90.1, MCH 29.2, MCHC 32.5, RDW Std Deviation 47.2 H, RDW Coeff of Prosper 14.5, Plt Count 204, MPV 10.7, Immature Gran % (Auto) 0.300, Neut % (Auto) 76.2 H, Lymph % (Auto) 13.6 L, [place] % (Auto) 9.6, Eos % (Auto) 0.0, Baso % (Auto) 0.3, Absolute Neuts (auto) 5.4, Absolute Lymphs (auto) 0.97, Nucleated RBC % 0, PT 14.3, INR 1.1, Sodium 138, Potassium 4.1, Chloride 107, Carbon Dioxide 21.0, Anion Gap 10, BUN 22 H, C reatinine 0.48 L, Estim Creat Clear Calc 71.13, Est GFR (MDRD) Non-Af 100, B UN/Creatinine Ratio 44.8 H, Glucose 120 H, Calcium 8.8, TSH 2.210 Radiography Diagnostic Testing: Radiology Impression Chest X-Ray 01/20/25 14:32 IMPRESSION: No acute cardiopulmonary process. Reading Location: [facility] Hip/Pelvis X-Ray 01/20/25 14:33 IMPRESSION: Postoperative changes as above. Reading Location: [facility] Knee X-Ray 01/20/25 14:33 IMPRESSION: Comminuted impacted fracture of the distal femur. Soft tissue swelling. Reading Location: [facility] Lower Extremity CT 01/20/25 17:25 IMPRESSION: Comminuted significantly appearing displaced and impacted fracture of the distal femoral metadiaphysis with obliquely area of intercondylar fracture extending to the intercondylar notch. No significant appearing articular surface in congruence. There is significant appearing impaction for example coronal 22 and associated anterior translation and angulation of the distal femur related to the condyles for example sagittal 32. Several linear cortical fragments project towards the suprapatellar joint sagittal 43. No dislocation. Tricompartmental osteoarthrosis appears [id number]. Approximate 1.5 x 1.1 cm osteochondral defect at the medial tibial plateau for example axial 60 and coronal 31. Age of which is indeterminate. Reading Location: [id number] Lumbar Spine X-Ray 01/20/25 20:25 IMPRESSION: No acute fracture or dislocation. Degenerative changes most prominent in the lower lumbar spine. Reading Location: [facility] Physical Exam Narrative General -A&Ox3, NAD, appears stated age. Vital signs stable, afebrile. Respiratory -normal work of breathing, no intercostal retractions. CV -pulses regular, brisk capillary refill ?4 limbs. Abdomen-soft, nontender, nondistended. No guarding, rigidity, rebound tenderness. Musculoskeletal/neurologic -full range of motion nontender throughout bilateral upper extremities, right lower extremity with full sensation and strength in all dermatomes and myotomes. No midline cervical tenderness. Left lower extremity- knee immobilizer in place. Skin intact without lacerations or abrasions. Left knee effusion noted. Brisk capillary refill. Sensation intact light touch L3- S1 dermatomes. DF, PF, EHL intact. DP, PT 2+. Pelvis is stable, nontender. No ecchymosis noted. Assessment & Plan Assessment/Plan (1) Femoral distal fracture: QUALIFIERS: Encounter type: initial encounter Fracture type: c losed Fracture morphology: other fracture Laterality: left Qualified Code(s): S72.492A - Other fracture of lower end of left femur, initial encounter for closed fracture PLAN: Plan to proceed with left retrograde femoral nailing versus possible ORIF. Informed consent was current again confirmed with the patient. She expressed concern regarding a blood transfusion if necessary. She expressed her concern was regarding disease transmission. I explained that based on current practices, disease transmission with a blood transfusion is exceedingly rare. I explained blood transfusion would be administered only in lifesaving circumstances. Based on this discussion, patient consented for blood products if needed. Informed consent was obtained. Further recommendations pending surgery.
[2025-01-21] MEDS: Cefazolin 2 GM in Syringe IV ×2 (15:51→23:22)
--- NOTE | 2025-01-21 16:05 | RAD_ITS ---
EXAM: Intraoperative imaging from left femoral nailing. CLINICAL HISTORY: Left distal femoral metadiaphyseal fracture. COMPARISON: Left knee x-ray performed on 01/20/2025. TECHNIQUE: Several intraoperative images were provided. FINDINGS: Initial images demonstrate acute fracture involving the left distal femoral metadiaphyseal region. Later imaging demonstrate an intramedullary juan manuel through the proximal to distal femur. There are several nails also noted across the distal femoral metaphysis as well as mid femur. Improved anatomic alignment is noted. RAD/Femur Min 2 Views IMPRESSION: Status post ORIF of the left femur with improved alignment alignment Reading Location: [id number]
[2025-01-21] MEDS: TRANEXAMIC ACID 1,000 MG in 0.9% Normal Saline (100mL Bag) 100 ML 660 MG IV (16:20)
[2025-01-21] MEDS: Bupiv/Epi 0.25% 30 ML Vial (17:27)
--- NOTE | 2025-01-21 17:47 | OP.PCM_ITS ---
Operative Report (Standard) Operative Information Date of Procedure: 01/21/25 Pre-Operative Diagnosis: Left distal femur supracondylar fracture Post-Operative Diagnosis: Left distal femur supracondylar fracture Surgery/Procedure Performed: Left femur retrograde intramedullary nailing life insurance underwriter: Yes Senior Product Development Scientist: Kristi Olguin Tasks completed by licensed sales assistant: Opening & closing, Implanting device, Hemostasis: Electrocautery and Retracting Additional certified nursing assistant?: No Type of Anesthesia: General RN Documented Start/Stop Times: Operation Date: 01/21/25 15:15 Case Time Into Pre-Op 01/21/25 14:20 Out of Pre-Op 01/21/25 15:41 Anesthesia Start 01/21/25 15:51 Into Room 01/21/25 15:51 Procedure Start 01/21/25 16:15 Procedure Start Time: 16:15 Procedure Stop Time: 17:42 Select all DRAINS/GRAFTS/IMPLANTS that apply: Implanted device Implanted device details: Joana T2 retrograde femoral nail size 300 mm x 13 mm, interlocking screws x 5 Estimated Blood Loss: 200 cc Specimen collected: No Description of surgery: Description of procedure: Prior to the procedure, patient was brought to the preoperative holding area where patient was identified by name, medical record number and date of . I confirmed the side, site, operation to be performed. The operative extremity was marked. Informed consent was confirmed, All questions were answered to the daughter's satisfaction.She was also seen by anesthesia staff and anesthesia consent obtained. At time of the operative procedure, pt was brought to the operative suite. General anesthesia was induced on the hospital bed and endotracheal tube placed. After adequate anesthesia and securing the tube, patient was then positioned supine on a flat Jose table. I placed a bump under the patient's left hip to internally rotate the limb. We then carefully prepped and draped the left lower extremity in normal, sterile orthopedic fashion. We performed a timeout confirming the side, site, and operation to be performed. No concerns are voiced and would like to proceed with surgery. 2 g Ancef, 1 g IV TXA was administered prior to the incision by the anesthesia staff. I then brought in the C arm to manipulate the fracture and determine the extent of our closed reduction. Reasonable reduction was achievable. I then approached the knee in standard fashion via midline incision.. I sharply incised the skin and subcutaneous tissue with a 10 blade scalpel down to the level of the retinaculum. Full-thickness flaps were developed. Medial parapatellar arthrotomy was then performed.. Fracture hematoma was noted in the joint and was evacuated. I then used the C arm to achieve ideal entry point at the anterior margin of Blumensaat's line and midline in the AP projection. Cannulated reamer was then used to open the distal portion of the canal. Reduction tool was then passed into the intramedullary canal and able to engage the shaft. Ball-tipped guidewire was placed. The fracture drifted significantly into varus. I then made a 4 cm longitudinal incision in the distal shaft to place a blocking screw. First blocking screw was placed and due to severe osteoporosis achieved very poor fixation. A second 1 was placed 1 cm proximal. This achieved better fixation. We sequentially reamed to a final diameter of 14.5 mm. Length was measured to be 200 mm to appropriately span the fracture. We assembled our 13 mm x 200 mm retrograde nail on the back table. This was impacted. When the tip of the juan manuel met the blocking screw, there was concern for risk of further fracture propagation and the screw was removed. The ro nail d appeared to be maintaining its near-anatomic alignment despite removal of the blocking screw. The I then impacted the nail to appropriate depth. 3 distal interlocking screws were then placed via standard technique with a stab incision and interlocking drill guides. Excellent purchase was achieved. Percutaneous guide was then assembled for the proximal to interlocking screws which were placed in standard fashion via stab incision. Final fluoroscopic images were obtained. There was minimal remaining displacement. The fracture was stressed under live fluoroscopy and appeared stable. Wounds were copiously irrigated with normal saline solution. Capsule was closed with running #1 strata fix suture. Subcutaneous tissue of the midline knee incision and smaller incisions were closed with 2-0 Vicryl suture and skin finally reapproximated tolu. Field blocks were administered with 60 cc total quarter percent bupivacaine with epinephrine. Sterile compression dressings were applied. Patient was then safely extubated in the operative suite and transferred to her hospital bed and subsequently to PACU in stable condition. Post Operative Plan: Weightbearing: Weightbearing as tolerated left lower extremity. Range of motion as tolerated left knee Antibiotics: Ancef 2 g x 3 doses postoperatively, 1 dose given preoperatively DVT Prophylaxis: Plan to start Lovenox 40 mg subcutaneous daily starting this evening [place]: None Dressing: Dry sterile dressing changes daily and as needed for saturation X-Rays: 2 weeks postop in the office Follow-up: 2 weeks in my office Surgical Findings: Suspected severe osteoporosis. Stable construct following final fixation. Complications Complications: No Admit VTE Documentation VTE Present on Admission: No VTE Mechan Device Prophylaxis: SCD's VTE Pharm Prophylaxis ordered?: Yes
--- NOTE | 2025-01-21 17:57 | PCM.POST.ANE ---
Anesthesia: Postop Eval I Current Vital Signs Temperature: 98.2 F Pulse Rate: 89 Blood Pressure: 130/64 Respiratory Rate: 16 Pulse Ox: 97 Oxygen Delivery Method: Room Air Assessment Airway patent: Yes Spontaneous unlabored respirations: Yes Mental status: Asleep nausea: No Vomiting: No Anesthesia Complication: No Fluid Hydration Crystalloid volume administer (ml): 1,600 Total IV fluid infused: 1,600 Progress Note Anesthesia document: Postop Eval 1 completed: Yes
--- NOTE | 2025-01-21 18:10 | PCM.POSTANE2 ---
Anesthesia Postop Eval I Sum Postop Eval Completion status Anesthesia document: Postop Eval 1 completed: Yes Anesthesia Postop Eval I Summary Anesthesia Postop Eval I Summary: Anesthesia Postop Eval I: Assessment Summary Airway patent Yes 01/21/25 18:03 Spontaneous unlabored Yes 01/21/25 18:03 respirations Mental status Asleep 01/21/25 18:03 nausea No 01/21/25 18:03 Vomiting No 01/21/25 18:03 Anesthesia Postop Eval I: Fluid Summary Crystalloid volume administer 1,600 01/21/25 18:03 (ml) Colloids volume administered ( ml) Blood Product volume administered (ml) Total IV fluid infused 1,600 01/21/25 18:03 Anesthesia Postop Eval I: Summary Notes Anesthesia Complication No 01/21/25 18:03 Anesthesia Complication Comment: Post-operative progress note Anesthesia: Postop Eval II Evaluation Mental status: Awake and Calm Pain Level: 5 nausea: Yes Vomiting: No Progress Note Post-operative progress note: Patient given extra Zofran. Complications Anesthesia Complication: No
[2025-01-21] MEDS: Calcium Carb/Vitamin D 1 TABLET Tablet PO (22:07)
[2025-01-21] MEDS: Enoxaparin 40 MG/0.4 ML Syringe SC (22:07)
[2025-01-21] MEDS: Senna/Docusate Sodium 1 Tablet 2 TABLET PO (22:07)
[2025-01-21] MEDS: Magnesium Chloride 64 MG Delay Rel.Tablet 128 MG PO (22:08)
[2025-01-22 02:27] LABS: Mucous, Urine 0 SEEN /hpf (<or=2+)
[2025-01-22 02:32] LABS: Color, Urine Yellow (Yellow); Glucose, Dipstick Normal (Normal); Ketone-Dipstick 5 mg/dl (Negative); Leukocyte Esterase-Dipstick 100 /ul (Negative); Nitrite-Dipstick Negative (Negative); Occult Blood-Urine Negative /ul (Negative); Protein-Dipstick 30 mg/dl (Negative); Specific Gravity, Urine 1.025 (1.002-1.030); Urine Bilirubin Dipstick Negative (Negative); Urine Clarity Sl. Cloudy (Clear); Urine Urobilinogen Normal (Normal)
[2025-01-22 02:41] VITALS: BP 115/52; PULSE 95; RESP 16; TEMP 37.2; O2SAT 94
[2025-01-22 04:12] LABS: Absolute Lymphocyte Count 1.16 X10^3/uL (0.83-4.51); Absolute Neutrophil Count 6.9 X10^3/uL (2.0-7.7); Basophil# 0.02 X10^3/uL; Basophil% 0.2 % (0-1); Eosinophil# 0.03 X10^3/uL; Eosinophils% 0.3 % (0-5); Hematocrit 26.4 % (37-47); Hemoglobin 8.6 g/dL (12.0-15.0); Lymphocyte # 1.16 X10^3/ul (0.83-4.51); Mean Corp Hgb Conc 32.6 g/dL (32-36); Mean Corpuscular Hgb 29.8 pg (27.0-32.0); Mean Corpuscular Volume 91.3 fL (81-99); Mean Platelet Vol. 10.5 fl (6.2-12.0); Monocyte# 0.83 X10^3/uL; Monocyte% 9.3 % (0-10); NRBC Flagged by Analyzer 0 % (0-5); Neutrophil # 6.85 X10^3/uL (2.7-7.7); Neutrophil % 76.9 % (47-70); Platelet Count 176 K/mm3 (150-450); RBC Distribution Width CV 14.5 % (11.6-14.6); RBC Distribution Width SD 48.1 fl (35.1-43.9); Red Blood Count 2.89 M/mm3 (4.2-5.4); White Blood Count 8.9 K/mm3 (4.4-11.0)
[2025-01-22 04:24] LABS: Bacteria 1+ /hpf (None Seen); Red Blood Cells-Urine 0 SEEN /hpf (0-5); Squamous Epithelial Cells - UA 0-5 SEEN /hpf (5-10); White Blood Cells 5-10 SEEN /hpf (0-5)
[2025-01-22 04:45] LABS: ALB/GLOB Ratio 1.5 RATIO (0.9-2.4); AST(SGOT) 23 U/L (<=31); Alanine Aminotransfer ALT/SGPT 17 U/L (<=34); Albumin, Serum 3.4 g/dL (3.4-4.8); Alkaline Phosphatase 48 U/L (35-104); Anion Gap 8 (5-15); BUN 17 mg/dL (4-19); Calcium,Total 8.4 mg/dL (7.6-11.0); Carbon Dioxide 21.2 mmol/L (21.0-32.0); Chloride 107 mmol/L (98-108); Creatinine, Serum 0.53 mg/dL (0.70-1.20); EST Glomerular Filtration Rate 98 (>60); Estimated Creatinine Clearance 71.13 ml/min (50-250); Globulin 2.3 g/dL (2.2-4.2); Glucose 129 mg/dL (70-99); Magnesium 1.9 mg/dL (1.5-2.2); Phosphorus 3.5 mg/dL (2.7-4.5); Potassium 4.1 mmol/L (3.3-5.1); Protein, Total 5.7 g/dL (5.9-8.4); Sodium Level 136 mmol/L (133-145); Total Bilirubin 0.44 mg/dL (0.00-1.30)
[2025-01-22] MEDS: Calcium Carb/Vitamin D 1 TABLET Tablet PO ×3 (05:29→21:05)
[2025-01-22] MEDS: Ketorolac 15 MG/ML Vial IV ×2 (05:38→12:51)
[2025-01-22] MEDS: 0.9% Saline Lock 10 ML Syringe IV ×6 (05:38→23:43)
[2025-01-22 06:30] VITALS: BP 117/59; PULSE 98; RESP 16; TEMP 37.1; O2SAT 94
[2025-01-22 07:45] VITALS: BP 104/56; PULSE 81; RESP 14; TEMP 36.8; O2SAT 95
[2025-01-22 07:50] VITALS: PULSE 81; RESP 14; O2SAT 95
[2025-01-22] MEDS: Cefazolin 2 GM in Syringe IV ×3 (08:06→23:30)
[2025-01-22] MEDS: Psyllium 1 PACKET PO (08:06)
[2025-01-22] MEDS: Enoxaparin 40 MG/0.4 ML Syringe SC (08:07)
[2025-01-22] MEDS: Magnesium Chloride 64 MG Delay Rel.Tablet 128 MG PO ×2 (08:07→21:03)
[2025-01-22] MEDS: Senna/Docusate Sodium 1 Tablet 2 TABLET PO ×2 (08:07→21:04)
[2025-01-22] MEDS: Morphine 2 MG/ML Syringe IV ×2 (08:46→23:31)
--- NOTE | 2025-01-22 09:06 | PN.HOSP_ITS ---
Reason for Visit Reason for Visit: Left leg pain after mechanical fall Subjective Subjective Patient states her pain is well-controlled at rest. She states that the increases when she is up moving around. Is unable to take Tylenol or oxycodone. Will try Ultram. No TCU beds available however I do feel that patient may be able to do well at rehab setting as she is quite functional at baseline. Objective Data Objective Data Vital Signs: Vital Signs Temp Pulse Resp BP Pulse Ox O2 Del Method O2 Flow Rate 98.3 F 81 14 104/56 L 95 Room Air 2 01/22/25 07:45 01/22/25 07:50 01/22/25 07:50 01/22/25 07:45 01/22/25 07:50 01/22/25 08:16 01/21/25 18:41 Oxygen Flow Rate (L/min) 2 Oxygen Delivery Method Room Air Weight: 90.9 kg Body Mass Index (BMI) 31.4 Intake & Output: Intake and Output for Last 24 Hours 01/20/25 01/21/25 01/22/25 23:59 23:59 23:59 Intake Total 1000 / 1000 150 / 150 20 / 20 Output Total 850 / 850 400 / 400 Balance 1000 / 1000 -700 / -700 -380 / -380 Lab / Micro Data 01/22/25 03:38 01/22/25 03:38 Labs: Laboratory Results - last 24 hr 01/21/25 22:30: Urine Color Yellow, Urine Clarity Sl. Cloudy, Urine pH 6.0, Ur Specific [place] 1.025, Urine Protein 30 H, Urine Glucose (UA) Normal, Urine Ketones 5 H, Urine Occult Blood Negative, Urine Nitrite Negative, Urine Bilirubin Negative, Urine Urobilinogen Normal, Ur Leukocyte Esterase 100 H, Urine RBC 0 SEEN, Urine WBC 5-10 SEEN, Ur Squamous Epith Cells 0-5 SEEN, Urine Bacteria 1+, Urine Mucus 0 SEEN 01/22/25 03:38: WBC 8.9, RBC 2.89 L, Hgb 8.6 L, Hct 26.4 L, MCV 91.3, MCH 29.8, MCHC 32.6, RDW Std Deviation 48.1 H, RDW Coeff of Prosper 14.5, Plt Count 176, MPV 10.5, Immature Gran % (Auto) 0.300, Neut % (Auto) 76.9 H, Lymph % (Auto) 13.0 L, [place] % (Auto) 9.3, Eos % (Auto) 0.3, Baso % (Auto) 0.2, Absolute Neuts (auto) 6.9, Absolute Lymphs (auto) 1.16, Nucleated RBC % 0, Sodium 136, Potassium 4.1, Chloride 107, Carbon Dioxide 21.2, Anion Gap 8, BUN 17, Creatinine 0.53 L, Estim Creat Clear Calc 71.13, Est GFR (MDRD) Non-Af 98, BUN/Creatinine Ratio 32.0 H, G lucose 129 H, Calcium 8.4, Phosphorus 3.5, Magnesium 1.9, Total Bilirubin 0.44, AST 23, ALT 17, Alkaline Phosphatase 48, Total Protein 5.7 L, Albumin 3.4, Globulin 2.3, Albumin/Globulin Ratio 1.5 Radiography Diagnostic Testing: Radiology Impression Femur X-Ray 01/21/25 16:05 IMPRESSION: Status post ORIF of the left femur with improved alignment alignment Reading Location: [facility] Physical Exam Const alert, oriented x3, no apparent distress and well nourished Constitutional Narrative: Obese, older, white female, sitting up to chair at the bedside with her legs elevated, social work at bedside discussing dispo HEENT head/scalp atraumatic and moist oral mucous membranes HEENT Narrative: Mallampati 2, no thrush Resp normal respiratory effort, no retractions, no use of accessory muscles and clear to auscultation bilaterally Auscultation: Negative for rales, rhonchi or wheezes Cardio regular rate, regular rhythm, S1 normal heart sound, S2 normal heart sound, no murmurs, no rub, no gallops and no clicks GI normal to inspection, nondistended, normoactive bowel sounds, soft to palpation and non-tender Extremity no clubbing, cyanosis or edema Extremity Narrative: Postoperative dressing in place with no drainage noted on bandage, good cap refill bilateral lower extremities Neuro oriented x3 and no focal motor deficits Neuro Narrative: Decreased movement left lower extremity due to pain Speech: speech normal Psych Psych Narrative: Affect remains flattened patient appears slightly anxious with regards to discharge planning Assessment & Plan Assessment/Plan (1) Femoral distal fracture: QUALIFIERS: Encounter type: initial encounter Fracture type: c losed Fracture morphology: other fracture Laterality: left Qualified Code(s): S72.492A - Other fracture of lower end of left femur, initial encounter for closed fracture (2) Fall: PLAN: Plan Distal left femoral fracture as a result of the mechanical fall -Mechanical fall where she tripped over a rug in the carotid -Orthopedic surgery is following and plan is for the OR later today -Continue Tylenol 1000 mg every 8 hours as needed -Toradol as needed -morphine and oxycodone as needed as ordered -Will start DVT prophylaxis this evening with Lovenox with long-term DVT prophylaxis per orthopedic recommendations -Postoperative PT/OT -Weightbearing status per orthopedic surgery -Case management/social work consultation for assistance with discharge planning -Depending on functional status patient may need placement versus home health care at the time of discharge Acute anemia -Suspect related to dilution from fluids during surgery and blood loss during surgery. Hemoglobin is now 8.6 down from 10 yesterday -No signs of acute bleeding -Repeat lab in a.m. Abnormal UA -Culture pending -Patient currently on postoperative Ancef but will transition to Keflex tomorrow Fibromyalgia -Chronic -Patient takes no medications chronically at home for this -Pain regimen for fracture as above History of constipation -Continue home fiber -Scheduled stool softeners with decreased mobility and narcotic use -Add as needed MiraLAX daily Osteoarthritis -History of previous left hip arthroplasty -Pain management as above Obesity -BMI 31.5 -Recommend weight loss -Complicates treatment, prognosis, outcomes DVT prophylaxis -Lovenox 40 mg nightly CODE STATUS -DNR CCA with no intubation Charges/Coding Visit Charges Inpatient E&M: 75052 [facility] L2
--- NOTE | 2025-01-22 10:41 | CASEMGMT ---
Addendum entered by Louise Muse 01/22/25 14:24: Social Work A list of [facility] providers including quality and resource use data and consistent with the patient?s preferred geographic region, medical needs, and insurance network were provided from the [employer] Guide. pt confirms that she would prefer [facility]. Referral to Inpatient Rehab has been made and pt has been accepted. Precert started at this time. Pt notified and agreeable to plan. Plan: Inpatient Rehab, pending precert TRESA Mason Original Note: Social Work PT reporting pt is requesting placement for short term rehab and therapy feels this is an appropriate level of care. SW met with pt and introduced self and role of SW. A list of SNF providers including quality and resource use data and consistent with the patient?s preferred geographic region, medical needs, and insurance network were provided from the [employer] Guide. Pt's preferred provider is [facility] TCU. SW spoke with Viki in TCU and there are no available beds at this time and no beds opening soon. SW informed pt about this. Pt very frustrated. Pt requesting to go to [facility] inpatient rehab. SW explained that it is uncertain if pt will be approved for this level of care by insurance but that referral can be made to [facility]. ALESHA did review SNF list with pt and pts additional choices are [facility], [facility] and [facility]. Referral made to [facility]. SW awaiting response. ALESHA will continue to follow for dc planning. TERSA Kaur
[2025-01-22 14:00] VITALS: BP 104/56; PULSE 96; RESP 16; TEMP 36.9; O2SAT 95
--- NOTE | 2025-01-22 14:02 | PN.ORTHO_ITS ---
Subjective Subjective Patient is s/p left femur retrograde intramedullary nailing with Dr. Aponte 01/22/2024. Patient resting comfortably in bed. Rates pain 6/ 10 at rest. With movement 6/10. States taking Tylenol and oxycodone and ice help to relieve pain. Patient has been up with therapy. Walking with the assit of a walker. Afebrile, no chest pain, shortness of breath, negative calf pain/ erythema, and no other signs of DVT. Objective Data Objective Data Vital Signs: Vital Signs Temp Pulse Resp BP Pulse Ox O2 Del Method O2 Flow Rate 98.3 F 81 14 104/56 L 95 Room Air 2 01/22/25 07:45 01/22/25 07:50 01/22/25 07:50 01/22/25 07:45 01/22/25 07:50 01/22/25 08:16 01/21/25 18:41 Oxygen Flow Rate (L/min) 2 Oxygen Delivery Method Room Air Weight: 90.9 kg Body Mass Index (BMI) 31.4 Intake & Output: Intake and Output for Last 24 Hours 01/20/25 01/21/25 01/22/25 23:59 23:59 23:59 Intake Total 1000 / 1000 150 / 150 20 / 20 Output Total 850 / 850 400 / 400 Balance 1000 / 1000 -700 / -700 -380 / -380 Lab / Micro Data 01/22/25 03:38 01/22/25 03:38 Labs: Laboratory Results - last 24 hr 01/21/25 22:30: Urine Color Yellow, Urine Clarity Sl. Cloudy, Urine pH 6.0, Ur Specific [place] 1.025, Urine Protein 30 H, Urine Glucose (UA) Normal, Urine Ketones 5 H, Urine Occult Blood Negative, Urine Nitrite Negative, Urine Bilirubin Negative, Urine Urobilinogen Normal, Ur Leukocyte Esterase 100 H, Urine RBC 0 SEEN, Urine WBC 5-10 SEEN, Ur Squamous Epith Cells 0-5 SEEN, Urine Bacteria 1+, Urine Mucus 0 SEEN 01/22/25 03:38: WBC 8.9, RBC 2.89 L, Hgb 8.6 L, Hct 26.4 L, MCV 91.3, MCH 29.8, MCHC 32.6, RDW Std Deviation 48.1 H, RDW Coeff of Prosper 14.5, Plt Count 176, MPV 10.5, Immature Gran % (Auto) 0.300, Neut % (Auto) 76.9 H, Lymph % (Auto) 13.0 L, [place] % (Auto) 9.3, Eos % (Auto) 0.3, Baso % (Auto) 0.2, Absolute Neuts (auto) 6.9, Absolute Lymphs (auto) 1.16, Nucleated RBC % 0, Sodium 136, Potassium 4.1, Chloride 107, Carbon Dioxide 21.2, Anion Gap 8, BUN 17, Creatinine 0.53 L, Estim Creat Clear Calc 71.13, Est GFR (MDRD) Non-Af 98, BUN/Creatinine Ratio 32.0 H, G lucose 129 H, Calcium 8.4, Phosphorus 3.5, Magnesium 1.9, Total Bilirubin 0.44, AST 23, ALT 17, Alkaline Phosphatase 48, Total Protein 5.7 L, Albumin 3.4, Globulin 2.3, Albumin/Globulin Ratio 1.5 Radiography Diagnostic Testing: Radiology Impression Femur X-Ray 01/21/25 16:05 IMPRESSION: Status post ORIF of the left femur with improved alignment alignment Reading Location: [id number] Physical Exam Narrative Patient resting comfortably in bed No signs of acute distress Satting well on room air Limb is warm to touch, Sensation intact throughout entire lower extremity, including saphenous, sural, superficial and deep peroneal, and tibial distribution. DP/PT pulses bounding. Dorsiflexion plantarflexion strength 5/5 Dressing was redressed today on rounds. The 4 x 4's were saturated through and ABDs were approximately nursing home saturated through. New ABDs were applied and Bebo wrap redressed. No active drainage or oozing appreciated. Calf nontender to palpation, no erythema, no edema. Negative Homans Assessment & Plan Assessment/Plan (1) Femur fracture, left: PLAN: 1. Will continue PT today. Weightbearing as tolerated 2. Ultimate discharge planning per primary team. At this point in time patient appears orthopedically stable. 3. Patient will follow up for post op appointment in 2 weeks in our office. This will need to be arranged. 4. WBC 8.9 no acute reactive leukocytosis 5. H/H 8.6/26.4: post operavtive anemia secondary to acute blood loss intraoperatively. Appreciate medicine recommendations. Reasonable to redraw in the a.m. for monitoring. 6. DVT prophylaxis : Lovenox 40 mg daily x 4 weeks postoperatively. 7. Pain control: patient instructed to take tylenol 500mg 2 tablets TID. and oxycodone 1-2 tablets every 4-6 hours only as needed for pain control. 8. ok to remove post op dressing. post op day 5. Okay for dressing changes as needed.
--- NOTE | 2025-01-22 16:14 | NURSING ---
All documentation by nursing service director Mary Ratliff reviewed by nursing service director Taylor Deutsch BSN, RN.
[2025-01-22 20:20] VITALS: BP 111/58; PULSE 85; RESP 16; TEMP 37; O2SAT 96
[2025-01-22] MEDS: traMADol 50 MG Tablet PO (21:04)
[2025-01-23] VITALS (12 sets, daily range): BP systolic 97–118; BP diastolic 45–58; PULSE 92–99; RESP 16; TEMP 36.6–36.8; O2SAT 95–100
[2025-01-23] MEDS: Calcium Carb/Vitamin D 1 TABLET Tablet PO ×3 (05:05→20:18)
[2025-01-23 06:29] LABS: Hemoglobin 7.3 g/dL (12.0-15.0); Mean Corp Hgb Conc 33.2 g/dL (32-36); Mean Corpuscular Hgb 30.2 pg (27.0-32.0); Mean Corpuscular Volume 90.9 fL (81-99); Mean Platelet Vol. 10.5 fl (6.2-12.0); Platelet Count 148 K/mm3 (150-450); RBC Distribution Width CV 14.3 % (11.6-14.6); RBC Distribution Width SD 47.5 fl (35.1-43.9); Red Blood Count 2.42 M/mm3 (4.2-5.4); White Blood Count 6.5 K/mm3 (4.4-11.0)
[2025-01-23 06:53] LABS: Anion Gap 9 (5-15); BUN 15 mg/dL (4-19); BUN/Creat Ratio 34.1 RATIO (10-20); Calcium,Total 8.5 mg/dL (7.6-11.0); Carbon Dioxide 22.9 mmol/L (21.0-32.0); Chloride 108 mmol/L (98-108); Creatinine, Serum 0.45 mg/dL (0.70-1.20); EST Glomerular Filtration Rate 102 (>60); Estimated Creatinine Clearance 71.13 ml/min (50-250); Glucose 116 mg/dL (70-99); Potassium 3.9 mmol/L (3.3-5.1); Sodium Level 139 mmol/L (133-145)
--- NOTE | 2025-01-23 06:58 | PN.HOSP_ITS ---
Reason for Visit Reason for Visit: Left leg pain Subjective Subjective Patient states she has been a little bit lightheaded today. We did review with her her hemoglobin is down some. Source is unknown. Patient denies any melena or bright red blood per rectum. She did have a significant fracture that may be related to this plus operative losses and dilution. She is agreeable to 2 units packed red blood cells. I do think she will feel better from a clinical standpoint when she is transfused. She is complaining of some right sided upper abdominal pain. She states this has been worked up previously and was unremarkable. Could be related to some thoracic radiculopathy as bed positioning currently. She states it is very similar to previous. She denies any pleuritic nature to this. We did try Ultram. She states this has been ineffective. She refused oxycodone initially as it makes her nauseated. I told her that we would schedule Zofran 3 times daily and then give her as needed oxycodone to see if this would help more effectively. Patient has multiple medication intolerances. Objective Data Objective Data Vital Signs: Vital Signs Temp Pulse Resp BP Pulse Ox O2 Del Method O2 Flow Rate 98 F 92 16 111/51 L 96 Room Air 2 01/23/25 02:10 01/23/25 02:10 01/23/25 02:10 01/23/25 02:10 01/23/25 02:10 01/23/25 02:10 01/21/25 18:41 Oxygen Flow Rate (L/min) 2 Oxygen Delivery Method Room Air Weight: 90.9 kg Body Mass Index (BMI) 31.4 Intake & Output: Intake and Output for Last 24 Hours 01/21/25 01/22/25 01/23/25 23:59 23:59 23:59 Intake Total 150 / 150 60 / 60 Output Total 850 / 850 400 / 400 Balance -700 / -700 -340 / -340 Lab / Micro Data 01/23/25 05:57 01/23/25 05:57 Labs: Laboratory Results - last 24 hr 01/23/25 05:57: WBC 6.5, RBC 2.42 L, Hgb 7.3 L, Hct 22.0 L, MCV 90.9, MCH 30.2, MCHC 33.2, RDW Std Deviation 47.5 H, RDW Coeff of Prosper 14.3, Plt Count 148 L, MPV 10.5, Sodium 139, Potassium 3.9, Chloride 108, Carbon Dioxide 22.9, Anion Gap 9, BUN 15, Creatinine 0.45 L, Estim Creat Clear Calc 71.13, Est GFR (MDRD) Non-Af 102, BUN/Creatinine Ratio 34.1 H, Glucose 116 H, Calcium 8.5 Physical Exam Const alert, oriented x3, no apparent distress and well nourished Constitutional Narrative: Obese, older, white female, sitting on the bathroom, appears intermittently uncomfortable with knee pain, nursing at bedside, does not appear toxic HEENT head/scalp atraumatic and moist oral mucous membranes Head and Scalp: normocephalic Resp normal respiratory effort, no retractions, no use of accessory muscles and clear to auscultation bilaterally Auscultation: Negative for rales, rhonchi or wheezes Cardio regular rate, regular rhythm, S1 normal heart sound, S2 normal heart sound, no murmurs, no rub, no gallops and no clicks GI normal to inspection, nondistended, normoactive bowel sounds, soft to palpation and non-tender Extremity no clubbing, cyanosis or edema Extremity Narrative: Postoperative dressing in place with no drainage noted on bandage Neuro oriented x3 and no focal motor deficits Neuro Narrative: Decreased movement left lower extremity due to pain Speech: speech normal Psych affect normal Psych Narrative: Patient is fairly anxious today. Assessment & Plan Assessment/Plan (1) Femoral distal fracture: QUALIFIERS: Encounter type: initial encounter Fracture type: c losed Fracture morphology: other fracture Laterality: left Qualified Code(s): S72.492A - Other fracture of lower end of left femur, initial encounter for closed fracture (2) Fall: PLAN: Plan Distal left femoral fracture as a result of the mechanical fall -Mechanical fall where she tripped over a rug in the carotid -Postop day 2 -Continue Tylenol 1000 mg every 8 hours as needed -Discontinue Toradol -morphine and oxycodone as needed as ordered -Will schedule Zofran for oxycodone Discontinue alternative and ineffective- -continue Lovenox and will plan for 20 days of subcu Lovenox at discharge Okay to discharge postop day 4- -okay to remove dressings and leave open to air after postop day 4 -Will remain weightbearing as tolerated -PT/OT is following -Case management/social work is following for assistance with discharge planning -Pre-CERT pending for rehab unit Acute symptomatic anemia -Anemia is worse today. No signs of acute blood loss. -Will check guaiac -Iron studies are not entirely consistent with iron deficiency but will start iron given acute blood loss -2 units packed red blood cells transfused with follow-up hemoglobin following transfusion -Discontinue Toradol Abnormal UA -Culture pending -Will continue Keflex Fibromyalgia -Chronic -Patient takes no medications chronically at home for this -Pain regimen for fracture as above History of constipation -Continue home fiber -Scheduled stool softeners with decreased mobility and narcotic use -Add as needed MiraLAX daily Osteoarthritis -History of previous left hip arthroplasty -Pain management as above Obesity -BMI 31.5 -Recommend weight loss -Complicates treatment, prognosis, outcomes DVT prophylaxis -Lovenox 40 mg nightly CODE STATUS -DNR CCA with no intubation Charges/Coding Visit Charges Inpatient E&M: 71790 Subs Hosp L2
[2025-01-23 08:02] LABS: Platelet Count 152 K/mm3 (150-450); RET-HE 32.1 pg (30-35); Reticulocyte Count 2.47 % (0.5-1.5)
[2025-01-23 09:56] LABS: Ferritin 132 ng/mL (22-378); Iron 16 ug/dL (50-170); Iron Binding Capacity,Unsat 220 ug/dL (228-428)
[2025-01-23] MEDS: Morphine 2 MG/ML Syringe IV (10:17)
[2025-01-23] MEDS: 0.9% Saline Lock 10 ML Syringe IV ×2 (10:18→20:19)
[2025-01-23 10:27] LABS: Iron Binding Capacity,Total 236 ug/dL (250-450); PERCENT IRON SATURATION 6.8 % (13-59)
[2025-01-23] MEDS: Enoxaparin 40 MG/0.4 ML Syringe SC (10:28)
[2025-01-23] MEDS: Senna/Docusate Sodium 1 Tablet 2 TABLET PO ×2 (10:28→20:18)
[2025-01-23] MEDS: Cephalexin 500 MG Capsule PO ×2 (10:28→20:18)
[2025-01-23] MEDS: Magnesium Chloride 64 MG Delay Rel.Tablet 128 MG PO ×2 (10:28→20:18)
[2025-01-23] MEDS: Psyllium 1 PACKET PO (10:29)
[2025-01-23] MEDS: Ondansetron 4 MG/2 ML Vial IV ×2 (14:52→20:19)
--- NOTE | 2025-01-23 15:53 | PN.ORTHO_ITS ---
Subjective Subjective Patient seen and examined. Reports some nausea otherwise denies any symptoms. Pain controlled at rest but has significant pain with weightbearing and flexion of the left knee. Currently receiving blood transfusion for anemia. Denies fevers, chills, chest pain, shortness of breath. Up with therapy. She states she walks to the bathroom every time she needs to go with assistance. Objective Data Objective Data Vital Signs: Vital Signs Temp Pulse Resp BP Pulse Ox O2 Del Method O2 Flow Rate 98 F 95 16 114/56 L 97 Room Air 2 01/23/25 15:35 01/23/25 15:35 01/23/25 15:35 01/23/25 15:35 01/23/25 15:35 01/23/25 15:35 01/21/25 18:41 Oxygen Flow Rate (L/min) 2 Oxygen Delivery Method Room Air Weight: 200 lb 6.403 oz Body Mass Index (BMI) 31.4 Intake & Output: Intake and Output for Last 24 Hours 01/21/25 01/22/25 01/23/25 23:59 23:59 23:59 Intake Total 150 / 150 60 / 60 0 / 0 Output Total 850 / 850 400 / 400 Balance -700 / -700 -340 / -340 0 / 0 Lab / Micro Data 01/23/25 05:57 01/23/25 05:57 Labs: Laboratory Results - last 24 hr 01/23/25 05:57: WBC 6.5, RBC 2.42 L, Hgb 7.3 L, Hct 22.0 L, MCV 90.9, MCH 30.2, MCHC 33.2, RDW Std Deviation 47.5 H, RDW Coeff of Prosper 14.3, Plt Count 148 L, MPV 10.5, Retic Count 2.47 H, Immature Retic Fraction 18.60 H, Retic Hgb Equivalent 32.1, Sodium 139, Potassium 3.9, Chloride 108, Carbon Dioxide 22.9, Anion Gap 9, BUN 15, Creatinine 0.45 L, Estim Creat Clear Calc 71.13, Est GFR (MDRD) Non-Af 102, BUN/Creatinine Ratio 34.1 H, Glucose 116 H, Calcium 8.5, Iron 16 L, TIBC 236 L, Iron Saturation 6.8 L, Unsaturated IBC 220 L, Ferritin 132 01/23/25 07:50: Blood Type A POSITIVE, Antibody Screen NEGATIVE, Crossmatch See Detail Micro: Microbiology 01/23/25 14:00 Stool Stool Occult Blood (MARTIN) - Final Physical Exam Narrative General - A&Ox3, NAD. VSS/AF Left lower extremity -incisional dressing C/D/I. Compartments soft compressible. SILT Sural, Saphenous, SPN, DPN, Tibial N. distributions. DP, PT 2+. BCR. DF, PF, EHL 5/5. No calf TTP. Assessment & Plan Assessment/Plan (1) Femur fracture, left: QUALIFIERS: Encounter type: initial encounter Femur location: s upracondylar without intracondylar extension Fracture type: closed Fracture alignment: displaced Qualified Code(s): S72.452A - Displaced supracondylar fracture without intracondylar extension of lower end of left femur, initial encounter for closed fracture PLAN: POD# 2 s/p left femur retrograde nailing - Acute blood loss anemia secondary to intraoperative blood loss, fracture and likely dilution component. Workup of pre-existing anemia per primary. No obvious evidence of continued bleeding at the surgical site. - Pain control - Medicine following for medical management - PT/OT -weightbearing as tolerated left lower extremity - DVT PPX -Lovenox, SCDs, early mobilization, OPAL hose - Case management - D/C planning I will sign off at this time. Please do not hesitate to call with any questions or concerns arise. Discharge instructions: Follow-up at [facility] in 2 weeks. Weightbearing as tolerated. Continue Lovenox upon discharge x 28 days postoperatively. Okay to shower postoperative day #4. Okay to remove dressings and leave open to air after postoperative day #4. Dry sterile dressing changes as needed if drainage present. PT/OT upon discharge. Please denies any to call if any questions or concerns arise.
[2025-01-23] MEDS: Ascorbic Acid 500 MG Tablet 1000 MG PO (17:02)
[2025-01-23] MEDS: Ferrous Sulfate 325 MG Tablet PO (17:02)
[2025-01-23 19:23] LABS: Hemoglobin 9.7 g/dL (12.0-15.0)
[2025-01-23] MEDS: oxyCODONE 5 MG Tablet PO (20:17)
[2025-01-23] MEDS: Acetaminophen 500 MG Tablet 1000 MG PO (20:20)
[2025-01-24 02:41] VITALS: BP 125/56; PULSE 89; RESP 16; TEMP 36.7; O2SAT 94
[2025-01-24] MEDS: oxyCODONE 5 MG Tablet PO ×3 (05:35→20:23)
[2025-01-24] MEDS: 0.9% Saline Lock 10 ML Syringe IV ×2 (05:35→20:23)
[2025-01-24] MEDS: Calcium Carb/Vitamin D 1 TABLET Tablet PO ×3 (05:35→22:50)
[2025-01-24] MEDS: Acetaminophen 500 MG Tablet 1000 MG PO ×4 (05:35→22:54)
[2025-01-24] MEDS: Ondansetron 4 MG/2 ML Vial IV ×2 (05:36→13:27)
[2025-01-24 06:08] LABS: Absolute Lymphocyte Count 1.33 X10^3/uL (0.83-4.51); Basophil# 0.03 X10^3/uL; Basophil% 0.5 % (0-1); Eosinophil# 0.28 X10^3/uL; Eosinophils% 4.4 % (0-5); Hematocrit 28.7 % (37-47); Hemoglobin 9.6 g/dL (12.0-15.0); Lymphocyte # 1.33 X10^3/ul (0.83-4.51); Mean Corp Hgb Conc 33.4 g/dL (32-36); Mean Corpuscular Hgb 30.4 pg (27.0-32.0); Mean Corpuscular Volume 90.8 fL (81-99); Mean Platelet Vol. 10.4 fl (6.2-12.0); Monocyte# 0.66 X10^3/uL; Monocyte% 10.4 % (0-10); NRBC Flagged by Analyzer 0 % (0-5); Neutrophil # 4.02 X10^3/uL (2.7-7.7); Neutrophil % 63.4 % (47-70); Platelet Count 167 K/mm3 (150-450); RBC Distribution Width SD 46.5 fl (35.1-43.9); Red Blood Count 3.16 M/mm3 (4.2-5.4); White Blood Count 6.3 K/mm3 (4.4-11.0)
[2025-01-24 06:48] LABS: Magnesium 1.9 mg/dL (1.5-2.2); Phosphorus 3.2 mg/dL (2.7-4.5)
[2025-01-24 07:00] LABS: ALB/GLOB Ratio 1.4 RATIO (0.9-2.4); AST(SGOT) 36 U/L (<=31); Alanine Aminotransfer ALT/SGPT 31 U/L (<=34); Albumin, Serum 3.4 g/dL (3.4-4.8); Alkaline Phosphatase 99 U/L (35-104); Anion Gap 10 (5-15); BUN 12 mg/dL (4-19); BUN/Creat Ratio 26.7 RATIO (10-20); Calcium,Total 8.8 mg/dL (7.6-11.0); Carbon Dioxide 22.1 mmol/L (21.0-32.0); Chloride 109 mmol/L (98-108); Creatinine, Serum 0.46 mg/dL (0.70-1.20); EST Glomerular Filtration Rate 101 (>60); Estimated Creatinine Clearance 71.13 ml/min (50-250); Globulin 2.5 g/dL (2.2-4.2); Glucose 103 mg/dL (70-99); Potassium 3.7 mmol/L (3.3-5.1); Protein, Total 5.9 g/dL (5.9-8.4); Sodium Level 140 mmol/L (133-145); Total Bilirubin 0.62 mg/dL (0.00-1.30)
[2025-01-24 08:00] VITALS: BP 111/56; PULSE 77; RESP 14; TEMP 36.8; O2SAT 96
[2025-01-24] MEDS: Ascorbic Acid 500 MG Tablet 1000 MG PO ×3 (08:23→17:45)
[2025-01-24] MEDS: Ferrous Sulfate 325 MG Tablet PO ×3 (08:23→17:45)
[2025-01-24] MEDS: Magnesium Chloride 64 MG Delay Rel.Tablet 128 MG PO ×2 (08:24→22:48)
[2025-01-24] MEDS: Enoxaparin 40 MG/0.4 ML Syringe SC (08:24)
[2025-01-24] MEDS: Cephalexin 500 MG Capsule PO ×2 (08:24→22:49)
[2025-01-24] MEDS: Senna/Docusate Sodium 1 Tablet 2 TABLET PO ×2 (08:25→22:49)
[2025-01-24] MEDS: Psyllium 1 PACKET PO (08:25)
--- NOTE | 2025-01-24 08:45 | CASEMGMT ---
Social Work- Pt has directives on file naming Doyle as primary agent and Codey and Kameron as alternate agents. TRESA Vasquez
--- NOTE | 2025-01-24 09:21 | CASEMGMT ---
Social Work SW spoke with Viki in TCU and precert is still pending at this time. TRESA Mason
[2025-01-24 15:00] VITALS: BP 107/57; PULSE 92; RESP 16; TEMP 36.7; O2SAT 96
--- NOTE | 2025-01-24 16:11 | PN.HOSP_ITS ---
Reason for Visit Reason for Visit: Left hip pain status post mechanical fall Subjective Subjective Patient states she feels much better today since blood transfusion. Complaining of some indigestion would like some Tums. These were ordered. Pain seems to be better controlled. Patient is fairly restricted with utilization of pain medicine at all including Tylenol. Still awaiting insurance approval for acute rehab stay. Objective Data Objective Data Vital Signs: Vital Signs Temp Pulse Resp BP Pulse Ox O2 Del Method O2 Flow Rate 98.1 F 89 16 125/56 H 94 Room Air 2 01/24/25 02:41 01/24/25 02:41 01/24/25 02:41 01/24/25 02:41 01/24/25 02:41 01/24/25 02:41 01/21/25 18:41 Oxygen Flow Rate (L/min) 2 Oxygen Delivery Method Room Air Weight: 90.9 kg Body Mass Index (BMI) 31.4 Intake & Output: Intake and Output for Last 24 Hours 01/22/25 01/23/25 01/24/25 23:59 23:59 23:59 Intake Total 60 / 60 0 / 0 Output Total 400 / 400 Balance -340 / -340 0 / 0 Lab / Micro Data 01/24/25 05:25 01/24/25 05:25 Labs: Laboratory Results - last 24 hr 01/23/25 07:50: Crossmatch See Detail 01/23/25 18:50: Hgb 9.7 L 01/24/25 05:25: WBC 6.3, RBC 3.16 L, Hgb 9.6 L, Hct 28.7 L, MCV 90.8, MCH 30.4, MCHC 33.4, RDW Std Deviation 46.5 H, RDW Coeff of Prosper 14.0, Plt Count 167, MPV 10.4, Immature Gran % (Auto) 0.300, Neut % (Auto) 63.4, Lymph % (Auto) 21.0, M jasvir % (Auto) 10.4 H, Eos % (Auto) 4.4, Baso % (Auto) 0.5, Absolute Neuts (auto) 4.0, Absolute Lymphs (auto) 1.33, Nucleated RBC % 0, Sodium 140, Potassium 3.7, Chloride 109 H, Carbon Dioxide 22.1, Anion Gap 10, BUN 12, Creatinine 0.46 L, Estim Creat Clear Calc 71.13, Est GFR (MDRD) Non-Af 101, BUN/Creatinine Ratio 26.7 H, Glucose 103 H, Calcium 8.8, Phosphorus 3.2, Magnesium 1.9, Total Bilirubin 0.62, AST 36 H, ALT 31, Alkaline Phosphatase 99, Total Protein 5.9, Albumin 3.4, Globulin 2.5, Albumin/Globulin Ratio 1.4 Micro: Microbiology 01/21/25 22:30 Urine, Clean Catch Urine Culture - Final Mixed Gram Positive Organisms 01/23/25 14:00 Stool Stool Occult Blood (MARTIN) - Final Physical Exam Const alert, oriented x3, no apparent distress and well nourished Constitutional Narrative: Obese, older, white female, walking with physical therapy utilizing wheeled walker, appears comfortable, does not look toxic, HEENT head/scalp atraumatic and moist oral mucous membranes Head and Scalp: normocephalic Resp normal respiratory effort, no retractions, no use of accessory muscles and clear to auscultation bilaterally Auscultation: Negative for rales, rhonchi or wheezes Cardio regular rate, regular rhythm, S1 normal heart sound, S2 normal heart sound, no murmurs, no rub, no gallops and no clicks GI normal to inspection, nondistended, normoactive bowel sounds, soft to palpation and non-tender Extremity no clubbing, cyanosis or edema Extremity Narrative: Postoperative dressing in place with no drainage noted on bandage Neuro oriented x3 and no focal motor deficits Neuro Narrative: Decreased movement left lower extremity due to pain Speech: speech normal Psych affect normal Psych Narrative: Less anxious today, eye contact is good, patient interacts appropriately, patient thankful for care Assessment & Plan Assessment/Plan (1) Femoral distal fracture: QUALIFIERS: Encounter type: initial encounter Fracture type: c losed Fracture morphology: other fracture Laterality: left Qualified Code(s): S72.492A - Other fracture of lower end of left femur, initial encounter for closed fracture (2) Fall: PLAN: Plan Distal left femoral fracture as a result of the mechanical fall -Mechanical fall where she tripped over a rug in the carotid -Postop day 3 -Continue Tylenol 1000 mg every 8 hours as needed -Will discontinue morphine and continue as needed oxycodone -Will schedule Zofran for oxycodone -continue Lovenox and will plan for 28 days of subcu Lovenox at discharge -okay to remove dressings and leave open to air after postop day 4 and patient may shower -Will remain weightbearing as tolerated -PT/OT is following -Case management/social work is following for assistance with discharge planning -Pre-CERT remains pending for rehab unit Acute symptomatic anemia -Status posttransfusion 2 units packed red blood cells hemoglobin up to 9.7 with a repeat this morning of 9.6 and stable -Guaiac was negative -Iron studies are not consistent with iron deficiency however patient with known acute blood loss so we will give iron twice daily along with vitamin C supplementation to enhance absorption -Repeat CBC in a.m. Abnormal UA -Await finalized culture -Keflex tomorrow if negative Fibromyalgia -Chronic -Patient takes no medications chronically at home for this -Pain regimen for fracture as above History of constipation -Continue home fiber -Scheduled stool softeners with decreased mobility and narcotic use -Add as needed MiraLAX daily -Patient did have a bowel movement on 01/23/2025 Osteoarthritis -History of previous left hip arthroplasty -Pain management as above Obesity -BMI 31.5 -Recommend weight loss -Complicates treatment, prognosis, outcomes DVT prophylaxis -Continue Lovenox 40 mg nightly CODE STATUS -DNR CCA with no intubation Charges/Coding Visit Charges Inpatient E&M: 03500 [facility] Hosp L2
[2025-01-24] MEDS: Calcium Carbonate 500 MG Tablet PO (17:46)
[2025-01-24 20:12] VITALS: BP 108/55; PULSE 82; RESP 15; TEMP 36.6; O2SAT 98
[2025-01-24] MEDS: proCHLORPERazine 10 MG/2 ML Vial 5 MG IV (20:20)
[2025-01-25 03:42] VITALS: BP 125/67; PULSE 88; RESP 15; TEMP 36.6; O2SAT 93
[2025-01-25] MEDS: Calcium Carb/Vitamin D 1 TABLET Tablet PO ×3 (05:32→21:40)
[2025-01-25] MEDS: Ondansetron 4 MG/2 ML Vial IV ×2 (05:32→15:37)
[2025-01-25] MEDS: 0.9% Saline Lock 10 ML Syringe IV (05:32)
[2025-01-25 06:07] LABS: Hematocrit 29.8 % (37-47); Hemoglobin 9.9 g/dL (12.0-15.0); Mean Corp Hgb Conc 33.2 g/dL (32-36); Mean Corpuscular Hgb 30.4 pg (27.0-32.0); Mean Corpuscular Volume 91.4 fL (81-99); Platelet Count 216 K/mm3 (150-450); RBC Distribution Width CV 14.3 % (11.6-14.6); RBC Distribution Width SD 47.3 fl (35.1-43.9); Red Blood Count 3.26 M/mm3 (4.2-5.4); White Blood Count 5.6 K/mm3 (4.4-11.0)
[2025-01-25 08:41] VITALS: BP 108/64; PULSE 98; RESP 19; TEMP 36.7; O2SAT 97
[2025-01-25] MEDS: Ferrous Sulfate 325 MG Tablet PO ×3 (08:47→18:37)
[2025-01-25] MEDS: Magnesium Chloride 64 MG Delay Rel.Tablet 128 MG PO ×2 (08:47→21:40)
[2025-01-25] MEDS: Enoxaparin 40 MG/0.4 ML Syringe SC (08:47)
[2025-01-25] MEDS: Ascorbic Acid 500 MG Tablet 1000 MG PO ×3 (08:48→18:37)
[2025-01-25] MEDS: Senna/Docusate Sodium 1 Tablet 2 TABLET PO ×2 (08:49→21:41)
[2025-01-25] MEDS: Cephalexin 500 MG Capsule PO (08:49)
[2025-01-25] MEDS: Acetaminophen 500 MG Tablet 1000 MG PO ×3 (08:50→21:41)
[2025-01-25] MEDS: proCHLORPERazine 10 MG/2 ML Vial 5 MG IV (09:04)
[2025-01-25] MEDS: traMADol 50 MG Tablet PO ×3 (09:08→21:40)
[2025-01-25 15:45] VITALS: BP 103/62; PULSE 95; RESP 17; TEMP 36.8; O2SAT 96
--- NOTE | 2025-01-25 17:29 | PN.HOSP_ITS ---
Reason for Visit Reason for Visit: Left hip pain status post mechanical fall Subjective Subjective Patient states she is tired and felt hot today. Her room is warm. No specific complaints other than GI upset she thinks the medications are bothering her stomach. Objective Data Objective Data Vital Signs: Vital Signs Temp Pulse Resp BP Pulse Ox O2 Del Method O2 Flow Rate 98.2 F 95 17 103/62 96 Room Air 2 01/25/25 15:45 01/25/25 15:45 01/25/25 15:45 01/25/25 15:45 01/25/25 15:45 01/25/25 15:45 01/21/25 18:41 Oxygen Flow Rate (L/min) 2 Oxygen Delivery Method Room Air Weight: 90.9 kg Body Mass Index (BMI) 31.4 Intake & Output: Intake and Output for Last 24 Hours 01/23/25 01/24/25 01/25/25 23:59 23:59 23:59 Intake Total 0 / 0 620 / 620 Balance 0 / 0 620 / 620 Lab / Micro Data 01/25/25 05:32 01/24/25 05:25 Labs: Laboratory Results - last 24 hr 01/25/25 05:32: WBC 5.6, RBC 3.26 L, Hgb 9.9 L, Hct 29.8 L, MCV 91.4, MCH 30.4, MCHC 33.2, RDW Std Deviation 47.3 H, RDW Coeff of Prosper 14.3, Plt Count 216, MPV 10.0 Micro: Microbiology 01/21/25 22:30 Urine, Clean Catch Urine Culture - Final Mixed Gram Positive Organisms 01/23/25 14:00 Stool Stool Occult Blood (MARTIN) - Final Physical Exam Const alert, oriented x3, no apparent distress and well nourished Constitutional Narrative: Obese, older, white female, sitting up in bed, appears comfortable, does not look toxic, HEENT head/scalp atraumatic and moist oral mucous membranes Head and Scalp: normocephalic Psych Psych Narrative: A bit more anxious today, eye contact is good and patient interacts well Assessment & Plan Assessment/Plan (1) Femoral distal fracture: QUALIFIERS: Encounter type: initial encounter Fracture type: c losed Fracture morphology: other fracture Laterality: left Qualified Code(s): S72.492A - Other fracture of lower end of left femur, initial encounter for closed fracture (2) Fall: PLAN: Plan Distal left femoral fracture as a result of the mechanical fall -Mechanical fall where she tripped over a rug in the carotid -Postop day 4 -Continue Tylenol 1000 mg every 8 hours as needed -As needed Ultram available -continue Lovenox and will plan for 28 days of subcu Lovenox at discharge -Okay for shower today -Will remain weightbearing as tolerated -PT/OT is following -Case management/social work is following for assistance with discharge planning -Pre-CERT remains pending for rehab unit Acute symptomatic anemia -Status posttransfusion 2 units packed red blood cells on 01/23/2025 -Guaiac was negative -Continue iron with vitamin C -Repeat CBC in a.m. Abnormal UA -Cultures negative discontinue antibiotics Fibromyalgia -Chronic -Patient takes no medications chronically at home for this -Pain regimen for fracture as above History of constipation -Continue home fiber -Scheduled stool softeners with decreased mobility and narcotic use -Add as needed MiraLAX daily -Patient did have a bowel movement on 01/23/2025 Osteoarthritis -History of previous left hip arthroplasty -Pain management as above Obesity -BMI 31.5 -Recommend weight loss -Complicates treatment, prognosis, outcomes DVT prophylaxis -Continue Lovenox 40 mg nightly CODE STATUS -DNR CCA with no intubation Disposition: -Patient's been medically stable for discharge and is 01/24/2025. Currently awaiting pre-CERT from [facility]. Charges/Coding Visit Charges Inpatient E&M: 94284 [facility] Hosp L1
[2025-01-25 20:49] VITALS: BP 104/80; PULSE 88; RESP 18; TEMP 36.8; O2SAT 97
[2025-01-26] MEDS: traMADol 50 MG Tablet PO ×3 (05:45→20:02)
[2025-01-26] MEDS: Calcium Carb/Vitamin D 1 TABLET Tablet PO ×2 (07:11→20:01)
[2025-01-26] MEDS: Acetaminophen 500 MG Tablet 1000 MG PO ×3 (07:11→20:25)
[2025-01-26 07:21] LABS: Hemoglobin 9.8 g/dL (12.0-15.0)
[2025-01-26 08:19] VITALS: BP 102/61; PULSE 88; RESP 17; TEMP 36.6; O2SAT 96
[2025-01-26] MEDS: Magnesium Chloride 64 MG Delay Rel.Tablet 128 MG PO ×2 (08:25→20:01)
[2025-01-26] MEDS: Enoxaparin 40 MG/0.4 ML Syringe SC (08:26)
[2025-01-26] MEDS: Senna/Docusate Sodium 1 Tablet 2 TABLET PO ×2 (08:26→20:01)
[2025-01-26] MEDS: Ascorbic Acid 500 MG Tablet 1000 MG PO (08:27)
[2025-01-26] MEDS: Psyllium 1 PACKET PO (08:27)
[2025-01-26] MEDS: Ferrous Sulfate 325 MG Tablet PO (08:28)
--- NOTE | 2025-01-26 08:57 | PCM.PN.HOSP ---
Reason for Visit Reason for Visit: Left leg pain after mechanical fall Subjective Subjective Patient states she is feeling fairly well today. Feels like a new woman since she got a shower. No complaints to me however she did complain to the nurse that she feels the iron tablets are upsetting her stomach. She states she is willing to take it daily so we will transition from 3 times daily to daily. No other issues at this time. Objective Data Objective Data Vital Signs: Vital Signs Temp Pulse Resp BP Pulse Ox O2 Del Method O2 Flow Rate 97.9 F 88 17 102/61 96 Room Air 2 01/26/25 08:19 01/26/25 08:19 01/26/25 08:19 01/26/25 08:19 01/26/25 08:19 01/26/25 08:19 01/21/25 18:41 Oxygen Flow Rate (L/min) 2 Oxygen Delivery Method Room Air Weight: 90.9 kg Body Mass Index (BMI) 31.4 Intake & Output: Intake and Output for Last 24 Hours 01/24/25 01/25/25 01/26/25 23:59 23:59 23:59 Intake Total 1020 / 1020 Balance 1020 / 1020 Lab / Micro Data 01/26/25 05:14 01/24/25 05:25 Labs: Laboratory Results - last 24 hr 01/26/25 05:14: Hgb 9.8 L Micro: Microbiology 01/21/25 22:30 Urine, Clean Catch Urine Culture - Final Mixed Gram Positive Organisms 01/23/25 14:00 Stool Stool Occult Blood (MARTIN) - Final Physical Exam Const alert, oriented x3, no apparent distress, healthy appearing and well nourished; Negative for average body habitus Constitutional Narrative: Obese, older, white female, sitting up in a chair at the bedside, getting ready to go the bathroom with the aid, appears well HEENT head/scalp atraumatic Head and Scalp: normocephalic Neuro Neuro Narrative: Decreased movement left lower extremity due to pain Psych affect normal Psych Narrative: No significant anxiety today, patient appears well, interacts appropriately, eye contact is good, appreciative of care Assessment & Plan Assessment/Plan (1) Femoral distal fracture: QUALIFIERS: Encounter type: initial encounter Fracture type: closed Fracture morphology: other fracture Laterality: left Qualified Code(s): S72.492A - Other fracture of lower end of left femur, initial encounter for closed fracture (2) Fall: PLAN: Plan Distal left femoral fracture as a result of the mechanical fall -Mechanical fall where she tripped over a rug in the garage -Postop day 5 -Continue Tylenol 1000 mg every 8 hours as needed -As needed Ultram available -continue Lovenox and will plan for 28 days of subcu Lovenox at discharge -Weightbearing as tolerated -PT/OT is following -Case management/social work is following for assistance with discharge planning -Pre-CERT remains pending for rehab unit Acute symptomatic anemia -Status posttransfusion 2 units packed red blood cells on 01/23/2025 -Guaiac was negative -Continue iron with vitamin C but decrease from 3 times daily to daily as patient feels it is upsetting her stomach -Repeat CBC in a.m. Fibromyalgia -Chronic -Patient takes no medications chronically at home for this -Pain regimen for fracture as above History of constipation -Continue home fiber -Scheduled stool softeners with decreased mobility and narcotic use -Add as needed MiraLAX daily -Patient did have a bowel movement on 01/23/2025 Osteoarthritis -History of previous left hip arthroplasty -Pain management as above Obesity -BMI 31.5 -Recommend weight loss -Complicates treatment, prognosis, outcomes DVT prophylaxis -Continue Lovenox 40 mg nightly CODE STATUS -DNR CCA with no intubation Disposition: -Patient's been medically stable for discharge and is 01/24/2025. Continues to await pre-CERT from [employer]. Charges/Coding Visit Charges Inpatient E&M: 29559 [facility] Hosp L1
--- NOTE | 2025-01-26 10:10 | NURSING ---
downtime documentation 01/26/25 12am until 7am
[2025-01-26] MEDS: Ondansetron 4 MG/2 ML Vial IV (14:02)
[2025-01-26] MEDS: 0.9% Saline Lock 10 ML Syringe IV ×2 (14:02→20:26)
[2025-01-26 14:06] VITALS: BP 127/64; PULSE 85; RESP 20; TEMP 36.8; O2SAT 95
[2025-01-26 19:45] VITALS: BP 101/60; PULSE 78; RESP 18; TEMP 36.7; O2SAT 96
[2025-01-26 22:19] VITALS: BP 129/64; PULSE 88; RESP 20; TEMP 36.7; O2SAT 93
[2025-01-27 06:11] VITALS: BP 126/67; PULSE 89; RESP 20; TEMP 36.6; O2SAT 95
[2025-01-27] MEDS: traMADol 50 MG Tablet PO ×2 (06:18→13:00)
[2025-01-27] MEDS: Calcium Carb/Vitamin D 1 TABLET Tablet PO ×2 (06:19→14:43)
[2025-01-27] MEDS: Acetaminophen 500 MG Tablet 1000 MG PO ×2 (06:19→14:40)
[2025-01-27 07:08] LABS: Hematocrit 32.7 % (37-47); Hemoglobin 10.8 g/dL (12.0-15.0); Mean Corpuscular Hgb 30.3 pg (27.0-32.0); Mean Corpuscular Volume 91.9 fL (81-99); Mean Platelet Vol. 10.1 fl (6.2-12.0); Platelet Count 238 K/mm3 (150-450); RBC Distribution Width CV 14.2 % (11.6-14.6); Red Blood Count 3.56 M/mm3 (4.2-5.4); White Blood Count 4.8 K/mm3 (4.4-11.0)
[2025-01-27 07:43] LABS: Anion Gap 14 (5-15); BUN 14 mg/dL (4-19); BUN/Creat Ratio 29.3 RATIO (10-20); Calcium,Total 9.2 mg/dL (7.6-11.0); Carbon Dioxide 19.6 mmol/L (21.0-32.0); Chloride 104 mmol/L (98-108); Creatinine, Serum 0.48 mg/dL (0.70-1.20); EST Glomerular Filtration Rate 100 (>60); Estimated Creatinine Clearance 71.13 ml/min (50-250); Glucose 106 mg/dL (70-99); Potassium 3.8 mmol/L (3.3-5.1); Sodium Level 138 mmol/L (133-145)
[2025-01-27 08:05] VITALS: BP 106/74; PULSE 85; RESP 18; TEMP 36.9; O2SAT 97
[2025-01-27] MEDS: Ferrous Sulfate 325 MG Tablet PO (08:27)
[2025-01-27] MEDS: Ascorbic Acid 500 MG Tablet 1000 MG PO (08:27)
[2025-01-27] MEDS: Senna/Docusate Sodium 1 Tablet 2 TABLET PO (08:30)
[2025-01-27] MEDS: Psyllium 1 PACKET PO (08:30)
[2025-01-27] MEDS: Magnesium Chloride 64 MG Delay Rel.Tablet 128 MG PO (08:30)
[2025-01-27] MEDS: Enoxaparin 40 MG/0.4 ML Syringe SC (08:30)
--- NOTE | 2025-01-27 10:25 | CASEMGMT ---
Social Work SW spoke w/Viki in rehab this morning, the precert is still pending. SW spoke w/pt and son in room, let them know we are still waiting to hear back from insurance, will let them know as soon as we hear back, both state understanding. SW will continue to follow. BRIGHT Watts
[2025-01-27 13:04] VITALS: BP 118/51; PULSE 83; RESP 16; TEMP 36.6; O2SAT 98
--- NOTE | 2025-01-27 13:49 | PN.HOSP_ITS ---
Reason for Visit Reason for Visit: Diagnoses Unspecified fracture of lower end of unspecified femur, initial encounter for closed fracture (01/20/25) Displaced supracondylar fracture without intracondylar extension of lower end of left femur, initial encounter for closed fracture (01/20/25) Other fracture of lower end of left femur, initial encounter for closed fracture (01/20/25) Unspecified fracture of left femur, initial encounter for closed fracture (01/20/25) Unspecified fall, initial encounter (01/20/25) Objective Data Objective Data Vital Signs: Vital Signs Temp Pulse Resp BP Pulse Ox O2 Del Method O2 Flow Rate 98 F 83 16 118/51 L 98 Room Air 2 01/27/25 13:04 01/27/25 13:04 01/27/25 13:04 01/27/25 13:04 01/27/25 13:04 01/27/25 13:04 01/21/25 18:41 Oxygen Flow Rate (L/min) 2 Oxygen Delivery Method Room Air Weight: 200 lb 6.403 oz Body Mass Index (BMI) 31.4 Intake & Output: Intake and Output for Last 24 Hours 01/25/25 01/26/25 01/27/25 23:59 23:59 23:59 Intake Total 1020 / 1020 360 / 360 750 / 750 Balance 1020 / 1020 360 / 360 750 / 750 Lab / Micro Data 01/27/25 06:40 01/27/25 06:40 Labs: Laboratory Results - last 24 hr 01/27/25 06:40: WBC 4.8, RBC 3.56 L, Hgb 10.8 L, Hct 32.7 L, MCV 91.9, MCH 30.3, MCHC 33.0, RDW Std Deviation 47.0 H, RDW Coeff of Prosper 14.2, Plt Count 238, MPV 10.1, Sodium 138, Potassium 3.8, Chloride 104, Carbon Dioxide 19.6 L, Anion Gap 14, BUN 14, Creatinine 0.48 L, Estim Creat Clear Calc 71.13, Est GFR (MDRD) Non- Af 100, BUN/Creatinine Ratio 29.3 H, Glucose 106 H, Calcium 9.2 Micro: Microbiology 01/21/25 22:30 Urine, Clean Catch Urine Culture - Final Mixed Gram Positive Organisms 01/23/25 14:00 Stool Stool Occult Blood (MARTIN) - Final Physical Exam Narrative Seen and examined Patient waiting for pre-CERT. Pain is well-controlled, 2/10 at rest and on walking 4-5/10, expected after the surgery. Physical exam General: Alert, Oriented x3, Cooperative HEENT: Atraumatic, PERRLA, EOMI, Normocephalic Oral: No Gingival or Mucosal Lesions/ Ulcerations Neck: Supple, No JVD, Negative Carotid Bruits Chest wall/Lungs: Air entry diminished in bilateral lung bases. No crepitation/rhonchi Cardiovascular: Regular rate, Regular Rhythm, Normal S1, Normal S2, No M/G/R Abdomen: Bowel Sounds Present, Soft, Non Tender, Non-Distended : No dysuria. No renal angle tenderness. No suprapubic tenderness. Extremities: No edema, Capillary Refill Less than 3 Seconds Skin: Surgical incision, dressing is dry. Musculoskeletal: Right distal femur surgical dressing is dry. No Tenderness to Palpation of Joints or Extremities Neurological: Cranial nerves II-XII grossly intact, DTR 2+/4. No acute focal neurological deficit. Psych/Mental Status: Normal Affect, Appropriate. Assessment & Plan Assessment/Plan (1) Femoral distal fracture: QUALIFIERS: Encounter type: initial encounter Fracture type: c losed Fracture morphology: other fracture Laterality: left Qualified Code(s): S72.492A - Other fracture of lower end of left femur, initial encounter for closed fracture (2) Fall: PLAN: Plan Distal left femoral fracture as a result of the mechanical fall: Patient had left distal femoral supracondylar fracture and had left femur retrograde intramedullary nailing done on 01/21. Pain well-controlled on Tylenol and Ultram. Lovenox for DVT prophylaxis. PT and OT and weightbearing as per tolerated. pre-CERT pending Acute symptomatic anemia due to postop blood loss -Status posttransfusion 2 units packed red blood cells on 01/23/2025 -Guaiac was negative -Continue iron with vitamin C but decrease from 3 times daily to daily as patient feels it is upsetting her stomach Hemoglobin 10.8. Fibromyalgia -Chronic -Patient takes no medications chronically at home for this -Pain regimen for fracture as above History of constipation -Continue home fiber -Scheduled stool softeners, MiraLAX -Patient is having BM. Last 1 today Osteoarthritis -History of previous left hip arthroplasty -Pain management as above Obesity -BMI 31.5 -Recommend weight loss -Complicates treatment, prognosis, outcomes DVT prophylaxis -Continue Lovenox 40 mg nightly CODE STATUS -DNR CCA with no intubation Disposition: -Patient's been medically stable for discharge and is 01/24/2025. Continues to await pre-CERT from [employer]. Charges/Coding Visit Charges Inpatient E&M: 10709 Subs Hosp L2
[2025-01-27] MEDS: Ondansetron 4 MG/2 ML Vial IV (14:40)
[2025-01-27] MEDS: 0.9% Saline Lock 10 ML Syringe IV ×2 (14:40→23:12)
[2025-01-27] MEDS: Lactobacillis Acidophilus 1 CAP PO (17:51)
[2025-01-27 22:45] VITALS: BP 119/62; PULSE 84; RESP 20; TEMP 37; O2SAT 94
[2025-01-27] MEDS: Calcium Carbonate 500 MG Tablet PO (23:12)
--- NOTE | 2025-01-28 06:07 | NURSING ---
Patient would like her 0600 pills at 0800.
[2025-01-28 06:08] VITALS: BP 122/68; PULSE 96; RESP 20; TEMP 36.6; O2SAT 96
[2025-01-28 08:14] VITALS: BP 130/61; PULSE 89; RESP 18; TEMP 36.5; O2SAT 98
[2025-01-28] MEDS: Lactobacillis Acidophilus 1 CAP PO (08:22)
[2025-01-28] MEDS: Acetaminophen 500 MG Tablet 1000 MG PO (08:22)
[2025-01-28] MEDS: Enoxaparin 40 MG/0.4 ML Syringe SC (08:24)
[2025-01-28] MEDS: Magnesium Chloride 64 MG Delay Rel.Tablet 128 MG PO (08:25)
[2025-01-28] MEDS: Calcium Carbonate 500 MG Tablet PO (08:33)
[2025-01-28] MEDS: traMADol 50 MG Tablet PO ×2 (08:33→16:31)
--- NOTE | 2025-01-28 10:18 | CASEMGMT ---
Addendum entered by Christin Hurt 01/28/25 13:17: Social Work Pt was discharged to TCU. SW faxed all discharge paperwork to TCU, let RN know she can call TCU when ready to see when pt can be moved to TCU. No further needs anticipated. BRIGHT Watts Addendum entered by Christin Hurt 01/28/25 12:56: Social Work The denial for rehab was upheld, but pt was approved for TCU. SW let pt know, she is agreeable for TCU today. Pt also asked SW about life alert information, SW provided the information to pt. SW let physician know, he will discharge pt to TCU today. BRIGHT Watts Original Note: Social Work Insurance offered a peer to peer for rehab approval, if not approved insurance has indicated they will approve SNF level of care. As per Taylor Vallecillo in rehab, if rehab is not approved they would have a bed in TCU. ALESHA spoke w/pt, she is agreeable for peer to peer and if not approved she is also agreeable to TCU. ALESHA updated Taylor in TCU. SW texted physician, he is agreeable for peer to peer, SW set it up for 11:30 this morning. ALESHA updated Taylor, ALESHA will continue to follow. BRIGHT Watts
--- NOTE | 2025-01-28 12:55 | TREXTCAR_ITS ---
Diet Diet Order/Speech Therapy: 01/21/25 22:54 Diet: Regular - General DC O2, CPAP, BIPAP needs Home O2 Discharge instructions: No Wound(s) LT LEG: Wound Type: Surgical Incision Problem/Diagnosis (1) Femoral distal fracture: Status: Acute Code(s): S72.409A - Unspecified fracture of lower end of unspecified femur, initial encounter for closed fracture (2) Fall: Status: Acute Code(s): W19.XXXA - Unspecified fall, initial encounter Plan Distal left femoral fracture as a result of the mechanical fall: Patient had left distal femoral supracondylar fracture and had left femur retrograde intramedullary nailing done on 01/21. Pain well-controlled on Tylenol and Ultram. Lovenox for DVT prophylaxis. PT and OT and weightbearing as per tolerated. 01/28: Earlier peer to peer was done with Luke Thomason patient is not good for acute rehab but may qualify for subacute rehab. Subsequently patient was approved for subacute rehab and patient is being discharged to TCU. Acute symptomatic anemia due to postop blood loss -Status posttransfusion 2 units packed red blood cells on 01/23/2025 -Guaiac was negative -Continue iron with vitamin C but decrease from 3 times daily to daily as patient feels it is upsetting her stomach Hemoglobin 10.8. 01/28: H&H 10.8/32.7%. Fibromyalgia -Chronic -Patient takes no medications chronically at home for this -Pain regimen for fracture as above History of constipation -Continue home fiber -Scheduled stool softeners, MiraLAX -Patient is having BM. Last 1 today Osteoarthritis -History of previous left hip arthroplasty -Pain management as above Obesity -BMI 31.5 -Recommend weight loss -Complicates treatment, prognosis, outcomes DVT prophylaxis -Continue Lovenox 40 mg nightly CODE STATUS -DNR CCA with no intubation Disposition: -Patient's been medically stable for discharge since 01/24/2025. Discharge medication reconciliation done. Discharge follow-up instructions completed. Discharge process discussed with the patient and all questions were answered to patient's satisfaction. Follow with PCP in 1 to 2 weeks Total time spent, exact 35 minutes on discharge meds reconciliation, examinatio n, coordination of care with nurses and ancillary staff, review of imaging and blood test and discussion with the patient on follow-up instructions. Allergies/Procedures Done in Hospital Allergies dexamethasone Allergy (Severe, Verified 01/07/25 09:35) hallcenating, anxiety methylprednisolone Allergy (Severe, Verified 01/07/25 09:35) hallucenanting,anxiety prednisone Allergy (Severe, Verified 01/07/25 09:35) hallucenating ,anxiety azithromycin (From Zithromax Z-Rasheed) Allergy (Mild, Verified 01/07/25 09:35) heart racing levofloxacin (From Levaquin) Allergy (Mild, Verified 01/07/25 09:35) muscle pain, heart racing amantadine Allergy (Verified 01/07/25 09:35) Other cortisone Allergy (Verified 01/07/25 09:35) Other fluoxetine HCl (From Prozac) Allergy (Verified 01/07/25 09:35) Other Penicillins Allergy (Verified 01/07/25 09:35) Unknown erythromycin base Adverse Reaction (Severe, Verified 01/07/25 09:35) digestive upset prednisolone Adverse Reaction (Severe, Verified 01/07/25 09:35) hallucenations,anxiety escitalopram Adverse Reaction (Intermediate, Verified 01/07/25 09:35) nausea sertraline Adverse Reaction (Intermediate, Verified 01/07/25 09:35) heart racing Sulfa (Sulfonamide Antibiotics) Adverse Reaction (Intermediate, Verified 01/07/25 09:35) nausea,diarrhea Type of Care/Length of Stay Estimated LOS: Convalescent Care Less Than 30 days Type of Care Needed: Skilled Rehab Potential: Good Prognosis: Good Additional Orders/Day of Discharge Day of Discharge: 01/28/25 Dietary and Speech Recommendations Dietitian Recommendations/Changes: Continue regular diet. Will order 120ml ensure plus high protein TID with meals, pt request vanilla with dinner tonight. Will monitor weight trends. Discharge Plan Admission Admit Date/Time: 01/20/25 18:28 Primary Reason for Your Visit: Distal left femur fracture Attending Provider: Celestino Love Primary Care Provider: Tom Alonso Consulting Providers: Jes Hanson; Jasbir Aponte; Ketty Dennis Discharge Orders/Prescriptions Prescriptions: New tramadol 50 mg Tablet 50 mg PO Q6H PRN PRN (Reason: Pain Score 4-10 Or Pre Pt/Ot) Qty: 0 0RF acetaminophen 500 mg Tablet 1,000 mg PO Q8 Qty: 0 0RF Rx Instructions: 1 g every 8 hourly for 7 days and then as needed ascorbic acid (vitamin C) 500 mg Tablet 1,000 mg PO DAILYCM Qty: 0 0RF ferrous sulfate [FeroSul] 325 mg (65 mg iron) Tablet 325 mg PO QODAY Qty: 0 0RF Daily Fiber (psyllium-aspart) 3 gram Powder In Packet 1 packet PO BID Qty: 0 0RF sennosides-docusate sodium [Senna-S] 8.6-50 mg tablet 2 tab-cap PO BID PRN (Reason: constipation) Qty: 30 0RF Continued magnesium oxide 400 mg magnesium capsule 500 mg PO BID omega 6-yvk-qcx-fish oil [Fish Oil] 300-1,000 mg capsule,delayed release(DR/EC) 1 cap PO BID calcium carbonate-vitamin D3 [Oyster Shell Calcium-Vit D3] 500 mg-5 mcg (200 unit) Tablet 1 tab PO TID Discontinued tumeric tablet 400 mg PO DAILY Daily Fiber (psyllium-aspart) 3 gram Powder In Packet 1 packet PO DAILY Qty: 0 0RF Referrals / Follow Up: Tom Alonso DO [Primary Care Provider] - Disposition Disposition (needs filled in before D/C Order can be placed): [facility] (1) Femoral distal fracture Qualifiers: Encounter type: initial encounter Fracture type: closed Fracture morphology: other fracture Laterality: left Qualified Code(s): S72.492A - Other fracture of lower end of left femur, initial encounter for closed fracture
--- NOTE | 2025-01-28 13:04 | PCM.DC.SUM ---
Providers Date of Admission: 01/20/25 Date of Discharge: 01/28/25 Primary Care Physician: Dr. Tom Alonso, Consultations 01/20/25 19:37 Consult: Orthopedics Routine Consulting Provider: Jasbir Aponte Reason for Consult: Left distal femur fracture EMERGENT Consult: No MD Notified: Yes Date Notified: 01/20/25 Time Notified: 18:44 Method of Notification: ED Physician Initiated Reason For Visit: DISTAL LEFT FEMUR FX Diagnosis Discharge Diagnosis (1) Femoral distal fracture: Status: Acute Code(s): S72.409A - Unspecified fracture of lower end of unspecified femur, initial encounter for closed fracture Qualifiers: Encounter type: initial encounter Fracture type: closed Fracture morphology: other fracture Laterality: left Qualified Code(s): S72.492A - Other fracture of lower end of left femur, initial encounter for closed fracture (2) Fall: Status: Acute Code(s): W19.XXXA - Unspecified fall, initial encounter Plan Distal left femoral fracture as a result of the mechanical fall: Patient had left distal femoral supracondylar fracture and had left femur retrograde intramedullary nailing done on 01/21. Pain well-controlled on Tylenol and Ultram. Lovenox for DVT prophylaxis. PT and OT and weightbearing as per tolerated. 01/28: Earlier peer to peer was done with Luke Thomason patient is not good for acute rehab but may qualify for subacute rehab. Subsequently patient was approved for subacute rehab and patient is being discharged to TCU. Acute symptomatic anemia due to postop blood loss -Status posttransfusion 2 units packed red blood cells on 01/23/2025 -Guaiac was negative -Continue iron with vitamin C but decrease from 3 times daily to daily as patient feels it is upsetting her stomach Hemoglobin 10.8. 01/28: H&H 10.8/32.7%. Fibromyalgia -Chronic -Patient takes no medications chronically at home for this -Pain regimen for fracture as above History of constipation -Continue home fiber -Scheduled stool softeners, MiraLAX -Patient is having BM. Last 1 today Osteoarthritis -History of previous left hip arthroplasty -Pain management as above Obesity -BMI 31.5 -Recommend weight loss -Complicates treatment, prognosis, outcomes DVT prophylaxis -Continue Lovenox 40 mg nightly CODE STATUS -DNR CCA with no intubation Disposition: -Patient's been medically stable for discharge since 01/24/2025. Discharge medication reconciliation done. Discharge follow-up instructions completed. Discharge process discussed with the patient and all questions were answered to patient's satisfaction. Follow with PCP in 1 to 2 weeks Total time spent, exact 35 minutes on discharge meds reconciliation, examination, coordination of care with nurses and ancillary staff, review of imaging and blood test and discussion with the patient on follow-up instructions. Medications at Discharge Home Medications magnesium oxide 500 mg PO BID supplement 02/25/21 omega 0-vvg-nfu-fish oil 300 mg-1,000 mg capsule,delayed release (Fish Oil) 1 cap PO BID supplement 09/06/24 calcium 500 mg (as carbonate)-vitamin D3 5 mcg (200 unit) tablet (Oyster Shell Calcium-Vitamin D3) 1 tab PO TID SUPPLEMENT 01/20/25 acetaminophen 500 mg tablet 1,000 mg (2 x 500 mg) PO Q8 #0 tabs 01/28/25 ascorbic acid (vitamin C) 500 mg tablet 1,000 mg (2 x 500 mg) PO DAILYCM #0 tabs 01/28/25 ferrous sulfate 325 mg (65 mg iron) tablet (FeroSul) 325 mg PO QODAY #0 tabs 01/28/25 psyllium husk (aspartame) 3 gram oral powder packet (Daily Fiber (psyllium-aspartame)) 1 packet PO BID #0 ea 01/28/25 sennosides 8.6 mg-docusate sodium 50 mg tablet (Senna-S) 2 tab-cap (2 x 8.6-50 mg) PO BID PRN constipation #30 tabs 01/28/25 tramadol 50 mg tablet 50 mg PO Q6H PRN PRN Pain Score 4-10 Or Pre Pt/Ot #0 tabs 01/28/25 Physical Exam Narrative Seen and examined Pain is well-controlled. Patient having regular bowel movement last 1 yesterday. Peer to peer review for acute rehab did not get approved. Approved for SNF Physical exam General: Alert, Oriented x3, Cooperative HEENT: Atraumatic, PERRLA, EOMI, Normocephalic Oral: No Gingival or Mucosal Lesions/ Ulcerations Neck: Supple, No JVD, Negative Carotid Bruits Chest wall/Lungs: Air entry diminished in bilateral lung bases. No crepitation/rhonchi Cardiovascular: Regular rate, Regular Rhythm, Normal S1, Normal S2, No M/G/R Abdomen: Bowel Sounds Present, Soft, Non Tender, Non-Distended : No dysuria. No renal angle tenderness. No suprapubic tenderness. Extremities: No edema, Capillary Refill Less than 3 Seconds Skin: Surgical incision, dressing is dry. Musculoskeletal: Right distal femur surgical dressing is dry. No Tenderness to Palpation of Joints or Extremities Neurological: Cranial nerves II-XII grossly intact, DTR 2+/4. No acute focal neurological deficit. Psych/Mental Status: Normal Affect, Appropriate. Weight / BMI Weight Weight: 200 lb 6.403 oz Body Mass Index (BMI) 31.4 ABG / Lab / Microbiology Data 01/27/25 06:40 01/27/25 06:40 Microbiology: Microbiology 01/21/25 22:30 Urine, Clean Catch Urine Culture - Final Mixed Gram Positive Organisms 01/23/25 14:00 Stool Stool Occult Blood (MARTIN) - Final D/C Instructions DC O2, CPAP, BIPAP Needs Home O2 Discharge instructions: No Meaningful Use Info Meaningful Use Meaningful Use Diagnoses (Choose all that apply): None applicable Ischemic Stroke Statin Dosing Therapy Reference: STATIN DOSE THERAPY REFERENCE: * Patients > 75 years receive moderate or high dose statin therapy. * Patients 75 years or YOUNGER should receive HIGH intensity statin dose unless contraindicated. You will be required to document reason for non-treatment if statin daily dose does not meet guidelines. HIGH DOSE STATIN THERAPY DAILY Atorvastatin > than or = to 40 mg Rosuvastatin > than or = to 20 mg Amlodipine + Atorvastatin > than or = to 2.5/40 mg Ezetimibe + Simvastatin 10/80 mg Simvastatin 80mg Discharge Plan Admission Admit Date/Time: 01/20/25 18:28 Primary Reason for Your Visit: Distal left femur fracture Attending Provider: Celestino Love Primary Care Provider: Tom Alonso Consulting Providers: Jes Hanson; Jasbir Aponte; Ketty Dennis Discharge Orders/Prescriptions Prescriptions: New tramadol 50 mg Tablet 50 mg PO Q6H PRN PRN (Reason: Pain Score 4-10 Or Pre Pt/Ot) Qty: 0 0RF acetaminophen 500 mg Tablet 1,000 mg PO Q8 Qty: 0 0RF Rx Instructions: 1 g every 8 hourly for 7 days and then as needed ascorbic acid (vitamin C) 500 mg Tablet 1,000 mg PO DAILYCM Qty: 0 0RF ferrous sulfate [FeroSul] 325 mg (65 mg iron) Tablet 325 mg PO QODAY Qty: 0 0RF Daily Fiber (psyllium-aspart) 3 gram Powder In Packet 1 packet PO BID Qty: 0 0RF sennosides-docusate sodium [Senna-S] 8.6-50 mg tablet 2 tab-cap PO BID PRN (Reason: constipation) Qty: 30 0RF Continued magnesium oxide 400 mg magnesium capsule 500 mg PO BID omega 3-kgl-tki-fish oil [Fish Oil] 300-1,000 mg capsule,delayed release(DR/EC) 1 cap PO BID calcium carbonate-vitamin D3 [Oyster Shell Calcium-Vit D3] 500 mg-5 mcg (200 unit) Tablet 1 tab PO TID Discontinued tumeric tablet 400 mg PO DAILY Daily Fiber (psyllium-aspart) 3 gram Powder In Packet 1 packet PO DAILY Qty: 0 0RF Referrals / Follow Up: Tom Alonso DO [Primary Care Provider] - Disposition Disposition (needs filled in before D/C Order can be placed): Detention Facility Charges/Coding Visit Charges Inpatient E&M: 36505 Disch Hosp >30min
[2025-01-28 14:31] VITALS: BP 126/68; PULSE 83; RESP 16; TEMP 36.1; O2SAT 94
--- NOTE | 2025-01-28 15:15 | PHA.DC_ITS ---
Pharmacy [place] Med Reconciliation Pharmacy Service has performed discharge medication reconciliation for this patient. The patient's discharge medication list was reviewed for discrepancies and discrepancies were resolved. Medications at Discharge Home Medications magnesium oxide 500 mg PO BID supplement 02/25/21 omega 2-jhw-iwl-fish oil 300 mg-1,000 mg capsule,delayed release (Fish Oil) 1 cap PO BID supplement 09/06/24 calcium 500 mg (as carbonate)-vitamin D3 5 mcg (200 unit) tablet (Oyster Shell Calcium-Vitamin D3) 1 tab PO TID SUPPLEMENT 01/20/25 acetaminophen 500 mg tablet 1,000 mg (2 x 500 mg) PO Q8 #0 tabs 01/28/25 ascorbic acid (vitamin C) 500 mg tablet 1,000 mg (2 x 500 mg) PO DAILYCM #0 tabs 01/28/25 ferrous sulfate 325 mg (65 mg iron) tablet (FeroSul) 325 mg PO QODAY #0 tabs 01/28/25 psyllium husk (aspartame) 3 gram oral powder packet (Daily Fiber (psyllium- aspartame)) 1 packet PO BID #0 ea 01/28/25 sennosides 8.6 mg-docusate sodium 50 mg tablet (Senna-S) 2 tab-cap (2 x 8.6-50 mg) PO BID PRN constipation #30 tabs 01/28/25 tramadol 50 mg tablet 50 mg PO Q6H PRN PRN Pain Score 4-10 Or Pre Pt/Ot #0 tabs 01/28/25
--- NOTE | 2025-01-28 16:22 | NURSING ---
Nurse to nurse report given to Marisa on TCU.
== END 2025-01-28 17:42 | disposition skilled nursing facility (03) | DRG 481 ==
LOC: ED 14:47 → MS3 20:15
PROVIDERS: Internal Medicine; Student in an Organized Health Care Education/Training Program; Admitting Provider Internal Medicine; Emergency Provider Surgery; PCP Family Medicine; Visit Provider Internal Medicine
PROC: 0QS936Z Reposition Left Femoral Shaft with Intramedullary Internal Fixation Device, Percutaneous Approach (ICD-10-PCS; CPT 27245; principal; 2025-01-21 14:50)
DX: S72.452A Displaced supracondylar fracture without intracondylar extension of lower end of left femur, initial encounter for closed fracture (principal); D62 Acute posthemorrhagic anemia; D69.6 Thrombocytopenia, unspecified; Z66 Do not resuscitate; E66.9 Obesity, unspecified; S72.402A Unspecified fracture of lower end of left femur, initial encounter for closed fracture; S72.352A Displaced comminuted fracture of shaft of left femur, initial encounter for closed fracture; M79.7 Fibromyalgia; M19.90 Unspecified osteoarthritis, unspecified site; W18.30XA Fall on same level, unspecified, initial encounter; K21.9 Gastro-esophageal reflux disease without esophagitis; M16.12 Unilateral primary osteoarthritis, left hip; K59.00 Constipation, unspecified; Z90.710 Acquired absence of both cervix and uterus; Z96.642 Presence of left artificial hip joint; M81.0 Age-related osteoporosis without current pathological fracture; Z68.31 Body mass index [BMI] 31.0-31.9, adult; Z79.01 Long term (current) use of anticoagulants; Z88.1 Allergy status to other antibiotic agents; Z88.8 Allergy status to other drugs, medicaments and biological substances; Z88.2 Allergy status to sulfonamides; Z98.890 Other specified postprocedural states
CPT/HCPCS: 36415; 71045; 72100; 73502; 73552; 73560; 73700; 76000; 80048; 80053; 81001; 82274; 82728; 83540; 83550; 83605; 83735; 84100; 84443; 85018; 85025; 85027; 85045; 85610; 86850; 86900; 86901; 87086; 87088; 93005; 94668; 97110; 97116; 97162; 97166; 97530; 97535; 99285; C1713; P9016; A4216; J2405

== ENCOUNTER 2025-01-28 17:52 | Inpatient (IN) | payer MEDICARE, SELFPAY ==
[2025-01-28 18:12] VITALS: BP 124/68; PULSE 88; RESP 15; TEMP 36.4; O2SAT 98; BMI 27.3
--- NOTE | 2025-01-28 20:44 | HP.PCM_ITS ---
HPI - General General Date of Admission: 01/28/25 Date of Service: 01/29/25 Chief Complaint: Here for rehabilitation. HPI Narrative KAREN YANEZ, is a 74 Female who presents with followin01/20/2025 [facility] ED fall. Tripped on rug in garage, fell, landed on left hip. Unable to walk, 2/2 left hip pain, left knee pain. Laid on ground for 1 hour, history left total hip replacement. X-ray showed left distal femur fracture. EKG okay, CXR okay. Left knee immobilizer. 01/20/2025 [address] [facility]. CT left knee, Ortho, PT/OT left distal femur fracture. 01/21/2025 Tylenol, Toradol, Oxycodone, Morphine for pain. Plan surgery. 01/21/2025 Dr. Aponte performed left femur retrograde intramedullary nailing. 01/22/2025 Pain well controlled at rest, increased pain when up, moving around. Unable to take Tylenol, Oxycodone, try Tramadol. PT/OT/CM. Hemoglobin 8.6, monitor. Suspect UTI, Change Ancef to Keflex. 01/23/2025 Lightheaded. Pre-CERT for RU. Transfuse 2 units PRBC for acute blood loss anemia. Continue Keflex for suspected UTI. 01/24/2025 Feels better after transfusion. TUMS for indigestion. Patient refuses pain medications. Pre-CERT for RU. Hemoccult negative, start iron, Vitamin C for acute anemia. Keflex, urine culture pending for suspected UTI. 01/25/2025 Tired, felt hot. Lovenox for 28 days for dvt prophylaxis. Urine culture negative, stop Keflex. 01/26/2025 Feeling well, feels better after shower. Lower iron, Vitamin C to daily 2/2 stomach upset. 01/27/2025 Pain 2/10 at rest, 4-5/10 walking. Peer to Peer for RU. Hemoglobin 10.8. Miralax, stool softener for bowel regimen. 01/28/2025 Admit to TCU with debility, here for rehabilitation, strengthening, prior to discharge home alone. 01/29/2025 Resident standing with walker, brushing teeth. [facility] Medical History Rectal bleeding Hemorrhoids Vitamin D deficiency Wears hearing aid Wears glasses Wears dentures Post-menopausal Depression Anxiety Walker as ambulation aid Back pain Constipation Gastric reflux Non-smoker History of pain when walking History of stress test Hx of fracture of wrist Skin cancer Osteoporosis Osteopenia Osteoarthritis Arthritis Fatigue sudden weight loss Abnormal thermography Thyroid nodule Home Medications ?Medication ?Instructions ?Recorded ?Last Taken ?Type magnesium oxide 500 mg PO BID supplement 01/20/25 History omega 9-xwn-wgp-fish oil 300 1 cap PO BID supplement 1 11/06/23 01/20/25 History mg-1,000 mg capsule,delayed release (Fish Oil) calcium 500 mg (as 1 tab PO TID SUPPLEMENT 12/2901/20/25 History carbonate)-vitamin D3 5 mcg (200 unit) tablet (Oyster Shell Calcium-Vitamin D3) acetaminophen 500 mg tablet 1,000 mg (2 x 500 mg) PO Q 8 pain 01/28/25 Unknown Rx #0 tabs ascorbic acid (vitamin C) 500 mg 1,000 mg (2 x 500 mg) PO DAILYCM 01/28/25 Unknown Rx tablet vit C #0 tabs ferrous sulfate 325 mg (65 mg 325 mg PO QODAY iron #0 tabs 01/28/25 Unknown Rx iron) tablet (FeroSul) psyllium husk (aspartame) 3 gram 1 packet PO BID bowel s #0 ea 01/28/25 Unknown Rx oral powder packet (Daily Fiber (psyllium-aspartame)) sennosides 8.6 mg-docusate sodium 2 tab-cap (2 x 8.6-5 0 mg) PO BID 01/28/25 Unknown Rx 50 mg tablet (Senna-S) PRN constipation #30 tabs tramadol 50 mg tablet 50 mg PO Q6H PRN PRN Pain Sc ore 01/28/25 Unknown Rx 4-10 Or Pre Pt/Ot #0 tabs Allergy/AdvReac Type Severity Reaction Status Date / Time dexamethasone Allergy Severe hallcenating, Verified 01/07/25 09:35 anxiety methylprednisolone Allergy Severe hallucenant Verified 01/07/25 09:35 ing,anxiety prednisone Allergy Severe hallucenating Verified 01/07/25 09:35 ,anxiety azithromycin (From Zithromax Allergy Mild heart Verified 01/07/25 09:35 Z-Rasheed) racing levofloxacin (From Levaquin) Allergy Mild muscle Verified 01/07/25 09:35 pain, heart racing amantadine Allergy Other Verified 01/07/25 09:35 cortisone Allergy Other Verified 01/07/25 09:35 fluoxetine HCl (From Prozac) Allergy Other Verified 01/07/25 09:35 Penicillins Allergy Unknown Verified 01/07/25 09:35 erythromycin base AdvReac Severe digestive Verified 01/07/25 09:35 upset prednisolone AdvReac Severe hallucenati Verified 01/07/25 09:35 ons,anxiety escitalopram AdvReac Intermediate nausea Verified 01/07/25 09:35 sertraline AdvReac Intermediate heart Verified 01/07/25 09:35 racing Sulfa (Sulfonamide AdvReac Intermediate nausea,diar Verified 01/07/25 09:35 Antibiotics) emma Family History Father Cancer Leukemia Grandmother Heart disease Grandfather Colon cancer Other Angina at rest Arthritis Asthma Blood clot in vein High cholesterol Myocardial infarction Osteoporosis Respiratory disease Severe allergic reaction Thyroid disorder Surgical History Hx of abdominal hysterectomy Hx of wisdom tooth extraction Hx of colonoscopy History of repair of rectocele Hx of vaginal surgery Social History household members: none Smoking Status: Never smoker alcohol intake: never substance use type: does not use caffeine: No what type of physical activity do you participate in: none frequency: 5-6 times per week seatbelt use: always additional social history: Spouse- Doyle EDWARDS Constitutional Constitutional: Reports weakness; Denies chills, fever(s) or weight gain ENT HEENT: Denies headache(s), nasal congestion or nasal discharge Cardiovascular Cardiovascular: Denies chest pain or palpitations Respiratory/Chest Respiratory/Chest: Denies cough, excessive phlegm production or shortness of breath with exertion Gastrointestinal Gastrointestinal: Denies abdominal pain, nausea or vomiting Genitourinary Genitourinary: Denies dysuria Musculoskeletal Musculoskeletal: Denies joint pain or joint swelling Integumentary Integumentary: Denies rash or wounds Neurologic Neurologic: Denies focal weakness, numbness or tingling Psychiatric Psychiatric: Denies anxiety, auditory hallucinations, depression, homicidal ideation or suicidal ideation Vital Signs Vital Signs Vital Signs: 01/28/25 18:12 01/28/25 18:12 Temperature 97.5 F L Temperature Source Temporal Pulse Rate 88 Pulse Rhythm Regular Pulse Strength Normal (2+) Respiratory Rate 15 Respiratory Effort Normal Non-Labored Respiratory Depth Normal Respiratory Pattern Normal Blood Pressure 124/68 H Blood Pressure Mean 86 Blood Pressure Source Monitor Blood Pressure Position Sitting Blood Pressure Location Left Arm Pulse Ox 98 Oxygen Delivery Method Room Air Room Air Physical Exam Const alert General Appearance: cooperative HEENT normocephalic Eyes PERRL and EOMs intact bilaterally Neck supple, no JVD and no carotid bruits Resp normal respiratory effort, normal air movement and clear to auscultation bilaterally Cardio regular rate and regular rhythm GI normal to inspection, nondistended, normoactive bowel sounds, non-tender and non-distended Extremity normal capillary refill General Extremity: Negative for edema Skin no rashes or lesions noted General Skin Exam: no breakdown Psych affect normal Appearance: appropriate Results Lab / Micro Data 01/29/25 05:29 01/29/25 05:29 Assessment & Plan Assessment/Plan (1) Debility: (2) Femur fracture, left: QUALIFIERS: Encounter type: initial encounter Femur location: s upracondylar without intracondylar extension Fracture alignment: displaced F racture type: closed Qualified Code(s): S72.452A - Displaced supracondylar fracture without intracondylar extension of lower end of left femur, initial encounter for closed fracture (3) Acute blood loss anemia: (4) GERD (gastroesophageal reflux disease): QUALIFIERS: Esophagitis presence: esophagitis presence not specified Qualified Code(s): K21.9 - Gastro-esophageal reflux disease without esophagitis (5) Hypomagnesemia: (6) Fibromyalgia: (7) Osteoarthritis of left hip: (8) Hyperlipidemia: PLAN: Plan 74 year old female with below past medical history hospitalized for left distal femur fracture, underwent left femur retrograde intramedullary nailing 01/21/[address] Aponte, postoperative course complicated by acute blood loss anemia requiring transfusion, uti ruled out, admitted to TCU with debility, here for rehabilitation, strengtheing, prior to discharge home alone. * Debility - PT/OT. * Pain - Tylenol 1000mg q8, q8 prn, Tramadol 50mg q6 prn. * Bowel - Miralax 17gm daily, Metamucil 1 packet bid, senna/colace 2 tablets bid, Magnesium citrate 300mL daily prn,Dulcolax 10mg pr daily prn. * Adult immunization - Administer pneumonia vaccine, covid vaccine, flu vaccine as appropriate. * DVT prophylaxis - Lovenox 40mg sc daily. * Iron deficiency anemia - Ferrous sulfate 325mg qod, Vitamin C 1000mg daily. * Calcium deficiency - Calcium D tidcm. * Hypomagnesemia - Magnesium chloride 128mg bid.
[2025-01-29] MEDS: Enoxaparin 40 MG/0.4 ML Syringe SC (04:38)
[2025-01-29 06:11] LABS: Absolute Lymphocyte Count 1.09 X10^3/uL (0.83-4.51); Absolute Neutrophil Count 3.3 X10^3/uL (2.0-7.7); Basophil# 0.03 X10^3/uL; Basophil% 0.6 % (0-1); Eosinophil# 0.16 X10^3/uL; Eosinophils% 3.1 % (0-5); Hematocrit 32.5 % (37-47); Hemoglobin 10.6 g/dL (12.0-15.0); Lymphocyte # 1.09 X10^3/ul (0.83-4.51); Lymphocyte % 20.8 % (19-41); Mean Corp Hgb Conc 32.6 g/dL (32-36); Mean Corpuscular Volume 92.1 fL (81-99); Mean Platelet Vol. 9.9 fl (6.2-12.0); Monocyte# 0.65 X10^3/uL; Monocyte% 12.4 % (0-10); NRBC Flagged by Analyzer 0 % (0-5); Neutrophil # 3.27 X10^3/uL (2.7-7.7); Neutrophil % 62.5 % (47-70); Platelet Count 284 K/mm3 (150-450); RBC Distribution Width CV 14.4 % (11.6-14.6); Red Blood Count 3.53 M/mm3 (4.2-5.4); White Blood Count 5.2 K/mm3 (4.4-11.0)
[2025-01-29 06:36] LABS: Anion Gap 12 (5-15); BUN 17 mg/dL (4-19); BUN/Creat Ratio 31.8 RATIO (10-20); Calcium,Total 9.3 mg/dL (7.6-11.0); Carbon Dioxide 22.5 mmol/L (21.0-32.0); Chloride 104 mmol/L (98-108); Creatinine, Serum 0.54 mg/dL (0.70-1.20); EST Glomerular Filtration Rate 97 (>60); Estimated Creatinine Clearance 65.55 ml/min (50-250); Glucose 104 mg/dL (70-99); Potassium 4.1 mmol/L (3.3-5.1); Sodium Level 139 mmol/L (133-145)
[2025-01-29] MEDS: traMADol 50 MG Tablet PO ×2 (08:37→14:48)
[2025-01-29] MEDS: Ascorbic Acid 500 MG Tablet 1000 MG PO (08:40)
[2025-01-29] MEDS: Ferrous Sulfate 325 MG Tablet PO (08:40)
[2025-01-29] MEDS: Calcium Carb/Vitamin D 1 TABLET Tablet PO ×2 (08:40→18:18)
[2025-01-29] MEDS: Magnesium Chloride 64 MG Delay Rel.Tablet 128 MG PO ×2 (08:41→21:37)
[2025-01-29] MEDS: Acetaminophen 500 MG Tablet 1000 MG PO ×3 (08:43→21:37)
--- NOTE | 2025-01-29 09:03 | NURSING ---
Mannequin Decorator Note; Activity Asset: Jigna Valenzuela has been on TCU in the past and remains independent in her choice of daily activities. She has her own light cleaner that will visits along w/family and friends. She welcomes visits w/our application designer and therapy dog when available. When not resting she has her smartphone, word puzzles, tv and will read. Staff will encourage social activities, remind her of weekly activities and respect her right to say no.
[2025-01-29] MEDS: Tuberculin,Purif.prot.deriv. 50 TU/ML Vial 0.1 ML ID (12:43)
[2025-01-29 14:48] VITALS: BP 129/70; PULSE 80; RESP 16; TEMP 36.8; O2SAT 95
[2025-01-29] MEDS: Senna/Docusate Sodium 1 Tablet 2 TABLET PO (21:37)
[2025-01-30] MEDS: Enoxaparin 40 MG/0.4 ML Syringe SC (06:57)
[2025-01-30] MEDS: Acetaminophen 500 MG Tablet 1000 MG PO ×3 (06:58→21:14)
[2025-01-30 07:00] VITALS: RESP 17
[2025-01-30] MEDS: Ascorbic Acid 500 MG Tablet 1000 MG PO (10:15)
[2025-01-30] MEDS: Magnesium Chloride 64 MG Delay Rel.Tablet 128 MG PO (10:16)
[2025-01-30] MEDS: Calcium Carb/Vitamin D 1 TABLET Tablet PO (10:16)
[2025-01-30] MEDS: Lactobacillis Acidophilus 1 CAP PO (10:16)
[2025-01-30] MEDS: Senna/Docusate Sodium 1 Tablet 2 TABLET PO (10:16)
[2025-01-30] MEDS: Calcium Carbonate 500 MG Tablet PO (14:09)
--- NOTE | 2025-01-30 15:26 | CASEMGMT ---
Social Work SW met with patient to complete initial assessment. Pt known to this worker from previous stay. Verified/updated contacts. Confirmed code status as DNR-CCA, no intubation. [facility] and continued stay is not guaranteed with each review; issues a 3-day notice for DC. Pt's goal is to return home alone, quickly. Pt expressed she is struggling with her stomach issues being in the hospital and TCU does not allow the stomach supplements she takes at home. pt reports long history of stomach issues and knows what her body can eat and cannot. SW inquired if she spoken with a Dietitian yet; pt confirmed. Pt reported there was not a resolution to her preferences, as the food she asked for still has oil and seasonings, which she is very sensitive too. SW actively listened and explored pt's food preferences to assist in a resolution. Pt shared she cannot have any seasonings, only minimal salt on food, bland, baked chicken, bland baked sweet potatoes, steamed vegetables with no oil or salt. pt no longer wants to take the ensure. SW educated to proper nutrition is a goal and concern during stay, and offered to discuss with Dietitian to see if kitchen can accommodate pt. Pt expressed great appreciation for listening and assistance. SW offered to have family bring in foods, but pt stated she does not have the family that could assist, and really wants to be home, where she feels she will improve better. SW acknowledged and will follow up with therapy to determine LOF and safety. This worker will follow up with pt tomorrow to discuss. Pt appreciative. ALESHA also inquired about a medical alert and pt agreed. ALESHA provided resources. ALESHA will continue to follow. - ALESHA phoned Jazmine Rushing, with requests. Kristan will speak with the dietary on possible accommodations. ALESHA spoke with treating HEADER OPERATOR on request to DC home. Verenice Linton [employer]
[2025-01-30 16:00] VITALS: BP 120/68; PULSE 87; RESP 16; TEMP 36.6; O2SAT 98
[2025-01-30] MEDS: traMADol 50 MG Tablet PO (16:00)
--- NOTE | 2025-01-30 16:24 | NS ---
01/30/25: Call from social work nurse about pt dietary requests. States that pt wants bland foods; baked chicken w/no oil or seasoning, baked potato w/no oil, mixed vegetables with no oil or seasons. Pt would also like Ensure shakes to be discontinued d/t causing stomach upset. Food preparation preferences documented in [employer] and relayed to dietary staff. Will also document in diet order. Kristan No RDN, LD
--- NOTE | 2025-01-30 16:26 | PHA.CONS_ITS ---
Documented by User: Erika Boyle 01/30/25 16:47 TCU RX Drug Regimen Review Subjective/Objective Subjective/Objective Subjective: 74 YOF admitted to TCU s/p hospitalization at [facility] for a left distal femur fracture requiring surgical intervention. Hospitalization was complicated by acute blood loss anemia, ultimately requiring a blood transfusion. Admitted to TCU 01/29/25 for strengthening and rehabilitation prior to discharge home where she resides alone. Objective: Allergies dexamethasone Allergy (Severe, Verified 01/07/25 09:35) hallcenating, anxiety methylprednisolone Allergy (Severe, Verified 01/07/25 09:35) hallucenanting,anxiety prednisone Allergy (Severe, Verified 01/07/25 09:35) hallucenating ,anxiety azithromycin (From Zithromax Z-Rasheed) Allergy (Mild, Verified 01/07/25 09:35) heart racing levofloxacin (From Levaquin) Allergy (Mild, Verified 01/07/25 09:35) muscle pain, heart racing amantadine Allergy (Verified 01/07/25 09:35) Other cortisone Allergy (Verified 01/07/25 09:35) Other fluoxetine HCl (From Prozac) Allergy (Verified 01/07/25 09:35) Other Penicillins Allergy (Verified 01/07/25 09:35) Unknown erythromycin base Adverse Reaction (Severe, Verified 01/07/25 09:35) digestive upset prednisolone Adverse Reaction (Severe, Verified 01/07/25 09:35) hallucenations,anxiety escitalopram Adverse Reaction (Intermediate, Verified 01/07/25 09:35) nausea sertraline Adverse Reaction (Intermediate, Verified 01/07/25 09:35) heart racing Sulfa (Sulfonamide Antibiotics) Adverse Reaction (Intermediate, Verified 01/07/25 09:35) nausea,diarrhea Current Medications Generic Name Dose Route Start Last Admin Trade Name Freq PRN Reason Stop Dose Admin Acetaminophen 1,000 mg 01/28/25 22:00 01/30/25 14:09 Acetaminophen 500 Mg Tablet PO 02/04/25 22:01 1,000 mg Q8 TISH Administration Acetaminophen 1,000 mg 02/05/25 06:00 Acetaminophen 500 Mg Tablet PO Q8H PRN PAIN 1-10 Ascorbic Acid 1,000 mg 01/29/25 08:00 01/30/25 10:15 Ascorbic Acid 500 Mg Tablet PO 1,000 mg DAILYCM TISH Administration Bisacodyl 10 mg 01/28/25 17:57 Bisacodyl 10 Mg Suppository RC DAILY PRN PRN Constipation Calcium Carbonate 500 mg 01/29/25 16:51 01/30/25 14:09 Calcium Carbonate 500 Mg Tablet PO 500 mg Q4H PRN PRN Administration INDIGESTION Calcium/Vitamin D 1 tablet 01/29/25 07:45 01/30/25 14:09 Calcium Carb/Vitamin D 1 Tablet Tablet PO Not Given TIDCM [facility] Enoxaparin Sodium 40 mg 01/29/25 06:00 01/30/25 06:57 Enoxaparin 40 Mg/0.4 Ml Syringe SC 40 mg DAILY@0600 [facility] Administration Ferrous Sulfate 325 mg 01/29/25 08:00 01/29/25 08:40 Ferrous Sulfate 325 Mg Tablet PO 325 mg QODAY@0800 [facility] Administration Magnesium Chloride 128 mg 01/28/25 22:00 01/30/25 10:16 Magnesium Chloride 64 Mg Delay Rel.Tablet PO 128 mg BID [facility] Administration Magnesium Citrate 300 ml 01/28/25 17:57 Magnesium Citrate 300 Ml PO X1 PRN Constipation Oxycodone HCl 2.5 mg 01/29/25 16:50 Oxycodone 5 Mg Tablet PO Q4H PRN PRN Pain Score 6-10 or Pre PT/OT Polyethylene Glycol 17 gm 01/29/25 10:00 01/30/25 10:17 Polyethylene Glycol 3350 17 Gm Packet PO Not Given DAILY [facility] Psyllium Hydrophilic Mucilloid 1 packet 01/28/25 22:00 01/30/25 10:16 Psyllium 1 Packet PO Not Given BID [facility] Senna/Docusate Sodium 2 tablet 01/28/25 22:00 01/30/25 10:16 Senna/Docusate Sodium 1 Tablet PO 1 tablet BID [facility] Administration Sodium Chloride 10 - 40 ml 01/28/25 18:15 0.9% Saline Lock 10 Ml Syringe IV UD PRN SALINE FLUSH Tramadol HCl 50 mg 01/28/25 18:00 01/30/25 16:00 Tramadol 50 Mg Tablet PO 50 mg Q6H PRN PRN Administration Pain Score 4-10 Or Pre Pt/Ot Tuberculin PPD 0.1 ml 02/05/25 10:00 Tuberculin,Purif.Prot.Deriv. 50 Tu/Ml Vial ID 02/05/25 10:01 X1 ONE Problem List Hyperlipidemia (Acute) Hypomagnesemia (Acute) Acute blood loss anemia (Acute) Femur fracture, left (Acute) Fibromyalgia (Acute) GERD (gastroesophageal reflux disease) (Chronic) Osteoarthritis of left hip (Acute) Debility (Acute) Vital Signs Temp Pulse Resp BP Pulse Ox O2 Del Method 97.8 F 87 16 120/68 98 Room Air 01/30/25 16:00 01/30/25 16:00 01/30/25 16:00 01/30/25 16:00 01/30/25 16:00 01/30/25 16:00 Oxygen Delivery Method Room Air Weight: 76.799 kg Body Mass Index (BMI) 27.3 Sodium 139 mmol/L (133-145) 01/29/25 05:29 Potassium 4.1 mmol/L (3.3-5.1) 01/29/25 05:29 Chloride 104 mmol/L (98-108) 01/29/25 05:29 Carbon Dioxide 22.5 mmol/L (21.0-32.0) 01/29/25 05:29 Anion Gap 12 (5-15) 01/29/25 05:29 BUN 17 mg/dL (4-19) 01/29/25 05:29 Creatinine 0.54 mg/dL (0.70-1.20) L 01/29/25 05:29 Est GFR (MDRD) Non-Af 97 (>60) 01/29/25 05:29 BUN/Creatinine Ratio 31.8 RATIO (10-20) H 01/29/25 05:29 Glucose 104 mg/dL (70-99) H 01/29/25 05:29 Assessment/Plan: 1. Pain: Tylenol 100mg PO Q8h thru 02/04/25 then 1000mg PO Q6h PRN Pain thereafter, tramadol 50mg PO Q6h PRN Pain 4-5 oxycodone 2.5mg PO Q4h PRN Pain 6- 10. Please continue to monitor for S/s increased/decreased pain, PRN medication usage, oversedation/constipation with narcotic use, renal function (crCl 65mL/min on 01/30). - To date, the patient has required zero doses of oxycodone and 3 doses of tramadol. 2. DVT Prophylaxis: Lovenox 40mg SC Daily. Please continue to monitor for S/s bleeding/bruising, clot formation, CrCl (last 65 mL/min on 01/30), H/H (hgb 10.6, hct 32.5 on 01/30). 3. Iron deficiency anemia: Ferrous sulfate 325mg PO Q48h, Vitamin C 1000mg PO Daily. Please continue to monitor H/H, platelets (last 284 on 01/30), iron studies as clinically indicated. 4. General Wellness: Os-Lazaro+ D 1 tab PO TID, magnesium Chloride 128mg PO BID, Acidophilus 1 cap PO BID. 5. Indigestion: Tums 500mg PO Q4h PRN indigestion. Please continue to monitor for PRN medication usage, relief of symptoms. Please also encourage non- pharmacologic treatments to help minimize GERD exacerbations. 6. Bowel: Senna/Docusate 2 tab PO BID, Dulcolax 10mg AK Daily PRN, Metamucil 1 packet PO BID, Miralax 17g PO Daily, magnesium citrate 300mL PO Daily PRN. Please continue to monitor for increased/decreased constipation and/or diarrhea. - The Patient's last documented bowel movement was 01/30/25. Assessment/Plan for indications treated with psychotropic medications: -The patient is not being maintained on psychotropic medications at time of medication list review. Medical chart and medication regimen reviewed. The following medication irregularities or issues were identified: -No irregularities were identified at time of medication review. Date Date of Note: 01/30/25 Documented by User: Dr. Denton Rock MD 01/30/25 17:32 TCU RX Drug Regimen Review Provider Comments Provider responsibility Provider Comments to Recommendations by Pharmacy Agree
--- NOTE | 2025-01-30 18:15 | RAD_ITS ---
PROCEDURE: ABDOMEN SINGLE VIEW 01/30/2025 REASON FOR EXAM: ABDOMINAL PAIN/NAUSEA. TECHNIQUE: Single view abdomen. 2 supine AP views to include the entire abdomen and pelvis FINDINGS: Visualized lung bases appear clear. Question appearance of possible acute/recent appearing posterolateral left 7th and 8th rib fractures. No gaseous distention of bowel. Bowel gas pattern appears within limits. Partially imaged left hip replacement. Surgical clips over the sacrum. RAD/Abdomen Single View IMPRESSION: Question appearance of possible acute/recent appearing posterolateral left 7th and 8th rib fractures, clinically correlate. No gaseous distention of bowel. Bowel gas pattern appears within limits. Reading Location: [id number]
[2025-01-30] MEDS: Pantoprazole Sodium 40 MG Tablet PO (18:56)
[2025-01-31] MEDS: Enoxaparin 40 MG/0.4 ML Syringe SC (06:04)
[2025-01-31 08:29] VITALS: BP 123/62; PULSE 94; RESP 17; TEMP 36.7; O2SAT 97
[2025-01-31] MEDS: Acetaminophen 500 MG Tablet 1000 MG PO ×2 (08:40→16:22)
[2025-01-31] MEDS: Lactobacillis Acidophilus 1 CAP PO ×2 (08:40→16:22)
[2025-01-31] MEDS: Pantoprazole Sodium 40 MG Tablet PO (08:40)
[2025-01-31] MEDS: oxyCODONE 5 MG Tablet PO ×3 (08:41→18:35)
[2025-01-31] MEDS: Ondansetron ODT 4 MG Tablet 8 MG PO ×2 (08:42→18:35)
--- NOTE | 2025-01-31 15:40 | RAD_ITS ---
EXAM: Left femur radiograph CLINICAL HISTORY: Left knee pain COMPARISON: 01/20/2025 TECHNIQUE: Four view radiograph left femur. FINDINGS: Postoperative changes left hip arthroplasty and distal femoral intramedullary juan manuel and screw fixation. Hardware is intact. Redemonstration comminuted fracture distal femur with slight interval improvement in degree of alignment compared with the prior examination. Small osseous fragments are noted anterior and posterior to the distal femur. No new fracture is identified. Bvnq-da-siotilro degenerative changes of the left knee. Moderate joint effusion. Moderate soft tissue swelling. Multiple surgical tolu overlie the knee. RAD/Femur Min 2 Views IMPRESSION: See above Reading Location: [facility]
[2025-01-31] MEDS: Psyllium 1 PACKET PO (20:02)
[2025-01-31 20:07] VITALS: RESP 16
[2025-02-01] MEDS: oxyCODONE 5 MG Tablet PO ×2 (03:35→10:17)
[2025-02-01] MEDS: Ondansetron ODT 4 MG Tablet 8 MG PO ×2 (03:39→13:46)
[2025-02-01] MEDS: Enoxaparin 40 MG/0.4 ML Syringe SC (06:13)
[2025-02-01] MEDS: Pantoprazole Sodium 40 MG Tablet PO (10:11)
[2025-02-01 10:42] VITALS: BP 110/64; PULSE 85; RESP 12; TEMP 36; O2SAT 98
[2025-02-01] MEDS: Psyllium 1 PACKET PO (15:47)
[2025-02-01] MEDS: Senna/Docusate Sodium 1 Tablet 2 TABLET PO (19:44)
[2025-02-02 08:48] VITALS: BP 115/66; PULSE 83; RESP 16; TEMP 36.3; O2SAT 97
[2025-02-02] MEDS: Enoxaparin 40 MG/0.4 ML Syringe SC (08:49)
[2025-02-02] MEDS: Lactobacillis Acidophilus 1 CAP PO (08:50)
[2025-02-02] MEDS: Pantoprazole Sodium 40 MG Tablet PO (08:50)
[2025-02-02] MEDS: Ondansetron ODT 4 MG Tablet 8 MG PO (11:18)
[2025-02-02] MEDS: oxyCODONE 5 MG Tablet PO (14:32)
--- NOTE | 2025-02-02 20:46 | NURSING ---
Patient requesting acidophilus be discontinued due to believes med causes nausea. Dr. Rock notified of patient requests via telephone. New order received to d/c acidophilus per pt.request. Order repeated back and verified
[2025-02-02] MEDS: Senna/Docusate Sodium 1 Tablet 2 TABLET PO (21:05)
[2025-02-02] MEDS: Psyllium 1 PACKET PO (21:46)
[2025-02-03] MEDS: oxyCODONE 5 MG Tablet PO ×3 (02:54→18:30)
[2025-02-03 02:56] VITALS: RESP 15
[2025-02-03 08:58] VITALS: BP 99/60; PULSE 86; RESP 18; TEMP 36.7; O2SAT 98
[2025-02-03] MEDS: Enoxaparin 40 MG/0.4 ML Syringe SC (08:58)
[2025-02-03] MEDS: Pantoprazole Sodium 40 MG Tablet PO (08:59)
[2025-02-03] MEDS: Psyllium 1 PACKET PO ×2 (09:04→20:53)
--- NOTE | 2025-02-03 09:25 | NURSING ---
Offered covid vaccine, VIS provided. Resident declines at this time.
--- NOTE | 2025-02-03 12:01 | CASEMGMT ---
Addendum entered by Louise Muse 02/03/25 14:00: Social Work [facility] can accept pt with a Start of Care on 02/05. Pt aware and agreeable. TRESA Kaur Original Note: Social Work Pt came to office requesting to discharge home tomorrow. SW spoke with IDT who is agreeable with dc plan. Therapy recommending home health PT/OT and pt is agreeable to this. A list of [facility] providers including quality and resource use data and consistent with the patient?s preferred geographic region, medical needs, and insurance network were provided from the [employer] Guide. Pt preferred provider is [facility]. Referral made and SW will await determination of acceptance. Pt has all needed DME. Pt states her son will transport her home at 1030 on 02/04 and pt will notify son of discharge plan. Discharge date: 02/04 Discharge disposition: Home with [facility] PT/OT TRESA Mason
[2025-02-03] MEDS: APIXABAN 5 MG TABLET 10 MG PO ×2 (12:31→20:52)
--- NOTE | 2025-02-03 13:58 | CASEMGMT ---
PHQ9 (0) and BIMS () interviews completed on this date for MDS assessment. TRESA Kaur
--- NOTE | 2025-02-03 15:38 | NURSING ---
Dr Aponte to unit to see patient.
--- NOTE | 2025-02-03 16:15 | PN.ORTHO_ITS ---
Subjective Subjective Patient seen and examined. Reports pain in the left knee. States she plans to go home tomorrow. She states she was diagnosed with a DVT today. She denies any chest pain or shortness of breath, fevers or chills, nausea or vomiting. She states she was mobilizing well with a walker. Objective Data Objective Data Vital Signs: Vital Signs Temp Pulse Resp BP Pulse Ox O2 Del Method 98.1 F 86 18 99/60 98 Room Air 02/03/25 08:58 02/03/25 08:58 02/03/25 08:58 02/03/25 08:58 02/03/25 08:58 02/03/25 08:58 Oxygen Delivery Method Room Air Weight: 169 lb 5.005 oz Body Mass Index (BMI) 27.3 Intake & Output: Intake and Output for Last 24 Hours 02/01/25 02/02/25 02/03/25 23:59 23:59 23:59 Intake Total 960 / 960 240 / 240 480 / 480 Balance 960 / 960 240 / 240 480 / 480 Lab / Micro Data 01/29/25 05:29 01/29/25 05:29 Physical Exam Narrative General - A&Ox3, NAD. VSS/AF Left lower extremity -well-healing incisions. No erythema or drainage. SILT Sural, Saphenous, SPN, DPN, Tibial N. distributions. DP, PT 2+. BCR. DF, PF, EHL 5/5. No calf TTP. No significant edema is appreciated. Assessment & Plan Assessment/Plan (1) Femur fracture, left: QUALIFIERS: Encounter type: initial encounter Femur location: s upracondylar without intracondylar extension Fracture type: closed Fracture alignment: displaced Qualified Code(s): S72.452A - Displaced supracondylar fracture without intracondylar extension of lower end of left femur, initial encounter for closed fracture PLAN: 2 weeks status post left femur retrograde nailing - Apparently diagnosed with DVT, report not available in EMR. Eliquis has been started by primary. - X-rays reviewed From 01/31/2025. Fracture alignment is maintained. One of the distal interlocking screws does appear to be backing out. I mention this to the patient. I recommended she continue with mobilization but stressed that if she is having pain with weightbearing, that she is weight-bear as tolerated and should lessen her weightbearing so she was pain-free. Plan to follow-up in 2 weeks with x-rays. I explained that the very least she will require hardware removal. My hope was to let the fracture heal more before any hardware removal or exchange, but the timing of any intervention will be determined based on the rate of healing. - Wounds are draining well. Removal of tolu will be ordered by nursing.
[2025-02-03] MEDS: Acetaminophen 500 MG Tablet 1000 MG PO (18:31)
[2025-02-03] MEDS: Ondansetron ODT 4 MG Tablet 8 MG PO (18:46)
--- NOTE | 2025-02-03 19:00 | NURSING ---
Dr Aponte ordered tolu be removed, 39 tolu removed from right knee. pt tolerated well.
--- NOTE | 2025-02-03 19:05 | DS.PCM_ITS ---
Providers Date of Admission: 01/28/25 Primary Care Physician: Dr. Tom Alonso, DO Reason For Visit: FALL LEFT FEMUR FRACTURE Diagnosis Discharge Diagnosis (1) Femur fracture, left: Status: Acute Code(s): S72.92XA - Unspecified fracture of left femur, initial encounter for closed fracture Qualifiers: Encounter type: initial encounter Femur location: supracondylar without intracondylar extension Fracture type: closed Fracture alignment: displaced Q ualified Code(s): S72.452A - Displaced supracondylar fracture without intracondylar extension of lower end of left femur, initial encounter for closed fracture Plan 74 year old female with below past medical history hospitalized for left distal femur fracture, underwent left femur retrograde intramedullary nailing 01/21/[address] Aponte, postoperative course complicated by acute blood loss anemia requiring transfusion, uti ruled out, admitted to TCU with debility, here for rehabilitation, strengtheing, prior to discharge home alone. * Debility - PT/OT. * Pain - Tylenol 1000mg q8, q8 prn, Tramadol 50mg q6 prn. * Bowel - Miralax 17gm daily, Metamucil 1 packet bid, senna/colace 2 tablets bid, Magnesium citrate 300mL daily prn,Dulcolax 10mg pr daily prn. * Adult immunization - Administer pneumonia vaccine, covid vaccine, flu vaccine as appropriate. * DVT prophylaxis - Lovenox 40mg sc daily. * Iron deficiency anemia - Ferrous sulfate 325mg qod, Vitamin C 1000mg daily. * Calcium deficiency - Calcium D tidcm. * Hypomagnesemia - Magnesium chloride 128mg bid. Medications at Discharge Home Medications magnesium oxide 500 mg PO BID supplement 02/25/21 omega 0-tds-xgj-fish oil 300 mg-1,000 mg capsule,delayed release (Fish Oil) 1 cap PO BID supplement 09/06/24 calcium 500 mg (as carbonate)-vitamin D3 5 mcg (200 unit) tablet (Oyster Shell Calcium-Vitamin D3) 1 tab PO TID SUPPLEMENT 01/20/25 acetaminophen 500 mg tablet 1,000 mg (2 x 500 mg) PO Q8 pain #0 tabs 01/28/25 ascorbic acid (vitamin C) 500 mg tablet 1,000 mg (2 x 500 mg) PO DAILYCM vit C #0 tabs 01/28/25 ferrous sulfate 325 mg (65 mg iron) tablet (FeroSul) 325 mg PO QODAY iron #0 tabs 01/28/25 psyllium husk (aspartame) 3 gram oral powder packet (Daily Fiber (psyllium- aspartame)) 1 packet PO BID bowels #0 ea 01/28/25 sennosides 8.6 mg-docusate sodium 50 mg tablet (Senna-S) 2 tab-cap (2 x 8.6-50 mg) PO BID PRN constipation #30 tabs 01/28/25 tramadol 50 mg tablet 50 mg PO Q6H PRN PRN Pain Score 4-10 Or Pre Pt/Ot #0 tabs 01/28/25 Hospital Course Operations - (See below.) Procedures None Summary of Care Provided Minutes Spent on Discharge: 35 Hospital Course: 74 year old female with below past medical history hospitalized for left distal femur fracture, underwent left femur retrograde intramedullary nailing 01/21/[address] Aponte, postoperative course complicated by acute blood loss anemia requiring transfusion, uti ruled out, admitted to TCU with debility, here for rehabilitation, strengthening, prior to discharge home alone. 02/03/2025 Doppler ultrasound left lower extremity positive dvt, recommend Eliquis 10mg bid x 7 days, then Eliquis 5mg bid thru 05/05/2025. Discharge home alone 02/04/2025, [facility] PT/OT. Physical Exam Const alert General Appearance: cooperative HEENT normocephalic Eyes PERRL and EOMs intact bilaterally Neck supple, no JVD and no carotid bruits Resp normal respiratory effort, normal air movement and clear to auscultation bilaterally Cardio regular rate and regular rhythm GI normal to inspection, nondistended, normoactive bowel sounds, non-tender and non-distended Extremity normal capillary refill General Extremity: Negative for edema Skin no rashes or lesions noted General Skin Exam: no breakdown Psych affect normal Appearance: appropriate Weight / BMI Weight Weight: 76.799 kg Body Mass Index (BMI) 27.3 ABG / Lab / Microbiology Data 01/29/25 05:29 01/29/25 05:29 D/C Instructions Discharge Diet: No restrictions Discharge Activity: Return to Normal Activity, May Shower and Use Walker Weight Bearing Status: Weight bearing as tolerated Call your doctor if you observe: Fever of 101 or Higher, Inability to urinate, Inability to have a bowel movement, Shortness of breath, Dizziness, Fainting spells, Swelling in the ankles, Chest pain and Uncontrolled pain DC O2, CPAP, BIPAP Needs Home O2 Discharge instructions: No Additional Instructions: Discharge home alone 02/04/2025, [facility] PT/OT. Please Follow Up With: Dr. Aponte When: 02/17/2025. Meaningful Use Info Meaningful Use Meaningful Use Diagnoses (Choose all that apply): None applicable Ischemic Stroke Statin Dosing Therapy Reference: STATIN DOSE THERAPY REFERENCE: * Patients > 75 years receive moderate or high dose statin therapy. * Patients 75 years or YOUNGER should receive HIGH intensity statin dose unless contraindicated. You will be required to document reason for non-treatment if statin daily dose does not meet guidelines. HIGH DOSE STATIN THERAPY DAILY Atorvastatin > than or = to 40 mg Rosuvastatin > than or = to 20 mg Amlodipine + Atorvastatin > than or = to 2.5/40 mg Ezetimibe + Simvastatin 10/80 mg Simvastatin 80mg Discharge Plan Admission Admit Date/Time: 01/28/25 17:52 Primary Reason for Your Visit: Debility. Attending Provider: Denton Rock Chi Primary Care Provider: Tom Alonso Instructions Additional Instructions / Restrictions: Discharge home alone 02/04/2025, [facility] PT/OT. Discharge Orders/Prescriptions Prescriptions: No Action magnesium oxide 400 mg magnesium capsule 500 mg PO BID omega 0-luz-yii-fish oil [Fish Oil] 300-1,000 mg capsule,delayed release(DR/EC) 1 cap PO BID calcium carbonate-vitamin D3 [Oyster Shell Calcium-Vit D3] 500 mg-5 mcg (200 unit) Tablet 1 tab PO TID tramadol 50 mg Tablet 50 mg PO Q6H PRN PRN (Reason: Pain Score 4-10 Or Pre Pt/Ot) Qty: 0 0RF acetaminophen 500 mg Tablet 1,000 mg PO Q8 Qty: 0 0RF Rx Instructions: 1 g every 8 hourly for 7 days and then as needed ascorbic acid (vitamin C) 500 mg Tablet 1,000 mg PO DAILYCM Qty: 0 0RF ferrous sulfate [FeroSul] 325 mg (65 mg iron) Tablet 325 mg PO QODAY Qty: 0 0RF Daily Fiber (psyllium-aspart) 3 gram Powder In Packet 1 packet PO BID Qty: 0 0RF sennosides-docusate sodium [Senna-S] 8.6-50 mg tablet 2 tab-cap PO BID PRN (Reason: constipation) Qty: 30 0RF Referrals / Follow Up: Tom Alonso DO [Primary Care Provider] - 02/05/25 10:40 am Jasbir Aponte DO [Med Staff - Active Staff] - 02/06/25 9:30 am
--- NOTE | 2025-02-03 19:05 | PCM.DC.SUM ---
Providers Date of Admission: 01/28/25 Primary Care Physician: Dr. Tom Alonso, Reason For Visit: FALL LEFT FEMUR FRACTURE Diagnosis Discharge Diagnosis (1) Femur fracture, left: Status: Acute Code(s): S72.92XA - Unspecified fracture of left femur, initial encounter for closed fracture Qualifiers: Encounter type: initial encounter Femur location: supracondylar without intracondylar extension Fracture type: closed Fracture alignment: displaced Qualified Code(s): S72.452A - Displaced supracondylar fracture without intracondylar extension of lower end of left femur, initial encounter for closed fracture Plan 74 year old female with below past medical history hospitalized for left distal femur fracture, underwent left femur retrograde intramedullary nailing 01/21/[address] Aponte, postoperative course complicated by acute blood loss anemia requiring transfusion, uti ruled out, admitted to TCU with debility, here for rehabilitation, strengtheing, prior to discharge home alone. Debility - PT/OT. Pain - Tylenol 1000mg q8, q8 prn, Tramadol 50mg q6 prn. Bowel - Miralax 17gm daily, Metamucil 1 packet bid, senna/colace 2 tablets bid, Magnesium citrate 300mL daily prn,Dulcolax 10mg pr daily prn. Adult immunization - Administer pneumonia vaccine, covid vaccine, flu vaccine as appropriate. DVT prophylaxis - Lovenox 40mg sc daily. Iron deficiency anemia - Ferrous sulfate 325mg qod, Vitamin C 1000mg daily. Calcium deficiency - Calcium D tidcm. Hypomagnesemia - Magnesium chloride 128mg bid. Medications at Discharge Home Medications magnesium oxide 500 mg PO BID supplement 02/25/21 omega 2-vmh-zhh-fish oil 300 mg-1,000 mg capsule,delayed release (Fish Oil) 1 cap PO BID supplement 09/06/24 psyllium husk (aspartame) 3 gram oral powder packet (Daily Fiber (psyllium-aspartame)) 1 packet PO BID bowels #0 ea 01/28/25 acetaminophen 500 mg tablet 1,000 mg (2 x 500 mg) PO Q6H PRN PRN Pain Score 1-3 #0 tabs 02/03/25 apixaban 5 mg tablet (Eliquis) 5 mg PO BID 30 days #60 tabs 02/03/25 apixaban 5 mg tablet (Eliquis) 10 mg (2 x 5 mg) PO BID 6 days #24 tabs 02/03/25 ondansetron 4 mg disintegrating tablet 8 mg (2 x 4 mg) PO Q8H PRN PRN Nausea/Vomiting 30 days #180 tabs 02/03/25 oxycodone 5 mg tablet 5 - 10 mg (1 - 2 x 5 mg) PO Q4H PRN PRN Pain Score 6-10 Or Pre Pt/Ot 7 days #84 tabs 02/03/25 pantoprazole 40 mg tablet,delayed release 40 mg PO DAILY 30 days #30 tabs 02/03/25 sennosides 8.6 mg-docusate sodium 50 mg tablet (Stimulant Laxative Plus) 2 tab PO BID 30 days #120 tabs 02/03/25 tramadol 50 mg tablet 50 mg PO Q6H PRN PRN Pain Score 4-5 Or Pre Pt/Ot 7 days #28 tabs 02/03/25 Hospital Course Operations - (See below.) Procedures None Summary of Care Provided Minutes Spent on Discharge: 35 Hospital Course: 74 year old female with below past medical history hospitalized for left distal femur fracture, underwent left femur retrograde intramedullary nailing 01/21/[address] Aponte, postoperative course complicated by acute blood loss anemia requiring transfusion, uti ruled out, admitted to TCU with debility, here for rehabilitation, strengthening, prior to discharge home alone. 02/03/2025 Doppler ultrasound left lower extremity positive dvt, recommend Eliquis 10mg bid x 7 days, then Eliquis 5mg bid thru 05/05/2025. Discharge home alone 02/04/2025, [facility] PT/OT. Physical Exam Const alert General Appearance: cooperative HEENT normocephalic Eyes PERRL and EOMs intact bilaterally Neck supple, no JVD and no carotid bruits Resp normal respiratory effort, normal air movement and clear to auscultation bilaterally Cardio regular rate and regular rhythm GI normal to inspection, nondistended, normoactive bowel sounds, non-tender and non-distended Extremity normal capillary refill General Extremity: Negative for edema Skin no rashes or lesions noted General Skin Exam: no breakdown Psych affect normal Appearance: appropriate Weight / BMI Weight Weight: 76.799 kg Body Mass Index (BMI) 27.3 ABG / Lab / Microbiology Data 01/29/25 05:29 01/29/25 05:29 D/C Instructions Discharge Diet: No restrictions Discharge Activity: Return to Normal Activity, May Shower and Use Walker Weight Bearing Status: Weight bearing as tolerated Call your doctor if you observe: Fever of 101 or Higher, Inability to urinate, Inability to have a bowel movement, Shortness of breath, Dizziness, Fainting spells, Swelling in the ankles, Chest pain and Uncontrolled pain DC O2, CPAP, BIPAP Needs Home O2 Discharge instructions: No Additional Instructions: Discharge home alone 02/04/2025, [facility] PT/OT. Please Follow Up With: Dr. Aponte When: 02/17/2025. Meaningful Use Info Meaningful Use Meaningful Use Diagnoses (Choose all that apply): None applicable Ischemic Stroke Statin Dosing Therapy Reference: STATIN DOSE THERAPY REFERENCE: * Patients > 75 years receive moderate or high dose statin therapy. * Patients 75 years or YOUNGER should receive HIGH intensity statin dose unless contraindicated. You will be required to document reason for non-treatment if statin daily dose does not meet guidelines. HIGH DOSE STATIN THERAPY DAILY Atorvastatin > than or = to 40 mg Rosuvastatin > than or = to 20 mg Amlodipine + Atorvastatin > than or = to 2.5/40 mg Ezetimibe + Simvastatin 10/80 mg Simvastatin 80mg Discharge Plan Admission Admit Date/Time: 01/28/25 17:52 Primary Reason for Your Visit: Debility. Attending Provider: D[place] Rock Chi Primary Care Provider: Tom Alonso Instructions Additional Instructions / Restrictions: Discharge home alone 02/04/2025, [facility] PT/OT. Discharge Orders/Prescriptions Prescriptions: New sennosides-docusate sodium [Stimulant Laxative Plus] 8.6-50 mg Tablet 2 tab PO BID 30 Days Qty: 120 0RF tramadol 50 mg Tablet 50 mg PO Q6H PRN PRN (Reason: Pain Score 4-5 Or Pre Pt/Ot) 7 Days Qty: 28 0RF acetaminophen 500 mg Tablet 1,000 mg PO Q6H PRN PRN (Reason: Pain Score 1-3) Qty: 0 0RF pantoprazole 40 mg Tablet,Delayed Release (Dr/Ec) 40 mg PO DAILY 30 Days Qty: 30 0RF ondansetron 4 mg Tablet,Disintegrating 8 mg PO Q8H PRN PRN (Reason: Nausea/Vomiting) 30 Days Qty: 180 0RF oxycodone 5 mg Tablet 5 - 10 mg PO Q4H PRN PRN (Reason: Pain Score 6-10 Or Pre Pt/Ot) 7 Days Qty: 84 0RF Eliquis 5 mg Tablet 10 mg PO BID 6 Days Qty: 24 0RF Eliquis 5 mg Tablet 5 mg PO BID 30 Days Qty: 60 0RF Continued magnesium oxide 400 mg magnesium capsule 500 mg PO BID omega 0-gjd-dry-fish oil [Fish Oil] 300-1,000 mg capsule,delayed release(DR/EC) 1 cap PO BID Daily Fiber (psyllium-aspart) 3 gram Powder In Packet 1 packet PO BID Qty: 0 0RF Discontinued calcium carbonate-vitamin D3 [Oyster Shell Calcium-Vit D3] 500 mg-5 mcg (200 unit) Tablet 1 tab PO TID tramadol 50 mg Tablet 50 mg PO Q6H PRN PRN (Reason: Pain Score 4-10 Or Pre Pt/Ot) Qty: 0 0RF acetaminophen 500 mg Tablet 1,000 mg PO Q8 Qty: 0 0RF Rx Instructions: 1 g every 8 hourly for 7 days and then as needed ascorbic acid (vitamin C) 500 mg Tablet 1,000 mg PO DAILYCM Qty: 0 0RF ferrous sulfate [FeroSul] 325 mg (65 mg iron) Tablet 325 mg PO QODAY Qty: 0 0RF sennosides-docusate sodium [Senna-S] 8.6-50 mg tablet 2 tab-cap PO BID PRN (Reason: constipation) Qty: 30 0RF Referrals / Follow Up: Tom Alonso DO [Primary Care Provider] - 02/05/25 10:40 am Jasbir Aponte DO [Med Staff - Active Staff] - 02/17/25 (Dr. Aponte saw resident on TCU.) Disposition Disposition (needs filled in before D/C Order can be placed): Home Health Service
[2025-02-03] MEDS: Senna/Docusate Sodium 1 Tablet 2 TABLET PO (20:52)
[2025-02-04 06:36] VITALS: RESP 16
[2025-02-04] MEDS: Pantoprazole Sodium 40 MG Tablet PO (08:13)
[2025-02-04] MEDS: APIXABAN 5 MG TABLET 10 MG PO (08:13)
[2025-02-04] MEDS: Psyllium 1 PACKET PO (08:13)
[2025-02-04] MEDS: oxyCODONE 5 MG Tablet PO (08:14)
[2025-02-04] MEDS: Senna/Docusate Sodium 1 Tablet 2 TABLET PO (08:19)
[2025-02-04 08:20] VITALS: BP 109/60; PULSE 88; RESP 16; TEMP 36.5; O2SAT 98
[2025-02-04 11:03] VITALS: BP 109/65; PULSE 90; RESP 16; TEMP 36.9; O2SAT 98
--- NOTE | 2025-02-06 09:07 | MDS.RN ---
Information for the MDS was obtained from review of the clinical record, interview of resident, staff, and direct observation of resident?s care.
== END 2025-02-04 11:00 | disposition home health service (06) | DRG 560 ==
PROVIDERS: Admitting Provider Family Medicine Geriatric Medicine; PCP Family Medicine; Referring Provider Family Medicine Geriatric Medicine; Visit Provider Family Medicine Geriatric Medicine
DX: S72.492D Other fracture of lower end of left femur, subsequent encounter for closed fracture with routine healing (principal); I82.402 Acute embolism and thrombosis of unspecified deep veins of left lower extremity; D62 Acute posthemorrhagic anemia; D50.9 Iron deficiency anemia, unspecified; E55.9 Vitamin D deficiency, unspecified; M16.12 Unilateral primary osteoarthritis, left hip; M79.7 Fibromyalgia; K21.9 Gastro-esophageal reflux disease without esophagitis; E78.5 Hyperlipidemia, unspecified; W01.0XXD Fall on same level from slipping, tripping and stumbling without subsequent striking against object, subsequent encounter; Z79.899 Other long term (current) drug therapy
CPT/HCPCS: 36415; 73552; 74018; 80048; 85025; 97110; 97116; 97162; 97166; 97530; 97535; 97802

== ENCOUNTER → 2025-02-03 | Outpatient (CLI) | payer MEDICARE, SELFPAY ==
--- NOTE | 2025-02-03 08:19 | VDLE_ITS ---
Reason For Study Reason For Study: Left leg pain RIGHT LEFT CFV is compressible, spontaneous, phasic, competent GSV is normal. and demonstrates normal augmentation. CFV is compressible, spontaneous, phasic, competent, Procedure and demonstrates normal augmentation. This is a venous duplex using B-mode, color flow and FV is compressible, spontaneous, phasic, competent and spectral Doppler. demonstrates normal augmentation. Exam performed in department. POP V is compressible, spontaneous, phasic, competent A preliminary report was called and/or faxed to TCU and demonstrates normal augmentation. RN. PTV is compressible. Acute deep vein thrombosis is noted in the left T/P Trunk, Peroneal V and Soleus V. It is dilated and NONCOMPRESSIBLE. VL/Venous Duplex US, Unilateral Interpretation Summary Acute deep vein thrombosis noted in left tibioperoneal trunk vein, peroneal vei n, soleus vein Ordering Physician: Denton Rock Chi Referring Physician: Tom Alonso Performed By: Adilia Eckert RVT
== END | disposition home or self-care (01) ==
LOC: CVS 08:18
PROVIDERS: PCP Family Medicine; Referring Provider Family Medicine Geriatric Medicine; Visit Provider Family Medicine Geriatric Medicine
DX: M79.662 Pain in left lower leg (principal)
CPT/HCPCS: 93971

== ENCOUNTER → 2025-02-05 | Outpatient (CLI) | payer MEDICARE, SELFPAY ==
[2025-02-05 16:04] LABS: Erythrocyte Sedimentation Rate 37 mm/hr (0-30)
[2025-02-05 16:06] LABS: Absolute Lymphocyte Count 1.35 X10^3/uL (0.83-4.51); Absolute Neutrophil Count 5.1 X10^3/uL (2.0-7.7); Basophil# 0.04 X10^3/uL; Basophil% 0.6 % (0-1); Eosinophil# 0.08 X10^3/uL; Eosinophils% 1.1 % (0-5); Hematocrit 37.3 % (37-47); Lymphocyte # 1.35 X10^3/ul (0.83-4.51); Lymphocyte % 18.8 % (19-41); Mean Corp Hgb Conc 32.2 g/dL (32-36); Mean Corpuscular Hgb 29.9 pg (27.0-32.0); Monocyte# 0.64 X10^3/uL; Monocyte% 8.9 % (0-10); NRBC Flagged by Analyzer 0 % (0-5); Neutrophil # 5.07 X10^3/uL (2.7-7.7); Neutrophil % 70.3 % (47-70); Platelet Count 397 K/mm3 (150-450); RBC Distribution Width SD 47.9 fl (35.1-43.9); Red Blood Count 4.01 M/mm3 (4.2-5.4); White Blood Count 7.2 K/mm3 (4.4-11.0)
[2025-02-05 17:11] LABS: CRP 6.02 mg/L (0.0-3.0); Iron 43 ug/dL (50-170)
[2025-02-05 17:13] LABS: Ferritin 330 ng/mL (22-378); Vitamin D,25 Hydroxy 53.4 ng/mL (30-100)
[2025-02-07 05:07] LABS: Prealbumin 23 mg/dL (9-32)
== END | disposition home or self-care (01) ==
LOC: BFHLAB 11:25
PROVIDERS: PCP Family Medicine; Visit Provider Family Medicine
DX: D64.9 Anemia, unspecified (principal); E46 Unspecified protein-calorie malnutrition; M81.0 Age-related osteoporosis without current pathological fracture; M25.462 Effusion, left knee
CPT/HCPCS: 36415; 82306; 82728; 83540; 84134; 85025; 85652; 86140

== ENCOUNTER 2025-02-10 16:22 | Inpatient (IN) | payer MEDICARE, SELFPAY ==
[2025-02-10] VITALS (15 sets, daily range): BP systolic 108–145; BP diastolic 51–101; PULSE 79–104; RESP 12–20; TEMP 36.3–36.7; O2SAT 93–100; BMI 27.2
[2025-02-10] MEDS: 0.9% Normal Saline (1000mL) 1,000 ML 15 ML IV (11:20)
--- NOTE | 2025-02-10 11:40 | PRE.ANES_ITS ---
ASA Classification* ASA Classification ASA Classification: 2 Assessment & Plan Anesthesia* Anesthesia Assessment Anesthesia Assessment: Discussed sedation and/or anesthesia options, risks, benefits, and alternatives with patient/parents/legal guardian/POA. Questions invited. The patient/parents/legal guardian/POA seems to understand and agrees to proceed with anesthesia plan. Reviewed the physical assessment, medical history, allergy history and patient home medications list prior to surgery/procedure/anesthetic and documented any changes. Performed airway and anesthesia risk assessments. Anesthesia Type Anesthesia Type: General Anesthesia Focused Assessment* Airway Assessment Mouth opens: >3 cm Mallampati Score: II Focused Labs Anesthesia Preop lab: CBC WBC 7.2 K/mm3 (4.4-11.0) 02/05/25 11:02/05/25 RBC 4.01 M/mm3 (4.2-5.4) L 02/05/25 11:02/05/25 Hgb 12.0 g/dL (12.0-15.0) 02/05/25 11:02/05/25 Hct 37.3 % (37-47) 02/05/25 11:02/05/25 Plt Count 397 K/mm3 (150-450) 02/05/25 11:02/05/25 CHEMISTRY Potassium 4.1 mmol/L (3.3-5.1) 01/29/25 05:01/29/25 Sodium 139 mmol/L (133-145) 01/29/25 05:01/29/25 Magnesium 1.9 mg/dL (1.5-2.2) 01/24/25 05:01/24/25 Phosphorus 3.2 mg/dL (2.7-4.5) 01/24/25 05:01/24/25 BUN 17 mg/dL (4-19) 01/29/25 05:01/29/25 Creatinine 0.54 mg/dL (0.70-1.20) L 01/29/25 05: Glucose 104 mg/dL (70-99) H 01/29/25 05:01/29/25 POC Glucose 71 mg/dL (74-106) L 09/09/24 08:35 09/09/24 TSH 2.210 uIU/mL (0.300-4.200) 01/21/25 05:22 03/2 03/23 COAG PT 14.3 SECONDS (11.7-14.9) 01/21/25 05:22 Pre-Assessment Diagnosis/Proposed Procedure Planned Operative Procedure(s): LEFT DISTAL FEMUR REVISION ORIF Anesthesia History 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 When Was Last Pacemaker Check QUESTION #4 FULL TEXT: You/Your Family Experience fever (hyperthermia) with Anesthesia Last Oral Intake Last Oral intake: Last Oral Intake NPO since Meds taken in AM with sips of water? 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 machine operator Female Yes 02/07/25 12:33 HX of Motion Sickness No 02/07/25 12:33 HX of N/V After Surgery No 02/07/25 12:33 Non-Smoker Yes 02/07/25 12:33 Duration of Surgery greater Yes 02/07/25 12:33 than 60 minutes Number of Risk Factors 3 02/07/25 12:33 PONV Score Moderate Risk 02/07/25 12:33 Height & Weight Height & Weight: Anesthesia: Height & Weight Height 5 ft 6 in 01/29/25 12:22 Respiratory Assessment Respiratory Assessment - crusher machine operator: Respiratory Tract Infection Hx - crusher machine operator Hx Respiratory Tract Infection No 02/07/25 12:33 STOP Sleep Apnea STOP Sleep Apnea - crusher machine operator: STOP Sleep Apnea - crusher machine operator Hx Hypertension No 02/07/25 12:33 Hx Sleep Apnea No 02/07/25 12:33 CPAP BIPAP Do you snore loudly (louder No 02/07/25 12:33 than talking or can be heard Do you often feel tired/ Yes 02/07/25 12:33 fatigued/ sleepy during daytime? Has anyone observed you stop No 02/07/25 12:33 breathing during sleep? STOP Results Negative 02/07/25 12:33 QUESTION #5 FULL TEXT : Do you snore loudly (louder than talking or can be heard through closed doors)? 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 Specify any problems Hx of Preganancy in last 3 No 02/07/25 12:33 Months Nurse Filling Out Transfusion DSCHRIBER 02/07/25 12:33 & Questions: Date: 02/07/25 02/07/25 12:33 Time: 12:34 02/07/25 12:33 Patient unable to answer at this time (ie. confused, unrespo /Reproduction History /Reproductive History - crusher machine operator: /Reproductive Hx- crusher machine operator Hx Now Gestational Age (in weeks): EDC: Hx Hx Para Hx Section SAB No 02/07/25 12:33 Active Medications Active Medications: Current Medications Generic Name Dose Route Start Last Admin Trade Name Freq PRN Reason Stop Dose Admin Sodium Chloride 1,000 mls @ 15 mls/hr 02/10/25 11:20 IV .Q48H TISH PFSH Medical History Nausea Femur fracture, left Rectal bleeding Hemorrhoids Vitamin D deficiency Wears hearing aid Wears glasses Wears dentures Post-menopausal Depression Anxiety Walker as ambulation aid Back pain Constipation Gastric reflux Non-smoker History of pain when walking History of stress test Hx of fracture of wrist Skin cancer Osteoporosis Osteopenia Osteoarthritis Arthritis Fatigue sudden weight loss Abnormal thermography Thyroid nodule Home Medications ?Medication ?Instructions ?Recorded ?Last Taken ?Type magnesium oxide 500 mg PO BID supplement 01/20/25 History omega 5-mgj-rha-fish oil 300 1 cap PO BID supplement 1 11/06/23 01/20/25 History mg-1,000 mg capsule,delayed release (Fish Oil) Held on 02/07/25. Instructions: MD Ordered acetaminophen 500 mg tablet 1,000 mg (2 x 500 mg) PO Q 6H PRN 02/03/25 Unknown Rx PRN Pain Score 1-3 #0 tabs apixaban 5 mg tablet (Eliquis) 10 mg (2 x 5 mg) PO BID 6 days #24 02/03/25 Unknown Rx tabs oxycodone 5 mg tablet 5 - 10 mg (1 - 2 x 5 mg) PO Q4H 02/03/25 Unknown Rx PRN PRN Pain Score 6-10 Or Pre Pt/Ot 7 days #84 tabs pantoprazole 40 mg tablet,delayed 40 mg PO DAILY 30 da ys #30 tabs 02/03/25 Unknown Rx release sennosides 8.6 mg-docusate sodium 2 tab PO BID 30 days #120 tabs 02/03/25 Unknown Rx 50 mg tablet (Stimulant Laxative Plus) tramadol 50 mg tablet 50 mg PO Q6H PRN PRN Pain Sc ore 02/03/25 Unknown Rx 4-5 Or Pre Pt/Ot 7 days #28 tabs OSTINOL 1 cap PO BID 02/07/25 Unknow n History calcium citrate 300 mg PO TID 02/07/25 Unkno wn History cholecalciferol (vitamin D3) 125 125 mcg PO DAILY 01/28 11/23 Unknown History mcg (5,000 unit) tablet (Vitamin D3) digestive enzymes 1 cap PO DAILY 02/07/25 Unkn own History ondansetron 4 mg disintegrating 8 mg PO BID Nausea/Vom iting 02/07/25 Unknown History tablet psyllium husk (aspartame) 3 gram 1 packet PO DAILY bow els 02/07/25 Unknown History oral powder packet (Daily Fiber (psyllium-aspartame)) Allergy/AdvReac Type Severity Reaction Status Date / Time dexamethasone Allergy Severe hallcenating, Verified 02/07/25 12:24 anxiety methylprednisolone Allergy Severe hallucenant Verified 02/07/25 12:24 ing,anxiety prednisone Allergy Severe hallucenating Verified 02/07/25 12:24 ,anxiety azithromycin (From Zithromax Allergy Mild heart Verified 02/07/25 12:24 Z-Rasheed) racing levofloxacin (From Levaquin) Allergy Mild muscle Verified 02/07/25 12:24 pain, heart racing amantadine Allergy Other Verified 02/07/25 12:24 cortisone Allergy Other Verified 02/07/25 12:24 fluoxetine HCl (From Prozac) Allergy Other Verified 02/07/25 12:24 Penicillins Allergy Unknown Verified 02/07/25 12:24 erythromycin base AdvReac Severe digestive Verified 02/07/25 12:24 upset prednisolone AdvReac Severe hallucenati Verified 02/07/25 12:24 ons,anxiety escitalopram AdvReac Intermediate nausea Verified 02/07/25 12:24 sertraline AdvReac Intermediate heart Verified 02/07/25 12:24 racing Sulfa (Sulfonamide AdvReac Intermediate nausea,diar Verified 02/07/25 12:24 Antibiotics) emma Family History Father Cancer Leukemia Grandmother Heart disease Grandfather Colon cancer Other Angina at rest Arthritis Asthma Blood clot in vein High cholesterol Myocardial infarction Osteoporosis Respiratory disease Severe allergic reaction Thyroid disorder Surgical History History of open reduction and internal fixation (ORIF) procedure Hx of abdominal hysterectomy Hx of wisdom tooth extraction Hx of colonoscopy History of repair of rectocele Hx of vaginal surgery Social History household members: none Smoking Status: Never smoker alcohol intake: never substance use type: does not use caffeine: No what type of physical activity do you participate in: none frequency: 5-6 times per week seatbelt use: always additional social history: Spouse- Doyle Review of Systems (Anesthesia) ROS Narrative System reviewed and no additional complaints, except as documented.
--- NOTE | 2025-02-10 13:30 | RAD_ITS ---
EXAM: Femur minimum two views CLINICAL HISTORY: ORIF left distal femur COMPARISON: 01/31/2025 TECHNIQUE: Intraoperative fluoroscopy with 6 spot views FINDINGS: Fluoroscopy time 107.7 seconds Total dose 12.33 mGy Retrograde distal femoral intramedullary nail fully locked bridging distal comminuted femoral fracture again noted now with advancement of the lowermost locking screw. A lateral plate from the distal condyle to the proximal femoral diaphysis with screws now in place. A partially imaged left femoral hip prosthesis noted. RAD/Femur Min 2 Views IMPRESSION: Intraoperative fluoroscopy as above. Reading Location: [id number]
[2025-02-10] MEDS: Cefazolin 2 GM in Syringe IV (13:42)
[2025-02-10] MEDS: Bupiv/Epi 0.25% 30 ML Vial (15:30)
--- NOTE | 2025-02-10 16:33 | PCM.OPRPT ---
Operative Report (Standard) Operative Information Date of Procedure: 02/10/25 Pre-Operative Diagnosis: Left supracondylar distal femur fracture with failed orthopedic fixation Post-Operative Diagnosis: Left supracondylar distal femur fracture with failed orthopedic fixation Surgery/Procedure Performed: 1. Left distal femur removal of hardware 2. Left distal femur revision open reduction internal fixation housekeeping lead: Yes Supervisor Doping: Eliz Wilkins Tasks completed by first assistant manager: Opening & closing, Implanting device, Hemostasis: Electrocautery and Retracting Additional clinical research assistant?: No Type of Anesthesia: General RN Documented Start/Stop Times: Operation Date: 02/10/25 13:00 Case Time Into Pre-Op 02/10/25 11:17 Out of Pre-Op 02/10/25 13:14 Anesthesia Start 02/10/25 13:20 Into Room 02/10/25 13:20 Procedure Start 02/10/25 13:48 Procedure End 02/10/25 15:59 Anesthesia End 02/10/25 16:05 Out of Room 02/10/25 16:05 Into Recovery 02/10/25 16:07 Procedure Start Time: 13:48 Procedure Stop Time: 15:59 Select all DRAINS/GRAFTS/IMPLANTS that apply: Implanted device Implanted device details: [place] axsos 3 Ti 16 hole lateral distal femoral locking plate with combination of cortical and locking screws. Estimated Blood Loss: 300 cc Specimen collected: No Description of surgery: Patient was identified in the preoperative holding area by name, medical record number, and date of . The operative extremity was marked. All questions were answered to the patient satisfaction. At time of her procedure, patient was brought to the operative suite and positioned supine on a standard operating table. General anesthesia was induced and endotracheal tube was placed. Tube was secured. A bump was placed under the patient's left hip. We prepped and draped the left lower extremity in a normal, sterile orthopedic fashion. We performed a timeout confirming the side, site, and operation to be performed. No concerns were voiced and we elected to proceed with surgery. 2 g Ancef was administered prior to incision by anesthesia staff. I was first able to palpate the impending skin necrosis of the anterior lateral distal femoral interlocking screw. Stab incision was made to relieve pressure on the skin and screw was removed by hand. There was serous fluid noted about the screw without purulence. I then open the anterior knee and medial parapatellar arthrotomy from the prior surgery with a 10 blade scalpel. The patella was subluxed laterally and the insertion handle was assembled to the retrograde nail. I was also able to easily palpate the medial screw that had also loosened and remove this via stab incision and screwdriver. After removal of these 2 screws I assessed the mobility of the fracture which appeared to have some early healing and was grossly stable. I elected to place 2 advanced locking interlocking screws in the aforementioned trajectories replacing the loose screws. Given the prior failure of fixation, elected to proceed with open reduction internal fixation with supplemental distal femoral locking plate. Lateral approach to the distal femur was performed performing approximately 12 cm lateral incision. Full-thickness skin flaps were developed down to level of the IT band which was opened in line with the incision. The fracture was encountered and soft callus was noted about the fracture indicative of early healing. I then used a submuscular elevator to develop a plane for plate. I selected a 16 hole plate. I utilized the percutaneous aiming guide. Plate was placed beneath the vastus lateralis. I secured the plate to bone distally with a cancellous screw and proximally with a provisional fixation device. Orthogonal fluoroscopy confirmed appropriate position of the plate. Distal cluster was then filled with locking screws. Some screws were unicortical given the hardware in the intramedullary canal. 4 bicortical screws were placed proximal to the fracture site as well as a unicortical locking screw in the proximalmost hole. 2 screws were proximal to the tip of the total hip prosthesis. Final fluoroscopic images were obtained. Wounds were irrigated with Irrisept and then copiously with normal saline. Hemostasis was excellent at this time. Fascial layers were closed watertight with interrupted [id number] 0 Vicryl suture. Dermis was reapproximated buried 2-0 Vicryl suture. Skin incisions were closed distally with 2-0 nylon suture in interrupted simple fashion. The proximal stab incisions with the targeting guide were closed with tolu. Bulky sterile compression dressing was applied. Field block was administered with 60 cc total quarter percent bupivacaine with epinephrine 1: 100,000. Patient was awakened from anesthesia and safely ectopy in the operative suite. She tolerated the procedure well without apparent complication. She was transferred to her bed and subsequent to PACU in stable condition. Postoperative plan: 25% weightbearing operative extremity Plan to restart Eliquis postoperative day #1 if hemoglobin stable Oxycodone and Tylenol for pain relief PT/OT Follow-up in 2 weeks for suture and staple removal Surgical Findings: Loose distal interlocking screws. Stable fixation following final implantation Complications Complications: No Admit VTE Documentation VTE Present on Admission: Yes VTE Mechan Device Prophylaxis: None VTE Pharm Prophylaxis ordered?: Yes
[2025-02-10] MEDS: Lactated Ringers 1,000 ML 75 ML IV (16:40)
--- NOTE | 2025-02-10 16:56 | PN.HOSP_ITS ---
Objective Data Objective Data Vital Signs: Vital Signs Temp Pulse Resp BP Pulse Ox O2 Del Method O2 Flow Rate 97.3 F L 88 18 145/64 H 100 Nasal Cannula 2 02/10/25 16:07 02/10/25 16:45 02/10/25 16:45 02/10/25 16:45 02/10/25 16:45 02/10/25 16:45 02/10/25 16:45 Oxygen Flow Rate (L/min) 2 Oxygen Delivery Method Nasal Cannula Weight: 169 lb Body Mass Index (BMI) 27.2 Intake & Output: Intake and Output for Last 24 Hours 02/08/25 02/09/25 02/10/25 23:59 23:59 23:59 Intake Total Balance Assessment & Plan Assessment/Plan PLAN: Plan Date of Procedure: 02/10/25 Pre-Operative Diagnosis: Left supracondylar distal femur fracture with failed orthopedic fixation Post-Operative Diagnosis: Left supracondylar distal femur fracture with failed orthopedic fixation Surgery/Procedure Performed: 1. Left distal femur removal of hardware 2. Left distal femur revision open reduction internal fixation roller repairer: Yes Warehouse Team Member: Eliz Wilkins Tasks completed by first press operator: Opening & closing, Implanting device, Hemostasis: Electrocautery and Retracting Additional operator assistant i cementing?: No Type of Anesthesia: General RN Documented Start/Stop Times: Distal left femoral fracture as a result of the mechanical fall -Mechanical fall where she tripped over a rug in the garage -Postop day 5 -Continue Tylenol 1000 mg every 8 hours as needed -As needed Ultram available -continue Lovenox and will plan for 28 days of subcu Lovenox at discharge -Weightbearing as tolerated -PT/OT is following -Case management/social work is following for assistance with discharge planning -Pre-CERT remains pending for rehab unit Acute symptomatic anemia -Status posttransfusion 2 units packed red blood cells on 01/23/2025 -Guaiac was negative -Continue iron with vitamin C but decrease from 3 times daily to daily as patient feels it is upsetting her stomach -Repeat CBC in a.m. Fibromyalgia -Chronic -Patient takes no medications chronically at home for this -Pain regimen for fracture as above History of constipation -Continue home fiber -Scheduled stool softeners with decreased mobility and narcotic use -Add as needed MiraLAX daily -Patient did have a bowel movement on 01/23/2025 Osteoarthritis -History of previous left hip arthroplasty -Pain management as above Obesity -BMI 31.5 -Recommend weight loss -Complicates treatment, prognosis, outcomes DVT prophylaxis -Continue Lovenox 40 mg nightly CODE STATUS -DNR CCA with no intubation Disposition: -Patient's been medically stable for discharge and is 01/24/2025. Continues to await pre-CERT from [employer].
--- NOTE | 2025-02-10 16:56 | PCM.PN.HOSP ---
Subjective Subjective The patient is a 74-year-old F w/ PMHx: Chronic anemia, Fibromyalgia, Constipation, OA, Overweight, GERD who presents to the [facility] on 02/10/25 with unfortunate history of mechanical fall in late December with a left distal femur fracture undergoing a left femur retrograde intramedullary nailing 01/21/2025 with unfortunately left supracondylar distal femur fracture failed orthopedics fixation prompting return for hardware removal and ORIF per Dr. Aponte. Patient in PACU noting persistent pain, severe, stating 10 out of 10 although she is falling asleep very easily and does not appear in great discomfort. She points to her abdomen when she says this is the region of discomfort and on exam it is soft, nontender with no grimacing with palpation. Patient denies fevers, chills, nausea, emesis, chest pain or dyspnea but again she is recently postop and still under anesthetics. Objective Data Objective Data Vital Signs: Vital Signs Temp Pulse Resp BP Pulse Ox O2 Del Method O2 Flow Rate 97.3 F L 88 18 145/64 H 100 Nasal Cannula 2 02/10/25 16:07 02/10/25 16:45 02/10/25 16:45 02/10/25 16:45 02/10/25 16:45 02/10/25 16:45 02/10/25 16:45 Oxygen Flow Rate (L/min) 2 Oxygen Delivery Method Nasal Cannula Weight: 169 lb Body Mass Index (BMI) 27.2 Intake & Output: Intake and Output for Last 24 Hours 02/08/25 02/09/25 02/10/25 23:59 23:59 23:59 Intake Total Balance Physical Exam Narrative Physical Examination: General: Patient will awaken to stimuli and will be more alert and converse, oriented to self and recent events but falls back asleep quickly, recently postop, does remain cooperative and follows commands until she falls back asleep, laying in the PACU bed, reporting abdominal pain 10 out of 10 although suspect likely she is referring to her femur status post OR. Skin: Normal color, normal turgor, no icterus, no cyanosis except for left lower extremity with dressing in place status post surgery with no drainage. HEENT: AT/NC, EOMI, PERRLA, moderately dry MM, no carotid bruits or JVD noted. Lungs: Mildly diminished, greater bases, appropriate effort, no rales, ronchi or wheezing. Heart: Regular rate and rhythm; no gallop, rub audible. Abdomen: Soft, NTTP, ND, mildly hyperactive BS, no appreciated HSM. Extremities: No cyanosis, no clubbing, status post OR with left distal femur removal hardware and left distal femur revision open reduction internal fixation with dressings in place without drainage. Neurological: Patient will awaken to stimuli and will be more alert and converse, oriented to self and recent events but falls back asleep quickly, recently postop, does remain cooperative and follows commands until she falls back asleep, laying in the PACU bed, cognitive function improving but still not baseline intact; pupils equally reactive to light and accommodation, cranial nerves grossly normal, moving all 4 extremities although limited given recent OR, strength severely globally decreased Psychiatric: Affect appears fatigued and lethargic, no acute evidence of depressive or anxiety feelings. Assessment & Plan Assessment/Plan (1) Femoral distal fracture: QUALIFIERS: Encounter type: initial encounter Fracture type: closed Fracture morphology: other fracture Laterality: left Qualified Code(s): S72.492A - Other fracture of lower end of left femur, initial encounter for closed fracture PLAN: Plan The patient is a 74-year-old F w/ PMHx: Chronic anemia, Fibromyalgia, Constipation, OA, Overweight, GERD who presents to the [facility] on 02/10/25 with unfortunate history of mechanical fall in late December with a left distal femur fracture undergoing a left femur retrograde intramedullary nailing 01/21/2025 with unfortunately left supracondylar distal femur fracture failed orthopedics fixation prompting return for hardware removal and ORIF per Dr. Aponte. #1. History of mechanical fall with a distal left femoral fracture remotely with failed orthopedic fixation complicated by underlying severe osteoarthritis.: Patient admitted given failed orthopedic fixation following previous mechanical fall with distal left femur fracture, admitted per Dr. Aponte, status post left distal femur removal of hardware and left distal femur revision open reduction internal fixation, post-operative pain management, bowel regimen, DVT Prophylaxis, PT/OT/CM per Orthopedic surgery discretion. #2. Chronic normocytic anemia: Hemoglobin most recently with MCV 93 and prior to this had been primarily 9-10 range, admission hemoglobin pending per orthopedic surgery primary service, continue to trend. #3. Chronic pain with fibromyalgia: Chronic component, outpatient previously not been any medications chronically however this was made more difficult by history of mechanical fall with femur fracture, complaining of pain in PACU however pointing at her stomach which is soft and nontender, will continue pain regimen per orthopedic surgery discretion. #4. Chronic constipation: Continue as needed bowel regimen/stool softeners per orthopedic surgery discretion especially given narcotic usage. #5. Overweight: Weight loss and lifestyle changes encouraged. #6. GERD: Continue home PPI. #7. DVT prophylaxis: SCDs, noted intention for Eliquis twice daily per orthopedic surgery discretion. #8. CODE STATUS: Noted full code unverified, patient previously DNR CCA no intubation, may consider reinstating this when she is out of the perioperative situation. Charges/Coding Visit Charges Inpatient E&M: 18809 Subs Hosp L3
--- NOTE | 2025-02-10 17:00 | PCM.POST.ANE ---
Anesthesia: Postop Eval I Current Vital Signs Temperature: 98 F Pulse Rate: 88 Blood Pressure: 145/64 Respiratory Rate: 18 Pulse Ox: 100 Oxygen Delivery Method: Nasal Cannula Oxygen Flow Rate (L/min): 2 Assessment Airway patent: Yes Spontaneous unlabored respirations: Yes Mental status: Awake nausea: No Vomiting: No Anesthesia Complication: No Fluid Hydration Crystalloid volume administer (ml): 800 Total IV fluid infused: 800 Progress Note Anesthesia document: Postop Eval 1 completed: Yes
--- NOTE | 2025-02-10 17:01 | PCM.POSTANE2 ---
Anesthesia Postop Eval I Sum Postop Eval Completion status Anesthesia document: Postop Eval 1 completed: Yes Anesthesia Postop Eval I Summary Anesthesia Postop Eval I Summary: Anesthesia Postop Eval I: Assessment Summary Airway patent Yes 02/10/25 17:01 Spontaneous unlabored Yes 02/10/25 17:01 respirations Mental status Awake 02/10/25 17:01 nausea No 02/10/25 17:01 Vomiting No 02/10/25 17:01 Anesthesia Postop Eval I: Fluid Summary Crystalloid volume administer 800 02/10/25 17:01 (ml) Colloids volume administered ( ml) Blood Product volume administered (ml) Total IV fluid infused 800 02/10/25 17:01 Anesthesia Postop Eval I: Summary Notes Anesthesia Complication No 02/10/25 17:01 Anesthesia Complication Comment: Post-operative progress note Anesthesia: Postop Eval II Evaluation Mental status: Awake Pain Level: 3 nausea: No Vomiting: No
--- NOTE | 2025-02-10 17:41 | SUR.PHASEI ---
96% ON ROOM AIR. SLEEPING
[2025-02-10] MEDS: oxyCODONE 5 MG Tablet 10 MG PO (20:30)
[2025-02-10] MEDS: Ondansetron ODT 4 MG Tablet 8 MG PO (20:33)
[2025-02-10] MEDS: Cefazolin 1 GM/50 ML BAG IV (22:03)
[2025-02-10] MEDS: 0.9% Normal Saline (100mL Bag) 100 ML 15 ML IV (22:03)
[2025-02-10] MEDS: Senna/Docusate Sodium 1 Tablet 2 TABLET PO (22:03)
[2025-02-10] MEDS: Acetaminophen 500 MG Tablet 1000 MG PO (22:04)
[2025-02-10] MEDS: 0.9% Saline Lock 10 ML Syringe IV (22:07)
[2025-02-11 02:00] VITALS: BP 115/50; PULSE 58; RESP 16; TEMP 36.4; O2SAT 97
[2025-02-11] MEDS: oxyCODONE 5 MG Tablet 10 MG PO ×3 (04:04→21:13)
[2025-02-11 06:00] VITALS: BP 121/54; PULSE 100; RESP 16; TEMP 36.9; O2SAT 95
[2025-02-11] MEDS: Cefazolin 1 GM/50 ML BAG IV (06:05)
[2025-02-11 06:07] LABS: Hematocrit 30.6 % (37-47); Hemoglobin 9.8 g/dL (12.0-15.0); Mean Corpuscular Hgb 29.9 pg (27.0-32.0); Mean Corpuscular Volume 93.3 fL (81-99); Mean Platelet Vol. 10.3 fl (6.2-12.0); Platelet Count 294 K/mm3 (150-450); RBC Distribution Width CV 13.3 % (11.6-14.6); RBC Distribution Width SD 45.9 fl (35.1-43.9); Red Blood Count 3.28 M/mm3 (4.2-5.4); White Blood Count 6.5 K/mm3 (4.4-11.0)
[2025-02-11] MEDS: Acetaminophen 500 MG Tablet 1000 MG PO ×3 (06:16→21:13)
--- NOTE | 2025-02-11 07:27 | PCM.PN.HOSP ---
Reason for Visit Reason for Visit: Diagnoses Other fracture of lower end of left femur, initial encounter for closed fracture (02/10/25) Subjective Subjective Patient is a 74-year-old lady who underwent Left distal femur removal of hardware and Left distal femur revision open reduction internal fixation following left supracondylar distal femur fracture with failed orthopedic fixation on 02/10/2025 the hospital service was consulted to assist with management of patient medical comorbidities Objective Data Objective Data Vital Signs: Vital Signs Temp Pulse Resp BP Pulse Ox O2 Del Method O2 Flow Rate 98.4 F 100 16 121/54 H 95 Room Air 2 02/11/25 06:00 02/11/25 06:00 02/11/25 06:00 02/11/25 06:00 02/11/25 06:00 02/11/25 06:00 02/10/25 17:01 Oxygen Flow Rate (L/min) 2 Oxygen Delivery Method Room Air Weight: 76.657 kg Body Mass Index (BMI) 27.2 Intake & Output: Intake and Output for Last 24 Hours 02/09/25 02/10/25 02/11/25 23:59 23:59 23:59 Intake Total 629.75 / 629.75 Balance 629.75 / 629.75 Lab / Micro Data 02/11/25 05:48 02/11/25 05:48 Labs: Laboratory Results - last 24 hr 02/11/25 05:48: WBC 6.5, RBC 3.28 L, Hgb 9.8 L, Hct 30.6 L, MCV 93.3, MCH 29.9, MCHC 32.0, RDW Std Deviation 45.9 H, RDW Coeff of Prosper 13.3, Plt Count 294, MPV 10.3 Physical Exam Narrative GENERAL: cooperative HEENT: Atraumatic; normocephalic EYES; Anicteric, Normal Conjunctiva NECK; supple, normal thyroid, RESPIRATORY: Diminished to auscultation CARDIOVASCULAR: Regular S1 S2, GI: soft, normoactive bowel sounds, : No Renal angle tenderness; EXTREMITIES: Left lower extremity immobilized MUSCULOSKELETAL: no muscle wasting NEURO: Awake; no lateralizing signs. SKIN: No Rash PSYCH; Flat affect Assessment & Plan Assessment/Plan (1) Femoral distal fracture: QUALIFIERS: Encounter type: initial encounter Fracture morphology: other fracture Fracture type: closed Laterality: left Qualified Code(s): S72.492A - Other fracture of lower end of left femur, initial encounter for closed fracture PLAN: Plan Patient is a 74-year-old lady who underwent Left distal femur removal of hardware and Left distal femur revision open reduction internal fixation following left supracondylar distal femur fracture with failed orthopedic fixation on 02/10/2025 the hospital service was consulted to assist with management of patient medical comorbidities 1. Status post left distal femur removal of hardware and Left distal femur revision open reduction internal fixation following left supracondylar distal femur fracture with failed orthopedic fixation on 02/10/[address] Aponte. Patient postoperative orders regarding pain management PT OT DVT prophylaxis deferred to primary service 2. Anemia ? Secondary to chronic disorder monitoring H&H and transfuse if patient becomes symptomatic or hemoglobin falls below 7 3. GERD ? On PPI 4. Chronic constipation plan is to continue patient previous bowel regimen 5. Chronic pain syndrome with fibromyalgia ? Symptom management Time spent in the patient's overall evaluation,decision-making process, review of diagnostic data, adjustment of management, discussion with other providers, nursing nursing and ancillary staff involved in patient's care documentation, 36 Minutes Charges/Coding Visit Charges Inpatient E&M: 14585 Subs Hosp L2
[2025-02-11 07:58] LABS: Anion Gap 10 (5-15); BUN 12 mg/dL (4-19); BUN/Creat Ratio 22.1 RATIO (10-20); Calcium,Total 8.8 mg/dL (7.6-11.0); Carbon Dioxide 23.6 mmol/L (21.0-32.0); Chloride 103 mmol/L (98-108); Creatinine, Serum 0.54 mg/dL (0.70-1.20); EST Glomerular Filtration Rate 97 (>60); Glucose 113 mg/dL (70-99); Potassium 3.9 mmol/L (3.3-5.1); Sodium Level 137 mmol/L (133-145)
[2025-02-11] MEDS: APIXABAN 5 MG TABLET PO ×2 (09:24→21:13)
[2025-02-11] MEDS: 0.9% Saline Lock 10 ML Syringe IV ×2 (09:24→10:01)
[2025-02-11] MEDS: Senna/Docusate Sodium 1 Tablet 2 TABLET PO ×2 (09:26→21:13)
[2025-02-11] MEDS: Pantoprazole Sodium 40 MG Tablet PO (09:26)
[2025-02-11] MEDS: Ondansetron ODT 4 MG Tablet 8 MG PO ×2 (09:26→21:13)
[2025-02-11 09:30] VITALS: BP 107/56; PULSE 106; RESP 16; TEMP 36.9; O2SAT 94
[2025-02-11] MEDS: HYDROmorphone 1 MG/ML Syringe IV (10:00)
--- NOTE | 2025-02-11 10:55 | CASEMGMT ---
Social Work- SW completed referral to TCU per pt request. No list desired at this time. TRESA Vasquez
--- NOTE | 2025-02-11 11:00 | CASEMGMT ---
ANGELICA KIRK Assessment: Face to Face with pt for initial transition planning/care coordination assessment. ANGELICA KIRK introduced self and role at [facility], pt voices understanding and consents to assessment. Pt is A&O x4 and answers all questions appropriately at this time. Pt sitting up in chair, just worked with therapy. Care providers, pharmacy, and demographics verified/updated. Admitting Dx: L femur fx Strata Score: 1 PCP:Gavin Specialists:dayna Aponte Pharmacy: [facility] Retail Insurance: [facility] Prescription Benefit: yes LNOK: Ed Esmer, son; Desire Mac, kirsty Living Arrangements: Pt lives alone in a single story home with 2 steps to enter. Pt reports since leaving [facility] she has managed at home. She states that people were bringing food in for her, she was sleeping in a chair, her kirsty helped bathe her, a friend did her laundry. Pt states she was not doing well at home. Transportation: Pt drives self and denies concerns with transportation. DME:w/c, walker, stair lift to basement, walk in shower, cane HHC/SNF: Pt is active with [facility]. Pt has been to [facility]. Pt states this surgery is worse than her first. She states that she would like to return to [facility]. Updated SW. Pt states no further concerns/needs. CM to follow. Advised pt to ask CM if any further questions/concerns/needs arise, voices understanding. Pt Goal: [facility] Plan: TCU pending acceptance and precert Evelyn DOMINGUEZ CM
--- NOTE | 2025-02-11 11:50 | PN.ORTHO_ITS ---
Subjective Subjective Patient is s/p Left distal femur removal of hardware and Left distal femur revision open reduction internal fixation following left supracondylar distal femur fracture with failed orthopedic fixation on 02/10/[address] Aponte. Patient resting comfortably in bed. Rates pain 7/ 10 at rest. With movement 9/10. States taking oxycodone and Tylenol and did require Dilaudid 1 dose this morning. And ice help to relieve pain. Patient has been up with therapy. Walking with the assit of a walker. She is 25% weightbearing. notes bee stings over the lateral knee that will shoot towards the knee. they are random and very painful. Afebrile, no chest pain, shortness of breath, negative calf pain/ erythema, and no other signs of DVT. Objective Data Objective Data Vital Signs: Vital Signs Temp Pulse Resp BP Pulse Ox O2 Del Method O2 Flow Rate 98.5 F 106 H 16 107/56 L 94 Room Air 2 02/11/25 09:30 02/11/25 09:30 02/11/25 09:30 02/11/25 09:30 02/11/25 09:30 02/11/25 09:31 02/10/25 17:01 Oxygen Flow Rate (L/min) 2 Oxygen Delivery Method Room Air Weight: 76.657 kg Body Mass Index (BMI) 27.2 Intake & Output: Intake and Output for Last 24 Hours 02/09/25 02/10/25 02/11/25 23:59 23:59 23:59 Intake Total 629.75 / 629.75 550 / 550 Output Total 600 / 600 Balance 629.75 / 629.75 -50 / -50 Lab / Micro Data 02/11/25 05:48 02/11/25 05:48 Labs: Laboratory Results - last 24 hr 02/11/25 05:48: WBC 6.5, RBC 3.28 L, Hgb 9.8 L, Hct 30.6 L, MCV 93.3, MCH 29.9, MCHC 32.0, RDW Std Deviation 45.9 H, RDW Coeff of Prosper 13.3, Plt Count 294, MPV 10.3, Sodium 137, Potassium 3.9, Chloride 103, Carbon Dioxide 23.6, Anion Gap 10, BUN 12, Creatinine 0.54 L, Estim Creat Clear Calc 65.50, Est GFR (MDRD) Non- Af 97, BUN/Creatinine Ratio 22.1 H, Glucose 113 H, Calcium 8.8 Physical Exam Narrative Patient resting comfortably in bed No signs of acute distress Satting well on room air Limb is warm to touch, Sensation intact throughout entire lower extremity, including saphenous, sural, superficial and deep peroneal, and tibial distribution. DP/PT pulses bounding. Dorsiflexion plantarflexion strength 5/5 midline Dressing with small amount of sanguinous drainage at the most inferior aspect. no continuous drainage. lateral dressing are c/d/i Calf nontender to palpation, no erythema, no edema. Negative Homans Assessment & Plan Assessment/Plan (1) Femoral distal fracture: QUALIFIERS: Encounter type: initial encounter Fracture type: c losed Fracture morphology: other fracture Laterality: left Qualified Code(s): S72.492A - Other fracture of lower end of left femur, initial encounter for closed fracture PLAN: Plan POD1 s/p Left distal femur removal of hardware and Left distal femur revision open reduction internal fixation following left supracondylar distal femur fracture with failed orthopedic fixation on 02/10/[address] Aponte 1. Will continue PT today. 25% WB to left lower extremity 2. Ultimate plan for discharge likely TCU. We will continue monitoring hemoglobin and pain control. 3. Patient will follow up for post op appointment in 2 weeks in our office. This will need to be arranged if it has not been already. 4. WBC 6.5 acute reactive leukocytosis: secondary to pre operative decadron. no acute systemic signs of infection. will monitor, and likely self resolve. 5. H/H 9.8/30.6: post operavtive anemia secondary to acute blood loss intraoperatively. Patient is asymptomatic at this time. No intraoperative complications. will continue to monitor. no acute interventions. Appreciate recommendations from medicine. We will monitor H&H for another day. 6. DVT prophylaxis : Eliquis 5 mg twice daily for DVT prophylaxis. encouraged SCDs. 7. Pain control: patient instructed to take tylenol 500mg 2 tablets TID. and oxycodone 1-2 tablets every 4-6 hours only as needed for pain control. will speak with Dr. Aponte about potential of adding gabapentin for post op pain control and possible neuropathic pain. 8. ok to remove post op dressing. post op day 7. ok to change dressing as needed. continue to monitor sanguinous drainage at inferior portion.
[2025-02-11 14:00] VITALS: BP 102/69; PULSE 104; RESP 18; TEMP 36.3; O2SAT 99
[2025-02-11 20:00] VITALS: BP 102/62; PULSE 104; RESP 16; TEMP 37.1; O2SAT 97
[2025-02-12 03:06] VITALS: BP 103/56; PULSE 95; RESP 16; TEMP 36.6; O2SAT 97
[2025-02-12 03:41] LABS: Hematocrit 27.7 % (37-47); Hemoglobin 9.2 g/dL (12.0-15.0); Mean Corp Hgb Conc 33.2 g/dL (32-36); Mean Corpuscular Hgb 30.4 pg (27.0-32.0); Mean Corpuscular Volume 91.4 fL (81-99); Mean Platelet Vol. 10.2 fl (6.2-12.0); Platelet Count 268 K/mm3 (150-450); RBC Distribution Width CV 13.5 % (11.6-14.6); RBC Distribution Width SD 45.8 fl (35.1-43.9); Red Blood Count 3.03 M/mm3 (4.2-5.4); White Blood Count 7.5 K/mm3 (4.4-11.0)
[2025-02-12 04:09] LABS: Anion Gap 9 (5-15); BUN 11 mg/dL (4-19); BUN/Creat Ratio 23.2 RATIO (10-20); Calcium,Total 8.9 mg/dL (7.6-11.0); Carbon Dioxide 24.6 mmol/L (21.0-32.0); Chloride 103 mmol/L (98-108); Creatinine, Serum 0.46 mg/dL (0.70-1.20); EST Glomerular Filtration Rate 101 (>60); Estimated Creatinine Clearance 65.51 ml/min (50-250); Glucose 118 mg/dL (70-99); Potassium 3.7 mmol/L (3.3-5.1); Sodium Level 137 mmol/L (133-145)
[2025-02-12] MEDS: oxyCODONE 5 MG Tablet 10 MG PO ×2 (06:25→14:52)
[2025-02-12] MEDS: Acetaminophen 500 MG Tablet 1000 MG PO ×2 (06:25→14:52)
--- NOTE | 2025-02-12 07:53 | PN.HOSP_ITS ---
Reason for Visit Reason for Visit: Diagnoses Other fracture of lower end of left femur, initial encounter for closed fracture (02/11/25) Subjective Subjective Patient seen participating in physical therapy. Still has significant pain involving the left knee. Also complains of being constipated she did ask for Metamucil Objective Data Objective Data Vital Signs: Vital Signs Temp Pulse Resp BP Pulse Ox O2 Del Method O2 Flow Rate 97.8 F 95 16 103/56 L 97 Room Air 2 02/12/25 03:06 02/12/25 03:06 02/12/25 03:06 02/12/25 03:06 02/12/25 03:06 02/12/25 03:06 02/10/25 17:01 Oxygen Flow Rate (L/min) 2 Oxygen Delivery Method Room Air Weight: 76.7 kg Body Mass Index (BMI) 27.2 Intake & Output: Intake and Output for Last 24 Hours 02/10/25 02/11/25 02/12/25 23:59 23:59 23:59 Intake Total 629.75 / 629.75 550 / 550 Output Total 600 / 600 Balance 629.75 / 629.75 -50 / -50 Lab / Micro Data 02/12/25 03:24 02/12/25 03:24 Labs: Laboratory Results - last 24 hr 02/11/25 05:48: Sodium 137, Potassium 3.9, Chloride 103, Carbon Dioxide 23.6, Anion Gap 10, BUN 12, Creatinine 0.54 L, Estim Creat Clear Calc 65.50, Est GFR (MDRD) Non-Af 97, BUN/Creatinine Ratio 22.1 H, Glucose 113 H, Calcium 8.8 02/12/25 03:24: WBC 7.5, RBC 3.03 L, Hgb 9.2 L, Hct 27.7 L, MCV 91.4, MCH 30.4, MCHC 33.2, RDW Std Deviation 45.8 H, RDW Coeff of Prosper 13.5, Plt Count 268, MPV 10.2, Sodium 137, Potassium 3.7, Chloride 103, Carbon Dioxide 24.6, Anion Gap 9, BUN 11, Creatinine 0.46 L, Estim Creat Clear Calc 65.51, Est GFR (MDRD) Non-Af 101, BUN/Creatinine Ratio 23.2 H, Glucose 118 H, Calcium 8.9 Radiography Diagnostic Testing: Radiology Impression Femur X-Ray 02/10/25 13:30 IMPRESSION: Intraoperative fluoroscopy as above. Reading Location: [facility] Physical Exam Narrative GENERAL: cooperative HEENT: Atraumatic; normocephalic EYES; Anicteric, Normal Conjunctiva NECK; supple, normal thyroid, RESPIRATORY: Diminished to auscultation CARDIOVASCULAR: Regular S1 S2, GI: soft, normoactive bowel sounds, : No Renal angle tenderness; EXTREMITIES: Left lower extremity immobilized MUSCULOSKELETAL: no muscle wasting NEURO: Awake; no lateralizing signs. SKIN: No Rash PSYCH; Flat affect Assessment & Plan Assessment/Plan (1) Femoral distal fracture: QUALIFIERS: Encounter type: initial encounter Fracture morphology: other fracture Fracture type: closed Laterality: left Qualified Code(s): S72.492A - Other fracture of lower end of left femur, initial encounter for closed fracture PLAN: Plan Patient is a 74-year-old lady who underwent Left distal femur removal of hardware and Left distal femur revision open reduction internal fixation following left supracondylar distal femur fracture with failed orthopedic fixation on 02/10/2025 the hospital service was consulted to assist with management of patient medical comorbidities 1. Status post left distal femur removal of hardware and Left distal femur revision open reduction internal fixation following left supracondylar distal femur fracture with failed orthopedic fixation on 02/10/[address] Aponte. Patient postoperative orders regarding pain management PT OT DVT prophylaxis deferred to primary service ?02/12/2025 seen participating in therapy still has significant pain 2. Anemia ? Secondary to chronic disorder monitoring H&H and transfuse if patient becomes symptomatic or hemoglobin falls below 7 ?02/12/2025; hemoglobin down to 9.2 will continue with daily monitoring 3. GERD ? On PPI 4. Chronic constipation plan is to continue patient previous bowel regimen ?02/12/2025; did prescribe Metamucil 5. Chronic pain syndrome with fibromyalgia ? Symptom management 6. DVT prophylaxis ? Started on apixaban 5 mg p.o. twice daily by primary service Charges/Coding Visit Charges Inpatient E&M: 04465 Subs Hosp L2
[2025-02-12 08:02] VITALS: O2SAT 94
[2025-02-12 08:10] VITALS: BP 98/46; PULSE 87; RESP 14; TEMP 36.6; O2SAT 94
[2025-02-12 09:00] VITALS: O2SAT 94
[2025-02-12] MEDS: Pantoprazole Sodium 40 MG Tablet PO (09:13)
[2025-02-12] MEDS: Ondansetron ODT 4 MG Tablet 8 MG PO (09:13)
[2025-02-12] MEDS: APIXABAN 5 MG TABLET PO (09:13)
[2025-02-12] MEDS: Psyllium 1 PACKET PO (09:13)
[2025-02-12] MEDS: Senna/Docusate Sodium 1 Tablet 2 TABLET PO (09:13)
--- NOTE | 2025-02-12 10:59 | CASEMGMT ---
TC gabriele Mckeon at [facility], she is aware that pt will dc today to [facility] TCU.
--- NOTE | 2025-02-12 12:10 | CASEMGMT ---
Social Work- SW received notice that precert has been obtained. SW notified hospitalist and orthopedic physician. SW remains available to follow. Plan: TCU; skilled level of care TRESA Vasquez
--- NOTE | 2025-02-12 12:56 | PCM.PN.ORT ---
Subjective Subjective Patient is s/p Left distal femur removal of hardware and Left distal femur revision open reduction internal fixation following left supracondylar distal femur fracture with failed orthopedic fixation on 02/10/[address] Aponte. Patient resting comfortably in bed. Rates pain 4/ 10 at rest. With movement 8/10. States taking oxycodone and Tylenol for pain. she has not required dilaudid today.. And ice seems to help to relieve pain. Patient has been up with therapy. Walking with the assit of a walker. She is 25% weightbearing. notes bee stings over the lateral knee that will shoot towards the knee that are improving from yesterday.. they are random and very painful. Afebrile, no chest pain, shortness of breath, negative calf pain/ erythema, and no other signs of DVT. Objective Data Objective Data Vital Signs: Vital Signs Temp Pulse Resp BP Pulse Ox O2 Del Method O2 Flow Rate 97.8 F 87 14 98/46 L 94 Room Air 2 02/12/25 08:10 02/12/25 08:10 02/12/25 08:10 02/12/25 08:10 02/12/25 09:00 02/12/25 09:00 02/10/25 17:01 Oxygen Flow Rate (L/min) 2 Oxygen Delivery Method Room Air Weight: 76.7 kg Body Mass Index (BMI) 27.2 Intake & Output: Intake and Output for Last 24 Hours 02/10/25 02/11/25 02/12/25 23:59 23:59 23:59 Intake Total 629.75 / 629.75 550 / 550 Output Total 600 / 600 Balance 629.75 / 629.75 -50 / -50 Lab / Micro Data 02/12/25 03:24 02/12/25 03:24 Labs: Laboratory Results - last 24 hr 02/12/25 03:24: WBC 7.5, RBC 3.03 L, Hgb 9.2 L, Hct 27.7 L, MCV 91.4, MCH 30.4, MCHC 33.2, RDW Std Deviation 45.8 H, RDW Coeff of Prosper 13.5, Plt Count 268, MPV 10.2, Sodium 137, Potassium 3.7, Chloride 103, Carbon Dioxide 24.6, Anion Gap 9, BUN 11, Creatinine 0.46 L, Estim Creat Clear Calc 65.51, Est GFR (MDRD) Non-Af 101, BUN/Creatinine Ratio 23.2 H, Glucose 118 H, Calcium 8.9 Radiography Diagnostic Testing: Radiology Impression Femur X-Ray 02/10/25 13:30 IMPRESSION: Intraoperative fluoroscopy as above. Reading Location: [facility] Physical Exam Narrative Patient resting comfortably in bed No signs of acute distress Satting well on room air Limb is warm to touch, Sensation intact throughout entire lower extremity, including saphenous, sural, superficial and deep peroneal, and tibial distribution. DP/PT pulses bounding. Dorsiflexion plantarflexion strength 5/5 midline Dressing with small amount of sanguinous drainage at the most inferior aspect. no continuous drainage. lateral dressing are c/d/i Calf nontender to palpation, no erythema, no edema. Negative Homans Assessment & Plan Assessment/Plan PLAN: Plan POD1 s/p Left distal femur removal of hardware and Left distal femur revision open reduction internal fixation following left supracondylar distal femur fracture with failed orthopedic fixation on 02/10/[address] Aponte 1. Will continue PT today. 25% WB to left lower extremity 2. Ultimate plan for discharge likely TCU. We will continue monitoring hemoglobin and pain control. 3. Patient will follow up for post op appointment in 2 weeks in our office. This will need to be arranged if it has not been already. 4. WBC 6.5 acute reactive leukocytosis: secondary to pre operative decadron. no acute systemic signs of infection. will monitor, and likely self resolve. 5. H/H 9.8/30.6: post operavtive anemia secondary to acute blood loss intraoperatively. Patient is asymptomatic at this time. No intraoperative complications. will continue to monitor. no acute interventions. Appreciate recommendations from medicine. We will monitor H&H for another day. 6. DVT prophylaxis : Eliquis 5 mg twice daily for DVT prophylaxis. encouraged SCDs. 7. Pain control: patient instructed to take tylenol 500mg 2 tablets TID. and oxycodone 1-2 tablets every 4-6 hours only as needed for pain control. will speak with Dr. Aponte about potential of adding gabapentin for post op pain control and possible neuropathic pain. 8. ok to remove post op dressing. post op day 7. ok to change dressing as needed. continue to monitor sanguinous drainage at inferior portion.
--- NOTE | 2025-02-12 13:03 | DS.PCM_ITS ---
Providers Date of Admission: 02/11/25 Date of Discharge: 02/12/25 Primary Care Physician: Dr. Tom Alonso, Consultations 02/10/25 16:25 Consult: Hospitalist Routine Consulting Provider: Eva Vazquez Reason for Consult: post op medical management EMERGENT Consult: No MD Notified: Yes Date Notified: 02/10/25 Time Notified: 16:53 Method of Notification: Text Reason For Visit: left femur fracture Diagnosis Discharge Diagnosis (1) Femoral distal fracture: Status: Acute Code(s): S72.409A - Unspecified fracture of lower end of unspecified femur, initial encounter for closed fracture Qualifiers: Encounter type: initial encounter Fracture morphology: other fracture Fracture type: closed Laterality: left Qualified Code(s): S72.492A - Other fracture of lower end of left femur, initial encounter for closed fracture Plan POD2 s/p Left distal femur removal of hardware and Left distal femur revision open reduction internal fixation following left supracondylar distal femur fracture with failed orthopedic fixation on 02/10/[address] Aponte 1. Will continue PT today. 25% WB to left lower extremity 2. plan to discharge to TCU today. pain is well controlled today and H/H is stable. 3. Patient will follow up for post op appointment in 2 weeks in our office. This will need to be arranged if it has not been already. 4. WBC 7.5 no acute reactive leukocytosis 5. H/H 9.2.7: post operavtive anemia secondary to acute blood loss intraoperatively. Patient is asymptomatic at this time. No intraoperative complications. will continue to monitor. no acute interventions. Appreciate recommendations from medicine. We will monitor H&H for another day. 6. DVT prophylaxis : Eliquis 5 mg twice daily for current DVT. managed by PCP 7. Pain control: patient instructed to take tylenol 500mg 2 tablets TID. and oxycodone 1-2 tablets every 4-6 hours only as needed for pain control. 8. ok to remove post op dressing. post op day 7. ok to change dressing as needed. continue to monitor sanguinous drainage at inferior portion. 9. ok to shower with mepilex dressing in place, they are waterproof. Medications at Discharge Home Medications magnesium oxide 500 mg PO BID supplement 02/25/21 apixaban 5 mg tablet (Eliquis) 10 mg (2 x 5 mg) PO BID 6 days #24 tabs 02/03/25 oxycodone 5 mg tablet 5 - 10 mg (1 - 2 x 5 mg) PO Q4H PRN PRN Pain Score 6-10 Or Pre Pt/Ot 7 days #84 tabs 02/03/25 pantoprazole 40 mg tablet,delayed release 40 mg PO DAILY 30 days #30 tabs 02/03/25 sennosides 8.6 mg-docusate sodium 50 mg tablet (Stimulant Laxative Plus) 2 tab PO BID 30 days #120 tabs 02/03/25 tramadol 50 mg tablet 50 mg PO Q6H PRN PRN Pain Score 4-5 Or Pre Pt/Ot 7 days #28 tabs 02/03/25 Held on 02/12/25. Instructions: Resume on 03/28/25. hold while on oxycodone. if off oxycodone, ok to resume as needed. OSTINOL 1 cap PO BID 02/07/25 calcium citrate 300 mg PO TID 02/07/25 cholecalciferol (vitamin D3) 125 mcg (5,000 unit) tablet (Vitamin D3) 125 mcg PO DAILY 02/07/25 digestive enzymes 1 cap PO DAILY 02/07/25 ondansetron 4 mg disintegrating tablet 8 mg PO BID Nausea/Vomiting 02/07/25 psyllium husk (aspartame) 3 gram oral powder packet (Daily Fiber (psyllium- aspartame)) 1 packet PO DAILY bowels 02/07/25 acetaminophen 500 mg tablet 1,000 mg (2 x 500 mg) PO Q8 #180 tabs 02/12/25 doxycycline hyclate 100 mg capsule 100 mg PO BID 1 week #14 caps 02/12/25 oxycodone 5 mg tablet 5 - 10 mg (1 - 2 x 5 mg) PO Q6H PRN PRN Pain Score 6-10 7 days #60 tabs 02/12/25 Physical Exam Narrative Patient resting comfortably in bedside chair No signs of acute distress Satting well on room air Limb is warm to touch, Sensation intact throughout entire lower extremity, including saphenous, sural, superficial and deep peroneal, and tibial distribution. DP/PT pulses bounding. Dorsiflexion plantarflexion strength 5/5 midline Dressing with small amount of dried drainage at the most inferior aspect. no continuous drainage. stable from yesterday's exam lateral dressing are c/d/i Calf nontender to palpation, no erythema, no edema. Negative Homans Weight / BMI Weight Weight: 76.7 kg Body Mass Index (BMI) 27.2 ABG / Lab / Microbiology Data 02/12/25 03:24 02/12/25 03:24 Laboratory: Laboratory Results - last 24 hr 02/12/25 03:24: WBC 7.5, RBC 3.03 L, Hgb 9.2 L, Hct 27.7 L, MCV 91.4, MCH 30.4, MCHC 33.2, RDW Std Deviation 45.8 H, RDW Coeff of Prosper 13.5, Plt Count 268, MPV 10.2, Sodium 137, Potassium 3.7, Chloride 103, Carbon Dioxide 24.6, Anion Gap 9, BUN 11, Creatinine 0.46 L, Estim Creat Clear Calc 65.51, Est GFR (MDRD) Non-Af 101, BUN/Creatinine Ratio 23.2 H, Glucose 118 H, Calcium 8.9 Radiography Diagnostic Testing: Radiology Impression Femur X-Ray 02/10/25 13:30 IMPRESSION: Intraoperative fluoroscopy as above. Reading Location: [facility] D/C Instructions Discharge Diet: No restrictions Discharge Activity: May Shower (keep mepilex in place. ) Weight Bearing Status: Partial weight bearing (25% WB to left lower extremity ) Keep extremity elevated above heart level: Left Leg Call your doctor if your incision/area has: Continuous Slow Oozing, Sudden Increased Bleeding, Increased Pain/ Swelling, Increased Redness, Foul Smelling Discharge and Swelling at the incision site Call your doctor if you observe: Fever of 101 or Higher, Inability to urinate, Inability to have a bowel movement, Shortness of breath, Chest pain, Calf discomfort and Uncontrolled pain Remove Dressing in: 1 week Cleanse incision/area with: Soap & Water and Keep Dressing Clean & Dry DC O2, CPAP, BIPAP Needs Home O2 Discharge instructions: No DC home with Oxygen: No Additional Instructions: follow up with PCP managing eliquis When: in 2 weeks in office as previously scheduled. Meaningful Use Info Meaningful Use Meaningful Use Diagnoses (Choose all that apply): None applicable Ischemic Stroke Statin Dosing Therapy Reference: STATIN DOSE THERAPY REFERENCE: * Patients > 75 years receive moderate or high dose statin therapy. * Patients 75 years or YOUNGER should receive HIGH intensity statin dose unless contraindicated. You will be required to document reason for non-treatment if statin daily dose does not meet guidelines. HIGH DOSE STATIN THERAPY DAILY Atorvastatin > than or = to 40 mg Rosuvastatin > than or = to 20 mg Amlodipine + Atorvastatin > than or = to 2.5/40 mg Ezetimibe + Simvastatin 10/80 mg Simvastatin 80mg Discharge Plan Admission Admit Date/Time: 02/11/25 11:40 Attending Provider: William Barclay Primary Care Provider: Tom Alonso Consulting Providers: Eva Vazquez; Jasbir Aponte Discharge Orders/Prescriptions Prescriptions: New acetaminophen 500 mg Tablet 1,000 mg PO Q8 Qty: 180 0RF oxycodone 5 mg Tablet 5 - 10 mg PO Q6H PRN PRN (Reason: Pain Score 6-10) 7 Days Qty: 60 0RF doxycycline hyclate 100 mg capsule 100 mg PO BID 7 Days Qty: 14 0RF Continued magnesium oxide 400 mg magnesium capsule 500 mg PO BID sennosides-docusate sodium [Stimulant Laxative Plus] 8.6-50 mg Tablet 2 tab PO BID 30 Days Qty: 120 0RF pantoprazole 40 mg Tablet,Delayed Release (Dr/Ec) 40 mg PO DAILY 30 Days Qty: 30 0RF oxycodone 5 mg Tablet 5 - 10 mg PO Q4H PRN PRN (Reason: Pain Score 6-10 Or Pre Pt/Ot) 7 Days Qty: 84 0RF Eliquis 5 mg Tablet 10 mg PO BID 6 Days Qty: 24 0RF calcium citrate 250 mg calcium tablet 300 mg PO TID OSTINOL 1 cap PO BID cholecalciferol (vitamin D3) [Vitamin D3] 125 mcg (5,000 unit) tablet 125 mcg PO DAILY digestive enzymes Capsule 1 cap PO DAILY Rx Instructions: administer with food; swallow whole; do not crush/chew/dissolve/break/cut ondansetron 4 mg Tablet,Disintegrating 8 mg PO BID Daily Fiber (psyllium-aspart) 3 gram Powder In Packet 1 packet PO DAILY Held tramadol 50 mg Tablet 50 mg PO Q6H PRN PRN (Reason: Pain Score 4-5 Or Pre Pt/Ot) 7 Days Qty: 28 0RF Hold Instructions: Resume on 03/28/25. hold while on oxycodone. if off oxycodone, ok to resume as needed. Discontinued acetaminophen 500 mg Tablet 1,000 mg PO Q6H PRN PRN (Reason: Pain Score 1-3) Qty: 0 0RF Referrals / Follow Up: Tom Alonso DO [Primary Care Provider] - Disposition Disposition (needs filled in before D/C Order can be placed): [facility]
--- NOTE | 2025-02-12 13:22 | PCM.TXEXTCAR ---
Diet Diet Order/Speech Therapy: 02/11/25 06:54 Diet: Regular - General Food consistency:: Regular Liquid Consistency:: Regular/Thin Routine Orders/Code Status Routine Lab Work: CBC (monitor H/H ) DC O2, CPAP, BIPAP needs Home O2 Discharge instructions: No Wound(s) left leg: Wound Type: Surgical Incision Therapies Weight Bearing: Partial weight bearing (25% WB to left lower extremity) Physical Therapy: Eval and Treat Occupational Therapy: Eval and Treat Problem/Diagnosis (1) Femoral distal fracture: Status: Acute Code(s): S72.409A - Unspecified fracture of lower end of unspecified femur, initial encounter for closed fracture Plan POD2 s/p Left distal femur removal of hardware and Left distal femur revision open reduction internal fixation following left supracondylar distal femur fracture with failed orthopedic fixation on 02/10/[address] Aponte 1. Will continue PT today. 25% WB to left lower extremity 2. plan to discharge to TCU today. pain is well controlled today and H/H is stable. 3. Patient will follow up for post op appointment in 2 weeks in our office. This will need to be arranged if it has not been already. 4. WBC 7.5 no acute reactive leukocytosis 5. H/H 9.12/26.7: post operavtive anemia secondary to acute blood loss intraoperatively. Patient is asymptomatic at this time. No intraoperative complications. will continue to monitor. no acute interventions. Appreciate recommendations from medicine. We will monitor H&H for another day. 6. DVT prophylaxis : Eliquis 5 mg twice daily for current DVT. managed by PCP 7. Pain control: patient instructed to take tylenol 500mg 2 tablets TID. and oxycodone 1-2 tablets every 4-6 hours only as needed for pain control. 8. ok to remove post op dressing. post op day 7. ok to change dressing as needed. continue to monitor sanguinous drainage at inferior portion. 9. ok to shower with mepilex dressing in place, they are waterproof. Allergies/Procedures Done in Hospital Allergies dexamethasone Allergy (Severe, Verified 02/10/25 11:57) hallcenating, anxiety methylprednisolone Allergy (Severe, Verified 02/10/25 11:57) hallucenanting,anxiety prednisone Allergy (Severe, Verified 02/10/25 11:57) hallucenating ,anxiety azithromycin (From Zithromax Z-Rasheed) Allergy (Mild, Verified 02/10/25 11:57) heart racing levofloxacin (From Levaquin) Allergy (Mild, Verified 02/10/25 11:57) muscle pain, heart racing amantadine Allergy (Verified 02/10/25 11:57) Other cortisone Allergy (Verified 02/10/25 11:57) Other fluoxetine HCl (From Prozac) Allergy (Verified 02/10/25 11:57) Other Penicillins Allergy (Verified 02/10/25 11:57) Unknown erythromycin base Adverse Reaction (Severe, Verified 02/10/25 11:57) digestive upset prednisolone Adverse Reaction (Severe, Verified 02/10/25 11:57) hallucenations,anxiety escitalopram Adverse Reaction (Intermediate, Verified 02/10/25 11:57) nausea sertraline Adverse Reaction (Intermediate, Verified 02/10/25 11:57) heart racing Sulfa (Sulfonamide Antibiotics) Adverse Reaction (Intermediate, Verified 02/10/25 11:57) nausea,diarrhea Type of Care/Length of Stay Estimated LOS: More Than 30 Days Type of Care Needed: Skilled Rehab Potential: Good Prognosis: Good Additional Orders/Day of Discharge Day of Discharge: 02/12/25 Dietary and Speech Recommendations Dietitian Recommendations/Changes: Continue regular diet as ordered; offer ONS as needed if PO established suboptimal with meals. Follow Up Care Please follow up with your Primary Care Physician in: for eliquis management When: [facility] in 2 weeks as previousl scheduled. Discharge Plan Admission Admit Date/Time: 02/11/25 11:40 Attending Provider: William Barclay Primary Care Provider: Tom Alonso Consulting Providers: Eva Vazquez; Jasbir Aponte Discharge Orders/Prescriptions Prescriptions: New acetaminophen 500 mg Tablet 1,000 mg PO Q8 Qty: 180 0RF oxycodone 5 mg Tablet 5 - 10 mg PO Q6H PRN PRN (Reason: Pain Score 6-10) 7 Days Qty: 60 0RF doxycycline hyclate 100 mg capsule 100 mg PO BID 7 Days Qty: 14 0RF Continued magnesium oxide 400 mg magnesium capsule 500 mg PO BID sennosides-docusate sodium [Stimulant Laxative Plus] 8.6-50 mg Tablet 2 tab PO BID 30 Days Qty: 120 0RF pantoprazole 40 mg Tablet,Delayed Release (Dr/Ec) 40 mg PO DAILY 30 Days Qty: 30 0RF oxycodone 5 mg Tablet 5 - 10 mg PO Q4H PRN PRN (Reason: Pain Score 6-10 Or Pre Pt/Ot) 7 Days Qty: 84 0RF Eliquis 5 mg Tablet 10 mg PO BID 6 Days Qty: 24 0RF calcium citrate 250 mg calcium tablet 300 mg PO TID OSTINOL 1 cap PO BID cholecalciferol (vitamin D3) [Vitamin D3] 125 mcg (5,000 unit) tablet 125 mcg PO DAILY digestive enzymes Capsule 1 cap PO DAILY Rx Instructions: administer with food; swallow whole; do not crush/chew/dissolve/break/cut ondansetron 4 mg Tablet,Disintegrating 8 mg PO BID Daily Fiber (psyllium-aspart) 3 gram Powder In Packet 1 packet PO DAILY Held tramadol 50 mg Tablet 50 mg PO Q6H PRN PRN (Reason: Pain Score 4-5 Or Pre Pt/Ot) 7 Days Qty: 28 0RF Hold Instructions: Resume on 03/28/25. hold while on oxycodone. if off oxycodone, ok to resume as needed. Discontinued acetaminophen 500 mg Tablet 1,000 mg PO Q6H PRN PRN (Reason: Pain Score 1-3) Qty: 0 0RF Referrals / Follow Up: Tom Alonso DO [Primary Care Provider] - Disposition Disposition (needs filled in before D/C Order can be placed): [facility] Facility (1) Femoral distal fracture Qualifiers: Encounter type: initial encounter Fracture type: closed Fracture morphology: other fracture Laterality: left Qualified Code(s): S72.492A - Other fracture of lower end of left femur, initial encounter for closed fracture
[2025-02-12 14:07] VITALS: BP 104/58; PULSE 100; RESP 16; TEMP 36.6; O2SAT 95
--- NOTE | 2025-02-12 16:05 | NURSING ---
All documentation by director community health nursing Padma Rodriguez reviewed by nursing staffing coordinator Taylor TIJERINAN, RN.
== END 2025-02-12 15:37 | disposition skilled nursing facility (03) | DRG 481 ==
LOC: SDC 17:44 → MS3 17:44
PROVIDERS: Admitting Provider Student in an Organized Health Care Education/Training Program; PCP Family Medicine; Referring Provider Student in an Organized Health Care Education/Training Program; Visit Provider Internal Medicine
PROC: 0QSC04Z Reposition Left Lower Femur with Internal Fixation Device, Open Approach (ICD-10-PCS; CPT 27514; principal; 2025-02-10 12:40)
DX: T84.195A Other mechanical complication of internal fixation device of left femur, initial encounter (principal); D62 Acute posthemorrhagic anemia; Z66 Do not resuscitate; D50.9 Iron deficiency anemia, unspecified; M79.7 Fibromyalgia; G62.9 Polyneuropathy, unspecified; K21.9 Gastro-esophageal reflux disease without esophagitis; K59.09 Other constipation; E66.3 Overweight; G89.4 Chronic pain syndrome; S72.452D Displaced supracondylar fracture without intracondylar extension of lower end of left femur, subsequent encounter for closed fracture with routine healing; Z96.642 Presence of left artificial hip joint; Z68.27 Body mass index [BMI] 27.0-27.9, adult; Y79.2 Prosthetic and other implants, materials and accessory orthopedic devices associated with adverse incidents
CPT/HCPCS: 36415; 73552; 76000; 80048; 85027; 94668; 97110; 97162; 97166; 97530; 97802; C1713; A4216; J2405

== ENCOUNTER 2025-02-12 16:05 | Inpatient (IN) | payer MEDICARE, SELFPAY ==
[2025-02-12 16:28] VITALS: BP 110/60; PULSE 93; RESP 16; RESP 18; TEMP 36.6; O2SAT 94; BMI 25.9
[2025-02-12] MEDS: Calcium (Elemental) 500 MG Tablet PO (20:15)
--- NOTE | 2025-02-12 21:14 | HP.PCM_ITS ---
HPI - General General Date of Admission: 02/12/25 Date of Service: 02/12/25 HPI Narrative KAREN YANEZ, is a 74 Female who presents with followin01/21/2025 Dr. Aponte, left distal femur fracture, underwent left femur retrograde intramedullary nailing. 02/03/2025 Doppler ultrasound left lower extremity positive dvt, treated with Eliquis 5mg thru 05/05/2025. 02/04/2025 Discharged home from TCU with [facility] PT/OT. 02/10/2025 Dr. Alanis performed left distal femur removal of hardware, left distal femur revision ORIF for left supracondylar distal femur fracture with failed orthopedic fixation. 02/10/2025 PT/OT/CM, pain management, bowel regimen, dvt prophylaxis. 02/11/2025 PT/OT/CM> Eliquis 5mg bid for dvt prophylaxis, left lower extremity dvt. 02/11/2025 Pain 7/10 at rest, 9/10 with movement. Oxycodone, Tylenol, Dilaudid, ice for pain. Walking with walker. Plan discharge to TCU. 02/12/2025 Admit to TCU with debility, here for rehabilitation, strengthening, prior to discharge home alone. [facility] Medical History Nausea Femur fracture, left Rectal bleeding Hemorrhoids Vitamin D deficiency Wears hearing aid Wears glasses Wears dentures Post-menopausal Depression Anxiety Walker as ambulation aid Back pain Constipation Gastric reflux Non-smoker History of pain when walking History of stress test Hx of fracture of wrist Skin cancer Osteoporosis Osteopenia Osteoarthritis Arthritis Fatigue sudden weight loss Abnormal thermography Thyroid nodule Home Medications ?Medication ?Instructions ?Recorded ?Last Taken ?Type magnesium oxide 500 mg PO BID supplement 02/09/25 History apixaban 5 mg tablet (Eliquis) 10 mg (2 x 5 mg) PO BID 02/03/25 02/12/25 Rx prophylactic 6 days #24 tabs oxycodone 5 mg tablet 5 - 10 mg (1 - 2 x 5 mg) PO Q4H 02/03/25 02/09/25 Rx PRN PRN Pain Score 6-10 Or Pre Pt/Ot 7 days #84 tabs pantoprazole 40 mg tablet,delayed 40 mg PO DAILY stoma ch 30 days #30 02/03/25 02/12/25 Rx release tabs sennosides 8.6 mg-docusate sodium 2 tab PO BID bowels 30 days #120 02/03/25 02/12/25 Rx 50 mg tablet (Stimulant Laxative tabs Plus) tramadol 50 mg tablet 50 mg PO Q6H PRN PRN Pain Sc ore 02/03/25 Unknown Rx Held on 02/12/25. 4-5 Or Pre Pt/Ot 7 days #28 tabs Instructions: Resume on 03/28/25. hold while on oxycodone. if off oxycodone, ok to resume as needed. OSTINOL 1 cap PO BID supplement 01/2802/09/25 History calcium citrate 300 mg PO TID supplement 09/2302/09/25 History cholecalciferol (vitamin D3) 125 125 mcg PO DAILY supp lement 02/07/25 02/09/25 History mcg (5,000 unit) tablet (Vitamin D3) digestive enzymes 1 cap PO DAILY supplement 02/09/25 History ondansetron 4 mg disintegrating 8 mg PO BID Nausea/Vom iting 02/07/25 02/12/25 09:15 History tablet psyllium husk (aspartame) 3 gram 1 packet PO DAILY bow els 02/07/25 02/09/25 History oral powder packet (Daily Fiber (psyllium-aspartame)) acetaminophen 500 mg tablet 1,000 mg (2 x 500 mg) PO Q 8 pain 02/12/25 02/12/25 Rx #180 tabs doxycycline hyclate 100 mg capsule 100 mg PO BID proph ylactic 1 week 02/12/25 Unknown Rx #14 caps oxycodone 5 mg tablet 5 - 10 mg (1 - 2 x 5 mg) PO Q6H 02/12/25 02/12/25 06:25 Rx PRN PRN Pain Score 6-10 7 days #60 tabs Allergy/AdvReac Type Severity Reaction Status Date / Time dexamethasone Allergy Severe hallcenating, Verified 02/10/25 11:57 anxiety methylprednisolone Allergy Severe hallucenant Verified 02/10/25 11:57 ing,anxiety prednisone Allergy Severe hallucenating Verified 02/10/25 11:57 ,anxiety azithromycin (From Zithromax Allergy Mild heart Verified 02/10/25 11:57 Z-Rasheed) racing levofloxacin (From Levaquin) Allergy Mild muscle Verified 02/10/25 11:57 pain, heart racing amantadine Allergy Other Verified 02/10/25 11:57 cortisone Allergy Other Verified 02/10/25 11:57 fluoxetine HCl (From Prozac) Allergy Other Verified 02/10/25 11:57 Penicillins Allergy Unknown Verified 02/10/25 11:57 erythromycin base AdvReac Severe digestive Verified 02/10/25 11:57 upset prednisolone AdvReac Severe hallucenati Verified 02/10/25 11:57 ons,anxiety escitalopram AdvReac Intermediate nausea Verified 02/10/25 11:57 sertraline AdvReac Intermediate heart Verified 02/10/25 11:57 racing Sulfa (Sulfonamide AdvReac Intermediate nausea,diar Verified 02/10/25 11:57 Antibiotics) emma Family History Father Cancer Leukemia Grandmother Heart disease Grandfather Colon cancer Other Angina at rest Arthritis Asthma Blood clot in vein High cholesterol Myocardial infarction Osteoporosis Respiratory disease Severe allergic reaction Thyroid disorder Surgical History History of open reduction and internal fixation (ORIF) procedure Hx of abdominal hysterectomy Hx of wisdom tooth extraction Hx of colonoscopy History of repair of rectocele Hx of vaginal surgery Social History household members: none Smoking Status: Never smoker alcohol intake: never substance use type: does not use caffeine: No what type of physical activity do you participate in: none frequency: 5-6 times per week seatbelt use: always additional social history: Spouse- Doyle EDWARDS Constitutional Constitutional: Reports weakness; Denies chills, fever(s) or weight gain ENT HEENT: Denies headache(s), nasal congestion or nasal discharge Cardiovascular Cardiovascular: Denies chest pain or palpitations Respiratory/Chest Respiratory/Chest: Denies cough, excessive phlegm production or shortness of breath with exertion Gastrointestinal Gastrointestinal: Denies abdominal pain, nausea or vomiting Genitourinary Genitourinary: Denies dysuria Musculoskeletal Musculoskeletal: Denies joint pain or joint swelling Integumentary Integumentary: Denies rash or wounds Neurologic Neurologic: Denies focal weakness, numbness or tingling Psychiatric Psychiatric: Denies anxiety, auditory hallucinations, depression, homicidal ideation or suicidal ideation Vital Signs Vital Signs Vital Signs: 02/12/25 16:28 02/12/25 16:28 Temperature 97.9 F Temperature Source Temporal Pulse Rate 93 93 Pulse Rhythm Regular Pulse Strength Normal (2+) Respiratory Rate 18 16 Respiratory Effort Normal Non-Labored Respiratory Depth Normal Respiratory Pattern Normal Blood Pressure 110/60 Blood Pressure Mean 76 Blood Pressure Source Manual Blood Pressure Position Semi-Fowlers Blood Pressure Location Right Arm Pulse Ox 94 94 Oxygen Delivery Method Room Air Room Air Weight Weight: 74.984 kg Body Mass Index (BMI) 25.9 Physical Exam Const alert General Appearance: cooperative HEENT normocephalic Eyes PERRL and EOMs intact bilaterally Neck supple, no JVD and no carotid bruits Resp normal respiratory effort, normal air movement and clear to auscultation bilaterally Cardio regular rate and regular rhythm GI normal to inspection, nondistended, normoactive bowel sounds, non-tender and non-distended Extremity normal capillary refill Extremity Narrative: Left lower extremity dressing, JUSTINA wrap. General Extremity: Negative for edema Skin no rashes or lesions noted General Skin Exam: no breakdown Psych affect normal Appearance: appropriate Assessment & Plan Assessment/Plan (1) Debility: (2) Femoral distal fracture: QUALIFIERS: Encounter type: initial encounter Fracture morphology: other fracture Fracture type: closed Laterality: left Qualified Code(s): S72.492A - Other fracture of lower end of left femur, initial encounter for closed fracture (3) Left leg DVT: (4) Iron deficiency anemia: (5) Calcium deficiency: (6) Hypomagnesemia: PLAN: Plan 74 year old female with below past medical history hospitalized for left distal femur fracture with failed orthopedic fixation, underwent left distal femur removal of hardware, left distal femur revision ORIF 02/10/[address] Aponte, admitted to TCU with debility, here for rehabilitation, strengthening, prior to discharge home alone. * Debility - PT/OT. * Pain - Tylenol 1000mg q8, Tramadol 50mg q6 prn pain (1-5), Oxycodone 10mg q4 prn pain (6-10). * Nausea - Zofran 8mg q6 prn. * Bowel - Metamucil 1 packet daily, Senna/colace 2 tablets bid, Magnesium citrate 300mL daily prn. * Adult immunization - Administer pneumonia vaccine, covid vaccine, flu vaccine as appropriate. * DVT prophylaxis - Eliquis. * LLE DVT - Eliquis 5mg bid thru 05/12/2025. * Calcium deficiency - Calcium 500mg tidcm. * Vitamin D deficiency - D 125mcg daily. * ID - Doxycycline 100mg bid thru 02/19/2025. * Hypomagnesemia - Magnesium chloride 128mg bid. * GERD - Pantoprazole 40mg daily.
[2025-02-12] MEDS: APIXABAN 5 MG TABLET 10 MG PO (21:23)
[2025-02-12] MEDS: Doxycycline 100 MG CAPSULE PO (21:23)
[2025-02-12] MEDS: Acetaminophen 500 MG Tablet 1000 MG PO (21:24)
[2025-02-12] MEDS: Senna/Docusate Sodium 1 Tablet 2 TABLET PO (21:24)
[2025-02-12] MEDS: 0.9% Saline Lock 10 ML Syringe IV (21:25)
[2025-02-12] MEDS: Ondansetron 8 MG Tablet PO (21:26)
[2025-02-12] MEDS: oxyCODONE 5 MG Tablet 10 MG PO (22:27)
[2025-02-13] MEDS: Doxycycline 100 MG CAPSULE PO ×2 (05:47→21:47)
[2025-02-13] MEDS: Acetaminophen 500 MG Tablet 1000 MG PO ×3 (05:47→21:47)
[2025-02-13] MEDS: oxyCODONE 5 MG Tablet 10 MG PO ×2 (05:50→12:55)
[2025-02-13 06:25] LABS: Absolute Lymphocyte Count 1.35 X10^3/uL (0.83-4.51); Absolute Neutrophil Count 3.2 X10^3/uL (2.0-7.7); Basophil# 0.02 X10^3/uL; Basophil% 0.4 % (0-1); Eosinophil# 0.59 X10^3/uL; Eosinophils% 10.5 % (0-5); Hematocrit 31.7 % (37-47); Hemoglobin 9.7 g/dL (12.0-15.0); Lymphocyte # 1.35 X10^3/ul (0.83-4.51); Mean Corpuscular Hgb 29.8 pg (27.0-32.0); Mean Corpuscular Volume 97.5 fL (81-99); Mean Platelet Vol. 10.6 fl (6.2-12.0); Monocyte# 0.45 X10^3/uL; NRBC Flagged by Analyzer 0 % (0-5); Neutrophil # 3.19 X10^3/uL (2.7-7.7); Neutrophil % 56.6 % (47-70); Platelet Count 278 K/mm3 (150-450); RBC Distribution Width CV 13.6 % (11.6-14.6); RBC Distribution Width SD 48.4 fl (35.1-43.9); Red Blood Count 3.25 M/mm3 (4.2-5.4); White Blood Count 5.6 K/mm3 (4.4-11.0)
[2025-02-13 06:36] LABS: Anion Gap 12 (5-15); BUN 13 mg/dL (4-19); BUN/Creat Ratio 24.6 RATIO (10-20); Carbon Dioxide 23.1 mmol/L (21.0-32.0); Chloride 103 mmol/L (98-108); Creatinine, Serum 0.55 mg/dL (0.70-1.20); EST Glomerular Filtration Rate 97 (>60); Glucose 105 mg/dL (70-99); Potassium 3.6 mmol/L (3.3-5.1); Sodium Level 138 mmol/L (133-145)
[2025-02-13 07:38] LABS: Mean Corp Hgb Conc 30.6 g/dL (32-36)
[2025-02-13 09:00] VITALS: BP 109/57; PULSE 84; RESP 17; TEMP 36.5; O2SAT 94
[2025-02-13] MEDS: Pantoprazole Sodium 40 MG Tablet PO (09:03)
[2025-02-13] MEDS: Psyllium 1 PACKET PO (09:03)
[2025-02-13] MEDS: Senna/Docusate Sodium 1 Tablet 2 TABLET PO ×2 (09:04→21:47)
[2025-02-13] MEDS: Cholecalciferol (Vit D3) 125 MCG CAPSULE (5,000 UNITS) PO (09:04)
[2025-02-13] MEDS: APIXABAN 5 MG TABLET PO ×2 (09:04→21:47)
[2025-02-13] MEDS: Magnesium Chloride 64 MG Delay Rel.Tablet 128 MG PO (09:04)
[2025-02-13] MEDS: 0.9% Saline Lock 10 ML Syringe IV (09:06)
[2025-02-13] MEDS: Tuberculin,Purif.prot.deriv. 50 TU/ML Vial 0.1 ML ID (10:25)
--- NOTE | 2025-02-13 10:34 | CASEMGMT ---
Addendum entered by Verenice Linton 02/13/25 10:42: SW also provided pt with list of SNFs that are in [facility], that are INN with [facility] insurance, that include quality and resource data via CarePort Guide for pt to review. Original Note: Social Work SW met with patient. Pt known to this worker - DC'd from TCU 02/04/25. No changes to admission assessment or code status. Educated to [facility] insurance with [employer] 02/17 and continued stay is not guaranteed with each review. SW educated insurance does not typically approve pts for full 4-6 weeks of PWB. Educated to other options - nonskilled [employer] OOP, remain in TCU OOP, DC to another SNF OOP. SW provided pricing to pt, but pt overwhelmed and anxious with news. SW offered to write information and give to pt to review. Pt appreciative. Pt to contact compliance attorney to discuss transferring funds to give immediate access. SW assured pt that this worker will assistance with DC planning, and to allow time with therapy to determine progress and needs at DC. Pt agreed. - SW received call from Kameron at [facility] [employer], stating she assists pt with finances. ALESHA educated to [facility] insurance review process, 3-day notice for DC, options and pricing for remaining in TCU or DC to a SNF. Pt is anticipated to need about $10,000-14,000 available. Kameron appreciative and will assist pt. - ALESHA returned to room and provided written information to pt. Pt appreciative. Verenice Linton [employer]
--- NOTE | 2025-02-13 10:36 | PHA.CONS_ITS ---
Documented by User: Erika Boyle 02/13/25 11:05 TCU RX Drug Regimen Review Subjective/Objective Subjective/Objective Subjective: 74 YOF admitted to TCU 02/12/25 s/p hospitalization for a revision of a left distal femur fracture performed in December of 2024. Admitted to TCU for strengthening and rehabilitation prior to discharge home where she resides alone. Objective: Allergies dexamethasone Allergy (Severe, Verified 02/10/25 11:57) hallcenating, anxiety methylprednisolone Allergy (Severe, Verified 02/10/25 11:57) hallucenanting,anxiety prednisone Allergy (Severe, Verified 02/10/25 11:57) hallucenating ,anxiety azithromycin (From Zithromax Z-Rasheed) Allergy (Mild, Verified 02/10/25 11:57) heart racing levofloxacin (From Levaquin) Allergy (Mild, Verified 02/10/25 11:57) muscle pain, heart racing amantadine Allergy (Verified 02/10/25 11:57) Other cortisone Allergy (Verified 02/10/25 11:57) Other fluoxetine HCl (From Prozac) Allergy (Verified 02/10/25 11:57) Other Penicillins Allergy (Verified 02/10/25 11:57) Unknown erythromycin base Adverse Reaction (Severe, Verified 02/10/25 11:57) digestive upset prednisolone Adverse Reaction (Severe, Verified 02/10/25 11:57) hallucenations,anxiety escitalopram Adverse Reaction (Intermediate, Verified 02/10/25 11:57) nausea sertraline Adverse Reaction (Intermediate, Verified 02/10/25 11:57) heart racing Sulfa (Sulfonamide Antibiotics) Adverse Reaction (Intermediate, Verified 02/10/25 11:57) nausea,diarrhea Current Medications Generic Name Dose Route Start Last Admin Trade Name Freq PRN Reason Stop Dose Admin Acetaminophen 1,000 mg 02/12/25 22:00 02/13/25 05:47 Acetaminophen 500 Mg Tablet PO 1,000 mg Q8 [facility] Administration Apixaban 5 mg 02/12/25 22:00 02/13/25 09:04 Apixaban 5 Mg Tablet PO 05/12/25 23:59 5 mg BID TISH Administration Calcium Carbonate 500 mg 02/12/25 17:45 02/13/25 09:03 Calcium (Elemental) 500 Mg Tablet PO Not Given TIDCM [facility] Cholecalciferol 125 mcg 02/13/25 10:00 02/13/25 09:04 Cholecalciferol (Vit D3) 125 Mcg Capsule (5,000 Units) PO 125 mcg DAILY TISH Administration Doxycycline Monohydrate 100 mg 02/12/25 22:00 02/13/25 05:47 Doxycycline 100 Mg Capsule PO 02/19/25 06:01 100 mg 0600,2200 TISH Administration Magnesium Chloride 128 mg 02/13/25 08:00 02/13/25 09:04 Magnesium Chloride 64 Mg Delay Rel.Tablet PO 128 mg BIDCM TISH Administration Magnesium Citrate 300 ml 02/12/25 21:31 Magnesium Citrate 300 Ml PO DAILY PRN Constipation Ondansetron HCl 8 mg 02/12/25 16:57 02/12/25 21:26 Ondansetron 8 Mg Tablet PO 8 mg Q6H PRN PRN Administration NAUSEA/VOMITING Oxycodone HCl 10 mg 02/12/25 16:51 02/13/25 05:50 Oxycodone 5 Mg Tablet PO 10 mg Q4H PRN PRN Administration Pain Score 6-10 or Pre PT/OT Pantoprazole Sodium 40 mg 02/13/25 10:00 02/13/25 09:03 Pantoprazole Sodium 40 Mg Tablet PO 40 mg DAILY TISH Administration Psyllium Hydrophilic Mucilloid 1 packet 02/13/25 10:00 02/13/25 09:03 Psyllium 1 Packet PO 1 packet DAILY TISH Administration Senna/Docusate Sodium 2 tablet 02/12/25 22:00 02/13/25 09:04 Senna/Docusate Sodium 1 Tablet PO 2 tablet BID TISH Administration Sodium Chloride 10 - 40 ml 02/12/25 17:00 02/13/25 09:06 0.9% Saline Lock 10 Ml Syringe IV 10 ml UD PRN Administration SALINE FLUSH Tramadol HCl 50 mg 03/28/25 09:00 Tramadol 50 Mg Tablet PO Q6H PRN PRN Pain Score 1-5 or Pre PT/OT Tuberculin PPD 0.1 ml 02/20/25 10:00 Tuberculin,Purif.Prot.Deriv. 50 Tu/Ml Vial ID 02/20/25 10:01 X1 ONE Problem List Calcium deficiency (Acute) Iron deficiency anemia (Acute) Left leg DVT (Acute) Hypomagnesemia (Acute) Debility (Acute) Vital Signs Temp Pulse Resp BP Pulse Ox O2 Del Method 97.7 F L 84 17 109/57 L 94 Room Air 02/13/25 09:00 02/13/25 09:00 02/13/25 09:00 02/13/25 09:00 02/13/25 09:00 02/13/25 09:00 Oxygen Delivery Method Room Air Weight: 74.984 kg Body Mass Index (BMI) 25.9 Sodium 138 mmol/L (133-145) 02/13/25 05:26 Potassium 3.6 mmol/L (3.3-5.1) 02/13/25 05:26 Chloride 103 mmol/L (98-108) 02/13/25 05:26 Carbon Dioxide 23.1 mmol/L (21.0-32.0) 02/13/25 05:26 Anion Gap 12 (5-15) 02/13/25 05:26 BUN 13 mg/dL (4-19) 02/13/25 05:26 Creatinine 0.55 mg/dL (0.70-1.20) L 02/13/25 05:26 Est GFR (MDRD) Non-Af 97 (>60) 02/13/25 05:26 BUN/Creatinine Ratio 24.6 RATIO (10-20) H 02/13/25 05:26 Glucose 105 mg/dL (70-99) H 02/13/25 05:26 Assessment/Plan: 1. Pain: Tylenol 1000mg PO Q8h, Tramadol 50mg PO Q6h PRN pain 1-5, Oxycodone 10mg PO Q4h PRN pain 6-10. Please continue to monitor for increased/decreased S/S pain, PRN medication usage, constipation/oversedation/respiratory depression with narcotic usage, LFT (AST 36, ALT 31 on 01/24/25). - The patient has used zero doses of tramadol and 2 doses of Oxycodone since admission for pain rated 6/10, post med pain rated 0/10. Patient's pain appears managed at this time. 2. Post-op DVT Prophylaxis: Eliquis 5mg PO BID thru 05/12/25. Please continue to monitor for increased/decreased s/s bleeding/bruising, H/H (hgb 9.7, hct 31.7 on 02/13), s/s blood clot formation 3. Post-OP infection prophylaxis: Doxycycline 100mg PO BID thru 02/19/25. Please continue to monitor for surgical site infection, nausea, vomiting. 4. Nausea: Zofran 8mg PO Q6h PRN. Please continue to monitor for PRN medication use, headache, dizziness, QTc (last 442 on 01/20/25). -The patient had used one dose of PRN medication since admission 5. GERD: Protonix 40mg PO Daily. Please continue to monitor for nausea, bloating, abdominal pain. Please also encourage non-pharmacological treatments to help minimize GERD exacerbations. 6. General Wellness: Os-Call 500mg PO TID, Vitamin D 5000 unit PO Daily, Magnesium chloride 128mg PO BID. 7. Bowel: Senna/Docusate 2 tab PO BID, Metamucil 1 packet Daily, magnesium Citrate 300mL PO Daily PRN. Please continue to monitor for increased/decreased constipation and/or diarrhea. Please discontinue scheduled medication if patient develops persistent diarrhea. -The patient's last documented BM was today, 02/13/25. Assessment/Plan for indications treated with psychotropic medications: -The patient is not currently on any psychotropic medications at time of admission medication review. Medical chart and medication regimen reviewed. The following medication irregularities or issues were identified: -No irregularities identified Date Date of Note: 02/13/25 Documented by User: Dr. Denton Rock MD 02/13/25 11:07 TCU RX Drug Regimen Review Provider Comments Provider responsibility Provider Comments to Recommendations by Pharmacy Agree
[2025-02-13] MEDS: Ondansetron 8 MG Tablet PO ×2 (13:04→21:47)
[2025-02-14] MEDS: Doxycycline 100 MG CAPSULE PO ×2 (06:56→23:08)
[2025-02-14] MEDS: Acetaminophen 500 MG Tablet 1000 MG PO (06:56)
[2025-02-14] MEDS: Ondansetron 8 MG Tablet PO ×3 (08:47→23:05)
[2025-02-14] MEDS: [UNRECOGNIZED DRUG - OTHER] PO ×3 (08:48→16:08)
[2025-02-14] MEDS: APIXABAN 5 MG TABLET PO ×2 (08:51→23:08)
[2025-02-14] MEDS: Pantoprazole Sodium 40 MG Tablet PO (08:51)
[2025-02-14] MEDS: Psyllium 1 PACKET PO (08:51)
[2025-02-14] MEDS: Senna/Docusate Sodium 1 Tablet 2 TABLET PO (08:52)
[2025-02-14] MEDS: Cholecalciferol (Vit D3) 125 MCG CAPSULE (5,000 UNITS) PO (08:54)
[2025-02-14] MEDS: oxyCODONE 5 MG Tablet 10 MG PO ×2 (08:56→23:08)
[2025-02-14 08:59] VITALS: BP 112/58; PULSE 96; RESP 16; TEMP 37; O2SAT 97
[2025-02-14 10:30] VITALS: PULSE 101; RESP 18; O2SAT 98
[2025-02-14] MEDS: 0.9% Saline Lock 10 ML Syringe IV (10:38)
[2025-02-14] MEDS: Menthol/Lanolin/Calamine/Znox 113 GM Tube 1 APPLIC TOPICAL (10:39)
--- NOTE | 2025-02-14 11:36 | NURSING ---
Cancer Program Coordinator Note; Activity Asset: Jigna Valenzuela has returned for therapy. She remains independent in her choice of daily activities. She prefers in room independent activities over group. Her dot etcher apprentice will visits along w/family and friends. She will read, watch tv, work on word puzzles and rest. Staff will remind her of weekly activities and respect her right to say no.
--- NOTE | 2025-02-14 18:27 | NURSING ---
Addendum entered by Mikel Bernard 02/14/25 18:40: PT STATED SHE FOUND OUT IT WAS A APPENDICITIS AND SON WAS IN SURGERY. Original Note: PT UPSET AND NAUSEATED DUE TO SON IN ER STATING I THINK HE SAID HE HAS A BOWL OBSTRUCTION. 1 ON 1 WITH PT AND PRN ZOFRAN GIVEN.
[2025-02-15] MEDS: Doxycycline 100 MG CAPSULE PO ×2 (05:54→20:23)
[2025-02-15] MEDS: Ondansetron 8 MG Tablet PO ×2 (05:54→20:32)
[2025-02-15] MEDS: Psyllium 1 PACKET PO (08:18)
[2025-02-15] MEDS: APIXABAN 5 MG TABLET PO ×2 (08:18→20:24)
[2025-02-15] MEDS: Senna/Docusate Sodium 1 Tablet 2 TABLET PO (08:18)
[2025-02-15] MEDS: [UNRECOGNIZED DRUG - OTHER] PO ×3 (08:18→16:51)
[2025-02-15] MEDS: Cholecalciferol (Vit D3) 125 MCG CAPSULE (5,000 UNITS) PO (08:18)
[2025-02-15] MEDS: Pantoprazole Sodium 40 MG Tablet PO (08:18)
[2025-02-15] MEDS: oxyCODONE 5 MG Tablet 10 MG PO ×2 (08:18→20:32)
[2025-02-15] MEDS: Menthol/Lanolin/Calamine/Znox 113 GM Tube 1 APPLIC TOPICAL ×2 (08:21→20:22)
[2025-02-15 09:48] VITALS: BP 109/62; PULSE 89; RESP 16; TEMP 36.7; O2SAT 98
--- NOTE | 2025-02-15 10:15 | NURSING ---
N.O. per Dr. Rock for Acidophilus 1 tab BID.
[2025-02-15] MEDS: Acetaminophen 500 MG Tablet 1000 MG PO (12:20)
[2025-02-15 16:15] VITALS: BMI 25.9
[2025-02-15] MEDS: 0.9% Saline Lock 10 ML Syringe IV (20:24)
[2025-02-15] MEDS: Lactobacillis Acidophilus 1 CAP PO (21:56)
[2025-02-16] MEDS: Doxycycline 100 MG CAPSULE PO ×2 (05:45→20:33)
[2025-02-16] MEDS: Ondansetron 8 MG Tablet PO ×2 (05:45→18:35)
[2025-02-16] MEDS: Acetaminophen 500 MG Tablet 1000 MG PO (05:46)
[2025-02-16] MEDS: Menthol/Lanolin/Calamine/Znox 113 GM Tube 1 APPLIC TOPICAL (09:18)
[2025-02-16] MEDS: Psyllium 1 PACKET PO (09:18)
[2025-02-16] MEDS: [UNRECOGNIZED DRUG - OTHER] PO ×3 (09:18→17:35)
[2025-02-16] MEDS: Senna/Docusate Sodium 1 Tablet 2 TABLET PO (09:18)
[2025-02-16] MEDS: Pantoprazole Sodium 40 MG Tablet PO (09:18)
[2025-02-16] MEDS: Lactobacillis Acidophilus 1 CAP PO ×2 (09:18→20:33)
[2025-02-16] MEDS: Cholecalciferol (Vit D3) 125 MCG CAPSULE (5,000 UNITS) PO (09:18)
[2025-02-16] MEDS: APIXABAN 5 MG TABLET PO ×2 (09:18→20:33)
[2025-02-16 10:12] VITALS: BP 112/63; PULSE 79; RESP 16; TEMP 36.6; O2SAT 98
[2025-02-16] MEDS: oxyCODONE 5 MG Tablet 10 MG PO ×2 (11:53→20:35)
[2025-02-16] MEDS: 0.9% Saline Lock 10 ML Syringe IV (20:35)
[2025-02-17 00:37] VITALS: BP 105/51; PULSE 103; RESP 24; O2SAT 90
[2025-02-17] MEDS: oxyCODONE 5 MG Tablet 10 MG PO ×3 (00:38→22:02)
[2025-02-17] MEDS: Acetaminophen 500 MG Tablet 1000 MG PO ×3 (00:38→13:45)
--- NOTE | 2025-02-17 01:13 | NURSING ---
Pt c/o pain, requesting more Oxy. Shallow tachypnea noted. Instructed Pt to focus on her breathing and to take slow steady breaths. SpO2 improved to 99% and HR came down to 89. Pt stated she felt better. Discussed with Pt possibility of anxiety meds, Pt not wanting to go that route at this time. Encouraged breathing techniques to help with anxiety and pain. Dr. Rock notified of issues, will continue to monitor.
[2025-02-17] MEDS: Ondansetron 8 MG Tablet PO ×3 (05:37→22:02)
[2025-02-17] MEDS: Doxycycline 100 MG CAPSULE PO ×2 (05:37→22:02)
[2025-02-17 08:40] VITALS: BP 106/59; PULSE 91; RESP 16; TEMP 36.4; O2SAT 98
[2025-02-17] MEDS: 0.9% Saline Lock 10 ML Syringe IV (08:42)
[2025-02-17] MEDS: Lactobacillis Acidophilus 1 CAP PO ×2 (08:43→22:02)
[2025-02-17] MEDS: [UNRECOGNIZED DRUG - OTHER] PO ×3 (08:43→17:13)
[2025-02-17] MEDS: APIXABAN 5 MG TABLET PO ×2 (08:43→22:03)
[2025-02-17] MEDS: Psyllium 1 PACKET PO (08:44)
[2025-02-17] MEDS: Senna/Docusate Sodium 1 Tablet 2 TABLET PO ×2 (08:44→22:02)
[2025-02-17] MEDS: Pantoprazole Sodium 40 MG Tablet PO (08:44)
[2025-02-17] MEDS: Cholecalciferol (Vit D3) 125 MCG CAPSULE (5,000 UNITS) PO (08:45)
--- NOTE | 2025-02-17 08:53 | NURSING ---
Addendum entered by Marisa Daily 02/17/25 08:57: new orders for xray, doppler & CT scan d/t pain/edema. Original Note: material handler 2nd shift left message for dr gaitan regarding pt LT knee edema/pain. pt reported to this nurse, it's not better & its not worse, surgical dressing x2 still intact, no redness/signs of infection. dressings to be removed today per order. pt has noted nausea more, explained it could be from ATB. pt agreed. pt up in chair, eating yogurt with meds. call light in reach. legs elevated in recliner chair.
--- NOTE | 2025-02-17 09:17 | RAD_ITS ---
PROCEDURE: HIP, UNI W/ PELVIS 2-3 VIEWS 02/17/2025 REASON FOR EXAM: PAIN. TECHNIQUE: Left hip radiographs and AP pelvis. COMPARISON: Left hip radiographs 01/31/2025. FINDINGS: Bones: No acute fracture deformity. Left total hip arthroplasty and partially visualized ORIF of the left femur in grossly anatomic alignment. Probable chronic fracture deformity of the left inferior pubic ramus. Joints: Normal alignment. 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 Soft tissues: Surgical tolu overlying the left lateral hip. Other: Surgical tolu overlying the pelvis. The visualized bowel loops are normal caliber. RAD/HIP, UNI W/ Pelvis 2-3 Views IMPRESSION: Left total hip arthroplasty and partially visualized ORIF of the left femur. N o acute fracture deformity. Reading Location: [id number]
--- NOTE | 2025-02-17 09:17 | RAD_ITS ---
PROCEDURE: KNEE 4 OR MORE VIEWS 02/17/2025 REASON FOR EXAM: Lower extremity pain. Recent ORIF of the distal femoral fracture. TECHNIQUE: 4 view(s) of the left knee COMPARISON: Comparison is made with prior study dated January 31, 2025. FINDINGS: Bones: Once again, the patient is status post open reduction internal fixation of the distal femoral fracture utilizing intramedullary juan manuel fixation device as well as sideplate and screw fixation. The alignment is maintained. Joints: Mild degree of degenerative changes of the medial compartment of the knee joint. Effusion: Small joint effusion. Soft tissues: Soft tissue swelling. Other: RAD/Knee 4 or More Views IMPRESSION: Status post ORIF of the distal femoral fracture. The positioning is maintained . Small joint effusion and residual soft tissue swelling. Reading Location: [facility]
--- NOTE | 2025-02-17 09:50 | NURSING ---
Updated by special effects technician she's negative for DVT.
--- NOTE | 2025-02-17 10:35 | NURSING ---
Received auth for CT scan left knee no contrast, [facility] #[id number]. Order faxed to CT.
--- NOTE | 2025-02-17 11:19 | NURSING ---
Offered covid vaccine, VIS provided. Resident declines at this time.
--- NOTE | 2025-02-17 18:07 | NS ---
Spoke with res yesterday (02/16/25) after prompted by RN in terms of ordering a supplement. She noted that she has been really nauseous and would like to just order oatmeal for some of her upcoming meals. We discussed Beneprotein as a supplement to increase protein intakes if she wants more bland foods. She was agreeable to trial 2 packets with every meal to mix with oatmeal, or other things, such as applesauce, pudding or yogurt. Provided nausea info from Nutrition Care Manual. Added Beneprotein to diet order. Notes that she does not tolerate Ensure products well. Using protein powder brought from home as well. Will continue to follow, monitor oral intakes and modify nutrition interventions as needed.
[2025-02-17 22:00] VITALS: BP 115/53; PULSE 86; O2SAT 98
[2025-02-18] MEDS: Doxycycline 100 MG CAPSULE PO ×2 (05:48→21:57)
[2025-02-18] MEDS: Acetaminophen 500 MG Tablet 1000 MG PO ×3 (05:48→21:59)
[2025-02-18 08:00] VITALS: BP 111/61; PULSE 77; RESP 18; TEMP 36.6; O2SAT 99
--- NOTE | 2025-02-18 08:07 | NS ---
02/18/25: Roseline from dietary called and reported pt doesn't want beneprotein supplement. RDN will discontinue. Kristan No RDN, LD
[2025-02-18 09:31] VITALS: BMI 25.6
[2025-02-18] MEDS: Lactobacillis Acidophilus 1 CAP PO ×2 (09:55→21:56)
[2025-02-18] MEDS: [UNRECOGNIZED DRUG - OTHER] PO ×3 (09:55→17:04)
[2025-02-18] MEDS: Senna/Docusate Sodium 1 Tablet 2 TABLET PO ×2 (09:57→21:58)
[2025-02-18] MEDS: Pantoprazole Sodium 40 MG Tablet PO (09:57)
[2025-02-18] MEDS: Psyllium 1 PACKET PO (09:57)
[2025-02-18] MEDS: APIXABAN 5 MG TABLET PO ×2 (09:57→21:58)
[2025-02-18] MEDS: Cholecalciferol (Vit D3) 125 MCG CAPSULE (5,000 UNITS) PO (09:58)
[2025-02-18 10:10] VITALS: BP 109/59; PULSE 80; RESP 18; TEMP 36.7; O2SAT 97
[2025-02-18] MEDS: oxyCODONE 5 MG Tablet 10 MG PO ×2 (12:03→21:54)
[2025-02-18 14:30] VITALS: PULSE 78; RESP 16; O2SAT 97
[2025-02-18] MEDS: Ondansetron 8 MG Tablet PO ×2 (14:51→21:56)
[2025-02-18] MEDS: 0.9% Saline Lock 10 ML Syringe IV ×2 (14:53→21:51)
[2025-02-18 15:14] VITALS: BP 103/56; PULSE 76; RESP 18; TEMP 37.2; O2SAT 97
[2025-02-19] MEDS: oxyCODONE 5 MG Tablet 10 MG PO ×3 (04:48→22:53)
[2025-02-19] MEDS: Acetaminophen 500 MG Tablet 1000 MG PO ×3 (04:52→22:53)
[2025-02-19] MEDS: Doxycycline 100 MG CAPSULE PO (04:52)
[2025-02-19] MEDS: [UNRECOGNIZED DRUG - OTHER] PO (08:15)
[2025-02-19] MEDS: Lactobacillis Acidophilus 1 CAP PO ×2 (08:16→22:53)
[2025-02-19] MEDS: APIXABAN 5 MG TABLET PO (08:19)
[2025-02-19] MEDS: Psyllium 1 PACKET PO (08:19)
[2025-02-19] MEDS: Senna/Docusate Sodium 1 Tablet 2 TABLET PO ×2 (08:20→22:53)
[2025-02-19] MEDS: Pantoprazole Sodium 40 MG Tablet PO (08:20)
[2025-02-19] MEDS: Ondansetron 8 MG Tablet PO ×2 (08:21→16:26)
[2025-02-19] MEDS: Cholecalciferol (Vit D3) 125 MCG CAPSULE (5,000 UNITS) PO (08:21)
[2025-02-19 08:32] VITALS: BP 99/55; PULSE 90; RESP 20; TEMP 36.8; O2SAT 100
--- NOTE | 2025-02-19 08:39 | NURSING ---
Liner Machine Operator Note; MDS for 02/19/2025 Complete
[2025-02-19] MEDS: 0.9% Saline Lock 10 ML Syringe IV (08:40)
--- NOTE | 2025-02-19 08:59 | NURSING ---
PT HAVING A LOT OF PAIN IN GROIN DOWN TO KNEE. HAD PT REPOSITION,ICE TO AREAS AND PRN OXY GIVEN. PT ALSO ASKING TO DECREASE HER ELIQUIS. WILL CONTINUE TO MONITOR AND NOTE LEFT FOR . RN AWARE
--- NOTE | 2025-02-19 10:04 | NURSING ---
Addendum entered by Betsy Billy 02/20/25 13:56: MRI planning to scan tomorrow, they will call with a time. Addendum entered by Betsy Billy 02/20/25 11:35: MRI approved, #[id number]. Updated resident. Addendum entered by Betsy Billy 02/19/25 10:49: [employer] requesting clinical info to approve MRI, case #[id number]. Information faxed to #[phone]. Original Note: Reported to this RN that resident having 20/10 pain to LLE, sharp from groin/hip down leg. Updated Dr. Rock, order to do lumbosacral MRI no contrast and he will order increased pain medication for her.
--- NOTE | 2025-02-19 10:20 | CASEMGMT ---
Social Work IDT met with patient and son for care plan meeting. Discussed patient's progress in PT/OT/SN. Provided pt/family with written communication of insurance process and copay coverage during stay. Pt is struggling with appetite, nausea, and significant pain. MRI and morphine is ordered. Pt is anxious about DC as she does not have any support to assist at home. SW previously discussed SNF stay with pt and OOP cost, remaining in TCU private pay, AL or hiring caregivers in the home for IADLs and ADLs. SW provided list of [facility] and AL. Previously provided SNF list. However, IDT is recommending continued stay. Pt tearful in pain when speaking. SW provided emotional support and encouragement. Pt appreciative. SW will continue to follow. Verenice Linton CODING ADVISOR CIRCUS RIDER
[2025-02-19] MEDS: morphine (oral solution) 10MG/0.5ML Syringe 10 MG SL/PO (11:04)
--- NOTE | 2025-02-19 12:38 | CASEMGMT ---
Social Work SW completed BIMS () and PHQ-2 () for MDS assessment. Pt's decline in mood is directly related to her pain and loss of independence, lack of mobility, per pt. is aware and ordering appropriate interventions. ALESHA encouraged pt and provided support. Verenice Linton IMPROVEMENT INTERN SUGAR TRUCKER
[2025-02-19 13:15] VITALS: PULSE 91; RESP 16
[2025-02-19] MEDS: Menthol/Lanolin/Calamine/Znox 113 GM Tube 1 APPLIC TOPICAL (22:53)
[2025-02-20 06:03] LABS: Absolute Lymphocyte Count 1.76 X10^3/uL (0.83-4.51); Absolute Neutrophil Count 5.8 X10^3/uL (2.0-7.7); Basophil# 0.03 X10^3/uL; Basophil% 0.3 % (0-1); Eosinophil# 0.11 X10^3/uL; Eosinophils% 1.3 % (0-5); Hematocrit 29.1 % (37-47); Hemoglobin 9.3 g/dL (12.0-15.0); Lymphocyte # 1.76 X10^3/ul (0.83-4.51); Lymphocyte % 20.2 % (19-41); Mean Corpuscular Hgb 29.6 pg (27.0-32.0); Mean Corpuscular Volume 92.7 fL (81-99); Mean Platelet Vol. 9.7 fl (6.2-12.0); Monocyte# 0.94 X10^3/uL; Monocyte% 10.8 % (0-10); NRBC Flagged by Analyzer 0 % (0-5); Neutrophil # 5.84 X10^3/uL (2.7-7.7); Neutrophil % 66.8 % (47-70); Platelet Count 380 K/mm3 (150-450); RBC Distribution Width CV 14.5 % (11.6-14.6); Red Blood Count 3.14 M/mm3 (4.2-5.4); White Blood Count 8.7 K/mm3 (4.4-11.0)
[2025-02-20 06:40] LABS: Anion Gap 12 (5-15); BUN 12 mg/dL (4-19); Calcium,Total 9.3 mg/dL (7.6-11.0); Carbon Dioxide 22.1 mmol/L (21.0-32.0); Chloride 103 mmol/L (98-108); Creatinine, Serum 0.56 mg/dL (0.70-1.20); EST Glomerular Filtration Rate 96 (>60); Estimated Creatinine Clearance 65.87 ml/min (50-250); Glucose 110 mg/dL (70-99); Sodium Level 137 mmol/L (133-145)
[2025-02-20] MEDS: [UNRECOGNIZED DRUG - OTHER] PO ×3 (09:16→17:49)
[2025-02-20] MEDS: APIXABAN 5 MG TABLET PO ×2 (09:17→20:45)
[2025-02-20] MEDS: Psyllium 1 PACKET PO (09:17)
[2025-02-20] MEDS: Pantoprazole Sodium 40 MG Tablet PO (09:17)
[2025-02-20] MEDS: Senna/Docusate Sodium 1 Tablet 2 TABLET PO ×2 (09:17→20:46)
[2025-02-20] MEDS: Lactobacillis Acidophilus 1 CAP PO ×2 (09:17→20:44)
[2025-02-20] MEDS: Cholecalciferol (Vit D3) 125 MCG CAPSULE (5,000 UNITS) PO (09:17)
[2025-02-20] MEDS: Menthol/Lanolin/Calamine/Znox 113 GM Tube 1 APPLIC TOPICAL (09:18)
[2025-02-20 09:51] VITALS: BP 107/58; PULSE 87; RESP 16; TEMP 36.3; O2SAT 98
--- NOTE | 2025-02-20 10:18 | CASEMGMT ---
Addendum entered by Verenice Linton 02/20/25 12:02: Pt filed appeal. SW phoned [facility] to receive medical records request. NOM[facility] and MR request sent to HIM to process. Awaiting DENC from [facility]. - Pt stated she will pay privately to remain in TCU if appeal is lost. Original Note: Social Work Insurance issued LCD 02/22, DC 02/23. SW spoke with pt to notify of DC date. Explained appeal rights. Pt is electing to appeal d/t pain and mobility limitations. Pt is unable to return home independently at this time. Son entered room and this worker explained to him as well. SW explained the financial liability if pt remains beyond DC date and loses her appeal, though it is her right to remain on TCU until the outcome of the appeal is received. Pt expressed understanding. SW requested pt decide on DC plans by noon tomorrow to allow time for this worker to coordinate DC needs. Pt agreed. SW will continue to follow. IDT and HIM updated. Plan: LCD 02/22, appeal filed. DC plan TBD Verenice Linton PAPER BAG MACHINE OPERATOR THERAPIST PHYSICAL
[2025-02-20] MEDS: Tuberculin,Purif.prot.deriv. 50 TU/ML Vial 0.1 ML ID (10:46)
[2025-02-20] MEDS: oxyCODONE 5 MG Tablet 10 MG PO ×2 (13:12→20:51)
[2025-02-20] MEDS: Ondansetron 8 MG Tablet PO (13:13)
[2025-02-20] MEDS: 0.9% Saline Lock 10 ML Syringe IV (20:46)
[2025-02-20] MEDS: Acetaminophen 500 MG Tablet 1000 MG PO (20:53)
[2025-02-21] MEDS: Acetaminophen 500 MG Tablet 1000 MG PO ×3 (05:12→21:51)
[2025-02-21] MEDS: Lactobacillis Acidophilus 1 CAP PO ×2 (09:35→21:49)
[2025-02-21] MEDS: [UNRECOGNIZED DRUG - OTHER] PO ×2 (09:35→13:05)
[2025-02-21] MEDS: APIXABAN 5 MG TABLET PO ×2 (09:36→21:50)
[2025-02-21] MEDS: Psyllium 1 PACKET PO (09:36)
[2025-02-21] MEDS: Pantoprazole Sodium 40 MG Tablet PO (09:36)
[2025-02-21] MEDS: Cholecalciferol (Vit D3) 125 MCG CAPSULE (5,000 UNITS) PO (09:36)
[2025-02-21 09:44] VITALS: BP 96/55; PULSE 87; RESP 18; TEMP 36.8; O2SAT 99
--- NOTE | 2025-02-21 10:39 | CASEMGMT ---
Addendum entered by Verenice Linton 02/21/25 13:17: received return call from [employer] stating a 3-page letter will be faxed to this worker with explanation of appeal outcome. However, currently, [employer] disagrees with termination of services. SW spoke with pt and notified of her winning the appeal. Pt very relieved and appreciative. IDT updated. Original Note: Social Work DENC received. Pt off unit for MRI. ALESHA provided DENC once pt returned to unit. Faxed DENC to [facility]. - Received faxed results of appeal, though, additional questions need answered before finalizing determination. SW left for [facility] for clarification. Will await outcome. Verenice Linton TELEPHONER SKI PRODUCTION SUPERVISOR
[2025-02-21] MEDS: oxyCODONE 5 MG Tablet 10 MG PO ×2 (13:15→19:53)
[2025-02-21 20:00] VITALS: PULSE 88; O2SAT 97
[2025-02-21] MEDS: 0.9% Saline Lock 10 ML Syringe IV (21:52)
[2025-02-22 02:42] VITALS: PULSE 90; O2SAT 97
[2025-02-22] MEDS: Acetaminophen 500 MG Tablet 1000 MG PO ×2 (05:05→22:43)
[2025-02-22] MEDS: Pantoprazole Sodium 40 MG Tablet PO (08:39)
[2025-02-22] MEDS: [UNRECOGNIZED DRUG - OTHER] PO ×3 (08:39→17:14)
[2025-02-22] MEDS: APIXABAN 5 MG TABLET PO ×2 (08:39→22:43)
[2025-02-22] MEDS: Lactobacillis Acidophilus 1 CAP PO ×2 (08:39→22:44)
[2025-02-22] MEDS: Psyllium 1 PACKET PO (08:39)
[2025-02-22] MEDS: Cholecalciferol (Vit D3) 125 MCG CAPSULE (5,000 UNITS) PO (08:39)
[2025-02-22] MEDS: Senna/Docusate Sodium 1 Tablet 2 TABLET PO ×2 (08:39→22:43)
[2025-02-22] MEDS: Estrogens,Conj. 1 Tube 1 DOSE VAGINAL (08:40)
[2025-02-22 09:10] VITALS: BP 111/64; PULSE 86; RESP 17; TEMP 36.3; O2SAT 99
[2025-02-22] MEDS: Ondansetron 8 MG Tablet PO ×2 (13:12→22:44)
[2025-02-22] MEDS: oxyCODONE 5 MG Tablet 10 MG PO ×2 (15:35→22:45)
[2025-02-23] MEDS: Acetaminophen 500 MG Tablet 1000 MG PO ×3 (05:42→21:18)
[2025-02-23] MEDS: [UNRECOGNIZED DRUG - OTHER] PO (09:06)
[2025-02-23] MEDS: Lactobacillis Acidophilus 1 CAP PO ×2 (09:08→21:18)
[2025-02-23] MEDS: Pantoprazole Sodium 40 MG Tablet PO (09:09)
[2025-02-23] MEDS: Senna/Docusate Sodium 1 Tablet 2 TABLET PO ×2 (09:09→21:18)
[2025-02-23] MEDS: Cholecalciferol (Vit D3) 125 MCG CAPSULE (5,000 UNITS) PO (09:09)
[2025-02-23] MEDS: APIXABAN 5 MG TABLET PO ×2 (09:09→21:18)
[2025-02-23] MEDS: Psyllium 1 PACKET PO (09:09)
[2025-02-23 09:12] VITALS: BP 110/56; PULSE 86; RESP 16; TEMP 36.7; O2SAT 99
[2025-02-23] MEDS: Ondansetron 8 MG Tablet PO (14:20)
--- NOTE | 2025-02-23 18:20 | NURSING ---
PT REQUESTING TUMS FOR UPSET STOMACH. NOTE LEFT FOR .
--- NOTE | 2025-02-23 20:04 | NURSING ---
Patient requesting Tums 1500mg PRN per home regimen for indigestion. Dr. Rock notified of patient request via telephone. New order received for Tums 1500mg PRN TID indigestion. Orders read back and verified.
[2025-02-23] MEDS: oxyCODONE 5 MG Tablet 10 MG PO (22:24)
[2025-02-24] MEDS: Acetaminophen 500 MG Tablet 1000 MG PO ×3 (05:56→21:10)
[2025-02-24] MEDS: [UNRECOGNIZED DRUG - OTHER] PO (08:34)
[2025-02-24] MEDS: Lactobacillis Acidophilus 1 CAP PO (08:35)
[2025-02-24] MEDS: APIXABAN 5 MG TABLET PO ×2 (08:36→21:08)
[2025-02-24] MEDS: Psyllium 1 PACKET PO (08:36)
[2025-02-24] MEDS: Pantoprazole Sodium 40 MG Tablet PO (08:36)
[2025-02-24] MEDS: Senna/Docusate Sodium 1 Tablet 2 TABLET PO ×2 (08:37→21:09)
[2025-02-24] MEDS: Cholecalciferol (Vit D3) 125 MCG CAPSULE (5,000 UNITS) PO (08:37)
[2025-02-24 08:39] VITALS: BP 98/52; PULSE 83; RESP 16; TEMP 36.9; O2SAT 99
--- NOTE | 2025-02-24 08:39 | MDS.RN ---
Information for the MDS was obtained from review of the clinical record, interview of resident, staff, and direct observation of resident?s care.
[2025-02-24] MEDS: Ondansetron 8 MG Tablet PO (10:10)
[2025-02-24] MEDS: Calcium Carbonate 500 MG Tablet 1500 MG PO (15:26)
[2025-02-24] MEDS: oxyCODONE 5 MG Tablet 10 MG PO (21:13)
[2025-02-25] MEDS: Ondansetron 8 MG Tablet PO (05:17)
[2025-02-25 09:11] VITALS: BP 96/58; PULSE 82; RESP 18; TEMP 36.9; O2SAT 99
[2025-02-25 09:13] VITALS: BP 98/48
[2025-02-25] MEDS: oxyCODONE 5 MG Tablet 10 MG PO ×3 (09:14→20:20)
[2025-02-25] MEDS: Lactobacillis Acidophilus 1 CAP PO ×2 (09:14→20:15)
[2025-02-25] MEDS: [UNRECOGNIZED DRUG - OTHER] PO ×2 (09:14→12:30)
[2025-02-25] MEDS: APIXABAN 5 MG TABLET PO ×2 (09:15→20:15)
[2025-02-25] MEDS: Cholecalciferol (Vit D3) 125 MCG CAPSULE (5,000 UNITS) PO (09:15)
[2025-02-25] MEDS: Psyllium 1 PACKET PO (09:15)
[2025-02-25] MEDS: Pantoprazole Sodium 40 MG Tablet PO (09:15)
[2025-02-25] MEDS: Acetaminophen 500 MG Tablet 1000 MG PO ×2 (13:16→20:16)
[2025-02-25 14:00] VITALS: BMI 25.2
[2025-02-25] MEDS: Senna/Docusate Sodium 1 Tablet 2 TABLET PO (20:16)
[2025-02-26] MEDS: Acetaminophen 500 MG Tablet 1000 MG PO ×3 (05:24→21:11)
[2025-02-26 06:29] VITALS: PULSE 90; O2SAT 94
[2025-02-26] MEDS: [UNRECOGNIZED DRUG - OTHER] PO ×3 (08:22→17:34)
[2025-02-26] MEDS: Senna/Docusate Sodium 1 Tablet 2 TABLET PO ×2 (08:23→21:10)
[2025-02-26] MEDS: Estrogens,Conj. 1 Tube 1 DOSE VAGINAL (08:23)
[2025-02-26] MEDS: Pantoprazole Sodium 40 MG Tablet PO (08:23)
[2025-02-26] MEDS: Lactobacillis Acidophilus 1 CAP PO ×2 (08:23→21:10)
[2025-02-26] MEDS: APIXABAN 5 MG TABLET PO ×2 (08:23→21:10)
[2025-02-26] MEDS: Psyllium 1 PACKET PO (08:24)
[2025-02-26] MEDS: Cholecalciferol (Vit D3) 125 MCG CAPSULE (5,000 UNITS) PO (08:24)
[2025-02-26 09:33] VITALS: BP 101/51; PULSE 81; RESP 16; TEMP 37; O2SAT 97
[2025-02-26] MEDS: oxyCODONE 5 MG Tablet 10 MG PO ×2 (12:24→21:10)
[2025-02-27 04:00] VITALS: PULSE 97; O2SAT 99
[2025-02-27] MEDS: Calcium Carbonate 500 MG Tablet 1500 MG PO (04:04)
[2025-02-27] MEDS: Acetaminophen 500 MG Tablet 1000 MG PO ×3 (05:32→21:44)
[2025-02-27 05:43] LABS: Absolute Lymphocyte Count 1.26 X10^3/uL (0.83-4.51); Basophil# 0.03 X10^3/uL; Basophil% 0.8 % (0-1); Eosinophil# 0.24 X10^3/uL; Eosinophils% 6.2 % (0-5); Hematocrit 27.5 % (37-47); Hemoglobin 8.8 g/dL (12.0-15.0); Lymphocyte # 1.26 X10^3/ul (0.83-4.51); Lymphocyte % 32.3 % (19-41); Mean Corpuscular Hgb 29.9 pg (27.0-32.0); Mean Corpuscular Volume 93.5 fL (81-99); Mean Platelet Vol. 9.5 fl (6.2-12.0); Monocyte% 10.3 % (0-10); NRBC Flagged by Analyzer 0 % (0-5); Neutrophil # 1.96 X10^3/uL (2.7-7.7); Neutrophil % 50.1 % (47-70); Platelet Count 370 K/mm3 (150-450); RBC Distribution Width CV 14.7 % (11.6-14.6); RBC Distribution Width SD 50.8 fl (35.1-43.9); Red Blood Count 2.94 M/mm3 (4.2-5.4); White Blood Count 3.9 K/mm3 (4.4-11.0)
[2025-02-27 06:20] LABS: Anion Gap 8 (5-15); BUN 12 mg/dL (4-19); BUN/Creat Ratio 20.4 RATIO (10-20); Calcium,Total 9.2 mg/dL (7.6-11.0); Carbon Dioxide 24.9 mmol/L (21.0-32.0); Chloride 107 mmol/L (98-108); Creatinine, Serum 0.57 mg/dL (0.70-1.20); EST Glomerular Filtration Rate 96 (>60); Glucose 94 mg/dL (70-99); Potassium 3.6 mmol/L (3.3-5.1); Sodium Level 140 mmol/L (133-145)
[2025-02-27] MEDS: Psyllium 1 PACKET PO (08:56)
[2025-02-27] MEDS: Lactobacillis Acidophilus 1 CAP PO ×2 (08:56→21:44)
[2025-02-27] MEDS: Cholecalciferol (Vit D3) 125 MCG CAPSULE (5,000 UNITS) PO (08:57)
[2025-02-27] MEDS: Senna/Docusate Sodium 1 Tablet 2 TABLET PO (08:57)
[2025-02-27] MEDS: Pantoprazole Sodium 40 MG Tablet PO (08:57)
[2025-02-27] MEDS: APIXABAN 5 MG TABLET PO ×2 (08:57→21:45)
[2025-02-27 09:54] VITALS: BP 102/52; PULSE 83; RESP 16; TEMP 36.9; O2SAT 98
[2025-02-27] MEDS: oxyCODONE 5 MG Tablet 10 MG PO ×2 (12:14→21:48)
--- NOTE | 2025-02-27 14:52 | CASEMGMT ---
Social Work SW completed BIMS () and PHQ-9 () for MDS assessment. Pt's score slightly improved as the pain has been subsiding. SW informed pt [employer] provided NRD 02/27 and can issue LCD at any time. Pt stated she has hired 3 different caregivers to help with cooking, cleaning, showers, 4hrs/day when she returns home. Pt reports she is still feeling too weak and unsafe to return home at this time, and wants to continue with further improvement prior to DC. SW will assist with coordinating skilled HHC at time of DC. Pt appreciative. SW will continue to follow. Verenice Linton CENTER MGR SERVICE DEVELOPER
--- NOTE | 2025-02-27 15:21 | PN.ORTHO_ITS ---
Subjective Subjective Patient seen and examined. Pain controlled. States she is doing well partial weightbearing with physical therapy. Planning on returning home after SNF. Denies fevers, chills, nausea vomiting, chest pain or shortness of breath. Denies calf pain. Objective Data Objective Data Vital Signs: Vital Signs Temp Pulse Resp BP Pulse Ox O2 Del Method 98.4 F 83 16 102/52 L 98 Room Air 02/27/25 09:54 02/27/25 09:54 02/27/25 09:54 02/27/25 09:54 02/27/25 09:54 02/27/25 09:54 Oxygen Delivery Method Room Air Weight: 161 lb 3.2 oz Body Mass Index (BMI) 25.2 Intake & Output: Intake and Output for Last 24 Hours 02/25/25 02/26/25 02/27/25 23:59 23:59 23:59 Intake Total 242 / 242 220 / 220 240 / 240 Balance 242 / 242 220 / 220 240 / 240 Medical Nutrition Assessment Dietitian: Malnutrition Criteria Met Start: 02/26/25 11:54 Freq: Status: Active Protocol: Document 02/26/25 11:54 SLA (Rec: 02/26/25 11:54 SLA [id number]) Nutrition Malnutrition Evidence of Yes Malnutrition Exists Malnutrition (severe Acute Illness/Injury ): Evidenced By Suboptimal Energy Intake (Severe),Weight Loss (Severe) Intake Problem Inadequate Oral Intake Etiology related to issues w/ nausea and increased pain Signs/Symptoms as evidenced by po intake meeting R-<50% at most meals Status Active Problem None at this time Status Inactive Problem Clinical Problem Acute Disease or Injury Related Malnutrition Etiology related to issues w/ nausea and change of taste Signs/Symptoms as evidenced by 1.4% unintended wt loss and po intake meeting < 75% of est nutritional needs Status Active Problem Recommendation Dietitian Will continue to try to provide res bland regular diet Recommendations/ per request and baked white potato w/ lunch and baked Changes sweet potato w/ dinner and canned chicken noodle soup per request. Res allowed to order food from cafeteria as desired. Res allowed to have food brought from home as desired - instructed to label and date foods and properly stored . Rec res increase ONS from home to bid as able for increased nutrition if consumed. Lab / Micro Data 02/27/25 05:05 02/27/25 05:05 Labs: Laboratory Results - last 24 hr 02/27/25 05:05: WBC 3.9 L, RBC 2.94 L, Hgb 8.8 L, Hct 27.5 L, MCV 93.5, MCH 29.9, MCHC 32.0, RDW Std Deviation 50.8 H, RDW Coeff of Prosper 14.7 H, Plt Count 370, MPV 9.5, Immature Gran % (Auto) 0.300, Neut % (Auto) 50.1, Lymph % (Auto) 32.3, [place] % (Auto) 10.3 H, Eos % (Auto) 6.2 H, Baso % (Auto) 0.8, Absolute Neuts (auto) 2.0, Absolute Lymphs (auto) 1.26, Nucleated RBC % 0, Sodium 140, Potassium 3.6, Chloride 107, Carbon Dioxide 24.9, Anion Gap 8, BUN 12, C reatinine 0.57 L, Estim Creat Clear Calc 60.90, Est GFR (MDRD) Non-Af 96, B UN/Creatinine Ratio 20.4 H, Glucose 94, Calcium 9.2 Physical Exam Narrative Alert and oriented x 3, no acute distress. Normal mood and affect. Left lower extremity: Well-healed incisions. Minimal effusion. Nontender at the distal femur. Tolerates passive motion 3-95 degrees. She has considerable quadriceps weakness. She is able to actively engage her quadriceps without obvious defect in the extensor mechanism. Calf is soft nontender. DP 2+ with brisk capillary fill in toes. Assessment & Plan Assessment/Plan (1) Femoral distal fracture: QUALIFIERS: Encounter type: initial encounter Fracture type: c losed Fracture morphology: other fracture Laterality: left Qualified Code(s): S72.492A - Other fracture of lower end of left femur, initial encounter for closed fracture PLAN: Patient is 2 weeks status post revision left distal femur open reduction internal fixation -X-rays and CT scan reviewed from 02/17/2025-good alignment. No significant healing is noted. - She appears to be doing well. Continue Eliquis per primary for treatment of DVT. - Suture/staple removal per nursing - I will advance her weightbearing to weightbearing as tolerated. I recommended flexion to the left knee to the point of tolerance. I do not recommend pushing past the pain at this time. - If patient does return home, anticipate need for PT/OT. Follow-up at [facility] in 2 weeks for x-rays and recheck. Please not hesitate to call if any questions or concerns arise.
--- NOTE | 2025-02-27 16:27 | NURSING ---
PER DR. BUCKLEY SUTURES AND MALIK REMOVED FROM LLE INCISIONS. 27 MALIK REMOVED, 3 STERI-STRIPS APPLIED TO L OUTER HIP, 1 STERI-STRIP APPLIED LEFT PROXIMAL KNEE.
[2025-02-27] MEDS: [UNRECOGNIZED DRUG - OTHER] PO (17:32)
[2025-02-28] MEDS: Acetaminophen 500 MG Tablet 1000 MG PO ×3 (05:53→21:16)
[2025-02-28] MEDS: Ondansetron 8 MG Tablet PO (05:53)
[2025-02-28 06:05] LABS: Hematocrit 28.1 % (37-47); Hemoglobin 9.1 g/dL (12.0-15.0)
[2025-02-28] MEDS: [UNRECOGNIZED DRUG - OTHER] PO ×2 (07:48→17:00)
[2025-02-28] MEDS: Lactobacillis Acidophilus 1 CAP PO ×2 (07:49→21:16)
[2025-02-28] MEDS: Psyllium 1 PACKET PO (07:50)
[2025-02-28] MEDS: APIXABAN 5 MG TABLET PO ×2 (07:50→21:16)
[2025-02-28] MEDS: Senna/Docusate Sodium 1 Tablet 2 TABLET PO (07:51)
[2025-02-28] MEDS: Pantoprazole Sodium 40 MG Tablet PO (07:51)
[2025-02-28] MEDS: Cholecalciferol (Vit D3) 125 MCG CAPSULE (5,000 UNITS) PO (07:52)
[2025-02-28 09:51] VITALS: BP 102/60; PULSE 90; RESP 18; TEMP 36.6; O2SAT 98
[2025-02-28 10:00] VITALS: PULSE 94; RESP 15; O2SAT 100
[2025-02-28] MEDS: oxyCODONE 5 MG Tablet 10 MG PO ×2 (11:12→21:15)
[2025-03-01] MEDS: Acetaminophen 500 MG Tablet 1000 MG PO ×3 (06:13→20:47)
[2025-03-01 06:22] VITALS: PULSE 90; RESP 16; O2SAT 99
[2025-03-01] MEDS: [UNRECOGNIZED DRUG - OTHER] PO ×3 (08:56→17:38)
[2025-03-01] MEDS: Pantoprazole Sodium 40 MG Tablet PO (08:56)
[2025-03-01] MEDS: Lactobacillis Acidophilus 1 CAP PO ×2 (08:56→20:45)
[2025-03-01] MEDS: Cholecalciferol (Vit D3) 125 MCG CAPSULE (5,000 UNITS) PO (08:56)
[2025-03-01] MEDS: Senna/Docusate Sodium 1 Tablet 2 TABLET PO (08:56)
[2025-03-01] MEDS: Estrogens,Conj. 1 Tube 1 DOSE VAGINAL (08:56)
[2025-03-01] MEDS: APIXABAN 5 MG TABLET PO ×2 (08:56→20:46)
[2025-03-01] MEDS: Psyllium 1 PACKET PO (08:56)
[2025-03-01 09:35] VITALS: BP 105/52; PULSE 82; RESP 16; TEMP 36.6; O2SAT 99
[2025-03-01] MEDS: oxyCODONE 5 MG Tablet 10 MG PO (12:35)
[2025-03-02] MEDS: Calcium Carbonate 500 MG Tablet 1500 MG PO (05:45)
[2025-03-02] MEDS: APIXABAN 5 MG TABLET PO ×2 (08:23→20:41)
[2025-03-02] MEDS: Pantoprazole Sodium 40 MG Tablet PO (08:23)
[2025-03-02] MEDS: Senna/Docusate Sodium 1 Tablet 2 TABLET PO (08:23)
[2025-03-02] MEDS: Cholecalciferol (Vit D3) 125 MCG CAPSULE (5,000 UNITS) PO (08:23)
[2025-03-02] MEDS: Psyllium 1 PACKET PO (08:23)
[2025-03-02] MEDS: [UNRECOGNIZED DRUG - OTHER] PO ×3 (08:23→17:38)
[2025-03-02] MEDS: Lactobacillis Acidophilus 1 CAP PO ×2 (08:23→20:40)
[2025-03-02 09:27] VITALS: BP 94/51; PULSE 90; RESP 18; TEMP 36.6; O2SAT 98
[2025-03-02] MEDS: Acetaminophen 500 MG Tablet 1000 MG PO ×2 (13:09→20:41)
[2025-03-02] MEDS: oxyCODONE 5 MG Tablet 10 MG PO (20:39)
[2025-03-03] MEDS: Calcium Carbonate 500 MG Tablet 1500 MG PO (03:30)
[2025-03-03 03:41] VITALS: PULSE 74; RESP 16; O2SAT 95
[2025-03-03] MEDS: Acetaminophen 500 MG Tablet 1000 MG PO ×3 (07:25→20:47)
[2025-03-03] MEDS: APIXABAN 5 MG TABLET PO ×2 (08:17→20:46)
[2025-03-03] MEDS: [UNRECOGNIZED DRUG - OTHER] PO ×3 (08:17→17:48)
[2025-03-03] MEDS: Lactobacillis Acidophilus 1 CAP PO (08:17)
[2025-03-03] MEDS: Senna/Docusate Sodium 1 Tablet 2 TABLET PO (08:17)
[2025-03-03] MEDS: Psyllium 1 PACKET PO (08:17)
[2025-03-03] MEDS: Cholecalciferol (Vit D3) 125 MCG CAPSULE (5,000 UNITS) PO (08:18)
[2025-03-03] MEDS: Pantoprazole Sodium 40 MG Tablet PO (08:18)
[2025-03-03 08:31] LABS: Hematocrit 30.7 % (37-47)
[2025-03-03 14:51] VITALS: BP 100/60; PULSE 85; RESP 17; TEMP 36.9; O2SAT 93
[2025-03-04] MEDS: oxyCODONE 5 MG Tablet 10 MG PO ×3 (00:27→22:01)
[2025-03-04] MEDS: Acetaminophen 500 MG Tablet 1000 MG PO ×3 (05:51→22:02)
[2025-03-04] MEDS: [UNRECOGNIZED DRUG - OTHER] PO (09:29)
[2025-03-04] MEDS: Lactobacillis Acidophilus 1 CAP PO ×2 (09:30→22:02)
[2025-03-04] MEDS: APIXABAN 5 MG TABLET PO ×2 (09:31→22:02)
[2025-03-04] MEDS: Psyllium 1 PACKET PO (09:31)
[2025-03-04] MEDS: Senna/Docusate Sodium 1 Tablet 2 TABLET PO (09:32)
[2025-03-04] MEDS: Cholecalciferol (Vit D3) 125 MCG CAPSULE (5,000 UNITS) PO (09:32)
[2025-03-04] MEDS: Pantoprazole Sodium 40 MG Tablet PO (09:32)
[2025-03-04 09:53] VITALS: BMI 24.7
--- NOTE | 2025-03-04 10:14 | CASEMGMT ---
Social Work Insurance issued LCD 03/06, DC 03/07 SW spoke with pt to inform her of DC date. SW provided NOMNC to pt and educated to appeal rights. Pt verbalized understanding and denied appeal. Pt is agreeable to DC with caregivers in the home. SW confirmed pt still electing to have [facility] for PT/OT/SN and has no DME needs. Pt confirmed. Pt to ask son for transport, but if he cannot, pt to notify this worker to coordinate DC transport. SW completed BIMS () and PHQ-2 () for MDS assessment. Pt reports mood has improved. - ALESHA updated [facility] with new DC date. Plan: DC home 03/07, [facility] PT/OT/SN, 4 hrs/day of hired caregivers Verenice Linton MSW [employer] OFFIC[employer]
[2025-03-04 15:41] VITALS: BP 106/53; PULSE 74; RESP 18; TEMP 36.9; O2SAT 97
[2025-03-04 17:00] VITALS: PULSE 78; RESP 18; O2SAT 98
--- NOTE | 2025-03-04 18:44 | PCM.DC.SUM ---
Providers Date of Admission: 02/12/25 Primary Care Physician: Dr. Tom Alonso DO Reason For Visit: L FEMUR FRACTURE Diagnosis Discharge Diagnosis (1) Femoral distal fracture: Status: Acute Code(s): S72.409A - Unspecified fracture of lower end of unspecified femur, initial encounter for closed fracture Qualifiers: Encounter type: initial encounter Fracture type: closed Fracture morphology: other fracture Laterality: left Qualified Code(s): S72.492A - Other fracture of lower end of left femur, initial encounter for closed fracture Plan 74 year old female with below past medical history hospitalized for left distal femur fracture with failed orthopedic fixation, underwent left distal femur removal of hardware, left distal femur revision ORIF 02/10/[address] Aponte, admitted to TCU with debility, here for rehabilitation, strengthening, prior to discharge home alone. Debility - PT/OT. Pain - Tylenol 1000mg q8, Tramadol 50mg q6 prn pain (1-5), Oxycodone 10mg q4 prn pain (6-10). Nausea - Zofran 8mg q6 prn. Bowel - Metamucil 1 packet daily, Senna/colace 2 tablets bid, Magnesium citrate 300mL daily prn. Adult immunization - Administer pneumonia vaccine, covid vaccine, flu vaccine as appropriate. DVT prophylaxis - Eliquis. LLE DVT - Eliquis 5mg bid thru 05/12/2025. Calcium deficiency - Calcium 500mg tidcm. Vitamin D deficiency - D 125mcg daily. ID - Doxycycline 100mg bid thru 02/19/2025. Hypomagnesemia - Magnesium chloride 128mg bid. GERD - Pantoprazole 40mg daily. Medications at Discharge Home Medications OSTINOL 1 cap PO BID supplement 02/07/25 calcium citrate 300 mg PO TID supplement 02/07/25 cholecalciferol (vitamin D3) 125 mcg (5,000 unit) tablet (Vitamin D3) 125 mcg PO DAILY supplement 02/07/25 digestive enzymes 1 cap PO DAILY supplement 02/07/25 Boneup 1 cap PO 0800,1200,1700 ##0 03/04/25 L.acidophil,salivari-Bifido bifidum-Strep thermoph 175 mg capsule 1 cap PO BID #0 caps 03/04/25 acetaminophen 500 mg tablet 1,000 mg (2 x 500 mg) PO Q8 #0 tabs 03/04/25 apixaban 5 mg tablet (Eliquis) 5 mg PO BID 30 days #60 tabs 03/04/25 oxycodone 5 mg tablet 10 mg (2 x 5 mg) PO Q4H PRN PRN Pain Score 6-10 Or Pre Pt/Ot 7 days #84 tabs 03/04/25 pantoprazole 40 mg tablet,delayed release 40 mg PO DAILY 30 days #30 tabs 03/04/25 psyllium husk (aspartame) 3 gram oral powder packet (Daily Fiber (psyllium-aspartame)) 1 packet PO DAILY 30 days #30 ea 03/04/25 sennosides 8.6 mg-docusate sodium 50 mg tablet (Stimulant Laxative Plus) 2 tab PO BID 30 days #120 tabs 03/04/25 Hospital Course Operations - (See below.) Procedures None Summary of Care Provided Minutes Spent on Discharge: 35 Hospital Course: 74 year old female with below past medical history hospitalized for left distal femur fracture with failed orthopedic fixation, underwent left distal femur removal of hardware, left distal femur revision ORIF 02/10/[address] Aponte, admitted to TCU with debility, here for rehabilitation, strengthening, prior to discharge home alone. Eliquis 5mg po bid thru 05/12/2025 for left lower extremity dvt. Discharge home 03/07/2025, [facility] PT/OT/SN, 4 hrs/day of hired caregivers. Physical Exam Const alert General Appearance: cooperative HEENT normocephalic Eyes PERRL and EOMs intact bilaterally Neck supple, no JVD and no carotid bruits Resp normal respiratory effort, normal air movement and clear to auscultation bilaterally Cardio regular rate and regular rhythm GI normal to inspection, nondistended, normoactive bowel sounds, non-tender and non-distended Extremity normal capillary refill General Extremity: Negative for edema Skin no rashes or lesions noted General Skin Exam: no breakdown Psych affect normal Appearance: appropriate Medical Records Data Medical Nutrition Assessment Dietitian: Malnutrition Criteria Met Start: 02/26/25 11:54 Freq: Status: Active Protocol: Document 02/26/25 11:54 SLA (Rec: 02/26/25 11:54 SLA [email or web address]) Nutrition Malnutrition Evidence of Yes Malnutrition Exists Malnutrition (severe Acute Illness/Injury ): Evidenced By Suboptimal Energy Intake (Severe),Weight Loss (Severe) Intake Problem Inadequate Oral Intake Etiology related to issues w/ nausea and increased pain Signs/Symptoms as evidenced by po intake meeting R-<50% at most meals Status Active Problem None at this time Status Inactive Problem Clinical Problem Acute Disease or Injury Related Malnutrition Etiology related to issues w/ nausea and change of taste Signs/Symptoms as evidenced by 1.4% unintended wt loss and po intake meeting < 75% of est nutritional needs Status Active Problem Recommendation Dietitian Will continue to try to provide res bland regular diet Recommendations/ per request and baked white potato w/ lunch and baked Changes sweet potato w/ dinner and canned chicken noodle soup per request. Res allowed to order food from cafeteria as desired. Res allowed to have food brought from home as desired - instructed to label and date foods and properly stored . Rec res increase ONS from home to bid as able for increased nutrition if consumed. Weight / BMI Weight Weight: 71.486 kg Body Mass Index (BMI) 24.7 ABG / Lab / Microbiology Data 03/03/25 08:10 02/27/25 05:05 D/C Instructions Discharge Diet: No restrictions Discharge Activity: Return to Normal Activity, May Shower and Use Walker Weight Bearing Status: Weight bearing as tolerated Call your doctor if you observe: Fever of 101 or Higher, Inability to urinate, Inability to have a bowel movement, Shortness of breath, Dizziness, Fainting spells, Swelling in the ankles, Chest pain and Uncontrolled pain DC O2, CPAP, BIPAP Needs Home O2 Discharge instructions: No Additional Instructions: Discharge home 03/07/2025, [facility] PT/OT/SN, 4 hrs/day of hired caregivers. Please Follow Up With: Dr. Aponte When: 03/13/2025. Meaningful Use Info Meaningful Use Meaningful Use Diagnoses (Choose all that apply): None applicable Ischemic Stroke Statin Dosing Therapy Reference: STATIN DOSE THERAPY REFERENCE: * Patients > 75 years receive moderate or high dose statin therapy. * Patients 75 years or YOUNGER should receive HIGH intensity statin dose unless contraindicated. You will be required to document reason for non-treatment if statin daily dose does not meet guidelines. HIGH DOSE STATIN THERAPY DAILY Atorvastatin > than or = to 40 mg Rosuvastatin > than or = to 20 mg Amlodipine + Atorvastatin > than or = to 2.5/40 mg Ezetimibe + Simvastatin 10/80 mg Simvastatin 80mg Discharge Plan Admission Admit Date/Time: 02/12/25 16:05 Primary Reason for Your Visit: Debility. Attending Provider: D[place] Rock Chi Primary Care Provider: Tom Alonso Instructions Additional Instructions / Restrictions: Discharge home 03/07/2025, [facility] PT/OT/SN, 4 hrs/day of hired caregivers. Discharge Orders/Prescriptions Prescriptions: New sennosides-docusate sodium [Stimulant Laxative Plus] 8.6-50 mg Tablet 2 tab PO BID 30 Days Qty: 120 0RF acetaminophen 500 mg Tablet 1,000 mg PO Q8 Qty: 0 0RF pantoprazole 40 mg Tablet,Delayed Release (Dr/Ec) 40 mg PO DAILY 30 Days Qty: 30 0RF oxycodone 5 mg Tablet 10 mg PO Q4H PRN PRN (Reason: Pain Score 6-10 Or Pre Pt/Ot) 7 Days Qty: 84 0RF L.acidoph,saliva-B.bif-S.therm 175 mg Capsule 1 cap PO BID Qty: 0 0RF Eliquis 5 mg Tablet 5 mg PO BID 30 Days Qty: 60 0RF Daily Fiber (psyllium-aspart) 3 gram Powder In Packet 1 packet PO DAILY 30 Days Qty: 30 0RF Boneup 1 cap PO 0800,1200,1700 Qty: 0 0RF Continued calcium citrate 250 mg calcium tablet 300 mg PO TID OSTINOL 1 cap PO BID cholecalciferol (vitamin D3) [Vitamin D3] 125 mcg (5,000 unit) tablet 125 mcg PO DAILY digestive enzymes Capsule 1 cap PO DAILY Rx Instructions: administer with food; swallow whole; do not crush/chew/dissolve/break/cut Discontinued magnesium oxide 400 mg magnesium capsule 500 mg PO BID sennosides-docusate sodium [Stimulant Laxative Plus] 8.6-50 mg Tablet 2 tab PO BID 30 Days Qty: 120 0RF tramadol 50 mg Tablet 50 mg PO Q6H PRN PRN (Reason: Pain Score 4-5 Or Pre Pt/Ot) 7 Days Qty: 28 0RF pantoprazole 40 mg Tablet,Delayed Release (Dr/Ec) 40 mg PO DAILY 30 Days Qty: 30 0RF oxycodone 5 mg Tablet 5 - 10 mg PO Q4H PRN PRN (Reason: Pain Score 6-10 Or Pre Pt/Ot) 7 Days Qty: 84 0RF Eliquis 5 mg Tablet 10 mg PO BID 6 Days Qty: 24 0RF ondansetron 4 mg Tablet,Disintegrating 8 mg PO BID Daily Fiber (psyllium-aspart) 3 gram Powder In Packet 1 packet PO DAILY acetaminophen 500 mg Tablet 1,000 mg PO Q8 Qty: 180 0RF oxycodone 5 mg Tablet 5 - 10 mg PO Q6H PRN PRN (Reason: Pain Score 6-10) 7 Days Qty: 60 0RF doxycycline hyclate 100 mg capsule 100 mg PO BID 7 Days Qty: 14 0RF Referrals / Follow Up: Tom Alonso DO [Primary Care Provider] - 03/13/25 12:50 pm Jasbir Aponte DO [Med Staff - Active Staff] - Disposition Disposition (needs filled in before D/C Order can be placed): Home Health Service
[2025-03-05] MEDS: Acetaminophen 500 MG Tablet 1000 MG PO ×3 (06:17→21:02)
[2025-03-05] MEDS: Psyllium 1 PACKET PO (08:55)
[2025-03-05] MEDS: Lactobacillis Acidophilus 1 CAP PO ×2 (08:55→21:02)
[2025-03-05] MEDS: APIXABAN 5 MG TABLET PO ×2 (08:55→21:03)
[2025-03-05] MEDS: Estrogens,Conj. 1 Tube 1 DOSE VAGINAL (08:56)
[2025-03-05] MEDS: Senna/Docusate Sodium 1 Tablet 2 TABLET PO (09:02)
[2025-03-05] MEDS: Pantoprazole Sodium 40 MG Tablet PO (09:02)
[2025-03-05] MEDS: oxyCODONE 5 MG Tablet 10 MG PO ×2 (09:03→21:03)
[2025-03-05] MEDS: Cholecalciferol (Vit D3) 125 MCG CAPSULE (5,000 UNITS) PO (09:03)
[2025-03-05] MEDS: [UNRECOGNIZED DRUG - OTHER] PO (11:58)
[2025-03-05 12:56] VITALS: BP 93/50; PULSE 81; RESP 18; TEMP 36.3; O2SAT 96
[2025-03-06] MEDS: Acetaminophen 500 MG Tablet 1000 MG PO ×3 (05:21→19:53)
[2025-03-06 05:29] LABS: Absolute Lymphocyte Count 1.32 X10^3/uL (0.83-4.51); Absolute Neutrophil Count 1.7 X10^3/uL (2.0-7.7); Basophil# 0.02 X10^3/uL; Basophil% 0.5 % (0-1); Eosinophil# 0.23 X10^3/uL; Eosinophils% 6.3 % (0-5); Hemoglobin 9.3 g/dL (12.0-15.0); Lymphocyte # 1.32 X10^3/ul (0.83-4.51); Lymphocyte % 36.2 % (19-41); Mean Corp Hgb Conc 32.1 g/dL (32-36); Mean Corpuscular Hgb 29.7 pg (27.0-32.0); Mean Corpuscular Volume 92.7 fL (81-99); Mean Platelet Vol. 10.1 fl (6.2-12.0); Monocyte# 0.41 X10^3/uL; Monocyte% 11.2 % (0-10); NRBC Flagged by Analyzer 0 % (0-5); Neutrophil # 1.65 X10^3/uL (2.7-7.7); Neutrophil % 45.3 % (47-70); Platelet Count 296 K/mm3 (150-450); RBC Distribution Width SD 51.1 fl (35.1-43.9); Red Blood Count 3.13 M/mm3 (4.2-5.4); White Blood Count 3.7 K/mm3 (4.4-11.0)
[2025-03-06 05:58] LABS: Anion Gap 8 (5-15); BUN 12 mg/dL (4-19); BUN/Creat Ratio 23.9 RATIO (10-20); Calcium,Total 9.2 mg/dL (7.6-11.0); Carbon Dioxide 23.7 mmol/L (21.0-32.0); Chloride 108 mmol/L (98-108); Creatinine, Serum 0.51 mg/dL (0.70-1.20); EST Glomerular Filtration Rate 99 (>60); Glucose 89 mg/dL (70-99); Potassium 3.6 mmol/L (3.3-5.1); Sodium Level 140 mmol/L (133-145)
[2025-03-06 08:40] VITALS: BP 95/54; PULSE 85; RESP 16; TEMP 36.3; O2SAT 98
[2025-03-06] MEDS: Senna/Docusate Sodium 1 Tablet 2 TABLET PO (08:42)
[2025-03-06] MEDS: [UNRECOGNIZED DRUG - OTHER] PO ×3 (08:42→18:06)
[2025-03-06] MEDS: Lactobacillis Acidophilus 1 CAP PO ×2 (08:43→19:54)
[2025-03-06] MEDS: APIXABAN 5 MG TABLET PO ×2 (08:43→19:53)
[2025-03-06] MEDS: Pantoprazole Sodium 40 MG Tablet PO (08:43)
[2025-03-06] MEDS: Psyllium 1 PACKET PO (08:43)
[2025-03-06] MEDS: Cholecalciferol (Vit D3) 125 MCG CAPSULE (5,000 UNITS) PO (08:43)
[2025-03-06] MEDS: oxyCODONE 5 MG Tablet 10 MG PO ×2 (11:06→20:02)
[2025-03-07] MEDS: Acetaminophen 500 MG Tablet 1000 MG PO (05:28)
[2025-03-07] MEDS: Lactobacillis Acidophilus 1 CAP PO (09:22)
[2025-03-07] MEDS: APIXABAN 5 MG TABLET PO (09:23)
[2025-03-07] MEDS: Pantoprazole Sodium 40 MG Tablet PO (09:23)
[2025-03-07] MEDS: Psyllium 1 PACKET PO (09:23)
[2025-03-07] MEDS: Cholecalciferol (Vit D3) 125 MCG CAPSULE (5,000 UNITS) PO (09:24)
[2025-03-07] MEDS: Senna/Docusate Sodium 1 Tablet 2 TABLET PO (09:24)
[2025-03-07] MEDS: oxyCODONE 5 MG Tablet 10 MG PO (09:25)
[2025-03-07 09:29] VITALS: BP 101/59; PULSE 80; RESP 16; TEMP 36.1; O2SAT 98
--- NOTE | 2025-03-07 10:40 | NURSING ---
PATIENT HAD HOME MEDICATIONS STORED IN MED ROOM, MEDICATIONS RETURNED TO PATIENT BY THIS NURSE.
--- NOTE | 2025-03-12 12:36 | MDS.RN ---
Information for the MDS was obtained from review of the clinical record, interview of resident, staff, and direct observation of resident?s care.
== END 2025-03-07 10:50 | disposition home health service (06) | DRG 949 ==
PROVIDERS: Admitting Provider Family Medicine Geriatric Medicine; PCP Family Medicine; Visit Provider Family Medicine Geriatric Medicine
DX: T84.89XD Other specified complication of internal orthopedic prosthetic devices, implants and grafts, subsequent encounter (principal); I82.402 Acute embolism and thrombosis of unspecified deep veins of left lower extremity; E44.1 Mild protein-calorie malnutrition; D50.9 Iron deficiency anemia, unspecified; K21.9 Gastro-esophageal reflux disease without esophagitis; E55.9 Vitamin D deficiency, unspecified; E83.42 Hypomagnesemia; S72.452D Displaced supracondylar fracture without intracondylar extension of lower end of left femur, subsequent encounter for closed fracture with routine healing; Z79.01 Long term (current) use of anticoagulants; Y79.2 Prosthetic and other implants, materials and accessory orthopedic devices associated with adverse incidents; Z79.899 Other long term (current) drug therapy; N76.89 Other specified inflammation of vagina and vulva; Z68.24 Body mass index [BMI] 24.0-24.9, adult
CPT/HCPCS: 36415; 73502; 73564; 80048; 85014; 85018; 85025; 97110; 97116; 97162; 97166; 97530; 97535; 97802; A4216

== ENCOUNTER → 2025-02-17 | Outpatient (CLI) | payer MEDICARE, SELFPAY ==
--- NOTE | 2025-02-17 08:40 | VDLE_ITS ---
Reason For Study Reason For Study: LLE PAin RIGHT LEFT CFV is compressible, spontaneous, phasic, competent GSV is normal. and demonstrates normal augmentation. CFV is compressible, spontaneous, phasic, competent, Procedure and demonstrates normal augmentation. This is a venous duplex using B-mode, color flow and FV is compressible, spontaneous, phasic, competent spectral Doppler. and demonstrates normal augmentation. Exam performed in department. POP V is compressible, spontaneous, phasic, competent The exam was diagnostic. and demonstrates normal augmentation. A preliminary report was called and/or faxed to TCU T/P Trunk is compressible. brush sander. PTV is compressible. LT PerV is compressible. VL/Venous Duplex US, Unilateral Interpretation Summary Deep veins of the left lower extremity are patent and compressible segmentally. There is no evidence of left lower extremity deep vein thrombosis. The left great saphenous vein appears patent an d compressible segmentally. Ordering Physician: Denton Rock Chi Referring Physician: Tom Alonso Performed By: Velasquez Rendon RVT
--- NOTE | 2025-02-17 10:42 | CT_ITS ---
PROCEDURE: EXTREMITY LOWER WITHOUT CONTRA 02/17/2025 REASON FOR EXAM: PAIN IN LEFT KNEE TECHNIQUE: Axial CT images of the right knee obtained without intravenous contrast. Coronal and Sagittal reconstruction series were provided. One or more dose reduction techniques were used (e.g., Automated exposure control, adjustment of the mA and/or kV according to patient size, use of iterative reconstruction technique). RADIATION DOSE SUMMARY: CTDlvol: 15.35 mGy DLP: 711.9 mGycm COMPARISON: Comparison is made with prior study dated January 20, 2025. FINDINGS: Bones: The patient is status post open reduction and internal fixation of the distal femoral/metaphysis of the femur. Intra medullary juan manuel fixation device and sideplate fusion and screw fixation device seen. There is good alignment. No significant bony healing is seen at this time. Soft Tissues: Swelling. Joint effusion. CT/Extremity Lower without Contra IMPRESSION: Status post ORIF of distal femoral fracture. There is satisfactory alignment. No significant bone healing is seen at this time. Reading Location: [place] [id number]
== END | disposition home or self-care (01) ==
PROVIDERS: PCP Family Medicine; Referring Provider Family Medicine Geriatric Medicine; Visit Provider Family Medicine Geriatric Medicine
DX: M79.605 Pain in left leg (principal); M25.562 Pain in left knee
CPT/HCPCS: 73700; 93971

== ENCOUNTER → 2025-02-21 | Outpatient (CLI) | payer MEDICARE, SELFPAY ==
--- NOTE | 2025-02-21 08:48 | MRI_ITS ---
EXAM: MRI lumbar spine without contrast CLINICAL HISTORY: Pain COMPARISON: January 20, 2025 x-ray TECHNIQUE: T1, T2, stir, multiplanar multisequence images of the lumbar spine were obtained without contrast. FINDINGS: The vertebral body alignment is maintained. The vertebral body height is maintained. Heterogeneous marrow signal is noted with a 1 cm hemangioma at L2. Intervertebral disc signal shows desiccation from L4- S1. Normal appearing facets are noted. The L1-L2 level: There is no significant disk protrusion. There is no lateral recess stenosis or foraminal stenosis. There is no critical central canal stenosis. The L2-L3 level: There is no significant disk protrusion. There is no lateral recess stenosis or foraminal stenosis. There is no critical central canal stenosis. The L3-L4 level: There is no significant disk protrusion. There is no lateral recess stenosis or foraminal stenosis. There is no critical central canal stenosis. The L4-L5 level: There is moderate central mild left paracentral disc protrusion. There is mild left lateral recess effacement. There is no significant foraminal narrowing. There is no critical central canal stenosis. The L5-S1 level: There is mild central and left paracentral disc protrusion. There is mild left lateral recess effacement. There is no significant foraminal narrowing. There is no critical central canal stenosis. The visualized conus shows normal signal characteristics. Adjacent soft tissues are unremarkable. MRI/Spine Lumbar (Routine) IMPRESSION: There is degenerative disc disease at L4-5 and L5-S1 with no significant spinal stenosis or foraminal narrowing. Reading Location: [place]
== END | disposition home or self-care (01) ==
PROVIDERS: PCP Family Medicine; Referring Provider Family Medicine Geriatric Medicine; Visit Provider Family Medicine Geriatric Medicine
DX: M54.32 Sciatica, left side (principal); R10.32 Left lower quadrant pain
CPT/HCPCS: 72148

== ENCOUNTER 2025-03-12 13:16 | Outpatient (RCR) | payer MEDICARE, SELFPAY ==
[2025-03-12 15:55] LABS: Color, Urine Yellow (Yellow); Glucose, Dipstick Normal (Normal); Ketone-Dipstick Negative (Negative); Leukocyte Esterase-Dipstick 500 /ul (Negative); Nitrite-Dipstick Negative (Negative); Occult Blood-Urine 150 /ul (Negative); Protein-Dipstick 30 mg/dl (Negative); Specific Gravity, Urine 1.015 (1.002-1.030); Urine Bilirubin Dipstick Negative (Negative); Urine Clarity Cloudy (Clear); Urine Urobilinogen Normal (Normal); Urine pH 6.5 (5.0 - 8.0)
== END 2025-03-12 18:00 | disposition home or self-care (01) ==
LOC: HHLAB 13:16
PROVIDERS: PCP Family Medicine; Referring Provider Family Medicine; Visit Provider Family Medicine
DX: S72.492A Other fracture of lower end of left femur, initial encounter for closed fracture (principal)
CPT/HCPCS: 81002; 87077; 87086; 87088; 87186

== ENCOUNTER → 2025-04-08 | Outpatient (CLI) | payer MEDICARE, SELFPAY ==
--- NOTE | 2025-04-08 11:05 | BD_ITS ---
PROCEDURE: DEXA BONE DENSITY STUDY 04/08/2025 REASON FOR EXAM: F, age 74 y/o . Postmenopausal. TECHNIQUE: DXA scan of sites with data reported below. RE[facility] LINKS: [facility] Adult Positions COMPARISON: Prior study dated March 15, 2023. FINDINGS: BMD and T-SCORES Lumbar spine: 0.554 g/cm2, T-score -5.0 Levels: L1 through L4 Change from prior: Improvement by 0.2%. Right femoral neck: 0.466 g/cm2, T-score -3.4 Femoral neck comparison data not recommended for monitoring change. Right total hip: 0.550 g/cm2, T-score -3.2 Change from prior: Loss of 9.4%. The World Health Organization has defined the following categories based on bone density: Normal bone density: T-score equal to or greater than -1.0 Osteopenia: T-score between -1.0 and -2.5 Osteoporosis: T-score equal to or less than -2.5 The patient does meet the pharmacological treatment recommendations for prevention of osteoporosis. BD/Dexa Bone Density Study IMPRESSION: OSTEOPOROSIS. Recommend follow-up as clinically warranted. Reading Location: [place] [id number]
== END | disposition home or self-care (01) ==
LOC: OPBD 10:56
PROVIDERS: PCP Family Medicine; Referring Provider Nurse Practitioner Family; Visit Provider Nurse Practitioner Family
DX: M81.0 Age-related osteoporosis without current pathological fracture (principal)
CPT/HCPCS: 77080

== ENCOUNTER → 2025-04-23 | Outpatient (CLI) | payer MEDICARE, SELFPAY ==
[2025-04-23 16:27] LABS: Estradiol < 5.0 pg/mL; Testosterone, Total < 2.50 ng/dL (5-32)
[2025-04-25 04:07] LABS: PROGESTERONE <0.1 ng/mL (.)
== END | disposition home or self-care (01) ==
LOC: MTLAB 12:39
PROVIDERS: PCP Family Medicine; Referring Provider Preventive Medicine Public Health & General Preventive Medicine; Visit Provider Preventive Medicine Public Health & General Preventive Medicine
DX: E34.9 Endocrine disorder, unspecified (principal); N95.1 Menopausal and female climacteric states
CPT/HCPCS: 36415; 82670; 84144; 84403

== ENCOUNTER → 2025-05-14 | Outpatient (CLI) | payer MEDICARE, SELFPAY ==
--- NOTE | 2025-05-14 10:44 | VDLE_ITS ---
Reason For Study Reason For Study: Lump RIGHT LEFT CFV is compressible, spontaneous, phasic, competent GSV is normal. and demonstrates normal augmentation. CFV is compressible, spontaneous, phasic, competent, Procedure and demonstrates normal augmentation. This is a venous duplex using B-mode, color flow and FV is compressible, spontaneous, phasic, competent and spectral Doppler. demonstrates normal augmentation. Exam performed in department. POP V is compressible, spontaneous, phasic, competent A preliminary report was called and/or faxed to and demonstrates normal augmentation. ANGELICA Cyr. T/P Trunk is compressible. PTV is compressible. Acute deep vein thrombosis is noted in the Per V. It is dilated and NONCOMPRESSIBLE. VL/Venous Duplex US, Unilateral Interpretation Summary Acute deep vein thrombosis is noted in the left peroneal vein. Ordering Physician: Tom Alonso Referring Physician: Tom Alonso Performed By: Natalia Hughes, RVT
--- NOTE | 2025-05-14 10:44 | VDLE_ITS ---
Reason For Study Reason For Study: Lump RIGHT LEFT CFV is compressible, spontaneous, phasic, competent GSV is normal. and demonstrates normal augmentation. CFV is compressible, spontaneous, phasic, competent, Procedure and demonstrates normal augmentation. This is a venous duplex using B-mode, color flow and FV is compressible, spontaneous, phasic, competent and spectral Doppler. demonstrates normal augmentation. Exam performed in department. POP V is compressible, spontaneous, phasic, competent A preliminary report was called and/or faxed to and demonstrates normal augmentation. ANGELICA Cyr. T/P Trunk is compressible. PTV is compressible. Acute deep vein thrombosis is noted in the Per V. It is dilated and NONCOMPRESSIBLE. VL/Venous Duplex US, Unilateral Interpretation Summary Acute deep vein thrombosis is noted in the left peroneal vein. Ordering Physician: Tom Alonso Referring Physician: Tom Alonso Performed By: Natalia Hughes, RVT
== END | disposition home or self-care (01) ==
PROVIDERS: PCP Family Medicine; Referring Provider Family Medicine; Visit Provider Family Medicine
DX: I82.402 Acute embolism and thrombosis of unspecified deep veins of left lower extremity (principal); R22.42 Localized swelling, mass and lump, left lower limb
CPT/HCPCS: 93971

== ENCOUNTER 2025-06-10 10:30 | Outpatient (RCR) | payer MEDICARE, SELFPAY ==
--- NOTE | 2025-04-15 10:58 | HP.PTEVAL_ITS ---
Patient's Visit Information Visit Information Visit Information: KAREN YANEZ is a 74 year old F referred to Physical Therapy by Dr. Tom Alonso DO with a diagnosis of Left distal femur revision open reduction internal February 10, 2025. Date of Evaluation: 04/15/25 Physical Therapist: TREVOR Stock Visit Plan Frequency: 2x /Week Duration: 3 Months Plan: 2X/ week for 12 weeks for Manual therapy to help with pushing fluid out of the Quad, knee joint, L knee AROM, L hip and knee strength (pt does have a L THR), functional strength, steps, gait training with HEP HEP: heel slides sitting and supine and, standing heel and toe raises, mini LAQ to get knee moving at edge of bed Subjective Subjective: January 20 fell in garage and shattered femur bone and had surgery January 21 and then screws came lose and could see the screw sticking out of her leg but did not break skin. February 10 she had a second surgery with a plate in almost all the way to her hip. She has severe Osteoporosis. Dr Aponte wants her to do PT but if painful then she is not to work through the pain because he is afraid that her bones are so fragile. She just finished with home therapy. She is walking with a rolling walker and said she is a really high fall risk. She did start using a cane in home PT but not steady enough yet to do it at home. She is not sleeping well on her back and sleeping on her sides is not comfortable so she sleeps on back or in the recliner. Her laundry in the basement but has a chair lift. 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 Pain L leg pain: Pain Intensity (Out of 10): 2 Objective Objective: Gait: walks with wheeled walker with decreased stride length and decreased stance time on the L LE, and has a hard time bringing L Leg FW with gait, little knee flexion with gait L LE visually more swollen than the R calf up to mid thigh. Pocket of fluid lateral side of the knee cap. Palpation: hyper sensitive to touch. Very tight Quad which increases compression forces through the knee with bending. Did some light MT along the lower Quad tendon up into lower Quad muscle belly and pt was able to bend knee more with less pain. A lot of fluid was in that muscle LE MMT: R hip flex 6.2 and L 3.5 R knee ext 5.2 and L 3.4 R knee flex 11.2 and L 5.4 R supine hip abd 12.5 and L. 4.2 Bridge: 1/4 normal ROM bridge with legs farther out into extension due to decreased L knee AROM Sit to stand: needs B arms to get up out of the chair, no weight shift forward, R knee AROM: 0-128 degrees L knee AROM -3 to 78 degrees knee flexion Balance/Special Test Scores Lower Extremity Functional Score: 18 Goals Goal 1:: I HEP Goal Time Frame: 8-12 Weeks Goal 2:: Increase L knee AROM (at the time of the eval: R knee AROM: 0-128 degrees L knee AROM -3 to 78 degrees knee flexion) Goal Time Frame: 8-12 Weeks Goal 3:: Increase L knee and hip strength (at the time time of the eval: LE MMT: R hip flex 6.2 and L 3.5 R knee ext 5.2 and L 3.4 R knee flex 11.2 and L 5.4 R supine hip abd 12.5 and L. 4.2 Bridge: 1/4 normal ROM bridge with legs farther out into extension due to decreased L knee AROM). Goal Time Frame: 8-12 Weeks Goal 4:: Be able to walk with normal gait pattern with least restrictive device Goal Time Frame: 8-12 Weeks Rehabilitation Potential Rehabilitation Potential: Good Anticipated Interventions Patient/Client Instruction: Educate patient on: Condition and Plan of Care For the Purpose of:: To decrease pain, To decrease swelling/inflammation, To increase ROM, To improve nutrient delivery to tissue, To improve muscle perfor rui and motor function, To improve ability to perform ADL's, To increase tolerance to activity/condition/position, To improve performance and independence with ADL's, To decrease level of supervision to perform tasks, To improve ability of physical actions for home/community/work/leisure, To improve gait and locomotor functions, To improve health of tissue, To decrease soft tissue restriction, To increase flexibility/ROM, To improve endurance, To improve balance and To improve safety with gait Therapeutic Exercise to Include: Strength training, Endurance training, Balance training, Postural training, Flexibilty training, Gait and locomotor training, Relaxation training, Passive ROM and Active ROM For the Purpose of:: To decrease pain, To decrease swelling/inflammation, To increase ROM, To improve nutrient delivery to tissue, To increase oxygenation perfusion, To improve muscle performance and motor function, To improve ability to perform ADL's, To increase tolerance to activity/condition/position, To improve performance and independence with ADL's, To decrease level of supervision to perform tasks, To improve ability of physical actions for home/community/work/leisure, To improve gait and locomotor functions, To improve health of tissue, To decrease soft tissue restriction, To increase flexibility/ROM, To improve endurance, To improve balance and To improve safety with gait Functional Training to Include: Gait training For the Purpose of:: To improve gait and locomotor functions and To improve safety with gait Manual Therapy Techniques to Include: Soft tissue mobilization For the Purpose of:: To decrease pain, To decrease swelling/inflammation, To increase ROM, To improve nutrient delivery to tissue, To improve muscle performance and motor function, To improve ability to perform ADL's, To increase tolerance to activity/condition/position, To improve performance and independence with ADL's, To improve health of tissue, To decrease soft tissue restriction and To increase flexibility/ROM Text: Thank you for the opportunity to evaluate your patient. For Medicare and Medicare HMO plans, please review the plan of care and approve it. It will need to be FAXED BACK to us at [phone] for Medicare purposes. For Medicare only, by signing this I certify the plan of care. Please let me know if there are questions or concerns regarding this plan of care. Physician Signature: Date:
--- NOTE | 2025-06-10 12:02 | HP.PTDCSUM ---
Discharge Summary D/C summary: It has been my pleasure to treat KAREN YANEZ referred by Dr. Tom Alonso DO, with the diagnosis of Left distal femur revision open reduction internal February 10, 2025 for a total of 9 visit(s). Discharge Date: 06/10/25 Please see the following information for a summary of their discharge status. Subjective Subjective: Pt feels that she is better and walks sometimes with the cane and other times with the walker. She is not taking pain pills right now. Pt reports that her bone is not healing and she has to do a bone stimulator on it daily. She does not get to see the surgeon until Jun. She walks at home with the cane some and the walker some. Pain L leg pain: Pain Intensity (Out of 10): 2 Overall Improvement % Improvement: 20 Objective Objective/Function: LE MMT: R hip flex 6.2 and L 7.5 R knee ext 5.2 and L 3.8 R knee flex 11.2 and L 7.1 R supine hip abd 12.5 and L. 4.2 Bridge: 1/4 ROM due to increase anterior knee and L Quad pain. L knee AROM: 0-102 Gait: pt walks with decrease stance time on the L LE with gait with a straight cane but does so with some L Quad weakness and good gait mechanics Goals Goal 1:: I HEP Goal Progress: Goal Met Goal 2:: Increase L knee AROM (at the time of the eval: R knee AROM: 0-128 degrees L knee AROM -3 to 78 degrees knee flexion) Goal Progress: Progressing Goal 3:: Increase L knee and hip strength (at the time time of the eval: LE MMT: R hip flex 6.2 and L 3.5 R knee ext 5.2 and L 3.4 R knee flex 11.2 and L 5.4 R supine hip abd 12.5 and L. 4.2 Bridge: 1/4 normal ROM bridge with legs farther out into extension due to decreased L knee AROM). Goal Progress: Progressing Goal 4:: Be able to walk with normal gait pattern with least restrictive device Goal Progress: Progressing Plan Plan: DC PT to HEP D/C Information Discharge Comments: DC PT to HEP. d/c sentence: If there are questions or concerns regarding this patient's physical therapy, please feel free to call me at [phone]. Thank you for the referral of this patient. Sincerely, Joleen Argueta, MPT Balance/Gait/Functional tests Balance/Special Test Scores Lower Extremity Functional Score: 28 Improvement % Improvement: 20
== END 2025-06-10 13:06 | disposition home or self-care (01) ==
LOC: PT 10:30
PROVIDERS: PCP Family Medicine; Referring Provider Family Medicine; Visit Provider Family Medicine
DX: M84.469D Pathological fracture, unspecified tibia and fibula, subsequent encounter for fracture with routine healing (principal)
CPT/HCPCS: 97110; 97140; 97161; 97530

== ENCOUNTER → 2025-08-05 | Outpatient (CLI) | payer MEDICARE, SELFPAY ==
--- NOTE | 2025-08-05 09:48 | VDLE_ITS ---
Reason For Study Reason For Study: BIlateral leg swelling RIGHT LEFT CFV is compressible, spontaneous, phasic, competent CFV is compressible, spontaneous, phasic, competent, and demonstrates normal augmentation. and demonstrates normal augmentation. FV is compressible, spontaneous, phasic, competent FV is compressible, spontaneous, phasic, competent and demonstrates normal augmentation. and demonstrates normal augmentation. POP V is compressible, spontaneous, phasic, competent POP V is compressible, spontaneous, phasic, competent and demonstrates normal augmentation. and demonstrates normal augmentation. T/P Trunk is compressible. T/P Trunk is compressible. PTV is compressible. PTV is compressible. RT PerV is compressible. LT PerV is compressible. SFJ is competent and measures 0.62 cm. SFJ is competent and measures 0.68 cm. GSV proximal thigh measures 0.26 x 0.25 cm. GSV proximal thigh measures 0.40 x 0.40 cm. GSV at knee measures 0.21 x 0.20 cm. GSV above knee is INCOMPETENT for greater than 0.5 GSV INCOMPETENT throughout for greater than 0.5 seconds. seconds. GSV at knee measures 0.13 x 0.13 cm. ASV from junction is INCOMPETENT for greater than 0.5 GSV below knee is competent. seconds and measures 0.26 x 0.28 cm. SSV mid calf is INCOMPETENT for greater than 0.5 INCOMPETENT ems manager noted 20 cm above medial seconds and measures 0.20 x 0.17 cm. malleolus. ASV mid calf is INCOMPETENT for greater than 0.5 seconds and measures 0.22 x 0.20 cm. SSV mid calf is competent and measures 0.17 x 0.20 cm. Nonvascularized structure is noted in the popliteal fossa that measures 2.02 x 2.93 x 3.19 cm. Procedure This is a venous duplex using B-mode, color flow and spectral Doppler. Exam performed in department. Patient was scanned in reverse Trendelenburg position during reflux assessment. Compared to 05/14/2025. VL/Venous Duplex US - Beau Extrem Interpretation Summary Deep veins of the bilateral lower extremities are patent and compressible segme ntally. There is no evidence of bilateral lower extremity deep vein thrombosis. The bilateral great saphenous veins appea r patent and compressible segmentally. Positive for reflux in the right great saphenous vein throughout, accessory sap henous vein from junction, accessory saphenous vein in calf, and ems manager vein in calf. Positive for reflux in the left great saphenous vein above the knee, small saph enous vein. Ordering Physician: Maria Esther Nieto Referring Physician: Tom Alonso Performed By: Adilia Eckert RVT and Student
--- NOTE | 2025-08-05 09:48 | VDLE_ITS ---
Reason For Study Reason For Study: BIlateral leg swelling RIGHT LEFT CFV is compressible, spontaneous, phasic, competent CFV is compressible, spontaneous, phasic, competent, and demonstrates normal augmentation. and demonstrates normal augmentation. FV is compressible, spontaneous, phasic, competent FV is compressible, spontaneous, phasic, competent and demonstrates normal augmentation. and demonstrates normal augmentation. POP V is compressible, spontaneous, phasic, competent POP V is compressible, spontaneous, phasic, competent and demonstrates normal augmentation. and demonstrates normal augmentation. T/P Trunk is compressible. T/P Trunk is compressible. PTV is compressible. PTV is compressible. RT PerV is compressible. LT PerV is compressible. SFJ is competent and measures 0.62 cm. SFJ is competent and measures 0.68 cm. GSV proximal thigh measures 0.26 x 0.25 cm. GSV proximal thigh measures 0.40 x 0.40 cm. GSV at knee measures 0.21 x 0.20 cm. GSV above knee is INCOMPETENT for greater than 0.5 GSV INCOMPETENT throughout for greater than 0.5 seconds. seconds. GSV at knee measures 0.13 x 0.13 cm. ASV from junction is INCOMPETENT for greater than 0.5 GSV below knee is competent. seconds and measures 0.26 x 0.28 cm. SSV mid calf is INCOMPETENT for greater than 0.5 INCOMPETENT die maker noted 20 cm above medial seconds and measures 0.20 x 0.17 cm. malleolus. ASV mid calf is INCOMPETENT for greater than 0.5 seconds and measures 0.22 x 0.20 cm. SSV mid calf is competent and measures 0.17 x 0.20 cm. Nonvascularized structure is noted in the popliteal fossa that measures 2.02 x 2.93 x 3.19 cm. Procedure This is a venous duplex using B-mode, color flow and spectral Doppler. Exam performed in department. Patient was scanned in reverse Trendelenburg position during reflux assessment. Compared to 05/14/2025. VL/Venous Duplex US - Beau Extrem Interpretation Summary Deep veins of the bilateral lower extremities are patent and compressible segme ntally. There is no evidence of bilateral lower extremity deep vein thrombosis. The bilateral great saphenous veins appea r patent and compressible segmentally. Positive for reflux in the right great saphenous vein throughout, accessory sap henous vein from junction, accessory saphenous vein in calf, and die maker vein in calf. Positive for reflux in the left great saphenous vein above the knee, small saph enous vein. Ordering Physician: Maria Esther Nieto Referring Physician: Tom Alonso Performed By: Adilia Eckert RVT and Student
== END | disposition home or self-care (01) ==
LOC: CVS 09:48
PROVIDERS: PCP Family Medicine; Referring Provider Physician Assistant; Visit Provider Physician Assistant
DX: I87.2 Venous insufficiency (chronic) (peripheral) (principal); I83.93 Asymptomatic varicose veins of bilateral lower extremities
CPT/HCPCS: 93970